=== PATIENT | male | born 2005 ===

== ENCOUNTER 2024-12-12 15:00 | Outpatient (AMB) | payer OTHER, MEDICAID, SELFPAY ==
--- OUTSIDE RECORDS SUMMARY | 2024-12-08 13:30 | XMS_ITS | Encounter Summary ---
Author Organization [facility] Address [address] [place] [address] Care Team Providers Care Research Environmental Engineer Name Role Phone Romy rBown MD Primary Care Provider [phone] Reason for Visit * Consultation (Routine) - Authorized Specialty Diagnoses / Procedures Referred By Contalfredo t Referred To Contact Physical Therapy Diagnoses Chronic migraine with aura, not intractable, with status migrainosus Kathy Ruelas MD [address] [address] Phone: tel: fax: Referral ID Status Reason Start Date Expiration Date Visits Requested Visits Authorized [id number] Authorized Specialty Services Required 10/08/2024 10/08/2025 21 21 Encounter Details Date Type Department Care Team (Late st Contact Info) Description 12/08/2024 1:30 PM EDT Treatment Outpatient Rehabilitation [address] [address] Pablo Kat, PT Chronic migraine with aura, not intractable, with status migrainosus (Primary Dx) Social History Tobacco Use Types Packs/Day Years Used Date Smoking Tobacco: Never Assessed Sex and Gender Information Value Date Recorded Sex Assigned at Not on file Legal Sex Male 8:03 PM EDT Gender Identity Not on file Sexual Orientation Not on file documented as of this encounter Progress Notes * Pablo Kat PT - 12/08/2024 1:30 PM EDT [facility] PHYSICAL THERAPY PROGRESS NOTE Date: 12/08/2024 Visit Number: [id number] Patient Name: Herman Rodney Prefers Akira : 2005 Age: 19 y.o. Gender: male Diagnosis: ICD-10-CM ICD-9-CM 1. Chronic migraine with aura, not intractable, with status migrainosus G43.E01 346.02 Date of Onset: 09/25/2024 Date of IEPT: 10/14/24 Referring Provider: Romy Brown MD Insurance: Payor: [employer] / Plan: [facility] [employer] / Product Type: *No Product type* / Patient Identified by: Pablo Kat PT Language: Speaks and understands Cape Verdean as preferred language with no staff interpreter required Medications: Discussed current medications that may impact therapy. Medication list obtained and reviewed. Referto document in medical record. Advised Patient to contact MD with any questions regarding medications and importance of managing medication information. Past Medical History: JRA- diagnosed in 2013 Ankylosis Spondylitis- unsure of sites Chronic Migraines Asthma ADHD AMPS Past Surgical History: Botox injections q 3 months and Nerve blocks in b/w those. Infusions for Arthritis. Allergies: Allergy medication (pill)- cannot recall the name Precautions: None Fall Risk: No SUBJECTIVE: Subjective Report: Pt reports L levator scap pain=5/10 today. Chart Reviewed: Yes Pain: OBJECTIVE: Pt had multiple MTP at L levator scap and B UT.s TREATMENT INTERVENTIONS: (This Date of Service) Therapeutic Exercise: UBE 3x3 after MT Pt instructed in standing levator scap stretch with emphasis on maintaining axial extension throughout stretch to include demo and trial. Written instructions issued and reviewed w/ patient. Denies questions at this time. Manual therapy: IAMT to the aforementioned MTP's. No charge for actual DN, just pre and post palpation assessment of MTP's. Use of manual ES, 10 bouts, 10 seconds each to each needle to motor response but w/in comfort range. Discussed post DN instructions: Inc water intake for the next 24 hours, use of CP's for bruising and MH for muscle soreness. Pt agreed. Response to Therapy Session: good, pt rated L LS pain to be 4/10 after today's treatment. Pt was able to return demonstration of new HEP after instruction. Pt was able to repeat back post DN instructions. Patient Education: Education provided: Reassessment findings and progressions to date reviewed, POC and cont'd goals discussed- pt agrees as outlined. Education Provided To: Patient utilizing Explanation mode(s) of education Response to Education: Verbal Understanding PLAN POC Development/Review: No Change in the Plan of Care; Participants: Patient Pt to CB in 2-3 days to report response to IAMT. Planned Therapy Interventions: Cold Pack, E-Stim -- Unattended, Hot Pack, Manual Therapy, and Therapeutic Exercise Recommended Consults: none Equipment Recommended: none; Equipment Provided: Frequency/Duration: will schedule an additional session for dry needling and will then schedule accordingly pending results Total Treatment Time: 35 Interventions Time Entry: Modalities: Therapeutic procedures: Documentation completed by Pablo Kat PT OUTPATIENT [address] Dept: [phone] Dept PATIENT NAME: Herman Rodney : 2005 documented in this encounter Plan of Treatment Upcoming Encounters Date Type Department Care Team (Late st Contact Info) Description 12/19/2024 3:00 PM EDT Consult Pulmonolgy - [place] [address] [address] Elvin Clark MD [address] [address] 12/23/2024 1:30 PM EDT Treatment Outpatient [address] [phone] Christiano Holder PT documented as of this encounter Visit Diagnoses Diagnosis Chronic migraine with aura, not intractable, with status migrainosus- Primary documented in this encounter Care Teams Research Environmental Engineer Relationship Specialty Start Date End Date Romy Brown MD [address] [place] [address] PCP - General Pediatrics 04/28/24 documented as of this encounter
--- OUTSIDE RECORDS SUMMARY | 2024-12-11 13:30 | XMS_ITS | Encounter Summary ---
Author Organization [facility] Address [address] [place] [address] Care Team Providers Care Science Manager Name Role Phone Romy Brown MD Primary Care Provider [phone] Roe Mercado MD Unavailable [phone] Kathy Ruelas MD Unavailable [phone] Anoop Mackay MD PhD Unavailable [phone] Lata Santamaria MD Unavailable [phone] Reason for Visit * Reason Comments OT Treatment * CFC AUTH/CERT (Routine) - Authorized Specialty Diagnoses / Procedures Referred By Medhat conway Referred To Contact Occupational Therapy Diagnoses OT rx exp: 01/17/25 Procedures BIOFEEDBACK EVAL 45 Cami Wilkerson APRN [address] [place] [address] Phone: tel: fax: Lorenza Young OTR/L [address] [place] [address] Referral ID Status Reason Start Date Expiration Date V isits Requested Visits Authorized [id number] Authorized 11/17/2024 12/30/2024 1 999 Encounter Details Date Type Department Care Team (Late st Contact Info) Description 12/11/2024 1:30 PM EDT Therapy Department of Occupational Therapy [address] [place], [place] [phone] Lorenza Young OTR/Asher [address] [place] [address] Self-care deficit (Primary Dx); CHARLY (juvenile idiopathic arthritis), enthesitis related arthritis; Chronic migraine with aura and with status migrainosus, not intractable; Amplified musculoskeletal pain syndrome; Psychological factors affecting medical condition Social History Tobacco Use Types Packs/Day Years Used Date Smoking Tobacco: Never Passive Smoke Exposure: Never Smokeless Tobacco: Never Alcohol Use Standard Drinks/Week Comments Never 0 (1 standard drink = 0.6 oz pur e alcohol) Sex and Gender Information Value Date Recorded Sex Assigned at Not on file Legal Sex Male 2:22 AM EST Gender Identity Not on file Sexual Orientation Not on file documented as of this encounter Patient Instructions * Patient Instructions* HATTIE Tyler/Asher - 12/11/2024 1:30 PM EDT Images from the original note were not included. Aromatherapy Uses and Precautions What is aromatherapy? Aromatherapy is a holistic healing treatment that uses natural plant extracts to promote health andwell-being. It is also known as essential oil therapy. What are essential oils? Potent oils that are extracted from plants and evaporate at room temperature. They typically have astrong fragrance, but should not be confused with fragrance oils (many of which are synthetic/chemically made). Are essential oils safe to use with children? Not all essential oils are safe for children. All essential oils that are used on children should be diluted in a carrier oil. [place] oils, such as lemon, paskenta, grapefruit, orange, and Bergamot, can increase sensitivity to thesun for 24 hours after use, when applied to the skin. Do not allow children to ingest essential oils. Do not add undiluted essential oils to a child's bathwater or their skin. Keep essential oils out of reach and try to find child resistant caps. Do not apply EO's to or near a child's face. Do not place EO's or preparations into the nose of a child. Do not expose children 5yo or younger to strong EO vapors. Do not use EO's in premature infants. Avoid use of EO's with children who have asthma or other airway hyper-reactivity. Sweet birch and Rentz Eos should be completely avoided in children. Essential oil dilutions should first be applied in a test patch to make sure the child does not have a negative skin reaction. Sterling (2014) How to choose your Essential Oil for Purchase: Essential oils are not regulated by the Food and Drug Administration, so not all of the same type of oil, sold by different companies, are the same quality. Essential oils by 1 type of plant can have different effects than another type. For example, there are over 45 types of Lavender and some are calming and some are stimulating. Read the label - the label should include: Common Name (ie. Lavender) Latin/botanical name (Lavandula Angustifolia) - Where the plant was sourced (Country of Origin) - Part of the plant that was used (flower, leaf, stem, root) - How the Essential Oil was extracted/processed (cold pressed, steam distilled, etc) - Lot number and expiration date - 3rd Green Party Tested - Testing is referenced and the testing can be looked up or produced upon request Cheaper is not always better. Beware buying essential oils from the [employer], Diary.com, etc, as they can be labeled Pure or Natural, but contain manmade chemicals or no essential oil at all, because they are not regulated by the FDA. Carrier Oils to Consider: Coconut oil, apricot kernel oil, olive oil, safflower, jojoba, sweet almond, etc. Each oil can have different qualities - warming or cooling, good for the face, etc. Complete a test patch first. Test Patch: Place a small amount on the inside of your child's wrist (carrier oil and/or essential oil diluted in carrier oil); watch for any skin irritation, rash, etc. If skin irritation or reaction occurs, wash completely with unscented soap and water for 10 minutes and consider an oatmeal bath if skin remains irritated. Safe Dilution rate for Topical/Skin use for children Amarilis (2015) Age Drops Dilution Rate Preemies [place] only - Hydrosols N/A [place] to 6 months 1drop in 20 mL 0.25% 6 months to 2 years 1 drop in 10 mL 0.5% 2 to 5 years 1 drop in 5 mL 1% 5 to 10 years 1-2 drops in 5 mL 1-2% More than 10 years 1 to 5 drops in 5mL 1-5% Baths: Essential oils should be diluted with castile soap, shampoo, shower gel, or vegetable oils before being placed in a bath. DO NOT USE: milk, salt, soda, corn starch, Witch Mary Kay, Glycerin, or Aloe gel - all of these are water soluble and will not dilute the Essential Oil. For children 2-6 yrs old: Mix 1 Tablespoon of the castile soap, shampoo, shower gel, or vegetable oils and 2-4 drops of essential oil, then place it in the bath. For children 6 and older: Mix 1 Tablespoon of the castile soap, shampoo, shower gel, or vegetable oils and 3-5 drops of essential oil before adding it to a bath. References Lay Olmos (2015). Clinical Aromatherapy: Essential Oils in Healthcare, Edition 3. Elsevier: [place], [place]. [employer].org Sam Katz & Sam Howard (2014). Essential Oil Safety: The Guide for Health Pet Technologist, 2nd Edition. [facility]. Begin trying to get up at the same time each day. (Possibly 10) - Eating breakfast - granola bar, protein source - PB, yogurt, etc.) - shake currently in the morning - Brushing teeth, getting dressed - Try to complete 1 thing in the morning - walk the dogs, do 1 chore, etc - Try eating lunch - leftovers from the night before, etc - Relaxation activity - computer, go sit outside in the sun, take a short walk, woodworking for 10 minutes, etc - Try to complete 1 activity in the afternoon - pick up driver laundry from floor in your room - Dinner - Relaxation Try staying out of your bed during the day, don't get in bed until you are ready to go to sleep. Try the TENS unit several times this week and see if you are getting any relief. Binaural beats for sleep - do a youtube search Try audible books or reading book - Try [place] Sleep Strategies for Difficulty Falling or Staying Asleep - Journal or write your thoughts down before bed - Read a book - Complete diaphragmatic or square breathing to help to relax you - Try Progressive Muscle Relxation - Play the alphabet game - choose a category and try to come up with 1 item for each letter of the alphabet (Fruits/Veggies - A- apple, B Beets, etc) - Count sheep or other animals - Try counting backwards from a random number by 4's, 5's, 7's, etc. - If you can't fall asleep within 20 minutes, try getting out of bed and sitting in a chair to reada book, look through a magazine, or other quiet activity (not screen time) for up to 15 minutes before trying to get back into bed. documented in this encounter Progress Notes * SUZANNE Tyler - 12/11/2024 1:30 PM EDT Occupational Therapy Progress Note Patient Name: Herman Noguera) Date of : 2005 Diagnosis: (Z78.9) Self-care deficit (primary encounter diagnosis) (M08.80) CHARLY (juvenile idiopathic arthritis), enthesitis related arthritis (G43.E01) Chronic migraine with aura and with status migrainosus, not intractable (M79.18, G89.4) Amplified musculoskeletal pain syndrome (F54) Psychological factors affecting medical condition Precautions/Contraindications: Index Date of Visit: 12/11/2024 Start Time: 1330 End Time: 1435 Pain: Numeric Pain Scale Pre treatment Pain Score: 6 Location: neck and shoulders Post treatment Pain Score: 4 Location: neck and shoulders Subjective: Patient/Family report since last session: He is on hold for PT till after pain management appointment. He did try to use the TENS unit a couple times this week, not sure if overly helpful. Better with getting out of bed around the same time - by 10AM, some mornings earlier. Trying to eat breakfast.Went to the gym, but was then sore for a 3-4 days. Patient/Parent report performing home exercise program: consistently Objective: Hot pack with Pain neuroscience education Neck lateral flexion and rotation exercises Goals for week reviewed - able to get up by 10 everyday, eating breakfast, but no AM activities/exercise/other activity at this time Increased effort for woodworking later in the day Education on sleep strategies Care Plan: Occupational Therapy Care Plan - 12/11/24 1411 Pediatric OT Care Plan OT Care Plan Status Continuing Visit Tracking 05/14 LTG to be met by: 02/17/25 STG to be met by: 12/18/24 Number of LTGs 2 Blood Bank Laboratory Technician Goal 1 LTG 1 Akira will demonstrate ability to make tool box for strategies for dealing with pain and utilize 2-3 tools when experiencing pain 50% of the time by the end of the plan of care. LTG 1 - Established 11/17/24 LTG 1 - Outcome In Progress LTG 1 - Outcome Comments still working on strategies, including sleep strategies Blood Bank Laboratory Technician Goal 2 LTG 2 Akira will be able to make and follow a functional daily schedule to promote participation inmeaningful activities LTG 2 - Established 11/17/24 LTG 2 - Outcome In Progress LTG 2 - Outcome Comments continuing to tackle brief schedule [id number] each week, goal for next week is to incorporate at least 1 activity into morning routine - chore, walking the dogs, etc STG 1 STG 1 Akira will be able to engage in at least 15 minutes of exercise/physical activity each day 75% of days by end of 4th week. STG 1 - Established 11/17/24 STG 1 - Outcome In Progress STG 1 - Outcome Comments he did attend PT and the gym x1, then was sore for 4 days STG 2 STG 2 Akira will be able to engage in at least 3-4 meals or snacks per day by end of 4th week. STG 2 - Established 11/17/24 STG 2 - Outcome In Progress STG 2 - Outcome Comments he is now eating at least breakfast, dinner and 1 snack Assessment: Akira continues to progress very gradually [id number] with continued decreased activity level. Will continue to educate on PNE and work on coping strategies/sleep/etc. Procedures Administered: Therapeutic Exercise: Time Spent: 10minutes ROM Therapeutic Activities: Time Spent: 55minutes self regulation and behavior strategies Prognosis: fair and good Education Provided: Updated home exercise program Plan: Recommendation for Occupational Therapy: Patient will continue to be treated using skilled Occupational Therapy services addressing their body structures/functions, activity participation, restrictions and goals. Frequency: 1x per week Duration: 12 weeks until updated plan of care to be updated on 02/17/25. At next session work on more digital daily schedule, explore exercise. Abbreviations: HEP (home exercise program), L (left), R (right), B (bilateral), A (assist), min (minimum), mod (moderate), max (maximum), WICHITA (hand over hand), bpm (beats per minute), HR (heart rate), BP (blood pressure), rep(s) (repetitions), WOB (work of breathing), WNL (within normal limits), WFL (within functional limits); LOB (loss of balance), CGA (contact guard assist), OOB (out of Bed), EOB (Edge of bed), ROM (range of motion), PROM (passive range of motion), AROM (active range of motion), AAROM (active assisted range of motion), MMT (manual muscle testing), LE (lower extremity), UE (upper extremity), < (less than), > (greater than), </= (less than or equal to), NT (not tested), OT (occupational therapy), PT (physical therapy), FOOD PRODUCT INSPECTOR (Speech-Language Pathologist), WB (weight bearing), WS (weight shift), wc (wheelchair), GM (gross motor), FM (fine motor), TLP (Therapeutic Listening), AVS (after visit summary) documented in this encounter Plan of Treatment Upcoming Encounters Date Type Department Care Team (Late st Contact Info) Description 12/18/2024 1:30 PM EDT Therapy Department of Occupational Therapy [address] [place] [phone] Lorenza Young OTR/L [address] [place] [address] 12/19/2024 11:30 AM EDT Office Visit [facility], Department of Pain Medicine, [place] [address] [place] [phone] Cami Wilkerson APRN [address] [place] [address] 12/22/2024 12:30 PM EDT [facility] [address] [facility] 2nd [place] [address] CHARLY (juvenile idiopathic arthritis) (Primary Dx) 12/25/2024 11:00 AM EDT Telemedicine Support [facility] [address] [facility], 9th Floor [address] [place] [phone] Darrell Velazquez Psy.D. [address] [place] [address] 12/25/2024 1:30 PM EDT Therapy Department of Occupational Therapy [address] [place] [address] Lorenza Young, OTR/L [address] [place] [phone] 01/01/2025 1:30 PM EDT Therapy Department of Occupational Therapy [address] [place] [address] Lorenza Young, OTR/L [address] [place] [address] 01/08/2025 1:30 PM EDT Therapy Department of Occupational Therapy [address] [place] [address] Lorenza Young, OTR/L [address] [place] [address] 01/15/2025 1:30 PM EDT Therapy Department of Occupational Therapy [address] [place] [address] Lorenza Young, OTR/L [address] [place] [address] 01/19/2025 12:30 PM EDT Appointment [facility] [address] [place] [address] 01/22/2025 1:30 PM EDT Therapy Department of Occupational Therapy [address] [place] [address] Lorenza Young OTR/L [address] [place] [address] 01/28/2025 3:30 PM EDT Appointment [facility] [address] [place] [phone] Anselmo De Santiago MD [address] [place] [address] 01/29/2025 1:30 PM EDT Therapy Department of Occupational Therapy [address] [place] [address] Lorenza Young, OTR/L [address] [place] [address] 02/05/2025 1:30 PM EST Therapy Department of Occupational Therapy [address] [place] [address] Lorenza Young, OTR/L [address] [place] [address] 02/11/2025 12:45 PM EST Appointment [facility] [address] [place] [phone] Anselmo De Santiago MD [address] [place] [address] 02/12/2025 1:30 PM EST Therapy Department of Occupational Therapy [address] [place] [address] Lorenza Young, OTR/L [address] [place] [address] 02/19/2025 1:30 PM EST Therapy Department of Occupational Therapy [address] [place] [address] Lorenza Young, OTR/L [address] [place] [address] 02/25/2025 9:00 AM EST Office Visit [facility] Gastroenterology, [address] [address] Lata Santamaria MD [address] [place], [place] [phone] 03/04/2025 12:00 PM EST Appointment [facility] [address] [place] [phone] Anselmo De Santiago MD [address] [place], [place] [phone] 05/21/2025 2:00 PM EST Office Visit [facility], Department of Rheumatology, [place] [address] [place] [address] Stephanie Diaz MD [address] [place] [phone] documented as of this encounter Visit Diagnoses Diagnosis Self-care deficit- Primary CHARLY (juvenile idiopathic arthritis), 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 Chronic migraine with aura and with status migrainosus, not intractable Amplified musculoskeletal pain syndrome Unspecified myalgia and myositis Psychological factors affecting medical condition Psychic factors associated with diseases classified elsewhere CHARLY (juvenile idiopathic arthritis)- Primary Other specified inflammatory polyarthropathies documented in this encounter Care Teams Science Manager Relationship Specialty Start Date End Date Romy Brown MD [address] [place] [address] [address] [place] [address] PCP - General 11/12/15 Roe Mercado MD [address] [place] [address] Consulting Physician Neurology 10/31/18 Kathy Ruelas MD [address] [place] [address] Consulting Physician Pain Medicine 10/31/18 Anoop Mackay MD PhD [address] [facility] [address] [place] [address] Consulting Physician Pediatric Pulmonology 01/08/22 Lata Santamaria MD [address] [place] [address] Consulting Physician Gastroenterology 11/15/23 Marni Smallwood LCSW [facility] [address] [facility] [address] [facility] [address] Behavioral Health Clinician Behavioral Health 03/14/22 documented as of this encounter
[2024-12-12 15:01] VITALS: BP 114/60; PULSE 98; O2SAT 102; BMI 20.8
--- NOTE | 2024-12-12 15:01 | A.OFFVIS_ITS ---
Vital Signs 12/12/24 15:01 Height 6 ft 4 in Weight 171 lb BMI 20.8 BP 114/60 Blood Pressure Location Rt brachial Position Sitting Pulse 98 Pulse Source Pulse Oximeter Pulse Oximetry (%) 102 H Oxygen Delivery Method Room Air Intake Visit Reasons: asthma Allergies beclomethasone (From Qvar RediHaler) Allergy (Severe, Verified 12/12/24 15:07) Unknown HPI Comments Details: The patient is here for pulmonary evaluation. 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 His asthma had been followed closely by pediatric Pulmonary for many years. He was not Wixela and ultimately on a rescue inhaler. He has been struggling with his asthma symptoms. The patient did have blood work done demonstrating significant eosinophilia up to 800. The family was wondering if the use it Fasenra be effective in improving his overall symptoms. In addition to the asthma symptoms he has complaint of significant chronic headaches and daytime drowsiness. His Brussels score is elevated 13/24. He struggles to stay awake. The patient states that for the last year he has had significant amount of weight loss and even after sleeping 8-10 hours he still wakes up tired. He has never had a home sleep study at this point will request 1. The patient also has a diagnosis of rheumatoid arthritis follow it could they could [facility] he does get his biologic infusions there. Will go ahead and request additional blood work to see if this any potential connective tissue disease affect his breathing or immunosuppressive condition affected by the medication. The patient will continue with his current respiratory therapy for now hopefully we can start him on Fasenra soon. In the meantime the patient will have pulmonary function studies and a chest x-ray prior to the next visit. FOR[facility]LY [facility], [facility] Medical History (Updated 12/14/24 @ 20:30 by Jovanny Smith MD) Chronic headaches Juvenile rheumatoid arthritis Asthma Chronic fatigue Social History (Updated 12/12/24 @ 15:07 by ERIKA Jorge) Patient Tobacco Use Status: Never used Tobacco Review of Systems Const Reports body aches, Denies fever(s) and Reports headache(s) Eyes Reports no additional complaints ENT Reports headache(s) and Reports nasal congestion Card Denies chest pain Resp Reports cough and Reports wheezing GI Reports heartburn Musc Reports as per HPI, Reports arthralgias, Reports joint swelling and Reports limited range of motion Skin/Breast Denies rash Neuro Reports headache(s) Gustavo/Lymph Reports no additional complaints Aller/Immun Reports wheezing Physical Exam Vital Signs: Last Vital Signs Pulse 98 12/12/24 15:01 BP 114/60 12/12/24 15:01 Pulse Ox 102 H 12/12/24 15:01 Oxygen Delivery Method Room Air 12/12/24 15:01 BMI result Body Mass Index 20.8 Const General: comfortable Orientation/consciousness: patient oriented x3 HEENT Head: Yes normocephalic Neck Neck: Yes supple Chest Chest palpation & inspection: normal inspection of the chest Resp Effort & Inspection: normal respiratory effort Auscultation: diminished lung sounds Cardio Heart sounds: S1 normal heart sound present and S2 normal heart sound present GI Palpation (GI): Soft to palpation Skin General skin exam: no rashes or lesions noted Neuro General: patient oriented x3 Extrem General: Yes no clubbing, cyanosis or edema Assessment & Plan Assessment & Plan (1) Chronic fatigue: Code(s): R53.82 - Chronic fatigue, unspecified Category: Medical (2) Asthma: Comment: Eosinophilic asthma Code(s): J45.909 - Unspecified asthma, uncomplicated Category: Medical Qualifiers: Asthma severity: moderate Asthma persistence: persistent Asthma complication type: uncomplicated Qualified Code(s): J45.40 - Moderate persistent asthma, uncomplicated (3) Juvenile rheumatoid arthritis: Code(s): M08.00 - Unspecified juvenile rheumatoid arthritis of unspecified site Category: Medical (4) PATI (obstructive sleep apnea): Code(s): G47.33 - Obstructive sleep apnea (adult) (pediatric) Category: Medical (5) Chronic headaches: Code(s): R51.9 - Headache, unspecified; G89.29 - Other chronic pain Category: Medical Qualifiers: Headache type: unspecified Plan Continue Wixela ALVIN as needed continue Singulair Start Fasenra Home PSG PFTs F/U 2 months Orders: Orders ANCA Vasculitides 12/12/24 J45.909 - Unspecified asthma, uncomplicated, M08.00 - Unspecified juvenile rheumatoid arthritis of unspecified site, R53.82 - Chronic fatigue, unspecified Hypersensitive Pneumonitis Prf 12/12/24 J45.909 - Unspecified asthma, uncomplicated, M08.00 - Unspecified juvenile rheumatoid arthritis of unspecified site, R53.82 - Chronic fatigue, unspecified, R91.8 - Other nonspecific abnormal finding of lung field PFT pulmonary function test Today J45.40 - Moderate persistent asthma, uncomplicated Complete Blood Count Auto Diff 12/12/24 J45.909 - Unspecified asthma, uncomplicated, M08.00 - Unspecified juvenile rheumatoid arthritis of unspecified site, R53.82 - Chronic fatigue, unspecified Erythrocyte Sedimentation Rate 12/12/24 J45.909 - Unspecified asthma, uncomplicated, M08.00 - Unspecified juvenile rheumatoid arthritis of unspecified site, R53.82 - Chronic fatigue, unspecified Immunoglobulin E 12/12/24 J45.909 - Unspecified asthma, uncomplicated, M08.00 - Unspecified juvenile rheumatoid arthritis of unspecified site, R53.82 - Chronic fatigue, unspecified Immunoglobulins,IgG IgA IgM 12/12/24 J45.909 - Unspecified asthma, uncomplicated, M08.00 - Unspecified juvenile rheumatoid arthritis of unspecified site, R53.82 - Chronic fatigue, unspecified TSH reflex Free T4 12/12/24 J45.909 - Unspecified asthma, uncomplicated, M08.00 - Unspecified juvenile rheumatoid arthritis of unspecified site, R53.82 - Chronic fatigue, unspecified Testosterone, Total 12/12/24 J45.909 - Unspecified asthma, uncomplicated, M08.00 - Unspecified juvenile rheumatoid arthritis of unspecified site, R53.82 - Chronic fatigue, unspecified RT home sleep study Today G47.33 - Obstructive sleep apnea (adult) (pediatric) Coding Level of Care Code New Pt Level 5 (32107) Diagnoses Chronic fatigue R53.82 Moderate persistent asthma without complication J45.40 Asthma severity: moderate Asthma persistence: persistent Asthma complication type: uncomplicated Juvenile rheumatoid arthritis M08.00 PATI (obstructive sleep apnea) G47.33 Chronic headaches R51.9; G89.29 Headache type: unspecified Time Spent (min) 60
--- OUTSIDE RECORDS SUMMARY | 2024-12-12 17:33 | XMS_ITS | Encounter Summary ---
Author Organization [facility] Address [address] [place] [address] Care Team Providers Care Production Solderer Name Role Phone Romy Brown MD Primary Care Provider [phone] Roe Mercado MD Unavailable [phone] Kathy Ruelas MD Unavailable Anoop Mackay MD PhD Unavailable [phone] Lata Santamaria MD Unavailable [phone] Reason for Visit * Reason Comments Medication Refill Encounter Details Date Type Department Care Team ([facility] st Contact Info) Description 08/12/2021 Refill [facility], Department of Pain Medicine, [address] [place] [address] Kathy Ruelas MD [address] [place], [place] [phone] Chronic migraine with aura Social History Tobacco Use Types Packs/Day Years Used Date Smoking Tobacco: Never Smokeless Tobacco: Never Alcohol Use Standard Drinks/Week Comments Never 0 (1 standard drink = 0.6 oz pur e alcohol) Sex and Gender Information Value Date Recorded Sex Assigned at Not on file Legal Sex Male 2:22 AM EST Gender Identity Not on file Sexual Orientation Not on file documented as of this encounter Miscellaneous Notes * Telephone Encounter - Samia Kenny RN - 08/12/2021 4:17 PM EDT Refill request for propranolol Last visit 04/21/21 Next visit 08/18/21 RN forward update to provider documented in this encounter Plan of Treatment Upcoming Encounters Date Type Department Care Team (Late st Contact Info) Description 12/18/2024 1:30 PM EDT Therapy Department of Occupational Therapy [address] [place] [address] Lorenza Young OTR/L [address] [place] [address] 12/19/2024 11:30 AM EDT Office Visit [facility], Department of Pain Medicine, [place] [address] [place] [address] Cami Wilkerson APRN [address] [place] [address] 12/22/2024 12:30 PM EDT Hospital Encounter Infusion Center 10 [facility] 2nd [place] [address] CHARLY (juvenile idiopathic arthritis) (Primary Dx) 12/25/2024 11:00 AM EDT Telemedicine Support [facility] [address] [place] [address] [address] [facility], 9th Floor [address] [place] [phone] Darrell Velazquez Psy.D. [address] [place] [address] 12/25/2024 1:30 PM EDT Therapy Department of Occupational Therapy [address] [place] [address] Lorenza Young OTR/L [address] [place] [address] 01/01/2025 1:30 PM EDT Therapy Department of Occupational Therapy [address] [place] [address] Lorenza Young, OTR/L [address] [place] [address] 01/08/2025 1:30 PM EDT Therapy Department of Occupational Therapy [address] [place] [address] Lorenza Young, OTR/L [address] [place] [address] 01/15/2025 1:30 PM EDT Therapy Department of Occupational Therapy [address] [place] [address] Lorenza Young, OTR/L [address] [place] [address] 01/19/2025 12:30 PM EDT Appointment [facility] [address] [place] [phone] 01/22/2025 1:30 PM EDT Therapy Department of Occupational Therapy [address] [place] [address] Lorenza Young, OTR/L [address] [place], [place] [phone] 01/28/2025 3:30 PM EDT Appointment [facility] [address] [place] [phone] Anselmo De Santiago MD [address] [place] [address] 01/29/2025 1:30 PM EDT Therapy Department of Occupational Therapy [address] [place] [address] Lorenza Young, OTR/L [address] [place] [address] 02/05/2025 1:30 PM EST Therapy Department of Occupational Therapy [address] [place] [address] Lorenza Young OTR/L [address] [place] [address] 02/11/2025 12:45 PM EST Appointment [facility] [address] [place] [phone] Anselmo De Santiago MD [address] [place] [address] 02/12/2025 1:30 PM EST Therapy Department of Occupational Therapy [address] [place], [place] [phone] Lorenza Young, OTR/L [address] [place] [address] 02/19/2025 1:30 PM EST Therapy Department of Occupational Therapy [address] [place], [place] [phone] Lorenza Young, OTR/L [address] [place] [address] 02/25/2025 9:00 AM EST Office Visit [facility] Gastroenterology, [address] [address] Lata Santamaria MD [address] [place] [address] 03/04/2025 12:00 PM EST Appointment [facility] [address] [place] [phone] Anselmo De Santiago MD [address] [place] [address] 05/21/2025 2:00 PM EST Office Visit [facility], Department of Rheumatology, [address] [address] Stephanie Diaz MD [address] [place] [address] documented as of this encounter Visit Diagnoses Diagnosis Chronic migraine with aura CHARLY (juvenile idiopathic arthritis)- Primary Other specified inflammatory polyarthropathies documented in this encounter Care Teams Production Solderer Relationship Specialty Start Date End Date Romy Brown MD [address] [facility] [address] [place] [phone] PCP - General 11/12/15 Roe Mercado MD [address] [place] [address] Consulting Physician Neurology 10/31/18 Kathy Ruelas MD [address] [place] [address] Consulting Physician Pain Medicine 10/31/18 Anoop Mackay MD PhD [address] [phone] Consulting Physician Pediatric Pulmonology 01/08/22 Lata Santamaria MD [address] [place] [address] Consulting Physician Gastroenterology 11/15/23 Nery Alvarado, PhD [address] [place] [address] [address] [place] [address] Psychologist Psychology 10/31/18 11/02/21 Marni Smallwood [facility] [address] [facility] [address] [facility] [address] Behavioral Health Clinician Behavioral Health 03/14/22 documented as of this encounter
--- OUTSIDE RECORDS SUMMARY | 2024-12-12 17:33 | XMS_ITS | Encounter Summary ---
Author Organization [facility] Address [address] [place] [address] Care Team Providers Care Senior Environmental Scientist Name Role Phone Romy Brown MD Primary Care Provider Clayton Bazzi MD Unavailable Roe Mercado MD Unavailable [phone] Kathy Ruelas MD Unavailable [phone] Anoop Mackay MD PhD Unavailable [phone] Lata Santamaria MD Unavailable [phone] Reason for Visit * Reason Comments Medication Refill Encounter Details Date Type Department Care Team (Late st Contact Info) Description 04/08/2020 Refill [facility], Department of Pain Medicine, [address] [place] [address] Anselmo De Santiago MD [address] [place], [place] [phone] Chronic migraine (Primary Dx) Social History Tobacco Use Types [...] Telephone Encounter - Samia Kenny RN - 04/08/2020 11:49 AM EST Refill request for Botox which will be scheduled after 05/13/20 Last procedure 02/11/20 RN forward to provider. documented in this encounter Plan of Treatment Upcoming Encounters Date Type Department Care Team (Late st Contact Info) Description 12/18/2024 1:30 PM EDT Therapy Department of Occupational Therapy [address] [place] [phone] Lorenza Young, OTR/L [address] [place] [address] 12/19/2024 11:30 AM EDT Office Visit [facility], Department of Pain Medicine, [place] [address] [place] [address] Cami Wilkerson APRN [address] [place] [address] 12/22/2024 12:30 PM EDT Hospital Encounter Infusion Center 10 [facility] 2nd [place] [address] CHARLY (juvenile idiopathic arthritis) (Primary Dx) 12/25/2024 11:00 AM EDT Telemedicine Support [facility] [address] 85 [facility], 9th Floor [address] [place] [phone] Darrell Velazquez Psy.D. [address] [place] [address] 12/25/2024 1:30 PM EDT Therapy Department of Occupational Therapy [address] [place] [address] Lorenza Young, OTR/L [address] [place] [address] 01/01/2025 1:30 PM EDT Therapy Department of Occupational Therapy [address] [place], [place] [phone] Lorenza Young, OTR/L [address] [place] [address] 01/08/2025 1:30 PM EDT Therapy Department of Occupational Therapy [address] [place], [place] [phone] Lorenza Young, OTR/L [address] [place] [address] 01/15/2025 1:30 PM EDT Therapy Department of Occupational Therapy [address] [place] [address] Lorenza Young, OTR/L [address] [place] [address] 01/19/2025 12:30 PM EDT Appointment [facility] [address] [place] [phone] 01/22/2025 1:30 PM EDT Therapy Department of Occupational Therapy [address] [place] [address] Lorenza Young, OTR/L [address] [place] [address] 01/28/2025 3:30 PM EDT Appointment [facility] [address] [place] [phone] Anselmo De Santiago MD [address] [place], [place] [phone] 01/29/2025 1:30 PM EDT Therapy Department of Occupational Therapy [address] [place] [address] Lorenza Young, OTR/L [address] [place] [address] 02/05/2025 1:30 PM EST Therapy Department of Occupational Therapy [address] [place] [address] Lorenza Young, OTR/L [address] [place] [address] 02/11/2025 12:45 PM EST Appointment [facility] [address] [place] [phone] Anselmo De Santiago MD [address] [place] [address] 02/12/2025 1:30 PM EST Therapy Department of Occupational Therapy [address] [place], [place] [phone] Lorenza Young OTR/L [address] [place] [address] 02/19/2025 1:30 PM EST Therapy Department of Occupational Therapy [address] [place] [address] Lorenza Young, OTR/L [address] [place] [address] 02/25/2025 9:00 AM EST Office Visit [facility] Gastroenterology, [address] [address] Lata Santamaria MD [address] [place] [address] 03/04/2025 12:00 PM EST Appointment [facility] [address] [place] [phone] Anselmo De Santiago MD [address] [place] [address] 05/21/2025 2:00 PM EST Office Visit [facility], Department of Rheumatology, [address] [address] Stephanie Diaz MD [address] [place] [address] documented as of this encounter Visit Diagnoses Diagnosis Chronic migraine- Primary CHARLY (juvenile idiopathic arthritis)- Primary Other specified inflammatory polyarthropathies documented in this encounter Care Teams Senior Environmental Scientist Relationship Specialty Start Date End Date Romy Bronw MD [address] [facility] [address] [place] [phone] PCP - General 11/12/15 Clayton Bazzi MD [address] [place] [address] Consulting Physician Pediatric Rheumatology 10/31/18 Roe Mercado MD [address] [place] [address] Consulting Physician Neurology 10/31/18 Kathy Ruelas MD [address] [place] [address] Consulting Physician Pain Medicine 10/31/18 Anoop Mackay MD PhD [address] [phone] Consulting Physician Pediatric Pulmonology 01/08/22 Lata Santamaria MD [address] [place] [address] Consulting Physician Gastroenterology 11/15/23 Nery Alavrado, PhD [address] [place] [address] [address] [place] [address] Psychologist Psychology 10/31/18 11/02/21 Marni Smallwood [facility] [address] [address] Behavioral Health Clinician Behavioral Health 03/14/22 documented as of this encounter
--- OUTSIDE RECORDS SUMMARY | 2024-12-12 17:33 | XMS_ITS | Encounter Summary ---
Author Organization [facility] Address [address] [place] [address] Care Team Providers Care Assessment Nurse Practitioner Name Role Phone Romy Brown MD Primary Care Provider Clayton Bazzi MD Unavailable Roe Mercado MD Unavailable [phone] Kathy Mims MD Unavailable Anoop Mackay MD PhD Unavailable [phone] Lata Santamaria MD Unavailable [phone] Reason for Visit * Reason Comments Medication Refill Encounter Details Date Type Department Care Team (Late st Contact Info) Description 12/27/2018 Refill [facility], Department of Pain Medicine, [address] [place] [address] Kathy Mims MD [address] [place], [place] [phone] Chronic migraine without aura with status migrainosus, not intractable Social History Tobacco Use Types Packs/Day Years Used Date Smoking Tobacco: Never Alcohol Use Standard Drinks/Week Comments Not Asked 0 (1 standard drink = 0.6 oz pur e alcohol) Sex and Gender Information Value Date Recorded Sex Assigned at Not on file Legal Sex Male 2:22 AM EST Gender Identity Not on file Sexual Orientation Not on file documented as of this encounter Miscellaneous Notes * Telephone Encounter - Ledy Murrell RN - 12/31/2018 9:45 AM EDT Last seen on 12/04/[address] Mims Last filled on 10/23/18 F/u scheduled for 02/05/19 documented in this encounter Plan of Treatment Upcoming Encounters Date Type Department Care Team (Late st Contact Info) Description 12/18/2024 1:30 PM EDT Therapy Department of Occupational Therapy [address] [place] [phone] Lorenza Young, OTR/L [address] [place] [address] 12/19/2024 11:30 AM EDT Office Visit [facility], Department of Pain Medicine, [place] [address] [place] [address] Cami Wilkerson APRN [address] [place] [address] 12/22/2024 12:30 PM EDT Hospital Encounter Infusion [facility] 10 [facility] 2nd [place] [address] CHARLY (juvenile idiopathic arthritis) (Primary Dx) 12/25/2024 11:00 AM EDT Telemedicine Support [facility] [address] [place] 85 [facility], 9th Floor [address] [place] [phone] Darrell Velazquez Psy.D. [address] [place] [address] 12/25/2024 1:30 PM EDT Therapy Department of Occupational Therapy [address] [place] [address] Lorenza Young, OTR/L [address] [place] [address] 01/01/2025 1:30 PM EDT Therapy Department of Occupational Therapy [address] [place] [address] Lorenza Young, OTR/L [address] [place] [address] 01/08/2025 1:30 PM EDT Therapy Department of Occupational Therapy [address] [place] [address] Lorenza Young, OTR/L [address] [place] [address] 01/15/2025 1:30 PM EDT Therapy Department of Occupational Therapy [address] [place] [address] Lorenza Young, OTR/L [address] [place] [address] 01/19/2025 12:30 PM EDT Appointment [facility] [address] [place] [phone] 01/22/2025 1:30 PM EDT Therapy Department of Occupational Therapy [address] [place] [address] Lorenza Young, OTR/L [address] [place], [place] [phone] 01/28/2025 3:30 PM EDT Appointment [facility] [address] [place] [phone] Anselmo De Santiago MD [address] [place] [address] 01/29/2025 1:30 PM EDT Therapy Department of Occupational Therapy [address] [place] [address] Lorenza Young, OTR/L [address] [place] [address] 02/05/2025 1:30 PM EST Therapy Department of Occupational Therapy [address] [place] [address] Lorenza Young, OTR/L [address] [place] [address] 02/11/2025 12:45 PM EST Appointment [facility] [address] [place] [phone] Anselmo De Santiago MD [address] [place] [address] 02/12/2025 1:30 PM EST Therapy Department of Occupational Therapy 10 [place], [place] [phone] Samydwight Lorenza, OTR/L [address] [place] [address] 02/19/2025 1:30 PM EST Therapy Department of Occupational Therapy 10 [place], [place] [phone] Samydwight Lorenza, OTR/L [address] [place] [address] 02/25/2025 9:00 AM EST Office Visit [facility] Gastroenterology, [address] [address] Lata Santamaria MD [address] [place] [address] 03/04/2025 12:00 PM EST Appointment [facility] [address] [place] [phone] Anselmo De Santiago MD [address] [place] [address] 05/21/2025 2:00 PM EST Office Visit [facility], Department of Rheumatology, [address] [address] Stephanie Diaz MD [address] [place] [address] documented as of this encounter Visit Diagnoses Diagnosis Chronic migraine without aura with status migrainosus, not intractable CHARLY (juvenile idiopathic arthritis)- Primary Other specified inflammatory polyarthropathies documented in this encounter Care Teams Assessment Nurse Practitioner Relationship Specialty Start Date End Date Romy Brown MD 123 [facility] [address] [place] [phone] PCP - General 11/12/15 Clayton Bazzi MD [address] [place] [address] Consulting Physician Pediatric Rheumatology 10/31/18 Roe Mercado MD [address] [place] [address] Consulting Physician Neurology 10/31/18 Kathy Mims MD [address] [place] [address] Consulting Physician Pain Medicine 10/31/18 Anoop Mackay MD PhD [address] [phone] Consulting Physician Pediatric Pulmonology 01/08/22 Lata Santamaria MD [address] [place] [address] Consulting Physician Gastroenterology 11/15/23 Nery Alvarado, PhD [address] [place] [address] [address] [place] [address] Psychologist Psychology 10/31/18 11/02/21 Marni [facility] [address] [address] Behavioral Health Clinician Behavioral Health 03/14/22 documented as of this encounter
--- OUTSIDE RECORDS SUMMARY | 2024-12-12 17:34 | XMS_ITS | Encounter Summary ---
Author Organization [facility] Address [address] [place] [address] Care Team Providers Care Pmo Analyst Name Role Phone Romy Brown MD Primary Care Provider [phone] Clayton Bazzi MD Unavailable Roe Mercado MD Unavailable [phone] Kathy Ruelas MD Unavailable Anoop Mackay MD PhD Unavailable [phone] Lata Santamaria MD Unavailable [phone] Reason for Visit * Reason Comments Medication Refill Encounter Details Date Type Department Care Team (Late st Contact Info) Description 09/30/2018 Refill [facility] Neurology, [place] [address] [place] [address] Roe Mercado MD [address] [place] [address] Intractable migraine with status migrainosus, unspecified migraine type Social History Tobacco Use Types Packs/Day Years [...] encounter Miscellaneous Notes * Telephone Encounter - eNry Duke RN - 09/30/2018 11:19 AM EDT Last appointment: 05/30/2018 Next appointment: 12/26/2018 Dose verified from last office visit (pt of Dr Mercado) documented in this encounter Plan of Treatment Upcoming Encounters Date Type Department Care Team (Late st Contact Info) Description 12/18/2024 1:30 PM EDT Therapy Department of Occupational Therapy [address] [place] [address] Lorenza Young, OTR/L 282 [place] [address] 12/19/2024 11:30 AM EDT Office Visit [facility], Department of Pain Medicine, [facility] [address] [place] [address] Cami Wilkerson APRN 282 [place] [address] 12/22/2024 12:30 PM EDT Hospital Encounter Infusion Center 10 [facility] 2nd [place] [address] CHARLY (juvenile idiopathic arthritis) (Primary Dx) 12/25/2024 11:00 AM EDT Telemedicine Support [facility] [address] [place] 85 [facility], 9th Floor [address] [place] [phone] Darrell Velazquez Psy.D. [address] [place] [address] 12/25/2024 1:30 PM EDT Therapy Department of Occupational Therapy [address] [place] [address] Lorenza Young, OTR/L [address] [place] [address] 01/01/2025 1:30 PM EDT Therapy Department of Occupational Therapy [address] [place] [address] Lorenza Young, OTR/L [address] [place] [address] 01/08/2025 1:30 PM EDT Therapy Department of Occupational Therapy [address] [place] [address] Lorenza Young, OTR/L [address] [place] [address] 01/15/2025 1:30 PM EDT Therapy Department of Occupational Therapy [address] [place] [address] Lorenza Young, OTR/L [address] [place] [address] 01/19/2025 12:30 PM EDT Appointment [facility] [address] [place] [phone] 01/22/2025 1:30 PM EDT Therapy Department of Occupational Therapy [address] [place] [address] Lorenza Young, OTR/L [address] [place] [address] 01/28/2025 3:30 PM EDT Appointment [facility] [address] [place] [phone] Anselmo De Santiago MD [address] [place] [address] 01/29/2025 1:30 PM EDT Therapy Department of Occupational Therapy [address] [place] [address] Lorenza Young, OTR/L [address] [place] [address] 02/05/2025 1:30 PM EST Therapy Department of Occupational Therapy [address] [place] [address] Lroenza Young, OTR/L [address] [place] [address] 02/11/2025 12:45 PM EST Appointment [facility] [address] [place] [phone] Anselmo De Santiago MD [address] [place] [address] 02/12/2025 1:30 PM EST Therapy Department of Occupational Therapy 10 [place], [place] [phone] Lorenza Young, OTR/L [address] [place] [address] 02/19/2025 1:30 PM EST Therapy Department of Occupational Therapy 10 [place], [place] [phone] Lorenza Young, OTR/L [address] [place] [address] 02/25/2025 9:00 AM EST Office Visit [facility] Gastroenterology, [address] [address] Lata Santamaria MD [address] [place] [address] 03/04/2025 12:00 PM EST Appointment [facility] [address] [place] [phone] Anselmo De Santiago MD [address] [place] [address] 05/21/2025 2:00 PM EST Office Visit [facility], Department of Rheumatology, [address] [address] Stephanie Diaz MD [address] [place] [address] documented as of this encounter Visit Diagnoses Diagnosis Intractable migraine with status migrainosus, unspecified migraine type CHARLY (juvenile idiopathic arthritis)- Primary Other specified inflammatory polyarthropathies documented in this encounter Care Teams Pmo Analyst Relationship Specialty Start Date End Date Romy Brown MD 123 [facility] [address] [place] [phone] PCP - General 11/12/15 Clayton Bazzi MD 140 [place] [address] Consulting Physician Pediatric Rheumatology 10/31/18 Roe Mercado MD [address] [place] [address] Consulting Physician Neurology 10/31/18 Kathy Ruelas MD 282 [place] [address] Consulting Physician Pain Medicine 10/31/18 Anoop Mackay MD PhD [address] [phone] Consulting Physician Pediatric Pulmonology 01/08/22 Lata Santamaria MD [address] [place] [address] Consulting Physician Gastroenterology 11/15/23 Nery Alvarado, PhD [address] [place] [address] [address] [place] [address] Psychologist Psychology 10/31/18 11/02/21 Marni [facility] [address] [address] Behavioral Health Clinician Behavioral Health 03/14/22 documented as of this encounter
--- OUTSIDE RECORDS SUMMARY | 2024-12-12 17:34 | XMS_ITS | Encounter Summary ---
Author Organization [facility] Address [address] [place] [address] Care Team Providers Care Tanker Truck Driver Name Role Phone Romy Brown MD Primary Care Provider [phone] Clayton Bazzi MD Unavailable Roe Mercado MD Unavailable [phone] Kathy Ruelas MD Unavailable [phone] Anoop Mackay MD PhD Unavailable [phone] Lata Santamaria MD Unavailable [phone] Reason for Visit * Reason Comments Medication Refill Encounter Details Date Type Department Care Team (Late st Contact Info) Description 07/20/2019 Refill [facility] Neurology, [place] [address] [place] [address] Nigel Noel Jr., MD [address] [place], [place] [address] Social History Tobacco Use Types Packs/Day Years [...] encounter Miscellaneous Notes * Telephone Encounter - Kourtney Garay RN - 07/21/2019 8:22 AM EDT Received a refill request for pepcid for Edward. Pepcid is not prescribed by our office. Dr Mercado: Please REFUSE. Mas: Please call [facility] and have them send the refill request to the ordering provider. documented in this encounter Plan of Treatment Upcoming Encounters Date Type Department Care Team (Late st Contact Info) Description 12/18/2024 1:30 PM EDT Therapy Department of Occupational Therapy [address] [place] [address] Lorenza Young, OTR/L 282 [place] [address] 12/19/2024 11:30 AM EDT Office Visit [facility], Department of Pain Medicine, [place] [address] [place] [address] Cami Wilkerson APRN [address] [place] [address] 12/22/2024 12:30 PM EDT Hospital Encounter Infusion Center 10 [facility] 2nd [place] [address] CHARLY (juvenile idiopathic arthritis) (Primary Dx) 12/25/2024 11:00 AM EDT Telemedicine Support [facility] 85 [place] 85 [facility], 9th Floor [address] [place] [phone] Darrell Velazquez Psy.D. 282 [place] [address] 12/25/2024 1:30 PM EDT Therapy Department of Occupational Therapy [address] [place] [address] Lorenza Young, OTR/L 282 [place] [address] 01/01/2025 1:30 PM EDT Therapy Department of Occupational Therapy 10 [place], [place] [phone] Lorenza Young, OTR/L 282 [place] [address] 01/08/2025 1:30 PM EDT Therapy Department of Occupational Therapy 10 [place], [place] [phone] Lorenza Young, OTR/L [address] [place] [address] 01/15/2025 1:30 PM EDT Therapy Department of Occupational Therapy [address] [place] [address] Lorenza Young, OTR/L [address] [place] [address] 01/19/2025 12:30 PM EDT Appointment [facility] [address] [place] [phone] 01/22/2025 1:30 PM EDT Therapy Department of Occupational Therapy [address] [place] [address] Lorenza Young, OTR/L [address] [place], [place] [phone] 01/28/2025 3:30 PM EDT Appointment [facility] [address] [place] [phone] Anselmo De Santiago MD [address] [place] [address] 01/29/2025 1:30 PM EDT Therapy Department of Occupational Therapy [address] [place] [address] Lorenza Young, OTR/L [address] [place] [address] 02/05/2025 1:30 PM EST Therapy Department of Occupational Therapy [address] [place] [address] Lorenza Young, OTR/L [address] [place] [address] 02/11/2025 12:45 PM EST Appointment [facility] [address] [place] [phone] Anselmo De Santiago MD [address] [place] [address] 02/12/2025 1:30 PM EST Therapy Department of Occupational Therapy [address] [place] [address] Lorenza Young OTR/L [address] [place] [address] 02/19/2025 1:30 PM EST Therapy Department of Occupational Therapy [address] [place] [address] Lorenza Young, OTR/L [address] [place] [address] 02/25/2025 9:00 AM EST Office Visit [facility] Gastroenterology, [address] [address] Lata Santamaria MD [address] [place] [address] 03/04/2025 12:00 PM EST Appointment [facility] [address] [place] [phone] Anselmo De Santiago MD [address] [place] [address] 05/21/2025 2:00 PM EST [facility], Department of Rheumatology, [address] [address] Stephanie Diaz MD [address] [place] [address] documented as of this encounter Visit Diagnoses Not on filedocumented in this encounter Care Teams Tanker Truck Driver Relationship Specialty Start Date End Date Romy Brown MD [address] [facility] [address] [place] [phone] PCP - General 11/12/15 Clayton Bazzi MD 140 [place] [address] Consulting Physician Pediatric Rheumatology 10/31/18 Roe Mercado MD [address] [place] [address] Consulting Physician Neurology 10/31/18 Kathy Ruelas MD 282 [place] [address] Consulting Physician Pain Medicine 10/31/18 Anoop Mackay MD PhD [address] [place] [phone] Consulting Physician Pediatric Pulmonology 01/08/22 Lata Santamaria MD [address] [place] [address] Consulting Physician Gastroenterology 11/15/23 Nery Alvarado, PhD [address] [place] [address] [address] [place] [address] Psychologist Psychology 10/31/18 11/02/21 Marni Smallwood [facility] 3300 [facility], [facility] 4A [facility] [address] Behavioral Health Clinician Behavioral Health 03/14/22 documented as of this encounter
--- OUTSIDE RECORDS SUMMARY | 2024-12-12 17:34 | XMS_ITS | Encounter Summary ---
Author Organization [facility] Address [address] [place] [address] Care Team Providers Care Production Cost Estimator Name Role Phone Romy Brown MD Primary Care Provider Clayton Bazzi MD Unavailable Roe Mercado MD Unavailable [phone] Kathy Ruelas MD Unavailable [phone] Anoop Mackay MD PhD Unavailable [phone] Lata Santamaria MD Unavailable [phone] Encounter Details Date Type Department Care Team (Late st Contact Info) Description 04/04/2019 Telephone [facility], Department of Pain Medicine, [address] [place] [address] Anselmo De Santiago MD 282 [place], [place] [phone] Social History Tobacco Use Types Packs/Day Years Used Date Smoking Tobacco: Never Alcohol Use Standard Drinks/Week Comments Not Asked 0 (1 standard drink = 0.6 oz pur e alcohol) Sex and Gender Information Value Date Recorded Sex Assigned at Not on file Legal Sex Male 2:22 AM EST Gender Identity Not on file Sexual Orientation Not on file documented as of this encounter Plan of Treatment Upcoming Encounters Date Type Department Care Team (Late st Contact Info) Description 12/18/2024 1:30 PM EDT Therapy Department of Occupational Therapy [address] [place] [address] Lorenza Young, OTR/L [address] [place] 12/19/2024 11:30 AM EDT Office Visit [facility], Department of Pain Medicine, [place] [address] [place] [phone] Cami Wilkerson APRN [address] [place], [place] 12/22/2024 12:30 PM EDT Hospital Encounter [facility] 10 [facility] 2nd [place] [address] CHARLY (juvenile idiopathic arthritis) (Primary Dx) 12/25/2024 11:00 AM EDT Telemedicine Support [facility] [address] [place] [address], 9th Floor [address] [place] [phone] Darrell Velazquez Psy.D. [address] [place], [place] 12/25/2024 1:30 PM EDT Therapy Department of Occupational Therapy [address] [place] [address] Lorenza Young, OTR/L [address] [place] 01/01/2025 1:30 PM EDT Therapy Department of Occupational Therapy [address] [place] [address] Lorenza Young, OTR/L [address] [place] [address] 01/08/2025 1:30 PM EDT Therapy Department of Occupational Therapy [address] [place] [address] Lorenza Young, OTR/L [address] [place] [address] 01/15/2025 1:30 PM EDT Therapy Department of Occupational Therapy [address] [place], [place] [phone] Lorenza Young, OTR/L [address] [place] [address] 01/19/2025 12:30 PM EDT Appointment [facility] [address] [place] [address] 01/22/2025 1:30 PM EDT Therapy Department of Occupational Therapy [address] [place] [address] Lorenza Young, OTR/L [address] [place] [address] 01/28/2025 3:30 PM EDT Appointment [facility] [address] [place] [address] Anselmo De Santiago MD [address] [place] [address] 01/29/2025 1:30 PM EDT Therapy Department of Occupational Therapy [address] [place] [address] Lorenza Young, OTR/L [address] [place] [address] 02/05/2025 1:30 PM EST Therapy Department of Occupational Therapy [address] [place], [place] [phone] Lorenza Young, OTR/L [address] [place] [address] 02/11/2025 12:45 PM EST Appointment [facility] [address] [place] [phone] Anselmo De Santiago MD [address] [place] [address] 02/12/2025 1:30 PM EST Therapy Department of Occupational Therapy [address] [place] [address] Hector Lorenza, OTR/L [address] [place] [address] 02/19/2025 1:30 PM EST Therapy Department of Occupational Therapy [address] [place], [place] [phone] Hector Lorenza, OTR/L [address] [place] [address] 02/25/2025 9:00 AM EST Office Visit [facility] Gastroenterology, [address] [address] Lata Santamaria MD [address] [place] [address] 03/04/2025 12:00 PM EST Appointment [facility] [address] [place] [phone] Anselmo De Santiago MD [address] [place] [address] 05/21/2025 2:00 PM EST Office Visit [facility], Department of Rheumatology, [address] [address] Stephanie Diaz MD [address] [place] [address] documented as of this encounter Visit Diagnoses Not on filedocumented in this encounter Care Teams Production Cost Estimator Relationship Specialty Start Date End Date Romy Brown MD [address] [place] [phone] PCP - General 11/12/15 Clayton Bazzi MD 140 [place] [address] Consulting Physician Pediatric Rheumatology 10/31/18 Roe Mercado MD 505 [place] [address] Consulting Physician Neurology 10/31/18 Kathy Ruelas MD 282 [place] [address] Consulting Physician Pain Medicine 10/31/18 Anoop Mackay MD PhD [address] [place] [phone] Consulting Physician Pediatric Pulmonology 01/08/22 Lata Santamaria MD [address] [place] [address] Consulting Physician Gastroenterology 11/15/23 Nery Alvarado, PhD [address] [place] [address] [address] [place] [address] Psychologist Psychology 10/31/18 11/02/21 Marni Smallwood [facility] 3300 [facility] 4A [facility] [address] Behavioral Health Clinician Behavioral Health 03/14/22 documented as of this encounter
--- OUTSIDE RECORDS SUMMARY | 2024-12-12 17:34 | XMS_ITS | Encounter Summary ---
Author Organization [facility] Address [address] [place] [address] Care Team Providers Care Corporate Coordinator Name Role Phone Romy Brown MD Primary Care Provider Clayton Bazzi MD Unavailable Roe Mercado MD Unavailable [phone] Kathy Ruelas MD Unavailable [phone] Anoop Mackay MD PhD Unavailable [phone] Lata Santamaria MD Unavailable [phone] Encounter Details Date Type Department Care Team (Late st Contact Info) Description 01/11/2021 Telephone [facility] Neurology, [place] [address] Chelsea Mitchell [place] [address] [place] [address] Social History Tobacco Use Types Packs/Day Years [...] PM EDT Therapy Department of Occupational Therapy [address] [place] [address] Lorenza Young, OTR/L [address] [place] [address] 12/19/2024 11:30 AM EDT Office Visit [facility], Department of Pain Medicine, [place] [address] [place] [phone] Cami Wilkerson APRN [address] [place], [place] 12/22/2024 12:30 PM EDT Hospital Encounter [facility] 10 [facility] 2nd [place] [address] CHARLY (juvenile idiopathic arthritis) (Primary Dx) 12/25/2024 11:00 AM EDT Telemedicine Support [facility] [address] [place] [address], 9th Floor [address] [place] [phone] Darrell Velazquez Psy.D. [address] [place], [place] 12/25/2024 1:30 PM EDT Therapy Department of Occupational Therapy [address] [place] [address] Lorenza Young, OTR/L [address] [place] [address] 01/01/2025 1:30 PM EDT Therapy Department of Occupational Therapy [address] [place] [address] Lorenza Young, OTR/L [address] [place] [address] 01/08/2025 1:30 PM EDT Therapy Department of Occupational Therapy [address] [place] [address] Lorenza Young, OTR/L [address] [place] [address] 01/15/2025 1:30 PM EDT Therapy Department of Occupational Therapy [address] [place] [address] Lorenza Young, OTR/L [address] [place] [address] 01/19/2025 12:30 PM EDT Appointment [facility] [address] [place] [address] 01/22/2025 1:30 PM EDT Therapy Department of Occupational Therapy [address] [place] [address] Lorenza Young OTR/L [address] [place] [address] 01/28/2025 3:30 PM EDT Appointment [facility] [address] [place] [address] Anselmo De Santiago MD [address] [place], [place] [phone] 01/29/2025 1:30 PM EDT Therapy Department of Occupational Therapy [address] [place] [address] Lorenza Young, OTR/L [address] [place] [address] 02/05/2025 1:30 PM EST Therapy Department of Occupational Therapy [address] [place] [address] Lorenza Young, OTR/L [address] [place] [address] 02/11/2025 12:45 PM EST Appointment [facility] [address] [place] [address] Anselmo De Santiago MD [address] [place] [address] 02/12/2025 1:30 PM EST Therapy Department of Occupational Therapy [address] [place] [address] Samydwight Lorenza, OTR/L [address] [place] [address] 02/19/2025 1:30 PM EST Therapy Department of Occupational Therapy 10 [place] [address] Samydwight Lorenza, OTR/L [address] [place] [address] 02/25/2025 9:00 AM EST Office Visit [facility] Gastroenterology, [address] [address] Lata Santamaria MD [address] [place] [address] 03/04/2025 12:00 PM EST Appointment [facility] [address] [place] [phone] Anselmo De Santiago MD [address] [place] [address] 05/21/2025 2:00 PM EST Office Visit [facility], Department of Rheumatology, [address] [address] Stephanie Diaz MD [address] [place] [address] documented as of this encounter Visit Diagnoses Not on filedocumented in this encounter Care Teams Corporate Coordinator Relationship Specialty Start Date End Date Romy Brown MD [address] [place] [phone] PCP - General 11/12/15 Clayton Bazzi MD [address] [place] [address] Consulting Physician Pediatric Rheumatology 10/31/18 Roe Mercado MD 505 [place] [address] Consulting Physician Neurology 10/31/18 Kathy Ruelas MD [address] [place] [address] Consulting Physician Pain Medicine 10/31/18 Anoop Mackay MD PhD [address] [place] [address] 11 [place] [address] Consulting Physician Pediatric Pulmonology 01/08/22 Lata Santamaria MD [address] [place] [address] Consulting Physician Gastroenterology 11/15/23 Nery Alvarado, PhD [address] [place] [address] [address] [place] [address] Psychologist Psychology 10/31/18 11/02/21 Marni Smallwood [facility] 3300 [facility] 4A [facility] [address] Behavioral Health Clinician Behavioral Health 03/14/22 documented as of this encounter
--- OUTSIDE RECORDS SUMMARY | 2024-12-12 17:34 | XMS_ITS | Encounter Summary ---
Author Organization [facility] Address [address] [place] [address] Care Team Providers Care Saw Maker Name Role Phone Romy Brown MD Primary Care Provider [phone] Clayton Bazzi MD Unavailable Roe Mercado MD Unavailable [phone] Kathy Ruelas MD Unavailable Anoop Mackay MD PhD Unavailable [phone] Lata Santamaria MD Unavailable [phone] Reason for Visit * Reason Comments Medication Refill Encounter Details Date Type Department Care Team (Late st Contact Info) Description 02/06/2017 Refill [facility] Neurology, [place] [address] [place] [address] Roe Mercado MD [address] [place] [address] Intractable migraine with status migrainosus, unspecified migraine type (Primary Dx) Social History Tobacco Use Types [...] encounter Miscellaneous Notes * Telephone Encounter - Hanna Lara RN - 02/06/2017 4:33 PM EST Dose verified with 07/18/16 office visit. Follow up scheduled for 08/22/17. documented in this encounter Plan of Treatment Upcoming Encounters Date Type Department Care Team (Late st Contact Info) Description 12/18/2024 1:30 PM EDT Therapy Department of Occupational Therapy [address] [place] [address] Lorenza Young, OTR/L [address] [place] [address] 12/19/2024 11:30 AM EDT Office Visit [facility], Department of Pain Medicine, [place] [address] [place] [address] Cami Wilkerson APRN 282 [place] [address] 12/22/2024 12:30 PM EDT Hospital Encounter [facility] 10 [facility] 2nd [place] [address] CHARLY (juvenile idiopathic arthritis) (Primary Dx) 12/25/2024 11:00 AM EDT Telemedicine Support [facility] [address] [place] [address] 85 [facility], 9th Floor [address] [place] [phone] Darrell Velazquez Psy.D. [address] [place] [address] 12/25/2024 1:30 PM EDT Therapy Department of Occupational Therapy [address] [place] [address] Lorenza Young OTR/L [address] [place] [address] 01/01/2025 1:30 PM EDT Therapy Department of Occupational Therapy [address] [place] [address] Lorenza Young, OTR/L [address] [place] [address] 01/08/2025 1:30 PM EDT Therapy Department of Occupational Therapy [address] [place] [address] Lorenza Young, OTR/L [address] [place] [address] 01/15/2025 1:30 PM EDT Therapy Department of Occupational Therapy [address] [place] [address] Lorenza Young OTR/L [address] [place] [address] 01/19/2025 12:30 PM EDT Appointment [facility] Sedation Services [address] [place] [phone] 01/22/2025 1:30 PM EDT Therapy Department of Occupational Therapy [address] [place] [address] Lorenza Young OTR/L [address] [place], [place] [phone] 01/28/2025 3:30 PM EDT Appointment [facility] [address] [place] [phone] Anselmo De Santiago MD [address] [place] [address] 01/29/2025 1:30 PM EDT Therapy Department of Occupational Therapy [address] [place] [address] Lorenza Young, OTR/L [address] [place] [address] 02/05/2025 1:30 PM EST Therapy Department of Occupational Therapy [address] [place] [address] Lorenza Young OTR/L [address] [place] [address] 02/11/2025 12:45 PM EST Appointment [facility] [address] [place] [phone] Anselmo De Santiago MD [address] [place] [address] 02/12/2025 1:30 PM EST Therapy Department of Occupational Therapy 10 [place], [place] [phone] Lorenza Young, OTR/L [address] [place] [address] 02/19/2025 1:30 PM EST Therapy Department of Occupational Therapy 10 [place], [place] [phone] Lorenza Young, OTR/L [address] [place] [address] 02/25/2025 9:00 AM EST Office Visit [facility]ty [facility] Gastroenterology, [address] [address] Lata Santamaria MD [address] [place] [address] 03/04/2025 12:00 PM EST Appointment [facility] [address] [place] [phone] Anselmo De Santiago MD [address] [place] [address] 05/21/2025 2:00 PM EST Office Visit [facility], Department of Rheumatology, [address] [address] Stephanie Diaz MD [address] [place] [address] documented as of this encounter Visit Diagnoses Diagnosis Intractable migraine with status migrainosus, unspecified migraine type- Primary CHARLY (juvenile idiopathic arthritis)- Primary Other specified inflammatory polyarthropathies documented in this encounter Care Teams Saw Maker Relationship Specialty Start Date End Date Camera, Romy, MD 123 [facility] [address] [place] [phone] PCP - General 11/12/15 Clayton aBzzi MD [address] [place] [address] Consulting Physician Pediatric Rheumatology 10/31/18 Roe Mercado MD [address] [place] [address] Consulting Physician Neurology 10/31/18 Kathy Ruelas MD [address] [place] [address] Consulting Physician Pain Medicine 10/31/18 Anoop Mackay MD PhD [address] [phone] Consulting Physician Pediatric Pulmonology 01/08/22 Lata Santamaria MD 282 [place] [address] Consulting Physician Gastroenterology 11/15/23 Nery Alvarado, PhD [address] [place] [address] [address] [place] [address] Psychologist Psychology 10/31/18 11/02/21 Marni Smallwood [facility] 3300 [facility] 4A [facility] [address] Behavioral Health Clinician Behavioral Health 03/14/22 documented as of this encounter
--- OUTSIDE RECORDS SUMMARY | 2024-12-12 17:34 | XMS_ITS | Encounter Summary ---
Author Organization [facility] Address [address] [place] [address] Care Team Providers Care Home Health Administrator Name Role Phone Romy Brown MD Primary Care Provider [phone] Clayton Bazzi MD Unavailable Roe Mercado MD Unavailable [phone] Kathy Ruelas MD Unavailable [phone] Anoop Mackay MD PhD Unavailable [phone] Lata Santamaria MD Unavailable [phone] Reason for Visit * Reason Comments Medication Refill Encounter Details Date Type Department Care Team (Late st Contact Info) Description 02/07/2021 Refill [facility], Department of Pain Medicine, [address] [place] [address] Kathy Ruelas MD [address] [place], [place] [phone] Chronic migraine with aura Social History Tobacco [...] PM EDT Therapy Department of Occupational Therapy [address] [place] [address] Lorenza Young, OTR/L [address] [place] [address] 12/19/2024 11:30 AM EDT Office Visit [facility], Department of Pain Medicine, [address] [place] [address] Cami Wilkerson APRN [address] [place] [phone] 12/22/2024 12:30 PM EDT Hospital [facility] [address] [place] [address] 2nd [place] [address] CHARLY (juvenile idiopathic arthritis) (Primary Dx) 12/25/2024 11:00 AM EDT Telemedicine Support [facility] [address] [place] [address], 9th Floor [address] [place] [address] Darrell Velazquez Psy.D. [address] [place] [phone] 12/25/2024 1:30 PM EDT Therapy Department of Occupational Therapy [address] [place] [address] Lorenza Young OTR/L [address] [place] [address] 01/01/2025 1:30 PM EDT Therapy Department of Occupational Therapy [address] [place] [address] Lorenza Young OTR/L [address] [place] [address] 01/08/2025 1:30 PM EDT Therapy Department of Occupational Therapy 10 [place], [place] [phone] Lorenza Young, OTR/L [address] [place] [address] 01/15/2025 1:30 PM EDT Therapy Department of Occupational Therapy [address] [place] [address] Lorenza Young, OTR/L [address] [place] [address] 01/19/2025 12:30 PM EDT Appointment [facility] [address] [place] [phone] 01/22/2025 1:30 PM EDT Therapy Department of Occupational Therapy [address] [place] [address] Lorenza Young, OTR/L [address] [place] [address] 01/28/2025 3:30 PM EDT Appointment [facility] [address] [place] [phone] Anselmo De Santiago MD [address] [place] [address] 01/29/2025 1:30 PM EDT Therapy Department of Occupational Therapy [address] [place] [address] Lorenza Young, OTR/L [address] [place] [address] 02/05/2025 1:30 PM EST Therapy Department of Occupational Therapy [address] [place] [address] Lorenza Young, OTR/L [address] [place] [address] 02/11/2025 12:45 PM EST Appointment [facility] [address] [place] [phone] Anselmo De Santiago MD [address] [place] [address] 02/12/2025 1:30 PM EST Therapy Department of Occupational Therapy 10 [place], [place] [phone] Lorenza Young, OTR/L [address] [place] [address] 02/19/2025 1:30 PM EST Therapy Department of Occupational Therapy 10 [place], [place] [phone] Lorenza Young, OTR/L [address] [place] [address] 02/25/2025 9:00 AM EST Office Visit [facility] Gastroenterology, [address] [address] Lata Santamaria MD [address] [place] [address] 03/04/2025 12:00 PM EST Appointment [facility] [address] [place] [phone] Anselmo De Santiago MD [address] [place] [address] 05/21/2025 2:00 PM EST Office Visit [facility], Department of Rheumatology, [address] [address] Stephanie Diaz MD [address] [place] [address] documented as of this encounter Visit Diagnoses Diagnosis Chronic migraine with aura CHARLY (juvenile idiopathic arthritis)- Primary Other specified inflammatory polyarthropathies documented in this encounter Care Teams Home Health Administrator Relationship Specialty Start Date End Date Romy Brown MD [address] [place] [phone] PCP - General 11/12/15 Clayton Bazzi MD [address] [place] [address] Consulting Physician Pediatric Rheumatology 10/31/18 Roe Mercado MD [address] [place] [address] Consulting Physician Neurology 10/31/18 Kathy Ruelas MD [address] [place] [address] Consulting Physician Pain Medicine 10/31/18 Anoop Mackay MD PhD [address] [place] [phone] Consulting Physician Pediatric Pulmonology 01/08/22 Lata Santamaria MD [address] [place] [address] Consulting Physician Gastroenterology 11/15/23 Nery Alvarado, PhD [address] [place] [address] [address] [place] [address] Psychologist Psychology 10/31/18 11/02/21 [facility] [address] [address] Behavioral Health Clinician Behavioral Health 03/14/22 documented as of this encounter
--- OUTSIDE RECORDS SUMMARY | 2024-12-12 17:34 | XMS_ITS | Encounter Summary ---
Author Organization [facility] Address [address] [place] [address] Care Team Providers Care Wharf Tally Clerk Name Role Phone Romy Brown MD Primary Care Provider [phone] Clayton Bazzi MD Unavailable Roe Mercado MD Unavailable [phone] Kathy Ruelas MD Unavailable Anoop Mackay MD PhD Unavailable [phone] Lata Santamaria MD Unavailable [phone] Reason for Visit * Reason Comments Medication Refill Encounter Details Date Type Department Care Team (Late st Contact Info) Description 01/29/2017 Refill [facility], [place] [address] [place] [address] Roe Mercado MD [address] [place] [address] Intractable migraine with status migrainosus, unspecified migraine [...] Telephone Encounter - Hanna Lara RN - 01/30/2017 8:09 AM EDT Dose verified with 07/18/16 office visit. Follow up scheduled for 08/22/17. documented in this encounter Plan of Treatment Upcoming Encounters Date Type Department Care Team (Late st Contact Info) Description 12/18/2024 1:30 PM EDT Therapy Department of Occupational Therapy [address] [place] [address] Lorenza Young, OTR/L [address] [place] [address] 12/19/2024 11:30 AM EDT Office Visit [facility], Department of Pain Medicine, [place] [address] [place] [address] Cami Wilkerson APRN [address] [place] [address] 12/22/2024 12:30 PM EDT Hospital Encounter [facility] 10 [facility] 2nd [place] [address] CHARLY (juvenile idiopathic arthritis) (Primary Dx) 12/25/2024 11:00 AM EDT Telemedicine Support [facility] 85 [place] 85 [facility], 9th Floor [address] [place] [phone] Darrell Velazquez Psy.D. [address] [place] [address] 12/25/2024 1:30 PM EDT Therapy Department of Occupational Therapy [address] [place] [address] Lorenza Young OTR/L [address] [place] [address] 01/01/2025 1:30 PM EDT Therapy Department of Occupational Therapy [address] [place] [address] Lorenza Young, OTR/L [address] [place] [address] 01/08/2025 1:30 PM EDT Therapy Department of Occupational Therapy [address] [place] [address] Lorenza Young, OTR/L [address] [place] [address] 01/15/2025 1:30 PM EDT Therapy Department of Occupational Therapy [address] [place] [address] Lorenza Young, OTR/L [address] [place] [address] 01/19/2025 12:30 PM EDT Appointment [facility] [address] [place] [phone] 01/22/2025 1:30 PM EDT Therapy Department of Occupational Therapy [address] [place] [address] Lorenza Young, OTR/L [address] [place], [place] [phone] 01/28/2025 3:30 PM EDT Appointment [facility] [address] [place] [phone] Anselmo De Santiago MD [address] [place] [address] 01/29/2025 1:30 PM EDT Therapy Department of Occupational Therapy [address] [place] [address] Lorenza Young, OTR/L [address] [place] [address] 02/05/2025 1:30 PM EST Therapy Department of Occupational Therapy [address] [place] [address] Lorenza Young, OTR/L [address] [place] [address] 02/11/2025 12:45 PM EST Appointment [facility] [address] [place] [phone] Anselmo De Santiago MD [address] [place] [address] 02/12/2025 1:30 PM EST Therapy Department of Occupational Therapy 10 [place] [phone] Lorenza Young, OTR/L [address] [place] [address] 02/19/2025 1:30 PM EST Therapy Department of Occupational Therapy 10 [place], [place] [phone] Lorenza Young, OTR/L [address] [place] [address] 02/25/2025 9:00 AM EST Office Visit [facility] Gastroenterology, [address] [address] Lata Santamaria MD [address] [place] [address] 03/04/2025 12:00 PM EST Appointment [facility] [address] [place] [phone] Anselmo De Santiago MD [address] [place] [address] 05/21/2025 2:00 PM EST Office Visit [facility], Department of Rheumatology, [address] [address] Stephanie Diaz MD [address] [place] [address] documented as of this encounter Visit Diagnoses Diagnosis Intractable migraine with status migrainosus, unspecified migraine type- Primary CHARLY (juvenile idiopathic arthritis)- Primary Other specified inflammatory polyarthropathies documented in this encounter Care Teams Wharf Tally Clerk Relationship Specialty Start Date End Date Romy Brown MD 123 [facility] [address] [place] [phone] PCP - General 11/12/15 Clayton Bazzi MD 140 [place] [address] Consulting Physician Pediatric Rheumatology 10/31/18 Roe Mercado MD [address] [place] [address] Consulting Physician Neurology 10/31/18 Kathy Ruelas MD [address] [place] [address] Consulting Physician Pain Medicine 10/31/18 Anoop Mackay MD PhD [address] [place] [phone] Consulting Physician Pediatric Pulmonology 01/08/22 Lata Santamaria MD [address] [place] [address] Consulting Physician Gastroenterology 11/15/23 Nery Alvarado, PhD [address] [place] [address] [address] [place] [address] Psychologist Psychology 10/31/18 11/02/21 Marni Smallwood [facility] [address] [facility] [address] [facility] [address] Behavioral Health Clinician Behavioral Health 03/14/22 documented as of this encounter
--- OUTSIDE RECORDS SUMMARY | 2024-12-12 17:34 | XMS_ITS | Encounter Summary ---
Author Organization [facility] Address [address] [place] [address] Care Team Providers Care Final Cleaner Name Role Phone Romy Brown MD Primary Care Provider Roe Mercado MD Unavailable [phone] Kathy Ruelas MD Unavailable Anoop Mackay MD PhD Unavailable [phone] Lata Santamaria MD Unavailable [phone] Encounter Details Date Type Department Care Team (Late st Contact Info) Description 12/08/2024 Telephone [facility], Department of Pain Medicine, [address] [place] [phone] Nikko Castillo, Parking Line Painter [address] [place], [place] [phone] Social History Tobacco Use Types Packs/Day Years [...] encounter Miscellaneous Notes * Telephone Encounter - Melina Cuellarician - 12/08/2024 8:48 AM EDT Injection therapy appointment scheduled on 03/04/25 at 12:[address] De Santiago documented in this encounter Plan of Treatment Upcoming Encounters Date Type Department Care Team (Late st Contact Info) Description 12/18/2024 1:30 PM EDT Therapy Department of Occupational Therapy [address] [place] [address] Lorenza Young, OTR/L [address] [place] [address] 12/19/2024 11:30 AM EDT Office Visit [facility], Department of Pain Medicine, [place] [address] [place] [address] Cami Wilkerson APRN [address] [place] [address] 12/22/2024 12:30 PM EDT Hospital Encounter [facility] 10 [facility] 2nd [place] [address] CHARLY (juvenile idiopathic arthritis) (Primary Dx) 12/25/2024 11:00 AM EDT Telemedicine Support [facility] [address] [place] [address] 85 [facility], 9th Floor [address] [place] [address] Darrell Velazquez Psy.D. [address] [place] [phone] 12/25/2024 1:30 PM EDT Therapy Department of Occupational Therapy [address] [place] [address] Lorenza Young, OTR/L [address] [place] 01/01/2025 1:30 PM EDT Therapy Department of Occupational Therapy [address] [place], [place] [phone] Lorenza Young, OTR/L [address] [place] [address] 01/08/2025 1:30 PM EDT Therapy Department of Occupational Therapy [address] [place] [address] Lorenza Young, OTR/L [address] [place] [address] 01/15/2025 1:30 PM EDT Therapy Department of Occupational Therapy [address] [place] [address] Lorenza Young, OTR/L [address] [place] [address] 01/19/2025 12:30 PM EDT Appointment [facility] [address] [place] [phone] 01/22/2025 1:30 PM EDT Therapy Department of Occupational Therapy [address] [place] [address] Lorenza Young, OTR/L [address] [place] [address] 01/28/2025 3:30 PM EDT Appointment [facility] [address] [place] [phone] Anselmo De Santiago MD [address] [place] [address] 01/29/2025 1:30 PM EDT Therapy Department of Occupational Therapy [address] [place] [address] Lorenza Young, OTR/L [address] [place] [address] 02/05/2025 1:30 PM EST Therapy Department of Occupational Therapy [address] [place] [address] Loernza Young, OTR/L [address] [place] [address] 02/11/2025 12:45 PM EST Appointment [facility] [address] [place] [phone] Anselmo De Santiago MD [address] [place] [address] 02/12/2025 1:30 PM EST Therapy Department of Occupational Therapy [address] [place], [place] [phone] Lorenza Young, OTR/L [address] [place] [address] 02/19/2025 1:30 PM EST Therapy Department of Occupational Therapy [address] [place] [address] Lorenza Young, OTR/L [address] [place] [address] 02/25/2025 9:00 AM EST Office Visit [facility]ty [facility], [address] [address] Lata Santamaria MD [address] [place] [address] 03/04/2025 12:00 PM EST Appointment [facility] [address] [place] [phone] Anselmo De Santiago MD [address] [place] [address] 05/21/2025 2:00 PM EST [facility], Department of Rheumatology, [address] [address] Stephanie Diaz MD [address] [place] [address] documented as of this encounter Visit Diagnoses Not on filedocumented in this encounter Care Teams Final Cleaner Relationship Specialty Start Date End Date Romy Brown MD [address] [place] [address] [place] [phone] PCP - General 11/12/15 Roe Mercado MD [address] [place] [address] Consulting Physician Neurology 10/31/18 Kathy Ruelas MD [address] [place] [address] Consulting Physician Pain Medicine 10/31/18 Anoop Mackay MD PhD [address] [place] [phone] Consulting Physician Pediatric Pulmonology 01/08/22 Lata Santamaria MD [address] [place] [address] Consulting Physician Gastroenterology 11/15/23 Marni Smallwood [facility] [address] [place] [address] Behavioral Health Clinician Behavioral Health 03/14/22 documented as of this encounter
--- OUTSIDE RECORDS SUMMARY | 2024-12-12 17:34 | XMS_ITS | Encounter Summary ---
Author Organization [facility] Address [address] [place] [address] Care Team Providers Care Edging Supervisor Name Role Phone Romy Brown MD Primary Care Provider Roe Mercado MD Unavailable [phone] Kathy Ruelas MD Unavailable Anoop Mackay MD PhD Unavailable [phone] Lata Santamaria MD Unavailable [phone] Encounter Details Date Type Department Care Team (Late st Contact Info) Description 11/25/2024 Results Follow-Up [facility], Department of Rheumatology, [address] [phone] Stephanie Diaz MD [address] [place] [address] CBC auto differential, Erythrocyte Sediment Rate (ESR), Gamma GT, Additional followed-up results: 3 Social History Tobacco Use Types Packs/Day Years [...] PM EDT Therapy Department of Occupational Therapy [address] [place] [address] Lorenza Young, OTR/L [address] [place] [address] 12/19/2024 11:30 AM EDT Office Visit [facility], Department of Pain Medicine, [address] [place] [address] Cami Wilkerson APRN [address] [place] [phone] 12/22/2024 12:30 PM EDT Hospital [facility] [address] [place] [address] 2nd [place] [address] CHARLY (juvenile idiopathic arthritis) (Primary Dx) 12/25/2024 11:00 AM EDT Telemedicine Support [facility] [address] [place] [address], 9th Floor [address] [place] [address] Darrell Velazquez Psy.D. [address] [place] [phone] 12/25/2024 1:30 PM EDT Therapy Department of Occupational Therapy [address] [place] [address] Lorenza Young OTR/L [address] [place] [address] 01/01/2025 1:30 PM EDT Therapy Department of Occupational Therapy [address] [place] [address] Lorenza Young OTR/L [address] [place] [address] 01/08/2025 1:30 PM EDT Therapy Department of Occupational Therapy [address] [place], [place] [phone] Lorenza Young, OTR/L [address] [place] [address] 01/15/2025 1:30 PM EDT Therapy Department of Occupational Therapy [address] [place] [address] Lorenza Young, OTR/L [address] [place] [address] 01/19/2025 12:30 PM EDT Appointment [facility] [address] [place] [phone] 01/22/2025 1:30 PM EDT Therapy Department of Occupational Therapy [address] [place] [address] Lorenza Young, OTR/L [address] [place] [address] 01/28/2025 3:30 PM EDT Appointment [facility] [address] [place] [phone] Anselmo De Santiago MD [address] [place] [address] 01/29/2025 1:30 PM EDT Therapy Department of Occupational Therapy [address] [place] [address] Lorenza Young, OTR/L [address] [place] [address] 02/05/2025 1:30 PM EST Therapy Department of Occupational Therapy [address] [place] [address] Lorenza Young, OTR/L [address] [place] [address] 02/11/2025 12:45 PM EST Appointment [facility] [address] [place] [phone] Anselmo De Santiago MD [address] [place] [address] 02/12/2025 1:30 PM EST Therapy Department of Occupational Therapy [address] [place], [place] [phone] Lorenza Young, OTR/L [address] [place] [address] 02/19/2025 1:30 PM EST Therapy Department of Occupational Therapy [address] [place], [place] [phone] Lorenza Young, OTR/L [address] [place] [address] 02/25/2025 9:00 AM EST Office Visit [facility] Gastroenterology, [address] [address] Lata Santamaria MD [address] [place] [address] 03/04/2025 12:00 PM EST Appointment [facility] [address] [place] [phone] Anselmo De Santiago MD [address] [place] [address] 05/21/2025 2:00 PM EST Office Visit [facility], Department of Rheumatology, [address] [address] Stephanie Diaz MD [address] [place] [address] documented as of this encounter Visit Diagnoses Not on filedocumented in this encounter Care Teams Edging Supervisor Relationship Specialty Start Date End Date Romy Brown MD [address] [place] [phone] PCP - General 11/12/15 Roe Mercado MD [address] [place] [address] Consulting Physician Neurology 10/31/18 Kathy Ruelas MD [address] [place] [address] Consulting Physician Pain Medicine 10/31/18 Anoop Mackay MD PhD [address] [place] [phone] Consulting Physician Pediatric Pulmonology 01/08/22 Lata Santamaria MD [address] [place] [address] Consulting Physician Gastroenterology 11/15/23 [facility] [address] [address] Behavioral Health Clinician Behavioral Health 03/14/22 documented as of this encounter
--- OUTSIDE RECORDS SUMMARY | 2024-12-12 17:34 | XMS_ITS | Encounter Summary ---
Author Organization [facility] Address [address] [place] [address] Care Team Providers Care Project Management It Specialist Name Role Phone Romy Brown MD Primary Care Provider [phone] Clayton Bazzi MD Unavailable Roe Mercado MD Unavailable [phone] Kathy Ruelas MD Unavailable Anoop Mackay MD PhD Unavailable [phone] Lata Santamaria MD Unavailable [phone] Reason for Visit * Reason Comments Medication Refill Encounter Details Date Type Department Care Team (Late st Contact Info) Description 09/29/2020 Refill [facility], Department of Pain Medicine, [address] [place] [address] Kathy Ruelas MD [address] [place], [place] [phone] Chronic migraine with aura Social History Tobacco [...] encounter Miscellaneous Notes * Telephone Encounter - Cynthia Lunsford RN - 09/29/2020 9:26 AM EDT Refill request for [employer] Last visit: 06/10/2020 Next visit: Not scheduled Forwarded to provider for review documented in this encounter Plan of Treatment Upcoming Encounters Date Type Department Care Team (Late st Contact Info) Description 12/18/2024 1:30 PM EDT Therapy Department of Occupational Therapy [address] [place] [phone] Lorenza Yougn, OTR/L [address] [place] [address] 12/19/2024 11:30 AM EDT Office Visit [facility], Department of Pain Medicine, [place] [address] [place] [address] Cami Wilkerson APRN [address] [place] [address] 12/22/2024 12:30 PM EDT Hospital Encounter [facility] 10 [facility] 2nd [place] [address] CHARLY (juvenile idiopathic arthritis) (Primary Dx) 12/25/2024 11:00 AM EDT Telemedicine Support [facility] [address] 85 [facility], 9th Floor [address] [place] [phone] Darrell Velazquez Psy.D. [address] [place] [address] 12/25/2024 1:30 PM EDT Therapy Department of Occupational Therapy [address] [place] [address] Lorenza Young, OTR/L [address] [place] [address] 01/01/2025 1:30 PM EDT Therapy Department of Occupational Therapy [address] [place], [place] [phone] Lorenza Young, OTR/L [address] [place] [address] 01/08/2025 1:30 PM EDT Therapy Department of Occupational Therapy [address] [place], [place] [phone] Lorenza Young, OTR/L [address] [place] [address] 01/15/2025 1:30 PM EDT Therapy Department of Occupational Therapy [address] [place] [address] Lorenza Young, OTR/L [address] [place] [address] 01/19/2025 12:30 PM EDT Appointment [facility] [address] [place] [phone] 01/22/2025 1:30 PM EDT Therapy Department of Occupational Therapy [address] [place] [address] Lorenza Young, OTR/L [address] [place] [address] 01/28/2025 3:30 PM EDT Appointment [facility] [address] [place] [phone] Anselmo De Santiago MD [address] [place], [place] [phone] 01/29/2025 1:30 PM EDT Therapy Department of Occupational Therapy [address] [place] [address] Lorenza Young, OTR/L [address] [place] [address] 02/05/2025 1:30 PM EST Therapy Department of Occupational Therapy [address] [place] [address] Lorenza Young, OTR/L [address] [place] [address] 02/11/2025 12:45 PM EST Appointment [facility] [address] [place] [phone] Anselmo De Santiago MD [address] [place] [address] 02/12/2025 1:30 PM EST Therapy Department of Occupational Therapy [address] [place], [place] [phone] Lorenza Young, OTR/L [address] [place] [address] 02/19/2025 1:30 PM EST Therapy Department of Occupational Therapy [address] [place], [place] [phone] Lorenza Young, OTR/L [address] [place] [address] 02/25/2025 9:00 AM EST Office Visit [facility], [address] [address] Lata Santamaria MD [address] [place] [address] 03/04/2025 12:00 PM EST Appointment [facility] [address] [place] [phone] Anselmo De Santiago MD [address] [place] [address] 05/21/2025 2:00 PM EST Office Visit [facility], Department of Rheumatology, [address] [address] Stephanie Diaz MD [address] [place] [address] documented as of this encounter Visit Diagnoses Diagnosis Chronic migraine with aura CHARLY (juvenile idiopathic arthritis)- Primary Other specified inflammatory polyarthropathies documented in this encounter Care Teams Project Management It Specialist Relationship Specialty Start Date End Date Romy Brown MD [address] [facility] [address] [place] [phone] PCP - General 11/12/15 Clayton Bazzi MD [address] [place] [address] Consulting Physician Pediatric Rheumatology 10/31/18 Roe Mercado MD [address] [place] [address] Consulting Physician Neurology 10/31/18 Kathy Ruelas MD [address] [place] [address] Consulting Physician Pain Medicine 10/31/18 Anoop Mackay MD PhD [address] [phone] Consulting Physician Pediatric Pulmonology 01/08/22 Lata Santamaria MD [address] [place] [address] Consulting Physician Gastroenterology 11/15/23 Nery Alvarado, PhD 3 [facility] [address] [place] [address] Psychologist Psychology 10/31/18 11/02/21 Marni Smallwood [facility] [address] [address] Behavioral Health Clinician Behavioral Health 03/14/22 documented as of this encounter
--- OUTSIDE RECORDS SUMMARY | 2024-12-12 17:34 | XMS_ITS | Encounter Summary ---
Author Organization [facility] Address [address] [place] [address] Care Team Providers Care Manager Policy Name Role Phone Romy Brown MD Primary Care Provider [phone] Roe Mercado MD Unavailable [phone] Kathy Ruelas MD Unavailable [phone] Anoop Mackay MD PhD Unavailable [phone] Lata Santamaria MD Unavailable [phone] Encounter Details Date Type Department Care Team (Late st Contact Info) Description 01/26/2022 Telephone [facility], [place] [address] [address] Social History Tobacco Use Types Packs/Day Years [...] PM EDT Therapy Department of Occupational Therapy [address] [place] [address] Lorenza Young, OTR/L [address] [place] [address] 12/19/2024 11:30 AM EDT Office Visit [facility], Department of Pain Medicine, [place] [address] [place] [phone] Cami Wilkerson APRN [address] [place] 12/22/2024 12:30 PM EDT Hospital [facility] 10 [facility] 2nd [place] [address] CHARLY (juvenile idiopathic arthritis) (Primary Dx) 12/25/2024 11:00 AM EDT Telemedicine Support [facility] [address] [place] [address] 85 [facility], 9th Floor [address] [place] [address] Darrell Velazquez Psy.D. [address] [place], [place] 12/25/2024 1:30 PM EDT Therapy Department of Occupational Therapy [address] [place] [address] Lorenza Young, OTR/L [address] [place] [address] 01/01/2025 1:30 PM EDT Therapy Department of Occupational Therapy [address] [place] [address] Lorenza Young, OTR/L [address] [place] [address] 01/08/2025 1:30 PM EDT Therapy Department of Occupational Therapy [address] [place] [address] Lorenza Young, OTR/L [address] [place] [address] 01/15/2025 1:30 PM EDT Therapy Department of Occupational Therapy [address] [place], [place] [phone] Lorenza Young OTR/L [address] [place] [address] 01/19/2025 12:30 PM EDT Appointment [facility] [address] [place] [address] 01/22/2025 1:30 PM EDT Therapy Department of Occupational Therapy [address] [place] [address] Lorenza Young OTR/L [address] [place] [address] 01/28/2025 3:30 PM EDT Appointment [facility] [address] [place] [address] Anselmo De Santiago MD [address] [place], [place] [phone] 01/29/2025 1:30 PM EDT Therapy Department of Occupational Therapy [address] [place], [place] [phone] Lorenza Young OTR/L [address] [place] [address] 02/05/2025 1:30 PM EST Therapy Department of Occupational Therapy [address] [place], [place] [phone] Lorenza Young OTR/L [address] [place] [address] 02/11/2025 12:45 PM EST Appointment [facility] [address] [place] [phone] Anselmo De Santiago MD [address] [place] [address] 02/12/2025 1:30 PM EST Therapy Department of Occupational Therapy [address] [place], [place] [phone] Lorenza Young OTR/L [address] [place] [address] 02/19/2025 1:30 PM EST Therapy Department of Occupational Therapy [address] [place], [place] [phone] Lorenza Young, OTR/L [address] [place] [address] 02/25/2025 9:00 AM EST Office Visit [facility] Gastroenterology, [address] [address] Lata Santamaria MD [address] [place] [address] 03/04/2025 12:00 PM EST Appointment [facility] [address] [place] [phone] Anselmo De Santiago MD [address] [place] [address] 05/21/2025 2:00 PM EST Office Visit [facility], Department of Rheumatology, [address] [address] Stephanie Diaz MD [address] [place] [address] documented as of this encounter Visit Diagnoses Not on filedocumented in this encounter Care Teams Manager Policy Relationship Specialty Start Date End Date Romy Brown MD [address] [place] [phone] PCP - General 11/12/15 Roe Mercado MD [address] [place] [address] Consulting Physician Neurology 10/31/18 Kathy Ruelas MD [address] [place] [address] Consulting Physician Pain Medicine 10/31/18 Anoop Mackay MD PhD [address] [place] [phone] Consulting Physician Pediatric Pulmonology 01/08/22 Lata Santamaria MD [address] [place] [address] Consulting Physician Gastroenterology 11/15/23 Marni Smallwood LCS[facility] 3300 [facility] 4A [facility] [address] Behavioral Health Clinician Behavioral Health 03/14/22 documented as of this encounter
--- OUTSIDE RECORDS SUMMARY | 2024-12-12 17:34 | XMS_ITS | Encounter Summary ---
Author Organization [facility] Address [address] [place] [address] Care Team Providers Care Respite Worker Name Role Phone Romy Brown MD Primary Care Provider Clayton Bazzi MD Unavailable Roe Mercado MD Unavailable [phone] Kathy Ruelas MD Unavailable Anoop Mackay MD PhD Unavailable [phone] Lata Santamaria MD Unavailable [phone] Reason for Visit * Reason Comments Medication Refill Encounter Details Date Type Department Care Team (Late st Contact Info) Description 03/25/2019 Refill [facility] Neurology, [place] [address] [place] [address] Roe Mercado MD [address] [place] [address] Intractable migraine with status migrainosus, unspecified migraine [...] encounter Miscellaneous Notes * Telephone Encounter - Tonya Mayo MA - 03/25/2019 10:53 AM EST Left message for family to call back and scheduled. * Telephone Encounter - Kourtney Garay RN - 03/25/2019 10:20 AM EST Dose verified from 05/30/18 office visit. No follow up scheduled Patient of Dr. Mercado's. Dr. Guerrero: Please approve. Mas: Please schedule follow up. documented in this encounter Plan of Treatment Upcoming Encounters Date Type Department Care Team (Late st Contact Info) Description 12/18/2024 1:30 PM EDT Therapy Department of Occupational Therapy [address] [place] [phone] Lorenza Young, OTR/L [address] [place] [address] 12/19/2024 11:30 AM EDT Office Visit [facility], Department of Pain Medicine, [address] [place] [address] Cami Wilkerson APRN [address] [place] [address] 12/22/2024 12:30 PM EDT Hospital Encounter Infusion Center 10 [facility] 2nd [place] [address] CHARLY (juvenile idiopathic arthritis) (Primary Dx) 12/25/2024 11:00 AM EDT Telemedicine Support [facility] [address] [place] [address], 9th Floor [address] [place] [address] Darrell Velazquez Psy.D. [address] [place] [address] 12/25/2024 1:30 PM EDT Therapy Department of Occupational Therapy [address] [place] [address] Lorenza Young, OTR/L [address] [place], [place] [address]/01/2025 1:30 PM EDT Therapy Department of Occupational Therapy [address] [place] [address] Lorenza Young, OTR/L [address] [place], [place] [address]/08/2025 1:30 PM EDT Therapy Department of Occupational Therapy [address] [place] [address] Lorenza Young, OTR/L [address] [place] [address] 01/15/2025 1:30 PM EDT Therapy Department of Occupational Therapy [address] [place] [address] Lorenza Young, OTR/L [address] [place], [place] [address]/19/2025 12:30 PM EDT Appointment [facility] [address] [place], [place] [phone] 01/22/2025 1:30 PM EDT Therapy Department of Occupational Therapy [address] [place] [address] Lorenza Young, OTR/L [address] [place], [place] [address]/28/2025 3:30 PM EDT Appointment [facility] [address] [place] [phone] Anselmo De Santiago MD [address] [place] [address] 01/29/2025 1:30 PM EDT Therapy Department of Occupational Therapy [address] [place] [address] Lorenza Young, OTR/L [address] [place] [address] 02/05/2025 1:30 PM EST Therapy Department of Occupational Therapy [address] [place] [address] Hector Lorenza, OTR/L [address] [place] [address] 02/11/2025 12:45 PM EST Appointment [facility] [address] [place] [phone] Anselmo De Santiago MD [address] [place] [address] 02/12/2025 1:30 PM EST Therapy Department of Occupational Therapy [address] [place] [address] Samydwight Lorenza, OTR/L [address] [place] [address] 02/19/2025 1:30 PM EST Therapy Department of Occupational Therapy [address] [place] [address] Samyjeetanjali Lorenza, OTR/L [address] [place] [address] 02/25/2025 9:00 AM EST Office Visit [facility] Gastroenterology, [address] [address] Lata Santamaria MD [address] [place] [address] 03/04/2025 12:00 PM EST Appointment [facility] [address] [place] [phone] Anselmo De Santiago MD [address] [place] [address] 05/21/2025 2:00 PM EST Office Visit [facility], Department of Rheumatology, [address] [address] Stephanie Diaz MD [address] [place] [address] documented as of this encounter Visit Diagnoses Diagnosis Intractable migraine with status migrainosus, unspecified migraine type CHARLY (juvenile idiopathic arthritis)- Primary Other specified inflammatory polyarthropathies documented in this encounter Care Teams Respite Worker Relationship Specialty Start Date End Date Romy Brown MD [address] [facility] [address] [place] [phone] PCP - General 11/12/15 Clayton Bazzi MD [address] [place] [address] Consulting Physician Pediatric Rheumatology 10/31/18 Roe Mercado MD [address] [place] [address] Consulting Physician Neurology 10/31/18 Kathy Ruelas MD [address] [place] [address] Consulting Physician Pain Medicine 10/31/18 Anoop Mackay MD PhD [address] [place] [phone] Consulting Physician Pediatric Pulmonology 01/08/22 Lata Santamaria MD [address] [place] [address] Consulting Physician Gastroenterology 11/15/23 Nery Alvarado, PhD [address] [facility] [address] [place] [address] Psychologist Psychology 10/31/18 11/02/21 Marni Smallwood [facility] [address] [address] Behavioral Health Clinician Behavioral Health 03/14/22 documented as of this encounter
--- OUTSIDE RECORDS SUMMARY | 2024-12-12 17:34 | XMS_ITS | Clinical Summary ---
Author Organization [facility] Address [address] [place] [address] Phone Care Team Providers Care Soft Work Wrapper Layer And Examiner Name Role Phone Romy Brown MD Primary Care Provider [phone] Active Problems No known active problems Encounters Date Type Department Care Team Description 12/08/2024 1:30 PM EDT Treatment Outpatient [address] [phone] Pablo Kat, PT Chronic migraine with aura, not intractable, with status migrainosus (Primary Dx) 12/05/2024 11:30 AM EDT Treatment Outpatient [address] [phone] Christiano Holder, PT Chronic migraine with aura, not intractable, with status migrainosus (Primary Dx) 12/02/2024 11:30 AM EDT Treatment Outpatient [address] [phone] Christiano Holder, PT Chronic migraine with aura, not intractable, with status migrainosus (Primary Dx) 11/28/2024 11:30 AM EDT Treatment Outpatient [address] [phone] Christiano Holder, PT Chronic migraine with aura, not intractable, with status migrainosus (Primary Dx) 11/25/2024 11:30 AM EDT Treatment Outpatient [address] [phone] Christiano Holder, PT Chronic migraine with aura, not intractable, with status migrainosus (Primary Dx) 11/21/2024 11:30 AM EDT Treatment Outpatient [address] [phone] Christiano Holder, PT Chronic migraine with aura, not intractable, with status migrainosus (Primary Dx) 11/19/2024 11:30 AM EDT Treatment Outpatient [address] [phone] Christiano Holder, PT Chronic migraine with aura, not intractable, with status migrainosus (Primary Dx) 11/14/2024 11:30 AM EDT Treatment Outpatient [address] [phone] Christiano Holder, PT Chronic migraine with aura, not intractable, with status migrainosus (Primary Dx) 11/11/2024 11:30 AM EDT Treatment Outpatient [address] [phone] Christiano Holder, PT Chronic migraine with aura, not intractable, with status migrainosus (Primary Dx) 11/06/2024 11:30 AM EDT Treatment Outpatient [address] [phone] Christiano Holder, PT Chronic migraine with aura, not intractable, with status migrainosus (Primary Dx) 11/03/2024 11:00 AM EDT Treatment Outpatient [address] [phone] Christiano Holder, PT Chronic migraine with aura, not intractable, with status migrainosus (Primary Dx) 10/31/2024 1:30 PM EDT Treatment Outpatient [address] [phone] Christiano Holder, PT Chronic migraine with aura, not intractable, with status migrainosus (Primary Dx) 10/28/2024 3:30 PM EDT Treatment Outpatient [address] [phone] Christiano Holder, PT Chronic migraine with aura, not intractable, with status migrainosus (Primary Dx) 10/14/2024 11:00 AM EDT Evaluation Outpatient [address] [phone] Christiano Holder, PT Chronic migraine with aura, not intractable, with status migrainosus 10/08/2024 10:15 AM EDT Treatment Outpatient [address] [phone] Christiano Holder, PT Pain in both knees, unspecified chronicity (Primary Dx) 09/24/2024 11:30 AM EDT Treatment Outpatient [address] [phone] Christiano Holder, PT Pain in both knees, unspecified chronicity (Primary Dx) 09/22/2024 11:30 AM EDT Treatment Outpatient [address] [phone] Defljoycelyn Christiano, PT Pain in both knees, unspecified chronicity (Primary Dx) 09/19/2024 11:00 AM EDT Treatment Outpatient [address] [phone] Christiano Holder, PT Pain in both knees, unspecified chronicity (Primary Dx) 09/16/2024 11:00 AM EDT Treatment Outpatient [address] [phone] Ronaldo Christiano, PT Pain in both knees, unspecified chronicity (Primary Dx) 09/11/2024 11:00 AM EDT Treatment Outpatient [address] [phone] Glory Christiano, PT Pain in both knees, unspecified chronicity (Primary Dx) from Last 3 Months Social History Tobacco Use Types Packs/Day Years Used Date Smoking Tobacco: Never Assessed Sex and Gender Information Value Date Recorded Sex Assigned at Not on file Legal Sex Male 8:03 PM EDT Gender Identity Not on file Sexual Orientation Not on file Plan of Treatment Upcoming Encounters Date Type Department Care Team ([facility] st Contact Info) Description 12/19/2024 3:00 PM EDT Consult Pulmonolgy - [place] [address] [facility] [address] [place] [phone] Elvin Clark MD [address] [facility] [address] [place] [address] 12/23/2024 1:30 PM EDT Treatment Outpatient Rehabilitation [address] [phone] Christiano Holder, GÉNESIS Health Maintenance Due Date Last Done Comments COVID-19 Vaccine (3 - Pfizer risk series) 10/01/2020 09/03/2020, 08/13/2020 Annual Well Child Visit (3-21 years old) 01/29/2023 HIV Screening 01/29/2023 Hepatitis C Screening 01/29/2023 Social Influencers of Health Screening 01/29/2023 Depression Screening 04/02/2024 Influenza Vaccine (#1) 2024 2, 01/08/2021, 12/27/2019, Additional history exists DTaP,Tdap,and Td Vaccines (7 - Td or Tdap) 01/16/2026 01/17/2016, 11/12/2009, 04/24/2006, Additional history exists Hepatitis B Vaccines Completed 04/28/2005, 03/01/2005, 2004, Additional history exists HIB Vaccines Completed 01/29/2006, 04/03, 03/01/2005, Additional history exists MMR Vaccines Completed 11/10/2008, 01/29/2006 Varicella Vaccines Completed 11/10/2008, 10/30/2005 IPV Vaccines Completed 11/12/2009, 04/03, 03/01/2005, Additional history exists Pneumococcal Vaccine: Pediatrics (0 to 5 Years) and At-Risk Patients (6 to 49 Years) Completed 2015, 07/12/2015, 10/30/2005, Additional history exists HPV Vaccines Completed 08/09/2016, 07/2016, 01/26/2016 Meningococcal ACWY Vaccine Completed 01/28/2021, Hepatitis A Vaccines Completed 04/19/2021, 04/13/19 21 Meningococcal B Vaccine Completed 08/06/2024, 07/29 RSV Immunization Patients Under 20 months Aged Out No longer eligible based on patient's age to complete this topic Insurance [place] - [place] [facility] Care Teams Soft Work Wrapper Layer And Examiner Relationship Specialty Start Date End Date Romy Brown MD [address] [place] [address] PCP - General Pediatrics 04/28/24
--- OUTSIDE RECORDS SUMMARY | 2024-12-12 17:34 | XMS_ITS | Encounter Summary ---
Author Organization [facility] Address [address] [place] [address] Care Team Providers Care Associate Professor Of Management Name Role Phone Romy Brown MD Primary Care Provider Clayton Bazzi MD Unavailable Roe Mercado MD Unavailable [phone] Kathy Ruelas MD Unavailable Anoop Mackay MD PhD Unavailable [phone] Lata Santamaria MD Unavailable [phone] Reason for Visit * Reason Comments Medication Refill Encounter Details Date Type Department Care Team (Late st Contact Info) Description 04/25/2017 Refill [facility] Neurology, [place] [address] [place] [address] Roe Mercado MD [address] [place] [address] Other migraine without status migrainosus, not intractable Social History Tobacco [...] EDT Therapy Department of Occupational Therapy [address] [place] [address] Lorenza Young, OTR/L [address] [place] [address] 12/19/2024 11:30 AM EDT Office Visit [facility], Department of Pain Medicine, [place] [address] [place] [phone] Cami Wilkerson APRN [address] [place] [address] 12/22/2024 12:30 PM EDT Hospital [facility] [address] [facility] 2nd [place] [address] CHARLY (juvenile idiopathic arthritis) (Primary Dx) 12/25/2024 11:00 AM EDT Telemedicine Support [facility] [address] [place] [address], 9th Floor [address] [place] [phone] Darrell Velazquez Psy.D. [address] [place] 12/25/2024 1:30 PM EDT Therapy Department of Occupational Therapy [address] [place] [address] Lorenza Young, OTR/L [address] [place] [address] 01/01/2025 1:30 PM EDT Therapy Department of Occupational Therapy [address] [place] [address] Lorenza Young, OTR/L [address] [place] [address] 01/08/2025 1:30 PM EDT Therapy Department of Occupational Therapy [address] [place] [address] Lorenza Young, OTR/L [address] [place] [address] 01/15/2025 1:30 PM EDT Therapy Department of Occupational Therapy [address] [place] [address] Lorenza Young, OTR/L [address] [place] [address] 01/19/2025 12:30 PM EDT Appointment [facility] Sed[facility] [address] [place] [address] 01/22/2025 1:30 PM EDT Therapy Department of Occupational Therapy [address] [place] [address] Lorenza Young, OTR/L [address] [place] [address] 01/28/2025 3:30 PM EDT Appointment [facility] [address] [place] [phone] Anselmo De Santiago MD [address] [place] [address] 01/29/2025 1:30 PM EDT Therapy Department of Occupational Therapy [address] [place] [address] Lorenza Young, OTR/L [address] [place] [address] 02/05/2025 1:30 PM EST Therapy Department of Occupational Therapy [address] [place] [address] Lorenza Young, OTR/L [address] [place] [address] 02/11/2025 12:45 PM EST Appointment [facility] [address] [place] [phone] Anselmo De Santiago MD [address] [place] [address] 02/12/2025 1:30 PM EST Therapy Department of Occupational Therapy [address] [place], [place] [phone] Lorenza Young, OTR/L [address] [place] [address] 02/19/2025 1:30 PM EST Therapy Department of Occupational Therapy [address] [place], [place] [phone] Lorenza Young, OTR/L [address] [place] [address] 02/25/2025 9:00 AM EST Office Visit [facility] Gastroenterology, [address] [address] Lata Santamaria MD [address] [place] [address] 03/04/2025 12:00 PM EST Appointment [facility] [address] [place] [phone] Anselmo De Santiago MD [address] [place] [address] 05/21/2025 2:00 PM EST Office Visit [facility], Department of Rheumatology, [address] [address] Stephanie Diaz MD [address] [place] [address] documented as of this encounter Visit Diagnoses Diagnosis Other migraine without status migrainosus, not intractable CHARLY (juvenile idiopathic arthritis)- Primary Other specified inflammatory polyarthropathies documented in this encounter Care Teams Associate Professor Of Management Relationship Specialty Start Date End Date Romy Brown MD [address] [place] [phone] PCP - General 11/12/15 Clayton Bazzi MD [address] [place] [address] Consulting Physician Pediatric Rheumatology 10/31/18 Roe Mercado MD [address] [place] [address] Consulting Physician Neurology 10/31/18 Kathy Ruelas MD [address] [place] [address] Consulting Physician Pain Medicine 10/31/18 Anoop Mackay MD PhD [address] [place] [phone] Consulting Physician Pediatric Pulmonology 01/08/22 Lata Santamaria MD [address] [place] [address] Consulting Physician Gastroenterology 11/15/23 Nery Alvarado, PhD [address] [place] [address] [address] [place] [address] Psychologist Psychology 10/31/18 11/02/21 Marni Smallwood [facility] [address] [facility], [email or web address] [address] [facility] [address] Behavioral Health Clinician Behavioral Health 03/14/22 documented as of this encounter
--- OUTSIDE RECORDS SUMMARY | 2024-12-12 17:34 | XMS_ITS | Clinical Summary ---
Author Organization [facility] Address [address] [place] [address] Care Team Providers Care Felting Machine Operator Helper Name Role Phone Romy Brown MD Primary Care Provider [phone] Roe Mercado MD Unavailable [phone] Kathy Ruelas MD Unavailable [phone] Anoop Mackay MD PhD Unavailable [phone] Lata Santamaria MD Unavailable [phone] Source Comments Please note that some or all of the patient's information could have additional privacy protections. State laws allow health care providers to render certain types of treatment to minors without parental consent. Please do not assume that this information can be shared solely by obtaining just the consent of the patient's parent/guardian. Please determine if all or part of the patient's care was rendered without parent/guardian involvement. And, if so, obtain the minor's consent prior to disclosure.[facility] Allergies Active Allergy Reactions Criticality Noted Date Comments Beclomethasone Dipropionate High 01/11/20 16 Migraines and cardiac arrhythmia- Per mom. Other Reaction(s): emotional Grass 08/25/2022 Lactose (Intolerance) 11/18/2024 Seasonal 08/22/2022 Tree And Shrub Pollen 08/25/2022 Medications albuterol (ACCUNEB) 0.63 mg/3 mL nebulizer solution Take 1 ampule by nebulization every 6 (six) hours as needed for Wheezing Active PROAIR HFA 90 mcg/actuation inhaler 020 Active BOTOX 200 unit Recon SolnIndications:C hronic migraine INJECT 155 UNITS INTRAMUSCULARLY EVERY 12 WEEKS (GIVEN AT MD OFFICE, DISCARD UNUSED) 1 each 2 021 Active fluticasone propionate (FLOVENT DISKUS) 250 mcg/actuation Disk with Device diskus inhaler Activ e ondansetron (ZOFRAN-ODT) 8 MG disintegrating tabletIndications :Chronic migraine with aura Take 1 tablet (8 mg) by mouth every 8 (eight) hours as needed for Nausea 10 tablet 2 022 Active abatacept (ORENCIA) IV Inject into the vein once Mix in 100 mL of 0.9%NS and infuse over 30 minutes Active prochlorperazine (COMPAZINE) 5 MG tablet Active aspirin/acetamino phen/caffeine (EXCEDRIN MIGRAINE ORAL) Take 2 tablets by mouth 023 Active famotidine (PEPCID) 20 MG tablet 023 Active atogepant 60 mg TabletIndications :Chronic migraine without aura without status migrainosus, not intractable Take 60 mg by mouth daily 30 tablet 6 024 Active fluticasone propion-salmetero L (ADVAIR) 250-50 mcg/dose diskus inhaler 024 Active famotidine (PEPCID) 20 MG tabletIndications :Nausea Take 1 tablet (20 mg) by mouth 2 (two) times daily 60 tablet 3 024 Active lidocaine 5% (LIDODERM) 5 % patchIndications: Amplified musculoskeletal pain syndrome,Chronic migraine with aura and with status migrainosus, not intractable,CHARLY (juvenile idiopathic arthritis), enthesitis related arthritis,Psychol ogical factors affecting medical condition Place 2 patches over 12 hours onto the skin in the morning. Remove & Discard patch within 12 hours or as directed by MD. 60 patch 2 025 Active Additional Information Patient not taking.Reported on 11/20/2024 diclofenac (VOLTAREN) 1 % GelIndications:Am plified musculoskeletal pain syndrome,Chronic migraine with aura and with status migrainosus, not intractable,CHARLY (juvenile idiopathic arthritis), enthesitis related arthritis,Psychol ogical factors affecting medical condition Apply 2 g topically in the morning and 2 g at noon and 2 g in the evening and 2 g before bedtime. 150 g 1 025 Active ubrogepant 100 mg TabletIndications :Chronic migraine with aura and with status migrainosus, not intractable Take 100 mg by mouth once as needed 8 tablet 11 025 Active cyproheptadine (PERIACTIN) 4 mg tabletIndications :Decrease in appetite Take 1 tablet (4 mg) by mouth nightly for 7 days, THEN 2 tablets (8 mg) nightly. 67 tablet 3 025 12/25 Active food supplemt, lactose-reduced (BOOST) 0.04 gram- 1 kcal/mL LiquidIndications :Weight loss Take 2 Bottles by mouth daily 49976 mL 11 025 Active digital therapeutic, NERIVIO, (NERIVIO DIGITAL VIRAL, MIGRAINE,) DINAH deviceIndications :Chronic migraine without aura without status migrainosus, not intractable Use device for 45 minute treatment every other day and as needed. 1 each 2 025 Active atogepant 30 mg TabletIndications :Chronic migraine with aura Take 30 mg by mouth daily 30 tablet 2 023 Discontinued ubrogepant 100 mg TabletIndications :Chronic migraine with aura and with status migrainosus, not intractable Take 100 mg by mouth once as needed 8 tablet 11 025 11/20 Discontinued( Alternate therapy) Active Problems Patient Care Coordination No te Formatting of this note migh t be different from the original. Center for Care Coordination: JASON MoniqueN, RN, [facility] [phone] Referred by pain mgmt 01/18/22 Declined participation, but has contact and will call if future needs (has appt. 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 Received Early Intervention Services. History of hydrocephalus as a child 10/31/2018 Overview (10/31/2018): Followed by Neurosurgery until age 4y. Did not require shunting Chronic migraine with aura 10/31/2018 Childhood apraxia of speech 10/31/2018 Problem with school attendance 10/31/2018 CHARLY (juvenile idiopathic art hritis), enthesitis related arthritis Overview (10/31/2018): HLA-B27? Encounters Date Type Department Care Team Description 12/11/2024 1:30 PM EDT Therapy Department of Occupational Therapy [address] [place] [phone] Lorenza Young, OTR/Asher Self-care deficit (Primary Dx); CHARLY (juvenile idiopathic arthritis), enthesitis related arthritis; Chronic migraine with aura and with status migrainosus, not intractable; Amplified musculoskeletal pain syndrome; Psychological factors affecting medical condition 12/08/2024 Telephone [facility], Department of Pain Medicine, [place] [address] [place] [address] Nikko Castillo, Vp Revenue Cycle 12/05/2024 Prep for Sedation/Procedure visit [facility], Department of Pain Medicine, [place] [address] [place] [address] Anselmo De Santiago MD Chronic migraine without aura without status migrainosus, not intractable (Primary Dx) 12/04/2024 1:30 PM EDT Therapy Department of Occupational Therapy [address] [place] [phone] Lorenza Young, OTR/L CHARLY (juvenile idiopathic arthritis), enthesitis related arthritis (Primary Dx); Chronic migraine with aura and with status migrainosus, not intractable; Amplified musculoskeletal pain syndrome; Self-care deficit; Psychological factors affecting medical condition 11/25/2024 Results Follow-Up [facility], Department of Rheumatology, [address] [place] [address] Stephanie Diaz MD CBC auto differential, Erythrocyte Sediment Rate (ESR), Gamma GT, Additional followed-up results: 3 11/24/2024 12:30 PM EDT - 11/24/2024 11:59 PM EDT [facility] [address] [address] CHARLY (juvenile idiopathic arthritis) (Primary Dx); CHARLY (juvenile idiopathic arthritis), enthesitis related arthritis Discharge Disposition: Home or Self Care 11/20/2024 3:40 PM EDT Office Visit [facility], Department of Rheumatology, [address] [address] Stephanie Diaz MD Chronic bilateral low back pain without sciatica (Primary Dx); Juvenile idiopathic arthritis, enthesitis related arthritis; Chronic migraine with aura and with status migrainosus, not intractable; Other specified anxiety disorders; Pain 11/20/2024 Refill [facility] G[facility], [address] [place] [address] Weight loss (Primary Dx) 11/18/2024 12:00 PM EDT Office Visit [facility] [address] Lata Santamaria MD Decrease in appetite (Primary Dx); Weight loss 11/17/2024 12:30 PM EDT Therapy Department of Occupational Therapy [address] [place] [address] [phone] Lorenza Young OTR/L Self-care deficit (Primary Dx); Amplified musculoskeletal pain syndrome; Chronic migraine with aura and with status migrainosus, not intractable; CHARLY (juvenile idiopathic arthritis), enthesitis related arthritis; Psychological factors affecting medical condition 11/17/2024 Telephone [facility], Department of Pain Medicine, [place] [address] [facility] [address] [place] [address] Nikko Castillo, Vp Revenue Cycle Appointment (/) 11/14/2024 Prep for Sedation/Procedure visit [facility], Department of Pain Medicine, [place] [address] [place] [address] Anselmo De Santiago MD Chronic migraine with aura and with status migrainosus, not intractable (Primary Dx) 11/13/2024 12:08 PM EDT Anesthesia Event [facility] [address] [place] [address] Telma Hampton MD Pelchat, Jamie, RN 11/13/2024 11:14 AM EDT - 11/13/2024 11:59 PM EDT Hospital Encounter [facility] [address] [place] [address] Anselmo De Santiago MD Sturm, Jesse, MD Chronic migraine w/o aura, not intractable, w stat migr Discharge Disposition: Home or Self Care 11/13/2024 Refill [facility], Department of Pain Medicine[address] [address] Kathy Ruelas MD Chronic migraine with aura and with status migrainosus, not intractable 11/10/2024 11:00 AM EDT Telemedicine Support [facility] [address] [place] [address], 9th [address] [place] [address] Darrell Velazquez Psy.D. Attention deficit hyperactivity disorder (ADHD), unspecified ADHD type (Primary Dx); Asperger's syndrome 11/07/2024 Telephone [facility] [address], 9[address] [place] [address] Sarah Banks MA 11/05/2024 Prep for Sedation/Procedure visit [facility], Department of Pain Medicine, [place] [address] [place] [address] Anselmo De Santiago MD Chronic migraine with aura and with status migrainosus, not intractable (Primary Dx) 10/30/2024 Telephone [facility], Department of Pain Medicine, [place] [address] [place] [address] Nikko Castillo, Vp Revenue Cycle Appointment (/) 10/28/2024 Results Follow-Up [facility], Department of Rheumatology, [address] [place] [address] Stephanie Diaz MD CBC auto differential, Erythrocyte Sediment Rate (ESR), Gamma GT, Additional followed-up results: 3 10/27/2024 12:30 PM EDT - 10/27/2024 11:59 PM EDT Hospital Encounter [facility] [address] [facility] 2nd [place] [address] CHARLY (juvenile idiopathic arthritis) (Primary Dx) Discharge Disposition: Home or Self Care 10/24/[address] [facility] PATIENT ACCESS Encounter, Telephone 10/22/2024 1:05 PM EDT Anesthesia Event [facility] [address] [place] [phone] Erik Guidry MD 10/22/2024 12:07 PM EDT - 10/22/2024 11:59 PM EDT Hospital Encounter [facility] [address] [place] [phone] Erik Guidry MD Mathew, Eapen, MD Discharge Disposition: Home or Self Care 10/20/2024 12:00 PM EDT - 10/20/2024 11:59 PM EDT Hospital Encounter [facility] [address] [place] [address] Erik Guidry MD CHARLY (juvenile idiopathic arthritis) (Primary Dx) Discharge Disposition: Home or Self Care 2024 Orders Only [facility] [address] [place] [address] Erik Guidry MD 10/17/2024 1:00 PM EDT Office Visit [facility], Department of Pain Medicine, [address] [place] [phone] Cami Wilkerson APRN Amplified musculoskeletal pain syndrome (Primary Dx); Chronic migraine with aura and with status migrainosus, not intractable; CHARLY (juvenile idiopathic arthritis), enthesitis related arthritis; Psychological factors affecting medical condition 10/17/2024 Telephone [facility] [address] [place] [address], 9th [address] [place] [address] Megan BanksSRIDHAR 10/10/2024 Prep for Sedation/Procedure visit [facility], [address] [facility] [address] [place] [phone] Anselmo De Santiago MD Chronic migraine with aura and with status migrainosus, not intractable (Primary Dx) 10/09/2024 Telephone [facility], Department of Pain Medicine, [address] [place] [phone] Encounter, Telephone Appointment (/) 10/09/2024 Telephone [facility] [address] [place] [address], 9th [address] [place] [address] Sarah Banks MA 10/01/2024 Telephone [facility], Department of Pain Medicine, [place] [address] [place] [phone] Encounter, Telephone 09/30/2024 Results Follow-Up [facility], Department of Rheumatology, [place] [address] [facility] [address] [place] [address] Stephanie Diaz MD CBC auto differential, Erythrocyte Sediment Rate (ESR), Gamma GT, Additional followed-up results: 3 09/29/2024 1:54 PM EDT - 09/29/2024 11:59 PM EDT Hospital Encounter [facility] [address] [facility] 2nd [place] [address] CHARLY (juvenile idiopathic arthritis) (Primary Dx) Discharge Disposition: Home or Self Care 09/26/2024 Telephone [facility], Department of Pain Medicine, [place] [address] [place] [address] Encounter, Telephone 09/25/2024 1:30 PM EDT Office Visit [facility], Department of Pain Medicine, [address] [address] Kathy Ruelas MD Chronic migraine with aura and with status migrainosus, not intractable (Primary Dx); Amplified musculoskeletal pain syndrome; CHARLY (juvenile idiopathic arthritis), enthesitis related arthritis; Psychological factors affecting medical condition 09/18/2024 1:31 PM EDT Anesthesia Event [facility] [address] [place] [address] Telma Hampton MD 09/18/2024 12:19 PM EDT - 09/18/2024 11:59 PM EDT Hospital Encounter [facility] [address] [place] [address] Anselmo De Santiago MD Raghavan, Kalyani, MD Chronic migraine with aura and with status migrainosus, not intractable (Primary Dx); Chronic migraine w/o aura, not intractable, w stat migr Discharge Disposition: Home or Self Care from Last 3 Months Immunizations Immunization Administration Dates Next Due Influenza, Quad, Preservative Free 01/08/2021 Influenza, Unspecified 12/27/2019 Family History Medical History Relation Name Comments Migraines Father Cancer Maternal Grandfather Spondyloarthropathy Maternal Grandfather Fibromyalgia Mother Kidney Stones Mother Migraines Mother Spondyloarthropathy Mother ADD / ADHD Sister 1 Arthritis Sister 1 Asthma Sister 1 Spondyloarthropathy Sister 1 ADD / ADHD Sister 2 Arthritis Sister 2 Asthma Sister 2 Dermatomyositis Neg Hx Inflammatory bowel disease Neg Hx Lupus Neg Hx Relation Name Status Comments Father Maternal Grandfather Mother Sister 1 Sister 2 Social History Tobacco Use Types Packs/Day Years Used Date Smoking Tobacco: Never Passive Smoke Exposure: Never Smokeless Tobacco: Never Tobacco Cessation:Counseling Given: No Alcohol Use Standard Drinks/Week Comments Never 0 (1 standard drink = 0.6 oz pur e alcohol) Sex and Gender Information Value Date Recorded Sex Assigned at Not on file Legal Sex Male 2:22 AM EST Gender Identity Not on file Sexual Orientation Not on file Last Filed Vital Signs Vital Sign Reading Time Taken Comments Blood Pressure 137/79 11/24/2024 1:09 PM EDT Pulse 86 11/24/2024 1:09 PM EDT Temperature 36.7 C (98.1 F) 11/24/2024 1:09 PM EDT Respiratory Rate 16 11/24/2024 1:09 PM EDT Oxygen Saturation 97% 11/20/2024 3:42 PM EDT Inhaled Oxygen Concentration - - Weight 76.2 kg (167 lb 15.9 oz) 025 12:39 PM EDT Height 192.8 cm (6' 3.91 ) 11/24/2024 1 2:39 PM EDT Body Mass Index 20.5 11/24/2024 12:39 PM EDT Plan of Treatment Upcoming Encounters Date Type Department Care Team (Late st Contact Info) Description 12/18/2024 1:30 PM EDT Therapy Department of Occupational Therapy [address] [place] [address] Lorenza Young, OTR/L [address] [place] [address] 12/19/2024 11:30 AM EDT Office Visit [facility], Department of Pain Medicine, [address] [place] [address] Cami Wilkerson APRN [address] [place] [address] 12/22/2024 12:30 PM EDT [facility] [address] [facility] 2nd [place] [address] CHARLY (juvenile idiopathic arthritis) (Primary Dx) 12/25/2024 11:00 AM EDT Telemedicine Support [facility] [address] [place] [address] 85 [facility], 9th Floor [address] [place] [address] Darrell Velazquez Psy.D. [address] [place] [address] 12/25/2024 1:30 PM EDT Therapy Department of Occupational Therapy [address] [place] [address] Lorenza Young, OTR/L [address] [place], [place] [phone] 01/01/2025 1:30 PM EDT Therapy Department of Occupational Therapy [address] [place] [address] Lorenza Young, OTR/L [address] [place], [place] [phone] 01/08/2025 1:30 PM EDT Therapy Department of Occupational Therapy [address] [place] [address] Lorenza Young, OTR/L [address] [place], [place] [address]/15/2025 1:30 PM EDT Therapy Department of Occupational Therapy [address] [place] [address] Lorenza Young OTR/L [address] [place], [place] [address]/19/2025 12:30 PM EDT Appointment [facility] [address] [place] [phone] 01/22/2025 1:30 PM EDT Therapy Department of Occupational Therapy [address] [place] [address] Lorenza Young, OTR/L [address] [place] [address] 01/28/2025 3:30 PM EDT Appointment [facility] [address] [place] [phone] Anselmo De Santiago MD [address] [place] [address] 01/29/2025 1:30 PM EDT Therapy Department of Occupational Therapy [address] [place] [address] Lorenza Young, OTR/L [address] [place] [address] 02/05/2025 1:30 PM EST Therapy Department of Occupational Therapy [address] [place] [address] Lorenza Young, OTR/L [address] [place] [address] 02/11/2025 12:45 PM EST Appointment [facility] [address] [place] [phone] Anselmo De Santiago MD [address] [place] [address] 02/12/2025 1:30 PM EST Therapy Department of Occupational Therapy [address] [place] [address] Lorenza Young, OTR/L [address] [place] [address] 02/19/2025 1:30 PM EST Therapy Department of Occupational Therapy [address] [place] [address] Lorenza Young, OTR/L [address] [place] [address] 02/25/2025 9:00 AM EST Office Visit [facility], [place] [address] [place] [address] Lata Santamaria MD [address] [place] [address] 03/04/2025 12:00 PM EST Appointment [facility] [address] [place] [address] Anselmo De Santiago MD [address] [place], [place] [phone] 05/21/2025 2:00 PM EST Office Visit [facility], Department of Rheumatology, [address] [address] Stephanie Diaz MD [address] [place] [address] Health Maintenance Due Date Last Done Comments DTaP/TDAP/TD VACCINES (1 - Tdap) 10/20/2011 ADOLESCENT HIV SCREENING 2017 COVID-19 Vaccine ( season) 2024 INFLUENZA (#1) 2024 12/24/2021, 10/0 12/2020, 12/27/2019, Additional history exists NIRSEVIMAB VACCINES UNDER 8 MONTHS Aged Out No longer eligible based on patient's age to complete this topic Procedures Procedure Name Priority Date/Time Associated Diagnosis Comments BUN CREAT W/ RATIO Routine 11/24/2024 12 :38 PM EDT CHARLY (juvenile idiopathic arthritis), enthesitis related arthritis ALT Routine 11/24/2024 12:38 PM EDT CHARLY (juvenile idiopathic arthritis), enthesitis related arthritis AST Routine 11/24/2024 12:38 PM EDT CHARLY (juvenile idiopathic arthritis), enthesitis related arthritis GAMMA GLUTAMYL TRANS (GGT) Routine 11/24/2024 12:38 PM EDT CHARLY (juvenile idiopathic arthritis), enthesitis related arthritis ERYTHROCYTE SEDIMENT RATE (ESR) Routine 11/24/2024 12:38 PM EDT CHARLY (juvenile idiopathic arthritis), enthesitis related arthritis CBC WITH AUTO DIFFERENTIAL Routine 11/24/2024 12:38 PM EDT CHARLY (juvenile idiopathic arthritis), enthesitis related arthritis INJECT TRIGGER POINT(S) Routine 11/14/19 12:00 PM EDT Chronic migraine without aura without status migrainosus, not intractable BUN CREAT W/ RATIO Routine 10/27/2024 1: 02 PM EDT CHARLY (juvenile idiopathic arthritis) ALT Routine 10/27/2024 1:02 PM EDT CHARLY (juvenile idiopathic arthritis) AST Routine 10/27/2024 1:02 PM EDT CHARLY (juvenile idiopathic arthritis) GAMMA GLUTAMYL TRANS (GGT) Routine 10/27/2024 1:02 PM EDT CHARLY (juvenile idiopathic arthritis) ERYTHROCYTE SEDIMENT RATE (ESR) Routine 10/27/2024 1:02 PM EDT CHARLY (juvenile idiopathic arthritis) CBC WITH AUTO DIFFERENTIAL Routine 10/27/2024 1:02 PM EDT CHARLY (juvenile idiopathic arthritis) INJECT TRIGGER POINT(S) Routine 10/23/19 12:30 PM EDT Chronic migraine with aura and with status migrainosus, not intractable BUN CREAT W/ RATIO Routine 09/29/2024 2: 08 PM EDT CHARLY (juvenile idiopathic arthritis) ALT Routine 09/29/2024 2:08 PM EDT CHARLY (juvenile idiopathic arthritis) AST Routine 09/29/2024 2:08 PM EDT CHARLY (juvenile idiopathic arthritis) GAMMA GLUTAMYL TRANS (GGT) Routine 09/29/2024 2:08 PM EDT CHARLY (juvenile idiopathic arthritis) ERYTHROCYTE SEDIMENT RATE (ESR) Routine 09/29/2024 2:08 PM EDT CHARLY (juvenile idiopathic arthritis) CBC WITH AUTO DIFFERENTIAL Routine 09/29/2024 2:08 PM EDT CHARLY (juvenile idiopathic arthritis) CHEMODENERVATION Routine 09/18/2024 1:15 PM EDT from Last 3 Months Results * BUN Creat w/ Ratio (11/24/2024 12:38 PM EDT) Only the most recent of3 resultswithin the time period is included. BUN 11 7 - 25 mg/dL [facility] Creatinine 0.82 0.60 - 1.24 mg/dL [facility] EGFR 129 > OR = 60 mL/min/1. 73m2 [facility] BUN/Creatinine Ratio SEE NOTE: (calc) [facility] Comment: Not Reported: BUN and Creatinine are within reference range. Blood BLOOD SPECIMEN / Unknown 11/24/2024 12:38 PM EDT 11/25/2024 5:56 AM EDT Narrative Resulting Agency Comment Performing Organization Information: Site ID: [id number] Name: [facility] Address: [address] [place] [id number] Director: Alfredo Alaniz M.D. Stephanie Diaz MD LAB BLOOD ORDERABLES [facility] [employer] [address] [place] [address] [place] [address] [facility] [address] [place] [phone] * Erythrocyte Sediment Rate (ESR) (11/24/2024 12:38 PM EDT) Only the most recent of3 resultswithin the time period is included. Sed Rate by Modified Westergren 2 < OR = 15 mm/h [facility] Blood BLOOD SPECIMEN / Unknown 11/24/2024 12:38 PM EDT 11/25/2024 5:56 AM EDT Narrative Resulting Agency Comment Performing Organization Information: Site ID: [id number] Name: [facility] Address: [address] [place] [id number] Director: Alfredo Alaniz M.D. Stephanie Diaz MD LAB BLOOD ORDERABLES [facility] [employer] [address] [place], [place] [phone] [facility] [address] [place] [phone] * (ABNORMAL) CBC auto differential (11/24/2024 12:38 PM EDT) Only the most recent of3 resultswithin the time period is included. WBC 5.8 3.8 - 10.8 Thousand/ uL [facility] RBC 4.96 4.20 - 5.80 Million/u L [facility] Hemoglobin 14.5 13.2 - 17.1 g/dL [email or web address] Hematocrit 45.5 38.5 - 50.0 % [facility] MCV 91.7 80.0 - 100.0 fL [facility] MCH 29.2 27.0 - 33.0 pg [facility] MCHC 31.9(L) 32.0 - 36.0 g/dL [facility] Comment: For adults, a slight decrease in the calculated MCHC value (in the range of 30 to 32 g/dL) is most likely not clinically significant; however, it should be interpreted with caution in correlation with other red cell parameters and the patient's clinical condition. RDW 12.3 11.0 - 15.0 % [email or web address] Platelets 199 140 - 400 Thousand/ uL [facility] MPV 10.9 7.5 - 12.5 fL [facility] Neutrophils Absolute 2,714 1,500 - 7,800 cells/uL [email or web address] Lymphocytes Absolute 1,885 850 - 3,900 cells/uL [facility] Monocytes Absolute 423 200 - 950 cells/uL [facility] Eosinophils Absolute 737(H) 15 - 500 cells/uL [facility] Basophils Absolute 41 0 - 200 cells/uL [facility] Neutrophils 46.8 % [facility] Lymphs 32.5 % [facility] Monocytes 7.3 % [facility] Eos 12.7 % [facility] Basos 0.7 % [facility] Blood BLOOD SPECIMEN / Unknown 11/24/2024 12:38 PM EDT 11/25/2024 5:56 AM EDT Narrative Resulting Agency Comment Performing Organization Information: Site ID: [id number] Name: [facility] Address: [address] [place] [phone] Director: Alfredo Alaniz M.D. Stephanie Diaz MD LAB BLOOD ORDERABLES [facility] Result Performing Organization Address [facility] Co de Phone Number [employer] [address] [place] [phone] [facility] [address] [place] [phone] * ALT (11/24/2024 12:38 PM EDT) Only the most recent of3 resultswithin the time period is included. ALT 32 9 - 46 U/L [facility] Blood BLOOD SPECIMEN / Unknown 11/24/2024 12:38 PM EDT 11/25/2024 5:56 AM EDT Narrative Resulting Agency Comment Performing Organization Information: Site ID: [id number] Name: [facility] Address: [address] [place] [phone] Director: Alfredo Alaniz M.D. us Stephanie Diaz MD LAB BLOOD ORDERABLES [facility] Result Performing Organization Address City/[facility]/ZIP Co de Phone Number [employer] [address] [place] [phone] [employer] [address] [place] [phone] * AST (11/24/2024 12:38 PM EDT) Only the most recent of3 resultswithin the time period is included. AST 22 10 - 40 U/L [facility] Blood BLOOD SPECIMEN / Unknown 11/24/2024 12:38 PM EDT 11/25/2024 5:56 AM EDT Narrative Resulting Agency Comment Performing Organization Information: Site ID: [id number] Name: [facility] Address: [address] [place] [phone] Director: Alfredo Alaniz M.D. Stephanie Diaz MD LAB BLOOD ORDERABLES [facility] Result Performing Organization Address [facility]/ZIP Co de Phone Number [employer] [address] [place] [phone] [employer] [facility] [address] [place] [phone] * Gamma GT (11/24/2024 12:38 PM EDT) Only the most recent of3 resultswithin the time period is included. GGT 45 3 - 70 U/L [facility] Blood BLOOD SPECIMEN / Unknown 11/24/2024 12:38 PM EDT 11/25/2024 5:56 AM EDT Narrative Resulting Agency Comment Performing Organization Information: Site ID: [id number] Name: [facility] Address: [address] [place] [phone] Director: Alfredo Alaniz M.D. us Stephanie Diaz MD LAB BLOOD ORDERABLES [facility] Result Performing Organization Address [facility]/ZIP Co de Phone Number [employer] [address] [place] [phone] [facility] [address] [place] [phone] * Inject Trigger Point(s) (11/13/2024 12:00 PM EDT) Anselmo Damon MD - 11/13/2024 12:00 PM EDT Anselmo De Santiago MD 11/13/2024 11:52 AM PROCEDURE REPORT 11/13/24 PREOPERATIVE DIAGNOSIS:myofascial pain syndrome, chronic migraine POSTOPERATIVE DIAGNOSIS: myofascial pain syndrome, chronic migraine PROCEDURE: bilateral occipital trigger point injection SPG block PROCEDURALIST: Anselmo DE SANTIAGO MD FLATLOCK SEWING MACHINE OPERATOR: None. DATE OF SURGERY:11/13/24 ANESTHESIA: IV sedation. ESTIMATED BLOOD LOSS: 0mL COMPLICATIONS: None apparent. INDICATIONS: Herman Eagle (Akira) with longstanding headache, failing conservative therapy including behavioral health, medication management, physical therapy, hydration, and sleep hygiene. The symptoms of headache could represent myofascial pain syndrome or chronic migraine. I met with the family and reviewed the risks, benefits, alternatives and expected results of bilateral occipital trigger point injection and SPG block, and they consented to same. PROCEDURE IN DETAIL: After obtaining informed consent and properly identifying the patient, the patient was brought to the sedation suite. IV sedation was administered by the anesthesia team. A surgical timeout was conducted. The posterior occiput was prepped with alcohol. A 25g needle was used to inject, based on anatomic landmarks, around each mastoid process in the soft tissue bilaterally, and 1cm lateral of midline in the occiput bilaterally (total 4 injections). 10ml of lidocaine 10mg/ml were divided equally among the 4 injection sites. 4 cotton-tipped applicators were soaked in 4% lidocaine. They were inserted via both nares until they reached the posterior nasopharynx. he was positioned supine and 2mL of lidocaine 4% were dripped onto the four cotton-tipped applicators, which remained in place for 15 minutes and then removed. Herman Noguera) recovered in place, after tolerating the procedure well. Anselmo DE SANTIAGO MD us Anselmo De Santiago MD PROCEDURE/MINOR SURGICAL ORDERAB LES Final Result * Inject Trigger Point(s) (10/22/2024 12:30 PM EDT) Anselmo Damon MD - 10/22/2024 12:30 PM EDT Anselmo De Santiago MD 10/22/2024 1:57 PM PROCEDURE REPORT 10/22/24 PREOPERATIVE DIAGNOSIS:myofascial pain syndrome, chronic migraine POSTOPERATIVE DIAGNOSIS: myofascial pain syndrome, chronic migraine PROCEDURE: bilateral occipital trigger point injection SPG block PROCEDURALIST: Anselmo DE SANTIAGO MD FLATLOCK SEWING MACHINE OPERATOR: None. DATE OF SURGERY:10/22/24 ANESTHESIA: IV sedation. ESTIMATED BLOOD LOSS: 0mL COMPLICATIONS: None apparent. INDICATIONS: Herman Noguera) with longstanding headache, failing conservative therapy including behavioral health, medication management, physical therapy, hydration, and sleep hygiene. The symptoms of headache could represent myofascial pain syndrome or chronic migraine. I met with the family and reviewed the risks, benefits, alternatives and expected results of bilateral occipital trigger point injection and SPG block, and they consented to same. PROCEDURE IN DETAIL: After obtaining informed consent and properly identifying the patient, the patient was brought to the sedation suite. IV sedation was administered by the anesthesia team. A surgical timeout was conducted. The posterior occiput was prepped with alcohol. A 25g needle was used to inject, based on anatomic landmarks, around each mastoid process in the soft tissue bilaterally, and 1cm lateral of midline in the occiput bilaterally (total 4 injections). 10ml of lidocaine 10mg/ml were divided equally among the 4 injection sites. 4 cotton-tipped applicators were soaked in 4% lidocaine. They were inserted via both nares until they reached the posterior nasopharynx. he was positioned supine and 2mL of lidocaine 4% were dripped onto the four cotton-tipped applicators, which remained in place for 15 minutes and then removed. Herman Noguera) recovered in place, after tolerating the procedure well. Anselmo DE SANTIAGO MD Anselmo De Santiago MD PROCEDURE/MINOR SURGICAL ORDERAB LES Final Result * [employer] (09/18/2024 1:15 PM EDT) Narrative Anselmo De Santiago MD - 09/18/2024 1:15 PM EDT Anselmo De Santiago MD 09/18/2024 1:34 PM OPERATIVE REPORT 09/18/24 PREOPERATIVE DIAGNOSIS: chronic migraine POSTOPERATIVE DIAGNOSIS: chronic migraine PROCEDURE: botox injection, headache protocol SURGEON: Mily De Santiago MD FLATLOCK SEWING MACHINE OPERATOR: None. DATE OF procedure: 09/18/24 COMPLICATIONS: None apparent. INDICATIONS: Herman Eagle (Danny) is 18 y.o. with chronic daily headache with a migrainous component. he has failed multiple medication regimens, as well multiple nonpharmacologic modalities. he has > than 15 headache days per month. Risks benefits and alternatives to a trial of botox injection were discussed in detail with Herman Eagle (Akira) and Mom and they were amenable to proceed. Before you began Botox treatments, how many times each week did you experience a migraine? 6-7 Before you began Botox treatments, low long did your migraines last? 4-18 hours Before you began Botox treatments, on a scale of 0-10, how would you have rated the pain associated with your migraines? 7 Before you began Botox treatments, how effective was rescue medication in reducing the pain of your migraine? Somewhat effective After receiving Botox treatments, how many times each week do you experience a migraine? 1-2 After receiving Botox treatments, low long do your migraines last? 3 hours After receiving Botox treatments, on a scale of 0-10, how would you rate the pain associated with your migraines? 4 After receiving Botox treatments, how effective are rescue medications in reducing the pain of your migraine? Somewhat effective PROCEDURE IN DETAIL: After obtaining informed consent and properly identifying the patient, alcohol swabs were used to clean each of 31 sites used for injection, per protocol, and 5 units of botox were injected at each site. he tolerated the procedure well. Botox medication was provided by [facility] Anselmo DE SANTIAGO MD Ledy Murrell Phil [facility]BBN PROCEDURE/MINOR SURGICA L ORDERABLES Final Result from Last 3 Months Insurance [facility] MEDICAID [facility] MEDICAID Care Teams Felting Machine Operator Helper Relationship Specialty Start Date End Date Romy Brown MD [address] [place] [phone] PCP - General 11/12/15 Roe Mercado MD [address] [place] [phone] Consulting Physician Neurology 10/31/18 Kathy Ruelas MD [address] [place] [phone] Consulting Physician Pain Medicine 10/31/18 Anoop Mackay MD PhD [address] [place] [address] [address] [place] [phone] Consulting Physician Pediatric Pulmonology 01/08/22 Lata Santamaria MD [address] [place] [phone] Consulting Physician Gastroenterology 11/15/23 Marni Smallwood [facility] [address] [facility] [address] [facility] [id number] Behavioral Health Clinician Behavioral Health 03/14/22
--- OUTSIDE RECORDS SUMMARY | 2024-12-12 17:34 | XMS_ITS ---
Author Name [facility] [place] Organization Unknown History of Medication Use Medication Directions Dispensed Refills Start Date End Date Status naproxen (NAPROSYN) 375 MG tablet Take 1 tablet (375 mg) by mouth 2 (two) times daily with meals 5 active lidocaine 10 mg/mL (1 %) injection Starting on Sun07/10/24 at 1046, For 1 dose, Ledy Vazquez R.N.: cabinet override HIGH ALERT MEDICATION 5 025 completed naltrexone 1.5 mg Capsule Take 1.5 mg by mouth at bedtime for 14 days, THEN 3 mg at bedtime for 14 days, THEN 4.5 mg at bedtime. 5 025 active ONAbotulinumtoxinA (BOTOX) injection 155 Units 155 Units, Intramuscular, Once, On Sun06/19/24 at 0715, For 1 dose, Procedural Services 5 025 completed abatacept (ORENCIA) 750 mg in 0.9% sodium chloride 100 mL IV 750 mg (9.19 mg/kg), Intravenous, Administer over 30 Minutes, Once, On Sun06/10/24 at 1115, For 1 dose, Administer through low protein binding filter (0.2-1.2 micron) 5 025 completed acetaminophen (TYLENOL) tablet 650 mg 650 mg (7.97 mg/kg), Oral, Once, On Sun06/10/24 at 1115, For 1 dose, Pre-infusion Not to exceed 75mg/kg/day or 4000mg/day of acetaminophen, whichever is less 5 025 completed cetirizine (zyrTEC) tablet 5 mg 5 mg (0.0613 mg/kg), Oral, Once, On 06/10/24 at 1115, For 1 dose, Pre-Infusion 5 025 completed famotidine (PEPCID) 20 MG tablet Take 1 tablet (20 mg) by mouth 2 (two) times daily 4 active atogepant 60 mg Tablet Take 60 mg by mia th daily 4 active fluticasone propion-salmeteroL (ADVAIR) 250-50 mcg/dose diskus inhaler INHALE 1 PUFF BY MOUTH EVERY 12 HOURS DIRECTED 4 active eletriptan (RELPAX) 20 MG tablet Take 1 tablet (20 mg) by mouth as needed may repeat in 2 hours if necessary 4 active meloxicam (MOBIC) 15 MG tablet Take 1 tablet (15 mg) by mouth daily 4 active famotidine (PEPCID) 20 MG tablet 3 active aspirin/acetaminophen/ caffeine (EXCEDRIN MIGRAINE ORAL) Take 2 tablets by mouth 3 active ondansetron (ZOFRAN-ODT) 8 MG disintegrating tablet Take 1 tablet (8 mg) by mouth every 8 (eight) hours as needed for Nausea 2 active BOTOX 200 unit Recon Soln INJECT 155 UNITS INTRAMUSCULARLY EVERY 12 WEEKS (GIVEN AT MD OFFICE, DISCARD UNUSED) 1 active PROAIR HFA 90 mcg/actuation inhaler 0 active albuterol sulfate 2.5 mg/3 mL (0.083 %) solution for nebulization Inhale 3 mL every 4-6 hours by nebulization route for 7 days. 6 active montelukast 4 mg chewable tablet take 1 tablet by mouth at bedtime 3 active Vortex Holding Chamber with Child Mask use as directed WITH INHALER 1 024 active dexamethasone 4 mg tablet Take 1.5 tablets as needed by oral route for 1 day. 9 009 completed ferrous gluconate 324 mg (38 mg iron) tablet TAKE 1 TABLET BY MOUTH DAILY 024 completed azithromycin 250 mg tablet 023 completed amoxicillin 875 mg-potassium clavulanate 125 mg tablet TAKE 1 TABLET BY MOUTH TWICE DAILY FOR 14 DAYS 022 completed cefprozil 500 mg tablet TAKE 1 TABLET BY MOUTH TWICE DAILY 022 completed Orencia ClickJect 021 completed mupirocin 2 % topical ointment apply topically twice a day for 10 days 020 completed butalbital-acetaminoph en-caffeine 50 mg-325 mg-40 mg tablet take 1 tablet by mouth every 4 to 6 hours if needed for SEVERE HEADACHE 019 completed Flovent Diskus 100 mcg/actuation powder for inhalation 019 completed omeprazole 20 mg capsule,delayed release take 1 capsule by mouth once daily 019 completed rizatriptan 5 mg tablet take 5 milligram AT MIGRAINE ONSET.MAY REPEAT IN 2 HOURS IF NEEDED 018 completed sumatriptan 50 mg tablet TAKE 1 TABLET BY MOUTH NEEDED FOR MIGRAINE DO NOT EXCEED 2 DOSES IN 24 HOURS 018 completed sulfasalazine 500 mg tablet,delayed release 06/23 016 completed acetaminophen 300 mg-codeine 30 mg tablet take 1 tablet by mouth every 6 hours if needed for pain active amitriptyline 10 mg tablet take 1 tablet by mouth daily at bedtime for 4 days then 2 tablets... (REFER TO PRESCRIPTION NOTES). active amoxicillin 400 mg/5 mL oral suspension take 10 milliliter by mouth twice a day for 14 days (DISCARD REMAINING LIQUID AFTER 14 DAYS.) active Botox active cephalexin 250 mg/5 mL oral suspension take 10 milliliter by mouth twice a day for 10 days active cyproheptadine 2 mg/5 mL oral syrup active famotidine 20 mg tablet TAKE 1 TABLET BY MOUTH TWICE DAILY active Flovent Diskus 250 mcg/actuation powder for inhalation INHALE 2 PUFFS BY MOUTH EVERY DAY DIRECTED active Ibuprofen Jr Strength 100 mg chewable tablet ac tive meloxicam 7.5 mg tablet take 1 tablet by mouth once daily active prochlorperazine maleate 5 mg tablet TAKE 1 TABLET BY MOUTH NEEDED FOR NAUSEA WITH VOMITING OR MIGRAINE active propranolol ER 60 mg capsule,24 hr,extended release active Qulipta 30 mg tablet TAKE 1 TABLET BY MOUTH DAILY active Qvar 40 mcg/actuation Metered Aerosol oral inhaler Inhale 4 puffs every day by inhalation route. active Qvar 80 mcg/actuation Metered Aerosol oral inhaler take 4 inhalations by mouth every evening active sumatriptan 25 mg tablet TAKE 1 TAB BY MOUTH ONCE NEEDED FOR MIGRAINE HEADACHE.MAY REPEAT DOSE ONCE IN 2 HOURS. active None recorded. (No additional sig information) completed abatacept (ORENCIA) IV Inject into the vein once Mix in 100 mL of 0.9%NS and infuse over 30 minutes active Aimovig Autoinjector 70 mg/mL subcutaneous auto-injector INJECT 70 MG INTO THE SKIN EVERY 30 DAYS INJECT 70 MG INTO THE SKIN EVERY 30 DAYS completed albuterol (ACCUNEB) 0.63 mg/3 mL nebulizer solution Take 1 ampule by nebulization every 6 (six) hours as needed for Wheezing active azithromycin 250 mg tablet azithromycin 250 mg tablet completed Botox Botox completed cyproheptadine 4 mg tablet TAKE 2 TABLETS BY MOUTH DAILY TAKE 2 TABLETS BY MOUTH DAILY completed eletriptan 20 mg tablet eletriptan 20 mg tablet completed fluticasone propionate (FLOVENT DISKUS) 250 mcg/actuation Disk with Device diskus inhaler Flovent Diskus 250 mcg/actuation powder for inhalation INHALE 2 PUFFS BY MOUTH EVERY DAY DIRECTED active fluticasone propionate 50 mcg/actuation nasal spray,suspension instill 1 spray into each nostril once daily instill 1 spray into each nostril once daily completed ibuprofen 600 mg tablet TAKE 1 TABLET BY MOUTH EVERY 8 HOURS NEEDED FOR PAIN TAKE 1 TABLET BY MOUTH EVERY 8 HOURS NEEDED FOR PAIN completed lidocaine-prilocaine 2.5 %-2.5 % topical cream APPLY TO SITE OF INJECTION DIRECTED ON PACKAGE 1 HOUR BEFOREHAND APPLY TO SITE OF INJECTION DIRECTED ON PACKAGE 1 HOUR BEFOREHAND completed Nurtec ODT 75 mg disintegrating tablet DISSOLVE 1 TABLET ON THE TONGUE EVERY OTHER DAY. DO NOT EXCEED 1 TABLET IN 24 HOURS . DISSOLVE 1 TABLET ON THE TONGUE EVERY OTHER DAY. DO NOT EXCEED 1 TABLET IN 24 HOURS . completed penicillin V potassium 500 mg tablet Take 1 tablet twice a day by oral route for 10 days. Take 1 tablet twice a day by oral route for 10 days. completed ProAir HFA 90 mcg/actuation aerosol inhaler INHALE 2 PUFFS BY MOUTH EVERY 4 TO 6 HOURS IF NEEDED ONE FOR HOME AND ONE FOR SCHOOL INHALE 2 PUFFS BY MOUTH EVERY 4 TO 6 HOURS IF NEEDED ONE FOR HOME AND ONE FOR SCHOOL completed prochlorperazine (COMPAZINE) 5 MG tablet active Qulipta 30 mg tablet TAKE 1 TABLET BY MOUTH DAILY TAKE 1 TABLET BY MOUTH DAILY completed Allergies Allergen Reaction Severity Comment Documented Date Source Statu s TREE AND SHRUB POLLEN 08/25/2022 [facility] active SEASONAL 08/22/2022 [facility] active BECLOMETHASONE DIPROPIONATE Other Reaction(s): emotional,Migr aines and cardiac arrhythmia- Per mom. 01/11/2016 [facility] active GRASS POLLEN [facility] QVAR [facility] Problems Problem Status Onset Date Problem Type Date of Resolution Source Anxiety active 2018-10-31 ProblemAct [facility] History of recurrent psychosocial stressors active 2018-10-31 ProblemAct [facility] (juvenile idiopathic arthritis) active EncounterDiagnosisAct [facility] History of hydrocephalus as a child active 2018-10-31 ProblemAct [facility] Developmental delay in child active 2018-10-31 ProblemAct [facility] Childhood apraxia of speech active 2018-10-31 ProblemAct [facility] Problem with school attendance active 2018-10-31 ProblemAct [facility] Chronic migraine with aura active 2018-10-31 ProblemAct [facility] Attention deficit active 2018-10-31 ProblemAct [facility] Patellofemoral stress syndrome active 2020-09-22 ProblemAct [facility] Anemia active 2019-03-24 ProblemAct [facility] Anxiety active ProblemAct [facility] Chest pain active 2021-01-17 ProblemAct [facility] 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 ProblemAct [facility] Adjustment disorder with mixed anxiety and depressed mood active 2022-03-27 ProblemAct [facility] Headache active ProblemAct [facility] Developmental academic disorder active ProblemAct [facility] Migraine active ProblemAct [facility] Conduction disorder of the heart active ProblemAct [facility] Gastroesophageal reflux disease active 2020-09-09 ProblemAct [facility] Intolerance to lactose active 2020-09-09 ProblemAct [facility] Allergic rhinitis active 2008-08-19 ProblemAct [facility] Asthma active ProblemAct [facility] Foot pain active ProblemAct [facility] Normal pressure hydrocephalus active 2007-10-21 ProblemAct [facility] 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 ProblemAct [facility] Immunizations Vaccine Date Source Lot Number Status meningococcal B, OMV 08/06/2024 [facility] [id number] comp leted meningococcal B, OMV 07/30/2023 [facility] [id number] comp leted Influenza, split virus, quadrivalent, PF 12/24/2021 [facility] [id number] completed Hep A, ped/adol, 2 dose 04/19/2021 [facility] [id number] c ompleted meningococcal MCV4P 01/28/2021 [facility] [id number] compl eted Influenza, Quad, Preservative Free 01/08/2021 [facility] [id number] completed COVID-19, mRNA, LNP-S, PF, 30 mcg/0.3 mL dose 09/03/2020 [facility] [id number] completed COVID-19, mRNA, LNP-S, PF, 30 mcg/0.3 mL dose 08/13/2020 [facility] [id number] completed Hep A, ped/adol, 2 dose 04/13/2020 [facility] [id number] c ompleted Influenza, split virus, quadrivalent, PF 12/27/2019 [facility] [id number] completed Influenza, Unspecified 12/27/2019 [facility] co mpleted Influenza, split virus, quadrivalent, PF 01/29/2019 [facility] [id number] completed Influenza, split virus, quadrivalent, PF 03/05/2018 [facility] [id number] completed Influenza, split virus, quadrivalent, PF 01/16/2017 [facility] [id number] completed HPV9 08/09/2016 [facility] [id number] completed HPV9 04/06/2016 [facility] [id number] completed HPV9 01/26/2016 [facility] [id number] completed Influenza, split virus, quadrivalent, PF 01/26/2016 [facility] [id number] completed meningococcal MCV4P 01/17/2016 [facility] [id number] compl eted Tdap 01/17/2016 [facility] [id number] completed pneumococcal polysaccharide PPV23 2015 [facility] [id number] completed Pneumococcal conjugate PCV 13 07/12/2015 [facility] [id number] completed Influenza, split virus, quadrivalent, PF 01/14/2015 [facility] [id number] completed Influenza, split virus, quadrivalent, PF 01/05/2014 [facility] [id number] completed Influenza, split virus, quadrivalent, PF 12/20/2012 [facility] [id number] completed Influenza, split virus, triv alent, preservative 04/04/2012 [facility] [id number] completed Influenza, split virus, triv alent, preservative 01/09/2011 [facility] [id number] completed DTaP 11/12/2009 [facility] [id number] completed IPV 11/12/2009 [facility] [id number] completed Influenza, split virus, triv alent, preservative 03/23/2009 [facility] [id number] completed Novel [id number]-[id number] 03/23/2009 [facility] [id number] c ompleted Novel qvlteuicd-[id number] 01/28/2009 [facility] [id number] c ompleted MMR 11/10/2008 [facility] completed varicella 11/10/2008 [facility] completed DTaP 04/24/2006 [facility] completed Hib, unspecified formulation 01/29/2006 [facility] completed Influenza, split virus, triv alent, preservative 01/29/2006 [facility] completed MMR 01/29/2006 [facility] completed pneumococcal conjugate PCV 7 10/30/2005 [facility] completed varicella 10/30/2005 [facility] completed DTaP-Hep B-IPV 04/28/2005 [facility] completed Hib, unspecified formulation 04/28/2005 [facility] completed pneumococcal conjugate PCV 7 04/28/2005 [facility] completed DTaP-Hep B-IPV 03/01/2005 [facility] completed Hib, unspecified formulation 03/01/2005 [facility] completed pneumococcal conjugate PCV 7 03/01/2005 [facility] completed DTaP-Hep B-IPV 2004 [facility] completed pneumococcal conjugate PCV 7 2004 [facility] completed Hib, unspecified formulation 2004 [facility] completed Hep B, adolescent or pediatric 2004 [facility] completed Encounters Encounter Type Encounter Reason Primary Diagnosis Location Date Ambulatory Other specified health status Other specified health status [facility] ([facility]) 12/11/2024 Ambulatory Encntr for general adult medical exam w/o abnormal findings Encntr for general adult medical exam w/o abnormal findings [facility] 12/09/2024 Ambulatory Other juvenile arthritis, unspecified site Other juvenile arthritis, unspecified site [facility] ([facility]) 12/04/2024 Ambulatory Other juvenile arthritis, unspecified site Other juvenile arthritis, unspecified site [facility] ([facility]) 11/24/2024 Ambulatory Low back pain, unspecified Low back pain, unspecified [facility] ([facility]) 11/20/2024 Ambulatory Anorexia Anorexia [facility] ([facility]) 11/18/2024 Ambulatory Myalgia, other site [facility] 11/17/2024 Ambulatory Chronic migraine without aura, not intractable, with status migrainosus Chronic migraine without aura, not intractable, with status migrainosus [facility] ([facility]) 11/13/2024 Ambulatory [facility] ([facility]) 11/10/2024 Ambulatory Other juvenile arthritis, unspecified site Other juvenile arthritis, unspecified site [facility] ([facility]) 10/27/2024 Ambulatory [facility] ([facility] 10/22/2024 Ambulatory Other juvenile arthritis, unspecified site Other juvenile arthritis, unspecified site [facility] ([facility]) 10/20/2024 Ambulatory [facility] ([facility]) 10/17/2024 Ambulatory Other juvenile arthritis, unspecified site Other juvenile arthritis, unspecified site [facility] ([facility]) 09/29/2024 Ambulatory Chronic migraine wit h aura, not intractable, with status migrainosus Chronic migraine with aura, not intractable, with status migrainosus [facility] ([facility]) 09/25/2024 Ambulatory Chronic migraine wit h aura, not intractable, with status migrainosus Chronic migraine with aura, not intractable, with status migrainosus [facility] ([facility]) 09/18/2024 Ambulatory [facility] ([facility] 09/08/2024 Ambulatory Other juvenile arthritis, unspecified site Other juvenile arthritis, unspecified site [facility] ([facility]) 09/02/2024 Ambulatory [facility] ([facility]) 08/14/2024 Ambulatory Encntr for general adult medical exam w/o abnormal findings Encntr for general adult medical exam w/o abnormal findings [facility] 08/06/2024 Ambulatory Other juvenile arthritis, unspecified site Other juvenile arthritis, unspecified site [facility] ([facility]) 08/05/2024 Ambulatory Low back pain, unspecified Low back pain, unspecified [facility] ([facility]) 07/31/2024 Ambulatory [facility] ([facility]) 07/29/2024 Ambulatory Pain in unspecified joint Pain in unspecified joint [facility] ([facility]) 07/24/2024 Ambulatory [facility] ([facility]) 07/10/2024 Ambulatory Other juvenile arthritis, unspecified site Other juvenile arthritis, unspecified site [facility] ([facility]) 07/08/2024 Ambulatory [facility] ([facility]) 07/01/2024 Ambulatory [facility] ([facility]) 06/26/2024 Ambulatory [facility] ([facility] 06/26/2024 Ambulatory Other juvenile arthritis, unspecified site Other juvenile arthritis, unspecified site [facility] ([facility]) 06/26/2024 Ambulatory [facility] ([facility]) 06/19/2024 Ambulatory Other juvenile arthritis, unspecified site Other juvenile arthritis, unspecified site [facility] ([facility]) 06/12/2024 Ambulatory Other juvenile arthritis, unspecified site Other juvenile arthritis, unspecified site [facility] ([facility]) 06/10/2024 Ambulatory [facility] ([facility]) 05/28/2024 Ambulatory Impacted teeth Impacted teeth [facility] 07/30/2023 Ambulatory Streptococcal pharyngitis [facility] 12/12/2022 Ambulatory [facility] 08/18/2022 Ambulatory [facility] 08/14/2022 Ambulatory [facility] 05/25/2022 Ambulatory [facility] 03/06/2022 Ambulatory [facility] 02/27/2022 Ambulatory [facility] 02/20/2022 Ambulatory [facility] 12/24/2021 Ambulatory [facility] 08/17/2021 Ambulatory [facility] 07/01/2021 Ambulatory [facility] 04/19/2021 Ambulatory [facility] 01/28/2021 Ambulatory [facility] 01/08/2021 Ambulatory [facility] 12/15/2020 Care Team Organization Name Specialty Phone Email Start Date End Da te [facility] 06/11/2024 [facility] ([facility] WHITNEY [facility] 05/28/2024 [facility] NULL Primary Care 01/30/2023 11/19/2023 [facility] 2021 [facility] 202002/20/2022
--- OUTSIDE RECORDS SUMMARY | 2024-12-12 17:34 | XMS_ITS | Encounter Summary ---
Author Organization [facility] Address [address] [place] [address] Care Team Providers Care Mineralogy Professor Name Role Phone Romy Brown MD Primary Care Provider Roe Mercado MD Unavailable [phone] Kathy Ruelas MD Unavailable [phone] Anoop Mackay MD PhD Unavailable [phone] Lata Santamaria MD Unavailable [phone] Reason for Visit * Reason Onset Date Comments Medication Refill 11/20/2022 Encounter Details Date Type Department Care Team (Late st Contact Info) Description 11/20/2022 Refill [facility] Gastroenterology, [address] [address] Lata Santamaria MD [address] [place] [address] Nausea; Diarrhea, unspecified type; Periumbilical abdominal pain Social History Tobacco Use Types Packs/Day Years [...] encounter Miscellaneous Notes * Telephone Encounter - Minnie Foster RN - 11/21/2022 10:51 AM EDT Last appt: 10/26/22 Next appt: 01/30/23 Weight: 81.4 kg Allergies: reviewed Current dosage: 1. Famotidine 20 mg po twice daily documented in this encounter Plan of Treatment Upcoming Encounters Date Type Department Care Team (Late st Contact Info) Description 12/18/2024 1:30 PM EDT Therapy Department of Occupational Therapy [address] [place] [phone] Lorenza Young, OTR/L [address] [place] [address] 12/19/2024 11:30 AM EDT Office Visit [facility], Department of Pain Medicine, [place] [address] [place] [address] Cami Wilkerson APRN [address] [place] [address] 12/22/2024 12:30 PM EDT Hospital Encounter Infusion Center 10 [facility] 2nd [place] [address] CHRALY (juvenile idiopathic arthritis) (Primary Dx) 12/25/2024 11:00 AM EDT Telemedicine Support [facility] [address] [facility], 9th Floor [address] [place] [phone] Darrell Velazquez Psy.D. [address] [place] [address] 12/25/2024 1:30 PM EDT Therapy Department of Occupational Therapy [address] [place] [address] Lorenza Young, OTR/L [address] [place] 01/01/2025 1:30 PM EDT Therapy Department of Occupational Therapy [address] [place] [address] Lorenza Young, OTR/L [address] [place] [address] 01/08/2025 1:30 PM EDT Therapy Department of Occupational Therapy [address] [place] [address] Lorenza Young, OTR/L [address] [place] [address] 01/15/2025 1:30 PM EDT Therapy Department of Occupational Therapy [address] [place] [address] Lorenza Young, OTR/L [address] [place] [address] 01/19/2025 12:30 PM EDT Appointment [facility] [address] [place] [phone] 01/22/2025 1:30 PM EDT Therapy Department of Occupational Therapy [address] [place] [address] Lorenza Young, OTR/L [address] [place] [address] 01/28/2025 3:30 PM EDT Appointment [facility] [address] [place] [phone] Anselmo De Santiago MD [address] [place], [place] [phone] 01/29/2025 1:30 PM EDT Therapy Department of Occupational Therapy [address] [place] [address] Lorenza Young, OTR/L [address] [place] [address] 02/05/2025 1:30 PM EST Therapy Department of Occupational Therapy [address] [place] [address] Lorenza Young, OTR/L [address] [place] [address] 02/11/2025 12:45 PM EST Appointment [facility] [address] [place] [phone] Anselmo De Santiago MD [address] [place] [address] 02/12/2025 1:30 PM EST Therapy Department of Occupational Therapy [address] [place] [address] Lorenza Young, OTR/L [address] [place] [address] 02/19/2025 1:30 PM EST Therapy Department of Occupational Therapy [address] [place] [address] Lorenza Young, OTR/L [address] [place] [address] 02/25/2025 9:00 AM EST Office Visit [facility] Gastroenterology, [address] [address] Lata Santamaria MD [address] [place] [address] 03/04/2025 12:00 PM EST Appointment [facility] [address] [place] [phone] Anselmo De Santiago MD [address] [place] [address] 05/21/2025 2:00 PM EST Office Visit [facility], Department of Rheumatology, [address] [address] Stephanie Diaz MD [address] [place] [address] documented as of this encounter Visit Diagnoses Diagnosis Nausea Nausea alone Diarrhea, unspecified type Periumbilical abdominal pain Abdominal pain, periumbilic CHARLY (juvenile idiopathic arthritis)- Primary Other specified inflammatory polyarthropathies documented in this encounter Care Teams Mineralogy Professor Relationship Specialty Start Date End Date Romy Brown MD 123 [facility] 100 [place] [phone] PCP - General 11/12/15 Roe Mercado MD [address] [place] [address] Consulting Physician Neurology 10/31/18 Kathy Ruelas MD [address] [place] [address] Consulting Physician Pain Medicine 10/31/18 Anoop Mackay MD PhD [address] [place] [phone] Consulting Physician Pediatric Pulmonology 01/08/22 Lata Santamaria MD [address] [place] [address] Consulting Physician Gastroenterology 11/15/23 Marni Smallwood LCSW [facility] [address] [address] Behavioral Health Clinician Behavioral Health 03/14/22 documented as of this encounter
--- OUTSIDE RECORDS SUMMARY | 2024-12-12 17:34 | XMS_ITS | Encounter Summary ---
Author Organization [facility] Address [address] [place] [address] Care Team Providers Care Chinese Teacher Name Role Phone Romy Brown MD Primary Care Provider [place] Bazzi MD Unavailable Roe Mercado MD Unavailable [phone] Kathy Ruelas MD Unavailable [phone] Anoop Mackay MD PhD Unavailable [phone] Lata Santamaria MD Unavailable [phone] Reason for Visit * Reason Comments Medication Refill Encounter Details Date Type Department Care Team (Late st Contact Info) Description 06/17/2017 Refill [facility] Neurology, [place] [address] [place], [place] [address] Roe Mercado MD [address] [place] [address] Headache disorder Social History Tobacco Use Types Packs/Day Years [...] PM EDT Therapy Department of Occupational Therapy [address] [place] [address] Lorenza Young, OTR/L [address] [place] [address] 12/19/2024 11:30 AM EDT Office Visit [facility], Department of Pain Medicine, [place] [address] [place] [address] Cami Wilkerson APRN [address] [place] [address] 12/22/2024 12:30 PM EDT Hospital [facility] 10 [facility] 2nd [place] [address] CHARLY (juvenile idiopathic arthritis) (Primary Dx) 12/25/2024 11:00 AM EDT Telemedicine Support [facility] [address] [place] [address], 9th Floor [address] [place] [address] Darrell Velazquez Psy.D. [address] [place] [address] 12/25/2024 1:30 PM EDT Therapy Department of Occupational Therapy [address] [place] [address] Lorenza Young, OTR/L [address] [place] [address] 01/01/2025 1:30 PM EDT Therapy Department of Occupational Therapy [address] [place] [address] Lorenza Young, OTR/L [address] [place] [address] 01/08/2025 1:30 PM EDT Therapy Department of Occupational Therapy [address] [place] [address] Lorenza Young, OTR/L [address] [place] [address] 01/15/2025 1:30 PM EDT Therapy Department of Occupational Therapy [address] [place] [address] Lorenza Young, OTR/L [address] [place] [address] 01/19/2025 12:30 PM EDT Appointment [facility] [address] [place] [address] 01/22/2025 1:30 PM EDT Therapy Department of Occupational Therapy [address] [place] [address] Lorenza Young, OTR/L [address] [place] [address] 01/28/2025 3:30 PM EDT Appointment [facility] [address] [place] [address] Anselmo De Santiago MD [address] [place] [address] 01/29/2025 1:30 PM EDT Therapy Department of Occupational Therapy [address] [place] [address] Lorenza Young, OTR/L [address] [place] [address] 02/05/2025 1:30 PM EST Therapy Department of Occupational Therapy [address] [place] [address] Lorenza Young, OTR/L [address] [place] [address] 02/11/2025 12:45 PM EST Appointment [facility] [address] [place] [phone] Anselmo De Santiago MD [address] [place] [address] 02/12/2025 1:30 PM EST Therapy Department of Occupational Therapy [address] [place] [address] Hector Lorenza, OTR/L [address] [place] [address] 02/19/2025 1:30 PM EST Therapy Department of Occupational Therapy [address] [place], [place] [phone] Samyjeetanjali Lorenza, OTR/L [address] [place] [address] 02/25/2025 9:00 AM EST Office Visit [facility] Gastroenterology, [address] [address] Lata Santamaria MD [address] [place] [address] 03/04/2025 12:00 PM EST Appointment [facility] [address] [place] [phone] Anselmo De Santiago MD [address] [place] [address] 05/21/2025 2:00 PM EST Office Visit [facility], Department of Rheumatology, [address] [address] Stephanie Diaz MD [address] [place] [address] documented as of this encounter Visit Diagnoses Diagnosis Headache disorder Headache CHARLY (juvenile idiopathic arthritis)- Primary Other specified inflammatory polyarthropathies documented in this encounter Care Teams Chinese Teacher Relationship Specialty Start Date End Date Romy Brown MD [address] [place] [phone] PCP - General 11/12/15 [place] Bazzi MD [address] [place] [address] Consulting Physician Pediatric Rheumatology 10/31/18 Roe Mercado MD [address] [place] [address] Consulting Physician Neurology 10/31/18 [place] Ruelas MD [address] [place] [address] Consulting Physician Pain Medicine 10/31/18 Anoop Mackay MD PhD [address] [place] [phone] Consulting Physician Pediatric Pulmonology 01/08/22 Lata Santamaria MD [address] [place] [address] Consulting Physician Gastroenterology 11/15/23 Nery Alvarado, PhD [address] [place] [address] [address] [place] [address] Psychologist Psychology 10/31/18 11/02/21 Marni Smallwood [address] [address] Behavioral Health Clinician Behavioral Health 03/14/22 documented as of this encounter
== END 2024-12-12 15:41 | disposition home or self-care (01) ==
LOC: HO.HPS 15:01
PROVIDERS: PCP Health Educator; Visit Provider Hospitalist
DX: R53.82 Chronic fatigue, unspecified (principal); J45.40 Moderate persistent asthma, uncomplicated; M08.00 Unspecified juvenile rheumatoid arthritis of unspecified site; G47.33 Obstructive sleep apnea (adult) (pediatric); R51.9 Headache, unspecified; G89.29 Other chronic pain
CPT/HCPCS: 99205

== ENCOUNTER 2025-02-09 11:18 | Outpatient (REF) | payer OTHER, MEDICAID, SELFPAY ==
--- NOTE | ~2025-02-09 | XR_ITS ---
EXAMINATION: XR CHEST CLINICAL INFORMATION: J45.40 - Moderate persistent asthma, uncomplicated COMPARISON: None available. TECHNIQUE: 2 views of the chest were obtained. FINDINGS: No significant abnormality is noted involving the heart, lungs, mediastinum, bony thorax or soft tissues. XR/XR chest 2V IMPRESSION: No acute disease. Electronically signed by: Pradeep Slade MD 02/09/2025 12:15 PM [facility] [place]
[2025-02-09 11:35] LABS: MANUAL DIFF FLAG NO
[2025-02-09 12:13] LABS: Hematocrit 44.9 % (42.0-52.0); Hemoglobin 14.6 g/dl (14.0-18.0); Imm Gran Abs Auto 0.03 X10*3/uL (0.00-0.03); Imm Gran Pct Auto 0.5 % (0.0-0.4); Lymphocytes Absolute Auto 2.2 X10*3/uL (1.2-4.9); Mean Corpuscular HGB Conc 32.5 g/dl (31.0-36.0); Mean Corpuscular Hemoglobin 28.5 pg (27.0-33.0); Mean Corpuscular Volume 87.5 fL (80.0-98.0); NRBC Abs Auto 0.000 X10*3/uL (0.0-0.012); NRBC Pct Auto 0.0 /100WBC (0.0-0.2); Platelet Count 189 X10*3/uL (160-400); Red Blood Count 5.13 X10*6/uL (4.60-5.80); White Blood Count 6.5 X10*3/uL (4.8-10.8)
--- OUTSIDE RECORDS SUMMARY | 2025-02-09 13:39 | XMS_ITS | Encounter Summary ---
Author Organization [facility] Address [address] [place] [address] Care Team Providers Care Tandem Mill Roller Name Role Phone Romy Brown MD Primary Care Provider Roe Mercado MD Unavailable [phone] Kathy Ruelas MD Unavailable Anoop Mackay MD PhD Unavailable [phone] Lata Santamaria MD Unavailable [phone] Reason for Visit * Reason Onset Date Comments Medication Refill 12/22/2024 Encounter Details Date Type Department Care Team (Late st Contact Info) Description 12/22/2024 Refill [facility], Department of Pain Medicine, [address] [place] [address] Kathy Ruelas MD [address] [place], [place] [phone] Chronic migraine with aura Social History Tobacco [...] encounter Miscellaneous Notes * Telephone Encounter - Bryn Baldwin RN - 12/24/2024 8:41 AM EDT Refill request for Zofran 8 mg PRN Medication last ordered on 04/21/2021 Last seen: 12/19/2024 Cami Wilkerson APRN Next appt: Visit date not found Verified in chart review, forwarded to provider. documented in this encounter Plan of Treatment Upcoming Encounters Date Type Department Care Team (Late st Contact Info) Description 02/11/2025 12:45 PM EST Hospital Encounter [facility] [address] [place] [phone] Anselmo De Santiago MD [address] [place] [address] Erik Guidry MD [address] [place] [address] 02/17/2025 12:30 PM EST Hospital Encounter Infusion Center 10 [facility] 2nd [place] [address] CHARLY (juvenile idiopathic arthritis) (Primary Dx); CHARLY (juvenile idiopathic arthritis), enthesitis related arthritis 02/19/2025 1:30 PM EST Therapy Department of Occupational Therapy [address] [place] [address] Lorenza Young OTR/Asher [address] [place] [address] 02/25/2025 9:00 AM EST Office Visit [facility] Gastroenterology, [place] [address] [place] [address] Lata Santamaria MD [address] [place] [address] 03/04/2025 12:00 PM EST Appointment [facility] [address] [place] [phone] Anselmo De Santiago MD [address] [place] [address] 03/05/2025 1:30 PM EST Therapy Department of Occupational Therapy 10 [place] [address] Lorenza Young, OTR/L [address] [place] [address] 03/17/2025 12:30 PM EST Appointment [facility] [address] [address] 03/30/2025 3:00 PM EST Telemedicine [facility], Department of Pain Medicine, [place] [address] [place] [phone] Cami Wilkerson APRN [address] [place] [address] 05/21/2025 2:00 PM EST Office Visit [facility], Department of Rheumatology, [address] [address] Stephanie Diaz MD [address] [place] [address] documented as of this encounter Visit Diagnoses Diagnosis Chronic migraine with aura CHARLY (juvenile idiopathic arthritis)- Primary 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), 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)- Primary 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), 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 documented in this encounter Care Teams Tandem Mill Roller Relationship Specialty Start Date End Date Romy Brown MD [address] [place] [address] 100 [place] [address] PCP - General 11/12/15 Roe Mercado MD [address] [place] [address] Consulting Physician Neurology 10/31/18 Kathy Ruelas MD [address] [place] [address] Consulting Physician Pain Medicine 10/31/18 Anoop Mackay MD PhD [address] [place] [phone] Consulting Physician Pediatric Pulmonology 01/08/22 Lata Santamaria MD [address] [place] [address] Consulting Physician Gastroenterology 11/15/23 Marni Smallwood [address] [address] Behavioral Health Clinician Behavioral Health 03/14/22 documented as of this encounter
--- OUTSIDE RECORDS SUMMARY | 2025-02-09 13:39 | XMS_ITS | Encounter Summary ---
Author Organization [facility] Address [address] [place] [address] Care Team Providers Care At Home Independent Call Center Agent Name Role Phone Romy Brown MD Primary Care Provider [place] Bazzi MD Unavailable Roe Mercado MD Unavailable [phone] Kathy Mims MD Unavailable Anoop Mackay MD PhD Unavailable [phone] Lata Santamaria MD Unavailable [phone] Reason for Visit * Reason Comments Medication Refill Encounter Details Date Type Department Care Team (Late st Contact Info) Description 12/27/2018 Refill [facility], Department of Pain Medicine, [address] [place] [address] Kathy Mims MD [address] [place], [place] [phone] Chronic migraine without aura with status migrainosus, [...] Description 02/11/2025 12:45 PM EST Hospital Encounter [facility] [address] [place] [address] Anselmo De Santiago MD [address] [place] [address] Erik Guidry MD [address] [place] [address] 02/17/2025 12:30 PM EST Hospital Encounter [facility] Center [address] [address] CHARLY (juvenile idiopathic arthritis) (Primary Dx); CHARLY (juvenile idiopathic arthritis), enthesitis related arthritis 02/19/2025 1:30 PM EST Therapy Department of Occupational Therapy 10 [place] [address] Lorenza Young OTR/Asher [address] [place] [address] 02/25/2025 9:00 AM EST Office Visit [facility] Gastroenterology, [place] 84 [place] [address] Lata Santamaria MD [address] [place] [address] 03/04/2025 12:00 PM EST Appointment [facility] [address] [place] [phone] Anselmo De Santiago MD [address] [place] [address] 03/05/2025 1:30 PM EST Therapy Department of Occupational Therapy [address] [place] [phone] Lorenza Young, OTR/L [address] [place] [address] 03/17/2025 12:30 PM EST Appointment [facility] Center [address] [address] 03/30/2025 3:00 PM EST Telemedicine [facility], Department of Pain Medicine, [address] [place] [phone] Cami Wilkerson APRN [address] [place] [address] 05/21/2025 2:00 PM EST Office Visit [facility], Department of Rheumatology, [address] [address] Stephanie Diaz MD [address] [place] [address] documented as of this encounter Visit Diagnoses Diagnosis Chronic migraine without aura with status migrainosus, not intractable CHARLY (juvenile idiopathic arthritis)- Primary 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), 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)- Primary 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), 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 documented in this encounter Care Teams At Home Independent Call Center Agent Relationship Specialty Start Date End Date Romy Brown MD [address] [place] [phone] PCP - General 11/12/15 [place] Bazzi MD [address] [place] [address] Consulting Physician Pediatric Rheumatology 10/31/18 Roe Mercado MD [address] [place] [address] Consulting Physician Neurology 10/31/18 Kathy Mims MD [address] [place] [address] Consulting Physician Pain Medicine 10/31/18 Anoop Mackay MD PhD [address] [place] [phone] Consulting Physician Pediatric Pulmonology 01/08/22 Lata Santamaria MD [address] [place] [address] Consulting Physician Gastroenterology 11/15/23 Nery Alvarado, PhD [address] [place] [address] [address] [place] [address] Psychologist Psychology 10/31/18 11/02/21 Marni Smallwood [facility] [address] [address] Behavioral Health Clinician Behavioral Health 03/14/22 documented as of this encounter
--- OUTSIDE RECORDS SUMMARY | 2025-02-09 13:39 | XMS_ITS | Encounter Summary ---
Author Organization [facility] Address [address] [place] [address] Care Team Providers Care High School Director Name Role Phone Romy Brown MD Primary Care Provider [place] Bazzi MD Unavailable Roe Mercado MD Unavailable [phone] Kathy Ruelas MD Unavailable [phone] Anoop Mackay MD PhD Unavailable [phone] Lata Santamaria MD Unavailable [phone] Reason for Visit * Reason Comments Medication Refill Encounter Details Date Type Department Care Team (Late st Contact Info) Description 07/20/2019 Refill [facility] Neurology, [place] [address] [place] [address] Nigel Noel Jr., MD [address] [place], [place] [phone] Social History Tobacco Use Types Packs/Day Years [...] Dr Mercado: Please REFUSE. Mas: Please call [email or web address] and have them send the refill request to the ordering provider. documented in this encounter Plan of Treatment Upcoming Encounters Date Type Department Care Team (Late st Contact Info) Description 02/11/2025 12:45 PM EST Hospital Encounter [facility] [address] [place] [phone] Anselmo De Santiago MD [address] [place] [address] Erik Guidry MD [address] [place] [address] 02/17/2025 12:30 PM EST Hospital Encounter [facility]fusion Center [address] [place] [address] CHARLY (juvenile idiopathic arthritis) (Primary Dx); CHARLY (juvenile idiopathic arthritis), enthesitis related arthritis 02/19/2025 1:30 PM EST Therapy Department of Occupational Therapy [address] [place] [phone] Lorenza Young OTR/Asher [address] [place] [address] 02/25/2025 9:00 AM EST Office Visit [facility] Gastroenterology, [place] [address] [place] [address] Lata Santamaria MD [address] [place] [address] 03/04/2025 12:00 PM EST Appointment [facility] [address] [place] [phone] Anselmo De Santiago MD [address] [place] [address] 03/05/2025 1:30 PM EST Therapy Department of Occupational Therapy 10 [place] [address] Lorenza Young, OTR/L [address] [place] [address] 03/17/2025 12:30 PM EST Appointment [facility] [place] [facility] 10 [facility] 2nd [place] [address] 03/30/2025 3:00 PM EST Telemedicine [facility], Department of Pain Medicine, [address] [place] [phone] Cami Wilkerson APRN [address] [place] [address] 05/21/2025 2:00 PM EST Office Visit [facility], Department of Rheumatology, [place] [address] [place] [address] Stephanie Diaz MD [address] [place] [address] documented as of this encounter Visit Diagnoses Not on filedocumented in this encounter Care Teams High School Director Relationship Specialty Start Date End Date Romy Brown MD [address] [place] [phone] PCP - General 11/12/15 [place] Bazzi MD [address] [place] [address] Consulting Physician Pediatric Rheumatology 10/31/18 Roe Mercado MD [address] [place] [address] Consulting Physician Neurology 10/31/18 Kathy Ruelas MD [address] [place] [address] Consulting Physician Pain Medicine 10/31/18 Anoop Mackay MD PhD [address] [place] [phone] Consulting Physician Pediatric Pulmonology 01/08/22 Lata Santamaria MD [address] [place] [address] Consulting Physician Gastroenterology 11/15/23 Nery Alvarado, PhD [address] [place] [address] [address] [place] [address] Psychologist Psychology 10/31/18 11/02/21 Marni Smallwood [facility] [address] [address] Behavioral Health Clinician Behavioral Health 03/14/22 documented as of this encounter
--- OUTSIDE RECORDS SUMMARY | 2025-02-09 13:39 | XMS_ITS | Encounter Summary ---
Author Organization [facility] Address [address] [place] [address] Care Team Providers Care Truck Caterer Name Role Phone Romy Brown MD Primary Care Provider [phone] Clayton Bazzi MD Unavailable Roe Mercado MD Unavailable [phone] Kathy Ruelas MD Unavailable Anoop Mackay MD PhD Unavailable [phone] Lata Santamaria MD Unavailable [phone] Reason for Visit * Reason Comments Medication Refill Encounter Details Date Type Department Care Team (Late st Contact Info) Description 03/25/[address] [facility] Neurology, [place] [address] [place] [address] Roe Mercado MD [address] [place] [address] Intractable migraine with status migrainosus, unspecified migraine [...] Description 02/11/2025 12:45 PM EST Hospital Encounter [facility] [address] [place] [address] Anselmo De Santiago MD [address] [place] [address] Erik Guidry MD [address] [place] [address] 02/17/2025 12:30 PM EST Hospital Encounter Infusion [facility] [address] [address] CHARLY (juvenile idiopathic arthritis) (Primary Dx); CHARLY (juvenile idiopathic arthritis), enthesitis related arthritis 02/19/2025 1:30 PM EST Therapy Department of Occupational Therapy [address] [place] [phone] Lorenza Young, OTR/L [address] [place] [address] 02/25/2025 9:00 AM EST Office Visit [facility] Gastroenterology, [address] [address] Lata Santamaria MD [address] [place] [address] 03/04/2025 12:00 PM EST Appointment [facility] [address] [place] [phone] Anselmo De Santiago MD [address] [place] [address] 03/05/2025 1:30 PM EST Therapy Department of Occupational Therapy [address] [place] [phone] Lorenza Young OTR/L [address] [place] [address] 03/17/2025 12:30 PM EST Appointment [facility] Center [address] [place] [address] 03/30/2025 3:00 PM EST Telemedicine [facility], Department of Pain Medicine, [place] [address] [place] [phone] Cami Wilkerson APRN [address] [place] [address] 05/21/2025 2:00 PM EST Office Visit [facility], Department of Rheumatology, [address] [address] Stephanie Diaz MD [address] [place] [address] documented as of this encounter Visit Diagnoses Diagnosis Intractable migraine with status migrainosus, unspecified migraine type CHARLY (juvenile idiopathic arthritis)- Primary 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), 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)- Primary 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), 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 documented in this encounter Care Teams Truck Caterer Relationship Specialty Start Date End Date Romy Brown MD [address] [place] [phone] PCP - General 11/12/15 Clayton Bazzi MD [address] [place] [address] Consulting Physician Pediatric Rheumatology 10/31/18 Roe Mercado MD [address] [place] [address] Consulting Physician Neurology 10/31/18 Kathy Ruelas MD [address] [place] [address] Consulting Physician Pain Medicine 10/31/18 Anoop Mackay MD PhD [address] [phone] Consulting Physician Pediatric Pulmonology 01/08/22 Lata Santamaria MD [address] [place] [address] Consulting Physician Gastroenterology 11/15/23 Nery Alvarado, PhD [address] [place] [address] [address] [place] [address] Psychologist Psychology 10/31/18 11/02/21 Marni Smallwood LCSW [facility] [address] [address] Behavioral Health Clinician Behavioral Health 03/14/22 documented as of this encounter
--- OUTSIDE RECORDS SUMMARY | 2025-02-09 13:39 | XMS_ITS | Encounter Summary ---
Author Organization [facility] Address [address] [place] [address] Care Team Providers Care Senior Foreman Name Role Phone Romy Brown MD Primary Care Provider Roe Mercado MD Unavailable [phone] Kathy Ruelas MD Unavailable [phone] Anoop Mackay MD PhD Unavailable [phone] Lata Santamaria MD Unavailable [phone] Encounter Details Date Type Department Care Team ([facility] st Contact Info) Description 02/01/2025 Results Follow-Up [facility], Department of Rheumatology, [address] [phone] Stephanie Diaz MD [address] [place] [address] CBC auto differential, Erythrocyte Sediment [...] encounter Miscellaneous Notes * Telephone Encounter - Rosa Abraham RN - 02/02/2025 2:22 PM EST ----- Message from Stephanie Diaz sent at 02/01/2025 8:16 AM EST ----- Hi Rosa/Yessica, Can you let Akira know his labs are essentially normal/stable. We have been monitoring the elevatedeos (which are slightly lower) and the borderline elevated ALT is not clinically significant. I would suggest continued close monitoring as we have been doing. BE ----- Message ----- From: Interface, [facility] Results In Sent: 01/22/2025 8:38 AM EST To: Stephanie Daiz MD documented in this encounter Plan of Treatment Upcoming Encounters Date Type Department Care Team (Late st Contact Info) Description 02/11/2025 12:45 PM EST Hospital Encounter Sedation Services [address] [place] [phone] Anselmo De Santiago MD [address] [place] [address] Erik Guidry MD [address] [place] [address] 02/17/2025 12:30 PM EST Hospital Encounter Infusion Center [address] [address] CHARLY (juvenile idiopathic arthritis) (Primary Dx); CHARLY (juvenile idiopathic arthritis), enthesitis related arthritis 02/19/2025 1:30 PM EST Therapy Department of Occupational Therapy [address] [place] [phone] Lorenza Young OTR/L [address] [place] [address] 02/25/2025 9:00 AM EST Office Visit [facility] Gastroenterology, [address] [address] Lata Santamaria MD [address] [place] [address] 03/04/2025 12:00 PM EST Appointment Sed[facility] Services [address] [place] [phone] Anselmo De Santiago MD [address] [place] [address] 03/05/2025 1:30 PM EST Therapy Department of Occupational Therapy [address] [place] [phone] Lorenza Young OTR/L [address] [place] [address] 03/17/2025 12:30 PM EST Appointment [facility] Center [address] [address] 03/30/2025 3:00 PM EST Telemedicine [facility], Department of Pain Medicine, [place] [address] [place] [phone] Cami Wilkerson APRN [address] [place] [address] 05/21/2025 2:00 PM EST Office Visit [facility], Department of Rheumatology, [address] [address] Stephanie Diaz MD [address] [place] [address] documented as of this encounter Visit Diagnoses Not on filedocumented in this encounter Care Teams Senior Foreman Relationship Specialty Start Date End Date Romy Brown MD 123 [facility] [address] [place] [phone] PCP - General 11/12/15 Roe Mercado MD [address] [place] [address] Consulting Physician Neurology 10/31/18 Kathy Ruelas MD [address] [place] [address] Consulting Physician Pain Medicine 10/31/18 Anoop Mackay MD PhD [address] [place] [phone] Consulting Physician Pediatric Pulmonology 01/08/22 Lata Santamaria MD [address] [place] [address] Consulting Physician Gastroenterology 11/15/23 Marni Smallwood [address] [address] Behavioral Health Clinician Behavioral Health 03/14/22 documented as of this encounter
--- OUTSIDE RECORDS SUMMARY | 2025-02-09 13:39 | XMS_ITS | Encounter Summary ---
Author Organization [facility] Address [address] [place] [address] Care Team Providers Care Special Education Science Teacher Name Role Phone Romy Brown MD Primary Care Provider Clayton Bazzi MD Unavailable Roe Mercado MD Unavailable [phone] Kathy Ruelas MD Unavailable Anoop Mackay MD PhD Unavailable [phone] Lata Santamaria MD Unavailable [phone] Reason for Visit * Reason Comments Medication Refill Encounter Details Date Type Department Care Team (Late st Contact Info) Description 09/29/2020 Refill [facility], Department of Pain Medicine, [address] [place] [address] Kathy Ruelas MD [address] [place], [place] [phone] Chronic migraine with aura Social History Tobacco [...] Description 02/11/2025 12:45 PM EST Hospital [facility]counter [facility] [address] [place] [phone] Anselmo De Santiago MD [address] [place] [address] Erik Guidry MD [address] [place] [address] 02/17/2025 12:30 PM EST Hospital Encounter [facility] [address] [address] CHARLY (juvenile idiopathic arthritis) (Primary Dx); CHARLY (juvenile idiopathic arthritis), enthesitis related arthritis 02/19/2025 1:30 PM EST Therapy Department of Occupational Therapy 10 [place] [address] Lorenza Young OTR/Asher [address] [place] [address] 02/25/2025 9:00 AM EST Office Visit [facility] Gastroenterology, [place] [address] [place] [address] Lata Santamaria MD [address] [place] [address] 03/04/2025 12:00 PM EST Appointment [facility] [address] [place] [phone] Anselmo De Santiago MD [address] [place] [address] 03/05/2025 1:30 PM EST Therapy Department of Occupational Therapy 10 [place] [address] Lorenza Young, OTR/L [address] [place] [address] 03/17/2025 12:30 PM EST Appointment [facility] [address] [address] 03/30/2025 3:00 PM EST Telemedicine [facility], Department of Pain Medicine, [address] [place] [address] Cami Wilkerson APRN [address] [place] [address] 05/21/2025 2:00 PM EST Office Visit [facility], Department of Rheumatology, [address] [address] Stephanie Diaz MD [address] [place] [address] documented as of this encounter Visit Diagnoses Diagnosis Chronic migraine with aura CHARLY (juvenile idiopathic arthritis)- Primary 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), 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)- Primary 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), 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 documented in this encounter Care Teams Special Education Science Teacher Relationship Specialty Start Date End Date Romy Brown MD [address] [phone] PCP - General 11/12/15 Clayton Bazzi MD 140 [place] [address] Consulting Physician Pediatric Rheumatology 10/31/18 Roe Mercado MD [address] [place] [address] Consulting Physician Neurology 10/31/18 Kathy Ruelas MD [address] [place] [address] Consulting Physician Pain Medicine 10/31/18 Anoop Mackay MD PhD [address] [place] [phone] Consulting Physician Pediatric Pulmonology 01/08/22 Lata Santamaria MD [address] [place] [address] Consulting Physician Gastroenterology 11/15/23 Nery Alvarado, PhD [address] [place] [address] [address] [place] [address] Psychologist Psychology 10/31/18 11/02/21 [facility] [address] [address] Behavioral Health Clinician Behavioral Health 03/14/22 documented as of this encounter
--- OUTSIDE RECORDS SUMMARY | 2025-02-09 13:39 | XMS_ITS | Encounter Summary ---
Author Organization [facility] Address [address] [place] [address] Care Team Providers Care Mental Health Practitioner Name Role Phone Romy Brown MD Primary Care Provider [phone] Clayton Bazzi MD Unavailable Roe Mercado MD Unavailable [phone] Kathy Ruelas MD Unavailable Anoop Mackay MD PhD Unavailable [phone] Lata Santamaria MD Unavailable [phone] Reason for Visit * Reason Comments Medication Refill Encounter Details Date Type Department Care Team (Late st Contact Info) Description 04/08/2020 Refill [facility], Department of Pain Medicine, [address] [place] [address] Anselmo De Santiago MD [address] [place], [place] [phone] Chronic migraine (Primary Dx) Social History Tobacco [...] Description 02/11/2025 12:45 PM EST Hospital Encounter [facility] Sedation Services [address] [place] [phone] Anselmo De Santiago MD [address] [place] [address] Erik Guidry MD [address] [place] [address] 02/17/2025 12:30 PM EST Hospital Encounter Infusion Center [address] [address] CHARLY (juvenile idiopathic arthritis) (Primary Dx); CHARLY (juvenile idiopathic arthritis), enthesitis related arthritis 02/19/2025 1:30 PM EST Therapy Department of Occupational Therapy 10 [place] [address] Lorenza Young OTR/Asher [address] [place] [address] 02/25/2025 9:00 AM EST Office Visit [facility] Gastroenterology, [place] 84 [place] [address] Lata Santamaria MD [address] [place] [address] 03/04/2025 12:00 PM EST Appointment [facility] Sed[facility] Services [address] [place] [address] Anselmo De Santiago MD [address] [place] [address] 03/05/2025 1:30 PM EST Therapy Department of Occupational Therapy 10 [place] [address] Lorenza Young, OTR/L [address] [place] [address] 03/17/2025 12:30 PM EST Appointment [facility] Center [address] [address] 03/30/2025 3:00 PM EST Telemedicine [facility], Department of Pain Medicine, [address] [place] [phone] Cami Wilkerson APRN [address] [place] [address] 05/21/2025 2:00 PM EST Office Visit [facility], Department of Rheumatology, [address] [address] Stephanie Diaz MD [address] [place] [address] documented as of this encounter Visit Diagnoses Diagnosis Chronic migraine- Primary CHARLY (juvenile idiopathic arthritis)- Primary 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), 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)- Primary 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), 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 documented in this encounter Care Teams Mental Health Practitioner Relationship Specialty Start Date End Date Romy Brown MD [address] [phone] PCP - General 11/12/15 Clayton Bazzi MD 140 [place] [address] Consulting Physician Pediatric Rheumatology 10/31/18 Roe Mercado MD [address] [place] [address] Consulting Physician Neurology 10/31/18 Kathy Ruelas MD [address] [place] [address] Consulting Physician Pain Medicine 10/31/18 Anoop Mackay MD PhD [address] [place] [phone] Consulting Physician Pediatric Pulmonology 01/08/22 Lata Santamaria MD [address] [place] [address] Consulting Physician Gastroenterology 11/15/23 Nery Alvarado, PhD [address] [place] [address] [address] [place] [address] Psychologist Psychology 10/31/18 11/02/21 [facility] [address] [address] Behavioral Health Clinician Behavioral Health 03/14/22 documented as of this encounter
--- OUTSIDE RECORDS SUMMARY | 2025-02-09 13:39 | XMS_ITS | Encounter Summary ---
Author Organization [facility] Address [address] [place] [address] Care Team Providers Care Loan Expeditor Name Role Phone Romy Brown MD Primary Care Provider [phone] Roe Mercado MD Unavailable [phone] Kathy Ruelas MD Unavailable Anoop Mackay MD PhD Unavailable [phone] Lata Santamaria MD Unavailable [phone] Reason for Visit * Reason Onset Date Comments Appointment 01/28/2025 Encounter Details Date Type Department Care Team (Late st Contact Info) Description 01/28/2025 Telephone [facility], Department of Pain Medicine, [address] [place] [address] Nikko Castillo, Crystallographer [address] [place], [place] [phone] Appointment (/) Social History Tobacco Use Types Packs/Day Years [...] encounter Miscellaneous Notes * Telephone Encounter - Felipe Montoya - 02/04/2025 11:53 AM EST Parent returning phone call to schedule procedure? * Telephone Encounter - Melina Cuellarician - 02/03/2025 1:34 PM EST Lidocaine infusion scheduling Attempt # 2. Voicemail message left 02/03/25 * Telephone Encounter - Melina Cuellarician - 01/28/2025 3:23 PM EDT Lidocaine Infusion scheduling Attempt # 1. Voicemail message left 12/2924 documented in this encounter Plan of Treatment Upcoming Encounters Date Type Department Care Team (Late st Contact Info) Description 02/11/2025 12:45 PM EST Hospital Encounter [facility] Sedation Services [address] [place] [phone] Anselmo De Santiago MD [address] [place] [address] Erik Guidry MD [address] [place] [address] 02/17/2025 12:30 PM EST Hospital Encounter Infusion Center [address] [place] [address] CHARLY (juvenile idiopathic arthritis) (Primary Dx); CHARLY (juvenile idiopathic arthritis), enthesitis related arthritis 02/19/2025 1:30 PM EST Therapy Department of Occupational Therapy [address] [place] [address] Lorenza Young, OTR/L [address] [place] [address] 02/25/2025 9:00 AM EST Office Visit [facility] Gastroenterology, [address] [address] Lata Santamaria MD [address] [place] [address] 03/04/2025 12:00 PM EST Appointment [facility] Sed[facility] Services [address] [place] [phone] Anselmo De Santiago MD [address] [place] [address] 03/05/2025 1:30 PM EST Therapy Department of Occupational Therapy 10 [place], [place] [phone] Lorenza Young, OTR/L [address] [place] [address] 03/17/2025 12:30 PM EST Appointment [facility] [address] [address] 03/30/2025 3:00 PM EST Telemedicine [facility], Department of Pain Medicine, [address] [place] [phone] Cami Wilkerson APRN [address] [place] [address] 05/21/2025 2:00 PM EST Office Visit [facility], Department of Rheumatology, [address] [address] Stephanie Diaz MD [address] [place] [address] documented as of this encounter Visit Diagnoses Not on filedocumented in this encounter Care Teams Loan Expeditor Relationship Specialty Start Date End Date Romy Brown MD 123 [facility] 100 [place] [address] PCP - General 11/12/15 Roe Mercado MD [address] [place] [address] Consulting Physician Neurology 10/31/18 Kathy Ruelas MD [address] [place] [address] Consulting Physician Pain Medicine 10/31/18 Anoop Mackay MD PhD [address] [place] [phone] Consulting Physician Pediatric Pulmonology 01/08/22 Lata Santamaria MD [address] [place] [address] Consulting Physician Gastroenterology 11/15/23 [facility] 3300 [facility] 4A [facility] [address] Behavioral Health Clinician Behavioral Health 03/14/22 documented as of this encounter
--- OUTSIDE RECORDS SUMMARY | 2025-02-09 13:39 | XMS_ITS | Encounter Summary ---
Author Organization [facility] Address [address] [place] [address] Care Team Providers Care Diversified Crops Farmworker Name Role Phone Romy Brown MD Primary Care Provider Roe Mercado MD Unavailable [phone] Kathy Ruelas MD Unavailable [phone] Anoop Mackay MD PhD Unavailable [phone] Lata Santamaria MD Unavailable [phone] Reason for Visit * Reason Onset Date Comments Medication Refill 02/06/2025 Encounter Details Date Type Department Care Team (Late st Contact Info) Description 02/06/2025 Refill [facility] Gastroenterology, [address] [address] Lata Santamaria MD [address] [place] [address] Weight loss Social History Tobacco Use Types Packs/Day Years [...] [facility] Sedation Services [address] [place] [phone] Anselmo De Santiago MD [address] [place] [address] Erik Guidry MD [address] [place] [address] 02/17/2025 12:30 PM EST Hospital Encounter [facility] [address] [address] CHARLY (juvenile idiopathic arthritis) (Primary Dx); CHARLY (juvenile idiopathic arthritis), enthesitis related arthritis 02/19/2025 1:30 PM EST Therapy Department of Occupational Therapy [address] [place] [address] Lorenza Young, OTR/L [address] [place] [address] 02/25/2025 9:00 AM EST Office Visit [facility] Gastroenterology, [address] [address] Lata Santamaria MD [address] [place] [address] 03/04/2025 12:00 PM EST Appointment [facility] Sedation Services [address] [place] [phone] Anselmo De Santiago MD [address] [place] [address] 03/05/2025 1:30 PM EST Therapy Department of Occupational Therapy [address] [place] [address] Hector Lorenza, OTR/L [address] [place] [address] 03/17/2025 12:30 PM EST Appointment Infusion Center 10 [facility] 2nd [place] [address] 03/30/2025 3:00 PM EST Telemedicine [facility], Department of Pain Medicine, [address] [place] [phone] Cami Wilkerson APRN [address] [place] [address] 05/21/2025 2:00 PM EST Office [facility] [address] [place] [address] Stephanie Diaz MD [address] [place] [address] documented as of this encounter Visit Diagnoses Diagnosis Weight loss Loss of weight CHARLY (juvenile idiopathic arthritis)- Primary 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), 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)- Primary 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), 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 documented in this encounter Care Teams Diversified Crops Farmworker Relationship Specialty Start Date End Date Romy Brown MD [address] [place] [phone] PCP - General 11/12/15 Roe Mercado MD [address] [place] [address] Consulting Physician Neurology 10/31/18 Kathy Ruelas MD [address] [place] [address] Consulting Physician Pain Medicine 10/31/18 Anoop Mackay MD PhD [address] [place] [address] 11 [place] [address] Consulting Physician Pediatric Pulmonology 01/08/22 Lata Santamaria MD [address] [place] [address] Consulting Physician Gastroenterology 11/15/23 Marni Smallwood LCSW [facility] 3300 [facility] 4A [facility] [address] Behavioral Health Clinician Behavioral Health 03/14/22 documented as of this encounter
--- OUTSIDE RECORDS SUMMARY | 2025-02-09 13:39 | XMS_ITS | Encounter Summary ---
Author Organization [facility] Address [address] [place] [address] Care Team Providers Care Front Maker Name Role Phone Romy Brown MD Primary Care Provider [phone] Roe Mercado MD Unavailable [phone] Kathy Ruelas MD Unavailable [phone] Anoop Mackay MD PhD Unavailable [phone] Lata Santamaria MD Unavailable [phone] Encounter Details Date Type Department Care Team (Late st Contact Info) Description 12/24/2024 Results Follow-Up [facility], Department of Rheumatology, [address] [phone] Stephanie Diaz MD [address] [place] [address] CBC auto differential, Erythrocyte Sediment [...] 12:45 PM EST Hospital Encounter [facility] [address] [place] [address] [phone] Anselmo De Santiago MD [address] [place] [address] Erik Guidry MD [address] [place] [address] 02/17/2025 12:30 PM EST Hospital Encounter [facility] Center [address] [address] CHARLY (juvenile idiopathic arthritis) (Primary Dx); CHARLY (juvenile idiopathic arthritis), enthesitis related arthritis 02/19/2025 1:30 PM EST Therapy Department of Occupational Therapy [address] [place] [address] Lorenza Young, OTR/L [address] [place] [address] 02/25/2025 9:00 AM EST Office Visit [facility] Gastroenterology, [address] [address] Lata Santamaria MD [address] [place] [address] 03/04/2025 12:00 PM EST Appointment [facility] [address] [place] [phone] Anselmo De Santiago MD [address] [place] [address] 03/05/2025 1:30 PM EST Therapy Department of Occupational Therapy [address] [place] [address] Lorenza Young, OTR/L [address] [place] [address] 03/17/2025 12:30 PM EST Appointment Infusion Center 10 [facility] 2nd [place] [address] 03/30/2025 3:00 PM EST Telemedicine [facility] Specialty [facility], Department of Pain Medicine[address] [place] [address] Cami Wilkerson APRN [address] [place] [address] 05/21/2025 2:00 PM EST Office Visit [facility], Department of Rheumatology[address] [address] Stephanie Diaz MD [address] [place] [address] documented as of this encounter Visit Diagnoses Not on filedocumented in this encounter Care Teams Front Maker Relationship Specialty Start Date End Date Romy Brown MD [address] [place] [address] [phone] PCP - General 11/12/15 Roe Mercado MD [address] [place] [address] Consulting Physician Neurology 10/31/18 Kathy Ruelas MD [address] [place] [address]698 Consulting Physician Pain Medicine 10/31/18 Anoop Mackay MD PhD [address] [place] [phone] Consulting Physician Pediatric Pulmonology 01/08/22 Lata Santamaria MD [address] [place] [address] Consulting Physician Gastroenterology 11/15/23 Marni Smallwood LCSW [address], [address] [facility] [address] Behavioral Health Clinician Behavioral Health 03/14/22 documented as of this encounter
--- OUTSIDE RECORDS SUMMARY | 2025-02-09 13:39 | XMS_ITS | Encounter Summary ---
Author Organization [facility] Address [address] [place] [address] Care Team Providers Care Lining Stamper Name Role Phone Romy Brown MD Primary Care Provider Clayton Bazzi MD Unavailable Roe Mercado MD Unavailable [phone] Kathy Ruelas MD Unavailable Anoop Mackay MD PhD Unavailable [phone] Lata Santamaria MD Unavailable [phone] Encounter Details Date Type Department Care Team (Late st Contact Info) Description 01/11/2021 Telephone [facility] Neurology, [place] [address] Chelsea Mitchell [place] [address] [place] [address] Social History Tobacco Use Types Packs/Day Years [...] EST Hospital Encounter [facility] Sedation Services [address] [place] [address] [phone] Anselmo De Santiago MD [address] [place] [address] Erik Guidry MD [address] [place] [address] 02/17/2025 12:30 PM EST Hospital Encounter [facility] Center [address] [address] CHARLY (juvenile idiopathic arthritis) (Primary Dx); CHARLY (juvenile idiopathic arthritis), enthesitis related arthritis 02/19/2025 1:30 PM EST Therapy Department of Occupational Therapy [address] [place] [address] Lorenza Young, OTR/L [address] [place] [address] 02/25/2025 9:00 AM EST Office Visit [facility] Gastroenterology, [place] [address] [place] [address] Lata Santamaria MD [address] [place] [address] 03/04/2025 12:00 PM EST Appointment [facility] Sedation Services [address] [place] [phone] Anselmo De Santiago MD [address] [place] [address] 03/05/2025 1:30 PM EST Therapy Department of Occupational Therapy [address] [place] [address] Lorenza Young, OTR/L [address] [place] [address] 03/17/2025 12:30 PM EST Appointment Infusion Center 10 [facility] 2nd [place] [address] 03/30/2025 3:00 PM EST Telemedicine [facility], Department of Pain Medicine, [address] [place] [phone] Cami Wilkerson APRN [address] [place] [address] 05/21/2025 2:00 PM EST Office Visit [facility] Specialty [facility], Department of Rheumatology, [address] [address] Stephanie Diaz MD [address] [place], [place] [phone] documented as of this encounter Visit Diagnoses Not on filedocumented in this encounter Care Teams Lining Stamper Relationship Specialty Start Date End Date Romy Brown MD [address] [place] [address] [phone] PCP - General 11/12/15 Clayton Bazzi MD [address] [place] [address] Consulting Physician Pediatric Rheumatology 10/31/18 Roe Mercado MD [address] [place] [address] Consulting Physician Neurology 10/31/18 Kathy Ruelas MD [address] [place] [address] Consulting Physician Pain Medicine 10/31/18 Anoop Mackay MD PhD [address] [facility] [address] [place] [address] Consulting Physician Pediatric Pulmonology 01/08/22 Lata Santamaria MD [address] [place] [address] Consulting Physician Gastroenterology 11/15/23 Nery Alvarado, PhD [address] [place] [address] [address] [place] [address] Psychologist Psychology 10/31/18 11/02/21 Marni Smallwood [facility] 3300 [facility] 4A [facility] [address] Behavioral Health Clinician Behavioral Health 03/14/22 documented as of this encounter
--- OUTSIDE RECORDS SUMMARY | 2025-02-09 13:39 | XMS_ITS | Encounter Summary ---
Author Organization [facility] Address [address] [place] [address] Care Team Providers Care Hospital Recruiter Name Role Phone Romy Brown MD Primary Care Provider [phone] Roe Mercado MD Unavailable [phone] Kathy Ruelas MD Unavailable Anoop Mackay MD PhD Unavailable [phone] Lata Santamaria MD Unavailable [phone] Encounter Details Date Type Department Care Team (Late st Contact Info) Description 01/26/2022 Telephone [facility], [place] [address] [address] Social History Tobacco Use Types Packs/Day Years [...] Description 02/11/2025 12:45 PM EST Hospital Encounter [facility] Sedation Services [address] [place] [phone] Anselmo De Santiago MD [address] [place] [address] Erik Guidry MD [address] [place] [address] 02/17/2025 12:30 PM EST Hospital Encounter [facility] [address] [address] CHARLY (juvenile idiopathic arthritis) (Primary Dx); CHARLY (juvenile idiopathic arthritis), enthesitis related arthritis 02/19/2025 1:30 PM EST Therapy Department of Occupational Therapy [address] [place] [address] Lorenza Young, OTR/L [address] [place] [address] 02/25/2025 9:00 AM EST Office Visit [facility] Gastroenterology, [address] [address] Lata Santamaria MD [address] [place] [address] 03/04/2025 12:00 PM EST Appointment [facility] Sedation Services [address] [place] [phone] Anselmo De Santiago MD [address] [place] [address] 03/05/2025 1:30 PM EST Therapy Department of Occupational Therapy [address] [place] [address] Lorenza Young, OTR/L [address] [place] [address] 03/17/2025 12:30 PM EST Appointment Infusion Center 10 [facility] 2nd [place] [address] 03/30/2025 3:00 PM EST Telemedicine [facility], Department of Pain Medicine, [address] 500 [place] [address] Cami Wilkerson APRN [address] [place] [address] 05/21/2025 2:00 PM EST Office Visit [facility] Specialty [facility], Department of Rheumatology, [place] [address] [place] [address] Stephanie Diaz MD [address] [place] [phone] documented as of this encounter Visit Diagnoses Not on filedocumented in this encounter Care Teams Hospital Recruiter Relationship Specialty Start Date End Date Romy Brown MD [address] [place] [address] [phone] PCP - General 11/12/15 Roe Mercado MD [address] [place] [address] Consulting Physician Neurology 10/31/18 Kathy Ruelas MD [address] [place] [address] Consulting Physician Pain Medicine 10/31/18 Anoop Mackay MD PhD [address] [place] [address] [phone] Consulting Physician Pediatric Pulmonology 01/08/22 Lata Santamaria MD [address] [place] [address] Consulting Physician Gastroenterology 11/15/23 Marni Smallwood LCSW [address], [facility] 4A [facility] [address] Behavioral Health Clinician Behavioral Health 03/14/22 documented as of this encounter
--- OUTSIDE RECORDS SUMMARY | 2025-02-09 13:39 | XMS_ITS | Encounter Summary ---
Author Organization [facility] Address [address] [place] [address] Care Team Providers Care Hand Edge Bander Name Role Phone Romy Brown MD Primary Care Provider [phone] Clayton Bazzi MD Unavailable Roe Mercado MD Unavailable [phone] Kathy Ruelas MD Unavailable [phone] Anoop Mackay MD PhD Unavailable [phone] Lata Santamaria MD Unavailable [phone] Encounter Details Date Type Department Care Team (Late st Contact Info) Description 04/04/2019 Telephone [facility], Department of Pain Medicine, [address] [place] [address] Anselmo De Santiago MD [address] [place], [place] [phone] Social History Tobacco Use Types Packs/Day Years [...] Hospital Encounter [facility] Sedation Services [address] [place] [address] [phone] Anselmo De Santiago MD [address] [place] [address] Erik Guidry MD [address] [place] [address] 02/17/2025 12:30 PM EST Hospital Encounter [facility] Center [address] [address] CHARLY (juvenile idiopathic arthritis) (Primary Dx); CHARLY (juvenile idiopathic arthritis), enthesitis related arthritis 02/19/2025 1:30 PM EST Therapy Department of Occupational Therapy [address] [place] [address] Lorenza Yuong, OTR/L [address] [place] [address] 02/25/2025 9:00 AM EST Office Visit [facility] Gastroenterology, [address] [address] Lata Santamaria MD [address] [place] [address] 03/04/2025 12:00 PM EST Appointment [facility] Sedation Services [address] [place] [address] [phone] Anselmo De Santiago MD [address] [place] [address] 03/05/2025 1:30 PM EST Therapy Department of Occupational Therapy [address] [place] [address] Lorenza Young, OTR/L [address] [place] [address] 03/17/2025 12:30 PM EST Appointment Infusion Center 10 [facility] 2nd [place] [address] 03/30/2025 3:00 PM EST Telemedicine [facility], Department of Pain Medicine, [address] [place] [address] Cami Wilkerson APRN [address] [place] [address] 05/21/2025 2:00 PM EST Office Visit [facility], Department of Rheumatology[address] [address] Stephanie Diaz MD [address] [place] [address] documented as of this encounter Visit Diagnoses Not on filedocumented in this encounter Care Teams Hand Edge Bander Relationship Specialty Start Date End Date Romy Brown MD [address] [place] [address] [phone] PCP - General 11/12/15 Clayton Bazzi MD [address] [place] [address] Consulting Physician Pediatric Rheumatology 10/31/18 Roe Mercado MD [address] [place] [address] Consulting Physician Neurology 10/31/18 Kathy Ruelas MD [address] [place] [address] Consulting Physician Pain Medicine 10/31/18 Anoop Mackay MD PhD [address] [facility] [address] [place] [address] Consulting Physician Pediatric Pulmonology 01/08/22 Lata Santamaria MD [address] [place] [address] Consulting Physician Gastroenterology 11/15/23 Nery Alvarado, PhD [address] [place] [address] [address] [place] [address] Psychologist Psychology 10/31/18 11/02/21 [facility] 3300 [facility] 4A [facility] [address] Behavioral Health Clinician Behavioral Health 03/14/22 documented as of this encounter
--- OUTSIDE RECORDS SUMMARY | 2025-02-09 13:39 | XMS_ITS | Encounter Summary ---
Author Organization [facility] Address [address] [place] [address] Care Team Providers Care Local Telephone Operator Name Role Phone Romy Brown MD Primary Care Provider Roe Mercado MD Unavailable [phone] Kathy Ruelas MD Unavailable [phone] Anoop Mackay MD PhD Unavailable [phone] Lata Santamaria MD Unavailable [phone] Reason for Visit * Reason Comments Medication Refill Encounter Details Date Type Department Care Team ([facility] st Contact Info) Description 08/12/2021 Refill [facility], Department of Pain Medicine, [address] [place] [address] Kathy Ruelas MD [address] [place], [place] [phone] Chronic migraine with aura Social History Tobacco [...] EST Hospital Encounter [facility] Sedation Services [address] [place] [phone] Anselmo De Santiago MD [address] [place] [address] Erik Guidry MD [address] [place] [address] 02/17/2025 12:30 PM EST Hospital Encounter [facility] Center [address] [place] [address] CHARLY (juvenile idiopathic arthritis) (Primary Dx); CHARLY (juvenile idiopathic arthritis), enthesitis related arthritis 02/19/2025 1:30 PM EST Therapy Department of Occupational Therapy [address] [place] [phone] Lorenza Young OTR/Asher [address] [place] [address] 02/25/2025 9:00 AM EST Office Visit [facility] Gastroenterology, [place] [address] [place] [address] Lata Santamaria MD [address] [place] [address] 03/04/2025 12:00 PM EST Appointment [facility] Sedation Services [address] [place] [phone] Anselmo De Santiago MD [address] [place] [address] 03/05/2025 1:30 PM EST Therapy Department of Occupational Therapy [address] [place] [phone] Lorenza Young OTR/L [address] [place] [address] 03/17/2025 12:30 PM EST Appointment Infusion Center 10 [facility] 2nd [place] [address] 03/30/2025 3:00 PM EST Telemedicine [facility] Specialty [facility], Department of Pain Medicine, [address] [place] [phone] Cami Wilkerson APRN [address] [place] [address] 05/21/2025 2:00 PM EST Office Visit [facility] Specialty 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 documented in this encounter Care Teams Local Telephone Operator Relationship Specialty Start Date End Date Romy Brown MD [address] [phone] PCP - General 11/12/15 Roe Mercado MD [address] [place] [address] Consulting Physician Neurology 10/31/18 Kathy Ruelas MD [address] [place] [address] Consulting Physician Pain Medicine 10/31/18 Anoop Mackay MD PhD [address] [place] [phone] Consulting Physician Pediatric Pulmonology 01/08/22 Lata Santamaria MD [address] [place] [address] Consulting Physician Gastroenterology 11/15/23 Nery Alvarado, PhD [address] [place] [address] [address] [place] [address] Psychologist Psychology 10/31/18 11/02/21 Marni Smallwood [facility] [address] [place] [address] Behavioral Health Clinician Behavioral Health 03/14/22 documented as of this encounter
--- OUTSIDE RECORDS SUMMARY | 2025-02-09 13:40 | XMS_ITS | Clinical Summary ---
Author Organization [facility] Address [address] [place] [address] Phone Care Team Providers Care Building Materials Sales Attendant Name Role Phone Romy Brown MD Primary Care Provider [phone] Active Problems No known active problems Encounters Date Type Department Care Team Description 12/23/2024 1:30 PM EDT Treatment Outpatient [address] [phone] Pablo Kat, PT Chronic migraine with aura, not intractable, with status migrainosus (Primary Dx) 12/08/2024 1:30 PM EDT Treatment Outpatient [address] [phone] Pablo Kat, PT Chronic migraine with aura, not intractable, with status migrainosus (Primary Dx) 12/05/2024 11:30 AM EDT Treatment Outpatient [address] [phone] Christiano Holder, PT Chronic migraine with aura, not intractable, with status migrainosus (Primary Dx) 12/02/2024 11:30 AM EDT Treatment Outpatient [address] [phone] Christiano Holder, PT Chronic migraine with aura, not intractable, with status migrainosus (Primary Dx) 11/28/2024 11:30 AM EDT Treatment Outpatient [address] [phone] Christiano Holder, PT Chronic migraine with aura, not intractable, with status migrainosus (Primary Dx) 11/25/2024 11:30 AM EDT Treatment Outpatient [address] [phone] Christiano Holder, PT Chronic migraine with aura, not intractable, with status migrainosus (Primary Dx) 11/21/2024 11:30 AM EDT Treatment Outpatient [address] [phone] Christiano Holder, PT Chronic migraine with aura, not intractable, with status migrainosus (Primary Dx) 11/19/2024 11:30 AM EDT Treatment Outpatient [address] [phone] Christiano Holder, PT Chronic migraine with aura, not intractable, with status migrainosus (Primary Dx) 11/14/2024 11:30 AM EDT Treatment Outpatient [address] [phone] Christiano Holder, PT Chronic migraine with aura, not intractable, with status migrainosus (Primary Dx) 11/11/2024 11:30 AM EDT Treatment Outpatient [address] [phone] Christiano Holder, PT Chronic migraine with aura, not intractable, with status migrainosus (Primary Dx) from Last 3 Months Social History Tobacco Use Types Packs/Day Years Used Date Smoking Tobacco: Never Assessed Sex and Gender Information Value Date Recorded Sex Assigned at Not on file Legal Sex Male 8:03 PM EDT Gender Identity Not on file Sexual Orientation Not on file Plan of Treatment Health Maintenance Due Date Last Done Comments Annual Well Child Visit (3-21 years old) 01/29/2023 HIV Screening 01/29/2023 Hepatitis C Screening 01/29/2023 Social Influencers of Health Screening 01/29/2023 Depression Screening 04/02/2024 COVID-19 Vaccine ( season) 2024 09/03/2020, 08/13/2020 Influenza Vaccine (#1) 2024 , 01/08/2021, 12/27/2019, Additional history exists DTaP,Tdap,and Td Vaccines (7 - Td or Tdap) 01/16/2026 01/17/2016, 11/12/2009, 04/24/2006, Additional history exists RSV Immunization Adult Patients (1 - 1-dose 75+ series) 10/20/2079 Hepatitis B Vaccines Completed 04/28/2005, 03/01/2005, 2004, [...] complete this topic Insurance [place]ICA[place] - [place] [facility] Care Teams Building Materials Sales Attendant Relationship Specialty Start Date End Date Romy Brown MD [address] [place] [address] PCP - General Pediatrics 04/28/24
--- OUTSIDE RECORDS SUMMARY | 2025-02-09 13:40 | XMS_ITS | Encounter Summary ---
Author Organization [facility] Address [address] [place] [address] Care Team Providers Care Medicine Man Name Role Phone Romy Brown MD Primary Care Provider Clayton Bazzi MD Unavailable Roe Mercado MD Unavailable [phone] Kathy Ruelas MD Unavailable Anoop Mackay MD PhD Unavailable [phone] Lata Santamaria MD Unavailable [phone] Reason for Visit * Reason Comments Medication Refill Encounter Details Date Type Department Care Team (Late st Contact Info) Description 09/30/2018 Refill [facility], [place] [address] [place] [address] Roe Mercado MD [address] [place] [address] Intractable migraine with status migrainosus, unspecified migraine [...] encounter Miscellaneous Notes * Telephone Encounter - Nery Duke RN - 09/30/2018 11:19 AM EDT Last appointment: 05/30/2018 Next appointment: 12/26/2018 Dose verified from last office visit (pt of Dr Mercado) documented in this encounter Plan of Treatment Upcoming Encounters Date Type Department Care Team (Late st Contact Info) Description 02/11/2025 12:45 PM EST Hospital Encounter [facility] [address] [place] [address] Anselmo De Santiago MD [address] [place] [address] Erik Guidry MD [address] [place] [address] 02/17/2025 12:30 PM EST Hospital Encounter [facility] [address] [address] CHARLY (juvenile idiopathic arthritis) (Primary Dx); CHARLY (juvenile idiopathic arthritis), enthesitis related arthritis 02/19/2025 1:30 PM EST Therapy Department of Occupational Therapy [address] [place] [address] Lorenza Young, OTR/L [address] [place] [address] 02/25/2025 9:00 AM EST Office Visit [facility], [place] [address] [place] [address] Lata Santamaria MD [address] [place] [address] 03/04/2025 12:00 PM EST Appointment [facility] [address] [place] [phone] Anselmo De Santiago MD [address] [place] [address] 03/05/2025 1:30 PM EST Therapy Department of Occupational Therapy [address] [place] [phone] Lorenza Young, OTR/L [address] [place] [address] 03/17/2025 12:30 PM EST Appointment [facility] [address] [address] 03/30/2025 3:00 PM EST Telemedicine [facility], Department of Pain Medicine, [address] [place] [phone] Cami Wilkerson APRN [address] [place] [address] 05/21/2025 2:00 PM EST Office Visit [facility], Department of Rheumatology, [address] [address] Stephanie Diaz MD [address] [place] [address] documented as of this encounter Visit Diagnoses Diagnosis Intractable migraine with status migrainosus, unspecified migraine type CHARLY (juvenile idiopathic arthritis)- Primary 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), 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)- Primary 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), 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 documented in this encounter Care Teams Medicine Man Relationship Specialty Start Date End Date Romy Brown MD [address] [place] [id number] PCP - General 11/12/15 Clayton Bazzi MD [address] [place] [address] Consulting Physician Pediatric Rheumatology 10/31/18 Roe Mercado MD [address] [place] [phone] Consulting Physician Neurology 10/31/18 Kathy Ruelas MD [address] [place] [address] Consulting Physician Pain Medicine 10/31/18 Anoop Mackay MD PhD [address] [place] [phone] Consulting Physician Pediatric Pulmonology 01/08/22 Lata Santamaria MD [address] [place] [address] Consulting Physician Gastroenterology 11/15/23 Nery Alvarado, PhD [address] [place] [address] [address] [place] [address] Psychologist Psychology 10/31/18 11/02/21 [facility] [address] [address] Behavioral Health Clinician Behavioral Health 03/14/22 documented as of this encounter
--- OUTSIDE RECORDS SUMMARY | 2025-02-09 13:40 | XMS_ITS | Clinical Summary ---
Author Organization [facility] Address [address] [place] [address] Care Team Providers Care Community Mental Health Worker Name Role Phone Romy Brown MD Primary Care Provider [phone] Roe Mercado MD Unavailable [phone] Kathy Ruelas MD Unavailable [phone] Anoop Mackay MD PhD Unavailable [phone] Lata Santamaria MD Unavailable [phone] Source Comments Please note that some [...] so, obtain the minor's consent prior to disclosure.[facility] Allergies Active Allergy Reactions Criticality Noted Date Comments Beclomethasone Dipropionate High 01/11/20 16 Migraines and cardiac arrhythmia- Per mom. Other Reaction(s): emotional Grass 08/25/2022 Lactose (Intolerance) 11/18/2024 Seasonal 08/22/2022 Tree And Shrub Pollen 08/25/2022 Medications albuterol (ACCUNEB) 0.63 mg/3 mL nebulizer solution Take 1 ampule by nebulization every 6 (six) hours as needed for Wheezing Active PROAIR HFA 90 mcg/actuation inhaler Active BOTOX 200 unit Recon SolnIndications:C hronic migraine INJECT 155 UNITS INTRAMUSCULARLY EVERY 12 WEEKS (GIVEN AT MD OFFICE, DISCARD UNUSED) 1 each 2 021 Active ondansetron (ZOFRAN-ODT) 8 MG disintegrating tabletIndications :Chronic migraine with aura Take 1 tablet (8 mg) by mouth every 8 (eight) hours as needed for Nausea 10 tablet 2 022 Active abatacept (ORENCIA) IV Inject into the vein once Mix in 100 mL of 0.9%NS and infuse over 30 minutes Active prochlorperazine (COMPAZINE) 5 MG tabletIndications :prn Active aspirin/acetamino phen/caffeine (EXCEDRIN MIGRAINE ORAL) Take [...] Active Additional Information Patient not taking.Reported on 01/26/2025 diclofenac (VOLTAREN) 1 % GelIndications:Am plified musculoskeletal [...] (8 mg) nightly. 67 tablet 3 025 Active food supplemt, lactose-reduced (BOOST) 0.04 gram- 1 kcal/mL LiquidIndications :Weight loss Take 2 Bottles by mouth daily 71822 mL 11 025 Active digital therapeutic, NERIVIO, (NERIVIO DIGITAL VIRAL, MIGRAINE,) DINAH deviceIndications :Chronic migraine without aura without status migrainosus, not intractable Use device for 45 minute treatment every other day and as needed. 3 each 12 025 Active fluticasone propionate (FLOVENT DISKUS) 250 mcg/actuation Disk with Device diskus inhaler 01/26 Discontinued( Therapy completed) atogepant 30 mg TabletIndications :Chronic migraine with aura Take 30 mg by mouth daily 30 tablet 2 023 Discontinued Active Problems Patient Care Coordination No te Formatting of this note migh t be different from the original. Center for Care Coordination: DINORA Monique, RN, [facility]- [phone] Referred by pain mgmt 01/18/22 Declined participation, but has contact and will call if future needs (has appt. 02/23/22 with [facility]) Problem Noted Date Diagnosed Date Amplified [...] Encounters Date Type Department Care Team Description 02/06/2025 Refill [facility] Gastroenterology, [address] [place] [address] Lata Santamaria MD Weight loss 02/01/2025 Results Follow-Up [facility], Department of Rheumatology, [place] [address] [facility] [address] [place] [address] Stephanie Diaz MD CBC auto differential, Erythrocyte Sediment Rate (ESR), Gamma GT, Additional followed-up results: 3 01/28/2025 3:16 PM EDT Anesthesia Event [facility] [address] [place] [address] Telma Hampton MD 01/28/2025 2:26 PM EDT - 01/28/2025 11:59 PM EDT Hospital Encounter [facility] [address] [place] [address] Anselmo De Santiago MD Raghavan, Kalyani, MD Chronic migraine with aura and with status migrainosus, not intractable (Primary Dx) Discharge Disposition: Home or Self Care 01/28/2025 Telephone [facility], Department of Pain Medicine, [place] [address] [place] [address] Nikko Castillo, Library Media Assistant Appointment (/) 01/28/2025 Prep for Sedation/Procedure visit [facility], Department of Pain Medicine, [address] [phone] Anselmo De Santiago MD Chronic migraine with aura and with status migrainosus, not intractable (Primary Dx) 01/27/2025 11:00 AM EDT Telemedicine Support [facility] [address], [address] [place] [phone] Darrell Velazquez Psy.D. Attention deficit hyperactivity disorder (ADHD), unspecified ADHD type (Primary Dx); Asperger's syndrome 01/26/2025 2:00 PM EDT Office Visit [facility], Department of Pain Medicine, [address] [address] Cami Wilkreson APRN Amplified musculoskeletal pain syndrome (Primary Dx); Chronic migraine with aura and with status migrainosus, not intractable; CHARLY (juvenile idiopathic arthritis) 01/26/2025 Telephone [facility] [address] [place] [phone] Sarah Banks MA 01/23/2025 Telephone [facility], Department of Pain Medicine, [address] [address] Encounter, Telephone Follow-up 01/22/2025 1:30 PM EDT Therapy Department of Occupational Therapy [address] [place] [phone] Lorenza Young OTR/Asher CHARLY (juvenile idiopathic arthritis), enthesitis related arthritis; Chronic migraine with aura and with status migrainosus, not intractable; Amplified musculoskeletal pain syndrome; Self-care deficit; Psychological factors affecting medical condition 01/21/2025 12:19 PM EDT - 01/21/2025 11:59 PM EDT Hospital Encounter [facility] [address] [facility] [address] [place] [address] CHARLY (juvenile idiopathic arthritis) (Primary Dx); CHARLY (juvenile idiopathic arthritis), enthesitis related arthritis Discharge Disposition: Home or Self Care 01/19/2025 12:09 PM EDT - 01/19/2025 11:59 PM EDT Hospital Encounter [facility] [address] [place] [phone] Diana Johnson MD CHARLY (juvenile idiopathic arthritis), enthesitis related arthritis (Primary Dx) Discharge Disposition: Home or Self Care 01/15/2025 1:30 PM EDT Therapy Department of Occupational Therapy [address] [place] [phone] Lorenza Young, OTR/L CHARLY (juvenile idiopathic arthritis), enthesitis related arthritis (Primary Dx); Chronic migraine with aura and with status migrainosus, not intractable; Amplified musculoskeletal pain syndrome; Self-care deficit; Psychological factors affecting medical condition 01/08/2025 1:30 PM EDT Therapy Department of Occupational Therapy [address] [place] [address] Lorenza Young, OTR/L CHARLY (juvenile idiopathic arthritis), enthesitis related arthritis (Primary Dx); Chronic migraine with aura and with status migrainosus, not intractable; Amplified musculoskeletal pain syndrome; Self-care deficit; Psychological factors affecting medical condition 01/06/2025 11:00 AM EDT Telemedicine Support [facility] [address] [place] [address], [address]th [address] [place] [phone] Darrell Velazquez Psy.D. Attention deficit hyperactivity disorder (ADHD), unspecified ADHD type (Primary Dx); Asperger's syndrome 01/05/2025 Telephone [facility] [address] [place] [address] Sarah Banks MA 01/01/2025 1:30 PM EDT Therapy Department of Occupational Therapy [address] [place] [address] Lorenza Young, OTR/L CHARLY (juvenile idiopathic arthritis), enthesitis related arthritis (Primary Dx); Chronic migraine with aura and with status migrainosus, not intractable; Amplified musculoskeletal pain syndrome; Self-care deficit; Psychological factors affecting medical condition 12/25/2024 1:30 PM EDT Therapy Department of Occupational Therapy [address] [place] [address] Lorenza Young, OTR/L CHARLY (juvenile idiopathic arthritis), enthesitis related arthritis (Primary Dx); Amplified musculoskeletal pain syndrome; Self-care deficit; Psychological factors affecting medical condition 12/25/2024 11:00 AM EDT Telemedicine Support [facility] [address] [place] [address], 9th [address] [place] [address] Darrell Velazquez Psy.D. Attention deficit hyperactivity disorder (ADHD), unspecified ADHD type (Primary Dx); Asperger's syndrome 12/24/2024 Telephone [facility] [address] [place] [address] Sarah Banks MA 12/24/2024 Results Follow-Up [facility], Department of Rheumatology, [address] [place] [address] Stephanie Diaz MD CBC auto differential, Erythrocyte Sediment Rate (ESR), Gamma GT, Additional followed-up results: 3 12/22/2024 12:25 PM EDT - 12/22/2024 11:59 PM EDT [address] [phone] CHARLY (juvenile idiopathic arthritis) (Primary Dx); CHARLY (juvenile idiopathic arthritis), enthesitis related arthritis Discharge Disposition: Home or Self Care 12/22/2024 Refill [facility], Department of Pain Medicine, [place] [address] [place] [address] Kathy Ruelas MD Chronic migraine with aura 12/22/2024 Orders Only [facility], Department of Pain Medicine, [place] [address] [place] [address] Cami Wilkerson APRN Chronic migraine without aura without status migrainosus, not intractable 12/19/2024 11:30 AM EDT Office Visit [facility], Department of Pain Medicine, [place] [address] [place] [address] Cami Wilkerson APRN Amplified musculoskeletal pain syndrome (Primary Dx); Chronic migraine with aura and with status migrainosus, not intractable; CHARLY (juvenile idiopathic arthritis), enthesitis related arthritis 12/19/2024 Telephone [facility], Department of Pain Medicine, [address] [place] [phone] Encounter, Telephone Appointment (/) 12/19/2024 Telephone [facility], Department of Pain Medicine, [address] [place] [phone] Encounter, Telephone Medication Refill 12/18/2024 1:30 PM EDT Therapy Department of Occupational Therapy [address] [place] [address] Lorenza Young, OTR/L Self-care deficit (Primary Dx); Psychological factors affecting medical condition; CHARLY (juvenile idiopathic arthritis), enthesitis related arthritis; Chronic migraine with aura and with status migrainosus, not intractable; Amplified musculoskeletal pain syndrome 12/11/2024 1:30 PM EDT Therapy Department of Occupational Therapy [address] [place] [address] Lorenza Young, OTR/L Self-care deficit (Primary Dx); CHARLY (juvenile idiopathic arthritis), enthesitis related arthritis; Chronic migraine with aura and with status migrainosus, not intractable; Amplified musculoskeletal pain syndrome; Psychological factors affecting medical condition 12/08/2024 Telephone [facility], Department of Pain Medicine, [address] [place] [phone] Nikko Castillo, Library Media Assistant 12/05/2024 Prep for Sedation/Procedure visit [facility], Department of Pain Medicine, [place] [address] [place] [address] Anselmo De Santiago MD Chronic migraine without aura without status migrainosus, not intractable (Primary Dx) 12/04/2024 1:30 PM EDT Therapy Department of Occupational Therapy [address] [place] [phone] Lorenza Young, OTR/Asher CHARLY (juvenile idiopathic arthritis), enthesitis related arthritis (Primary Dx); Chronic migraine with aura and with status migrainosus, not intractable; Amplified musculoskeletal pain syndrome; Self-care deficit; Psychological factors affecting medical condition 11/25/2024 Results Follow-Up [facility], Department of Rheumatology, [place] [address] [facility] [address] [place] [phone] Stephanie Diaz MD CBC auto differential, Erythrocyte Sediment Rate (ESR), Gamma GT, Additional followed-up results: 3 11/24/2024 12:30 PM EDT - 11/24/2024 11:59 PM EDT Hospital [facility] [address] [address] CHARLY (juvenile idiopathic arthritis) (Primary Dx); CHARLY (juvenile idiopathic arthritis), enthesitis related arthritis Discharge Disposition: Home or Self Care 11/20/2024 3:40 PM EDT Office Visit [facility], Department of Rheumatology, [place] [address] [place] [address] Stephanie Diaz MD Chronic bilateral low back pain without sciatica (Primary Dx); Juvenile idiopathic arthritis, enthesitis related arthritis; Chronic migraine with aura and with status migrainosus, not intractable; Other specified anxiety disorders; Pain 11/20/2024 Refill [facility] Gastroenterology, [place] [address] [facility] [address] [place] [address] Weight loss (Primary Dx) 11/18/2024 12:00 PM EDT Office Visit [facility] Gastroenterology, [place] [address] [place] [address] Lata Santamaria MD Decrease in appetite (Primary Dx); Weight loss 11/17/2024 12:30 PM EDT Therapy Department of Occupational Therapy [address] [place] [phone] Lorenza Young OTR/Asher Self-care deficit (Primary Dx); Amplified musculoskeletal pain syndrome; Chronic migraine with aura and with status migrainosus, not intractable; CHARLY (juvenile idiopathic arthritis), enthesitis related arthritis; Psychological factors affecting medical condition 11/17/2024 Telephone [facility], Department of Pain Medicine, [address] [facility] [address] [place] [address] Nikko Castillo, Library Media Assistant Appointment (/) 11/14/2024 Prep for Sedation/Procedure visit [facility], Department of Pain Medicine, [address] [facility] [address] [place] [address] Anselmo De Santiago MD Chronic migraine with aura and with status migrainosus, not intractable (Primary Dx) 11/13/2024 12:08 PM EDT Anesthesia Event [facility] [address] [place] [phone] Telma Hampton MD Sanchez, Jamie, RN 11/13/2024 11:14 AM EDT - 11/13/2024 11:59 PM EDT Hospital Encounter [facility] [address] [place] [phone] Anselmo De Santiago MD Sturm, Jesse, MD Chronic migraine w/o aura, not intractable, w stat migr Discharge Disposition: Home or Self Care 11/13/2024 Refill [facility], Department of Pain Medicine, [address] [address] Kathy Ruelas MD Chronic migraine with aura and with status migrainosus, not intractable 11/10/2024 11:00 AM EDT Telemedicine Support [facility] [address] [place] [address], 9th [address] [place] [address] Darrell Velazquez Psy.D. Attention deficit hyperactivity disorder (ADHD), unspecified ADHD type (Primary Dx); Asperger's syndrome from Last 3 Months Immunizations Immunization Administration [...] Sign Reading Time Taken Comments Blood Pressure 112/77 01/28/2025 4:15 PM EDT Pulse 55 01/28/2025 4:15 PM EDT Temperature 36.4 C (97.5 F) 01/28/2025 4:15 PM EDT Respiratory Rate 15 01/28/2025 4:15 PM EDT Oxygen Saturation 100% 01/28/2025 4:15 PM EDT Inhaled Oxygen Concentration - - Weight 77.4 kg (170 lb 10.2 oz) 01/28/2025 2:33 PM EDT Height 192.8 cm (6' 3.91 ) 01/26/2025 2:10 PM ED T Body Mass Index 20.82 01/26/2025 2:10 PM EDT Plan of Treatment Upcoming Encounters Date Type Department Care Team (Late st Contact Info) Description 02/11/2025 12:45 PM EST Hospital Encounter [facility] [address] [place] [phone] Anselmo De Santiago MD [address] [place] [address] Erik Guidry MD [address] [place] [phone] 02/17/2025 12:30 PM EST Hospital Encounter [facility] [address] [address] CHARLY (juvenile idiopathic arthritis) (Primary Dx); CHARLY (juvenile idiopathic arthritis), enthesitis related arthritis 02/19/2025 1:30 PM EST Therapy Department of Occupational Therapy [address] [place] [phone] Lorenza Young, OTR/L [address] [place] [phone] 02/25/2025 9:00 AM EST Office Visit [facility] G[facility]enterology, [place] [address] [place] [address] Lata Santamaria MD [address] [place] [phone] 03/04/2025 12:00 PM EST Appointment [facility] [address] [place] [phone] Anselmo De Santiago MD [address] [place] [address] 03/05/2025 1:30 PM EST Therapy Department of Occupational Therapy [address] [place] [phone] Lorenza Young OTR/L [address] [place] [address] 03/17/2025 12:30 PM EST Appointment [facility] [address] [facility] [address] [place] [address] 03/30/2025 3:00 PM EST Telemedicine [facility], Department of Pain Medicine, [place] [address] [place] [address] Cami Wilkerson APRN [address] [place], [place] [phone] 05/21/2025 2:00 PM EST Office Visit [facility], Department of Rheumatology, [place] [address] [place] [address] Stephanie Diaz MD [address] [place], [place] [phone] Health Maintenance Due Date Last Done Comments DTaP/TDAP/TD VACCINES (1 - Tdap) 10/20/2011 ADOLESCENT HIV SCREENING 2017 COVID-19 Vaccine ( season) 2024 INFLUENZA (#1) 2024 12/24/2021, 1012/2020, 12/27/2019, Additional history exists NIRSEVIMAB VACCINES UNDER 8 MONTHS Aged Out No longer eligible based on patient's age to complete this topic Procedures Procedure Name Priority Date/Time Associated Diagnosis Comments CHEMODENERVATION Routine 01/28/2025 3:30 PM EDT Chronic migraine with aura and with status migrainosus, not intractable BUN CREAT W/ RATIO Routine 01/21/2025 12 :23 PM EDT CHARLY (juvenile idiopathic arthritis), enthesitis related arthritis ALT Routine 01/21/2025 12:23 PM EDT CHARLY (juvenile idiopathic arthritis), enthesitis related arthritis AST Routine 01/21/2025 12:23 PM EDT CHARLY (juvenile idiopathic arthritis), enthesitis related arthritis GAMMA GLUTAMYL TRANS (GGT) Routine 01/21/2025 12:23 PM EDT CHARLY (juvenile idiopathic arthritis), enthesitis related arthritis ERYTHROCYTE SEDIMENT RATE (ESR) Routine 01/21/2025 12:23 PM EDT CHARLY (juvenile idiopathic arthritis), enthesitis related arthritis CBC WITH AUTO DIFFERENTIAL Routine 01/21/2025 12:23 PM EDT CHARLY (juvenile idiopathic arthritis), enthesitis related arthritis BUN CREAT W/ RATIO Routine 12/22/2024 12 :26 PM EDT CHARLY (juvenile idiopathic arthritis), enthesitis related arthritis ALT Routine 12/22/2024 12:26 PM EDT CHARLY (juvenile idiopathic arthritis), enthesitis related arthritis AST Routine 12/22/2024 12:26 PM EDT CHARLY (juvenile idiopathic arthritis), enthesitis related arthritis GAMMA GLUTAMYL TRANS (GGT) Routine 12/22/2024 12:26 PM EDT CHARLY (juvenile idiopathic arthritis), enthesitis related arthritis ERYTHROCYTE SEDIMENT RATE (ESR) Routine 12/22/2024 12:26 PM EDT CHARLY (juvenile idiopathic arthritis), enthesitis related arthritis CBC WITH AUTO DIFFERENTIAL Routine 12/22/2024 12:26 PM EDT CHARLY (juvenile idiopathic arthritis), enthesitis related arthritis BUN CREAT W/ RATIO Routine 11/24/2024 12 [...] without aura without status migrainosus, not intractable from Last 3 Months Results * Chemodenervation (01/28/2025 3:30 PM EDT) Anselmo Damon MD - 01/28/2025 3:30 PM EDT Anselmo De Santiago MD 01/28/2025 3:21 PM OPERATIVE REPORT 01/28/25 PREOPERATIVE DIAGNOSIS: chronic migraine POSTOPERATIVE DIAGNOSIS: chronic migraine PROCEDURE: botox injection, headache protocol SURGEON: Mily De Santiago MD PICKLE CUTTER: None. DATE OF procedure: 01/28/25 COMPLICATIONS: None apparent. INDICATIONS: Herman Noguera) is 19 y.o. with chronic daily headache with a migrainous component. he has failed multiple medication regimens, as well multiple nonpharmacologic modalities. he has > than 15 headache days per month. Risks benefits and alternatives to a trial of botox injection were discussed in detail with Herman Noguera) and Mom and they were amenable to proceed. PROCEDURE IN DETAIL: After obtaining informed consent and properly identifying the patient, alcohol swabs were used to clean each of 31 sites used for injection, per protocol, and 5 units of botox were injected at each site. he tolerated the procedure well. Botox medication was provided by [facility] pharmacy Anselmo DE SANTIAGO MD Anselmo De Santiago MD PROCEDURE/MINOR SURGICAL ORDERAB LES Final Result * BUN Creat w/ Ratio (01/21/2025 12:23 PM EDT) Only the most recent of3 resultswithin the time period is included. BUN 10 7 - 25 mg/dL [facility] Creatinine 0.85 0.60 - 1.24 mg/dL [facility] EGFR 128 > OR = 60 mL/min/1. 73m2 [facility] BUN/Creatinine Ratio SEE NOTE: (calc) [facility] Comment: Not Reported: BUN and Creatinine are within reference range. Blood BLOOD SPECIMEN / Unknown 01/21/2025 12:23 PM EDT 01/22/2025 6:29 AM EDT Narrative Resulting Agency Comment Performing Organization Information: Site ID: [id number] Name: [facility] Address: [address] [place] [phone] Director: Alfredo Alaniz M.D. Stephanie Diaz MD LAB BLOOD ORDERABLES [facility] [address] [place] [phone] [facility] [address] [place] [phone] * Erythrocyte Sediment Rate (ESR) (01/21/2025 12:23 PM EDT) Only the most recent of3 resultswithin the time period is included. Pathologist [facility] Sed Rate by Modified Westergren 2 < OR = 15 mm/h [facility] Blood BLOOD SPECIMEN / Unknown 01/21/2025 12:23 PM EDT 01/22/2025 6:29 AM EDT Narrative Resulting Agency Comment Performing Organization Information: Site ID: [id number] Name: [facility] Address: [address] [place] [phone] Director: Salim E Kabawat M.D. Stephanie Diaz MD LAB BLOOD ORDERABLES [facility]ba arana [facility] [address] [place] [address] [facility] [address] [place] [address] * (ABNORMAL) CBC auto differential (01/21/2025 12:23 PM EDT) Only the most recent of3 resultswithin the time period is included. WBC 5.4 3.8 - 10.8 Thousand/u L [facility] RBC 4.83 4.20 - 5.80 Million/uL [facility] Hemoglobin 14.1 13.2 - 17.1 g/dL [facility] Hematocrit 43.7 38.5 - 50.0 % [facility] MCV 90.5 80.0 - 100.0 fL [facility] MCH 29.2 27.0 - 33.0 pg [facility] MCHC 32.3 32.0 - 36.0 g/dL [facility] Comment: For adults, a slight decrease in the calculated MCHC value (in the range of 30 to 32 g/dL) is most likely not clinically significant; however, it should be interpreted with caution in correlation with other red cell parameters and the patient's clinical condition. RDW 11.9 11.0 - 15.0 % [facility] Platelets 196 140 - 400 Thousand/u L [facility] MPV 11.3 7.5 - 12.5 fL [facility] Neutrophils Absolute 2,279 1,500 - 7,800 cells/uL [facility] Lymphocytes Absolute 1,955 850 - 3,900 cells/uL [facility] Monocytes Absolute 389 200 - 950 cells/uL [facility] Eosinophils Absolute 707(H) 15 - 500 cells/uL [facility] Basophils Absolute 70 0 - 200 cells/uL [facility] Neutrophils 42.2 % [facility] [facility] Lymphs 36.2 % [facility] Monocytes 7.2 % [facility] Eos 13.1 % [facility] Basos 1.3 % [facility] Blood BLOOD SPECIMEN / Unknown 01/21/2025 12:23 PM EDT 01/22/2025 6:29 AM EDT Narrative Resulting Agency Comment Performing Organization Information: Site ID: [id number] Name: [facility] Address: [address] [place] [phone] Director: Alfredo Alaniz M.D. Stephanie Diaz MD LAB BLOOD ORDERABLES Sheba l Result Performing Organization Address [facility] de Phone Number [facility] [address] [place] [phone] [employer] [facility] [address] [place] [phone] * (ABNORMAL) ALT (01/21/2025 12:23 PM EDT) Only the most recent of3 resultswithin the time period is included. ALT 49(H) 9 - 46 U/L [facility] Blood BLOOD SPECIMEN / Unknown 01/21/2025 12:23 PM EDT 01/22/2025 6:29 AM EDT Narrative Resulting Agency Comment Performing Organization Information: Site ID: [id number] Name: [facility] Address: [address] [place] [phone] Director: Alfredo Alaniz M.D. Stephanie Diaz MD LAB BLOOD ORDERABLES Sheba l Result Performing Organization Address City/[facility]/ZIP Co de Phone Number [facility] [address] [place] [phone] [facility] [address] [place] [phone] * AST (01/21/2025 12:23 PM EDT) Only the most recent of3 resultswithin the time period is included. AST 30 10 - 40 U/L [facility] Blood BLOOD SPECIMEN / Unknown 01/21/2025 12:23 PM EDT 01/22/2025 6:29 AM EDT Narrative Resulting Agency Comment Performing Organization Information: Site ID: [id number] Name: [facility] Address: [address] [place] [phone] Director: Alfredo Alaniz M.D. Stephanie Diaz MD LAB BLOOD ORDERABLES Sheba l Result Performing Organization Address [facility] Co de Phone Number [facility] [address] [place] [phone] [facility] [address] [place] [phone] * Gamma GT (01/21/2025 12:23 PM EDT) Only the most recent of3 resultswithin the time period is included. GGT 46 3 - 70 U/L [facility] Blood BLOOD SPECIMEN / Unknown 01/21/2025 12:23 PM EDT 01/22/2025 6:29 AM EDT Narrative Resulting Agency Comment Performing Organization Information: Site ID: [id number] Name: [facility] Address: [address] [place] [phone] Director: Alfredo Alaniz M.D. Stephanie Diaz MD LAB BLOOD ORDERABLES Sheba l Result Performing Organization Address City/[facility] Co de Phone Number [facility] [address] [place] [phone] [facility] [address] [place] [phone] * Inject Trigger Point(s) (11/13/2024 12:00 PM EDT) Narrative Anselmo De Santiago MD - 11/13/2024 12:00 PM EDT Anselmo De Santiago MD 11/13/2024 11:52 AM PROCEDURE REPORT 11/13/24 PREOPERATIVE DIAGNOSIS:myofascial pain syndrome, chronic migraine POSTOPERATIVE DIAGNOSIS: myofascial pain syndrome, chronic migraine PROCEDURE: bilateral occipital trigger point injection SPG block PROCEDURALIST: Anselmo DE SANTIAGO MD PICKLE CUTTER: None. DATE OF SURGERY:11/13/24 ANESTHESIA: IV sedation. [...] MD PROCEDURE/MINOR SURGICAL ORDERAB LES Final Result from Last 3 Months Insurance [facility] MEDICAID [facility] [employer] [employer] [facility] [place] [phone] Care Teams Community Mental Health Worker Relationship Specialty Start Date End Date Romy Brown MD [address] [place] [address] [place] [phone] PCP - General 11/12/15 Roe Mercado MD [address] [place] [address] Consulting Physician Neurology 10/31/18 Kathy Ruelas MD [address] [place] [address] Consulting Physician Pain Medicine 10/31/18 Anoop Mackay MD PhD [address] [place] [address] 11 [place] [address] Consulting Physician Pediatric Pulmonology 01/08/22 Lata Santamaria MD [address] [place] [address] Consulting Physician Gastroenterology 11/15/23 Marni Smallwood LCSW [facility] 3300 [facility] 4A [facility] [address] Behavioral Health Clinician Behavioral Health 03/14/22
--- OUTSIDE RECORDS SUMMARY | 2025-02-09 13:40 | XMS_ITS | Encounter Summary ---
Author Organization [facility] Address [address] [place] [address] Care Team Providers Care Climatology Professor Name Role Phone Romy Brown MD Primary Care Provider [phone] Clayton Bazzi MD Unavailable Roe Mercado MD Unavailable [phone] Kathy Ruelas MD Unavailable Anoop Mackay MD PhD Unavailable [phone] Lata Santamaria MD Unavailable [phone] Reason for Visit * Reason Comments Medication Refill Encounter Details Date Type Department Care Team (Late st Contact Info) Description 06/17/2017 Refill [facility], [place] [address] [place], [place] [address] Roe Mercado MD [address] [place] [address] Headache disorder Social History Tobacco Use Types [...] Hospital Encounter [facility] [address] [place] [phone] Anselmo De Santiago MD [address] [place] [address] Erik Guidry MD [address] [place] [address] 02/17/2025 12:30 PM EST Hospital Encounter [facility] [address] [place] [address] CHARLY (juvenile idiopathic arthritis) (Primary Dx); CHARLY (juvenile idiopathic arthritis), enthesitis related arthritis 02/19/2025 1:30 PM EST Therapy Department of Occupational Therapy [address] [place] [address] Lorenza Young, OTR/L [address] [place] [address] 02/25/2025 9:00 AM EST Office Visit [facility] Gastroenterology, [address] [address] Lata Santamaria MD [address] [place] [address] 03/04/2025 12:00 PM EST Appointment [facility] [address] [place] [phone] Anselmo De Santiago MD [address] [place] [address] 03/05/2025 1:30 PM EST Therapy Department of Occupational Therapy [address] [place] [address] Lorenza Young, OTR/L [address] [place] [address] 03/17/2025 12:30 PM EST Appointment Infusion [facility] 10 [facility] 2nd [place] [address] 03/30/2025 3:00 PM EST Telemedicine [facility], Department of Pain Medicine, [address] [place] [phone] aCmi Wilkerson APRN [address] [place] [address] 05/21/2025 2:00 PM EST Office Visit [facility] [address] [place] [address] Stephanie Diaz MD 282 [place] [address] documented as of this encounter Visit Diagnoses Diagnosis Headache disorder Headache CHARLY (juvenile idiopathic arthritis)- Primary 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), 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)- Primary 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), 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 documented in this encounter Care Teams Climatology Professor Relationship Specialty Start Date End Date Romy Brown MD [address] [place] [phone] PCP - General 11/12/15 Clayton Bazzi MD [address] [place] [address] Consulting Physician Pediatric Rheumatology 10/31/18 Roe Mercado MD [address] [place] [address] Consulting Physician Neurology 10/31/18 Kathy Ruelas MD [address] [place] [address] Consulting Physician Pain Medicine 10/31/18 Anoop Mackay MD PhD [address] [place] [phone] Consulting Physician Pediatric Pulmonology 01/08/22 Lata Santamaria MD [address] [place] [address] Consulting Physician Gastroenterology 11/15/23 Nery Alvarado, PhD [address] [place] [address] [address] [place] [address] Psychologist Psychology 10/31/18 11/02/21 Marni Smallwood LCSW [facility] [address] [address] Behavioral Health Clinician Behavioral Health 03/14/22 documented as of this encounter
--- OUTSIDE RECORDS SUMMARY | 2025-02-09 13:40 | XMS_ITS | Encounter Summary ---
Author Organization [facility] Address [address] [place] [address] Care Team Providers Care Supervisor Slate Splitting Name Role Phone Romy Brown MD Primary Care Provider Clayton Bazzi MD Unavailable Roe Mercado MD Unavailable [phone] aKthy Ruelas MD Unavailable Anoop Mackay MD PhD Unavailable [phone] Lata Santamaria MD Unavailable [phone] Reason for Visit * Reason Comments Medication Refill Encounter Details Date Type Department Care Team (Late st Contact Info) Description 02/07/2021 Refill [facility], Department of Pain Medicine, [address] [place] [address] Kathy Ruelas MD [address] [place], [place] [phone] Chronic migraine with aura Social History Tobacco [...] Encounter [facility] [address] [place] [phone] Anselmo De Santiago MD [address] [place] [address] Erik Guidry MD [address] [place] [address] 02/17/2025 12:30 PM EST Hospital Encounter [facility] [address] [address] CHARLY (juvenile idiopathic arthritis) (Primary Dx); CHARLY (juvenile idiopathic arthritis), enthesitis related arthritis 02/19/2025 1:30 PM EST Therapy Department of Occupational Therapy [address] [place] [address] Lorenza Young, OTR/L [address] [place] [address] 02/25/2025 9:00 AM EST Office Visit [facility] Gastroenterology, [address] [address] Lata Santamaria MD [address] [place] [address] 03/04/2025 12:00 PM EST Appointment [facility] [address] [place] [phone] Anselmo De Santiago MD [address] [place] [address] 03/05/2025 1:30 PM EST Therapy Department of Occupational Therapy [address] [place] [address] Lorenza Young, OTR/L [address] [place] [address] 03/17/2025 12:30 PM EST Appointment Infusion Center 10 [facility] 2nd [place] [address] 03/30/2025 3:00 PM EST Telemedicine [facility], Department of Pain Medicine, [address] [place] [address] Cami Wilkerson APRN [address] [place] [address] 05/21/2025 2:00 PM EST Office Visit [facility], Department of Rheumatology, [address] [address] Stephanie Diaz MD [address] [place] [address] documented as of this encounter Visit Diagnoses Diagnosis Chronic migraine with aura CHARLY (juvenile idiopathic arthritis)- Primary 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), 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)- Primary 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), 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 documented in this encounter Care Teams Supervisor Slate Splitting Relationship Specialty Start Date End Date Romy Brown MD [address] [place] [phone] PCP - General 11/12/15 Clayton Bazzi MD [address] [place] [address] Consulting Physician Pediatric Rheumatology 10/31/18 Roe Mercado MD [address] [place] [address] Consulting Physician Neurology 10/31/18 Kathy Ruelas MD [address] [place] [address] Consulting Physician Pain Medicine 10/31/18 Anoop Mackay MD PhD [address] [place] [phone] Consulting Physician Pediatric Pulmonology 01/08/22 Lata Santamaria MD [address] [place] [address] Consulting Physician Gastroenterology 11/15/23 Nery Alvarado, PhD [address] [place] [address] [address] [place] [address] Psychologist Psychology 10/31/18 11/02/21 Marni Smallwood LCSW [facility] 3300 [facility] 4A [facility] [address] Behavioral Health Clinician Behavioral Health 03/14/22 documented as of this encounter
--- OUTSIDE RECORDS SUMMARY | 2025-02-09 13:40 | XMS_ITS | Encounter Summary ---
Author Organization [facility] Address [address] [place] [address] Care Team Providers Care Bath Tester Name Role Phone Romy Brown MD Primary Care Provider Roe Mercado MD Unavailable [phone] Kathy Ruelas MD Unavailable Anoop Mackay MD PhD Unavailable [phone] Lata Santamaria MD Unavailable [phone] Reason for Visit * Reason Onset Date Comments Medication Refill 11/20/2022 Encounter Details Date Type Department Care Team (Late st Contact Info) Description 11/20/2022 Refill [facility] Gastroenterology, [address] [phone] Lata Santamaria MD [address] [place] [address] Nausea; Diarrhea, unspecified type; Periumbilical abdominal [...] 12:45 PM EST Hospital Encounter [facility] [address] [place] [address] Anselmo De Santiago MD [address] [place] [address] Erik Guidry MD [address] [place] [address] 02/17/2025 12:30 PM EST Hospital Encounter [facility] 10 [facility] 2nd [place] [address] CHARLY (juvenile idiopathic arthritis) (Primary Dx); CHARLY (juvenile idiopathic arthritis), enthesitis related arthritis 02/19/2025 1:30 PM EST Therapy Department of Occupational Therapy [address] [place] [phone] Lorenza Young OTR/L [address] [place] [address] 02/25/2025 9:00 AM EST Office Visit [facility] Gastroenterology, [place] [address] [place] [address] Lata Santamaria MD [address] [place] [address] 03/04/2025 12:00 PM EST Appointment [facility] [address] [place] [phone] Anselmo De Santiago MD [address] [place] [address] 03/05/2025 1:30 PM EST Therapy Department of Occupational Therapy 10 [place] [address] Lorenza Young, OTR/L [address] [place] [address] 03/17/2025 12:30 PM EST Appointment [facility] [address] [address] 03/30/2025 3:00 PM EST Telemedicine [facility], Department of Pain Medicine, [address] [place] [phone] Cami Wilkerson APRN [address] [place] [address] 05/21/2025 2:00 PM EST Office Visit [facility], Department of Rheumatology, [address] [address] Stephanie Diaz MD [address] [place] [address] documented as of this encounter Visit Diagnoses [...] polyarthropathies documented in this encounter Care Teams Bath Tester Relationship Specialty Start Date End Date Rmoy Brown MD [address] [place] [address], [place] [address] PCP - General 11/12/15 Roe Mercado MD [address] [place] [address] Consulting Physician Neurology 10/31/18 Kathy Ruelas MD [address] [place] [address] Consulting Physician Pain Medicine 10/31/18 Anoop Mackay MD PhD [address] [place] [phone] Consulting Physician Pediatric Pulmonology 01/08/22 Lata Santamaria MD [address] [place] [address] Consulting Physician Gastroenterology 11/15/23 Marni Smallwood [facility] [address] [place] [address] Behavioral Health Clinician Behavioral Health 03/14/22 documented as of this encounter
--- OUTSIDE RECORDS SUMMARY | 2025-02-09 13:40 | XMS_ITS | Encounter Summary ---
Author Organization [facility] Address [address] [place] [address] Care Team Providers Care Licensed Prosthetist Name Role Phone Romy Brown MD Primary Care Provider Clayton Bazzi MD Unavailable Roe Mercado MD Unavailable [phone] Kathy Ruelas MD Unavailable Anoop Mackay MD PhD Unavailable [phone] Lata Santamaria MD Unavailable [phone] Reason for Visit * Reason Comments Medication Refill Encounter Details Date Type Department Care Team (Late st Contact Info) Description 02/06/2017 Refill [facility] Neurology, [place] [address] [place] [address] Roe Mercado MD [address] [place] [address] Intractable migraine with status migrainosus, unspecified migraine [...] Encounter [facility] [address] [place] [phone] Anselmo De Santiago MD [address] [place] [address] Erik Guidry MD [address] [place] [address] 02/17/2025 12:30 PM EST Hospital Encounter [facility] [address] [place] [address] CHARLY (juvenile idiopathic arthritis) (Primary Dx); CHARLY (juvenile idiopathic arthritis), enthesitis related arthritis 02/19/2025 1:30 PM EST Therapy Department of Occupational Therapy [address] [place] [phone] Lorenza Young OTR/Asher [address] [place] [address] 02/25/2025 9:00 AM EST Office Visit [facility] Gastroenterology, [place] [address] [place] [address] Lata Santamaria MD [address] [place] [address] 03/04/2025 12:00 PM EST Appointment [facility] [address] [place] [phone] Anselmo De Santiago MD [address] [place] [address] 03/05/2025 1:30 PM EST Therapy Department of Occupational Therapy [address] [place] [phone] Lorenaz Young OTR/L [address] [place] [address] 03/17/2025 12:30 PM EST Appointment Infusion Center 10 [facility] 2nd [place] [address] 03/30/2025 3:00 PM EST Telemedicine [facility], Department of Pain Medicine, [address] [place] [phone] Cami Wilkerson APRN [address] [place] [address] 05/21/2025 2:00 PM EST Office Visit [facility], Department of Rheumatology, [address] [address] Stephanie Diaz MD [address] [place] [address] documented as of this encounter Visit Diagnoses Diagnosis Intractable migraine with status migrainosus, unspecified migraine type- Primary CHARLY (juvenile idiopathic arthritis)- Primary 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), 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)- Primary 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), 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 documented in this encounter Care Teams Licensed Prosthetist Relationship Specialty Start Date End Date Romy Brown MD [address] [phone] PCP - General 11/12/15 Clayton Bazzi MD [address] [place] [address] Consulting Physician Pediatric Rheumatology 10/31/18 Roe Mercado MD [address] [place] [address] Consulting Physician Neurology 10/31/18 Kathy Ruelas MD [address] [place] [address] Consulting Physician Pain Medicine 10/31/18 Anoop Mackay MD PhD [address] [place] [phone] Consulting Physician Pediatric Pulmonology 01/08/22 Lata Santamaria MD [address] [place] [address] Consulting Physician Gastroenterology 11/15/23 Nery Alvarado, PhD [address] [place] [address] [address] [place] [address] Psychologist Psychology 10/31/18 11/02/21 Marni Smallwood [facility] [address] [address] Behavioral Health Clinician Behavioral Health 03/14/22 documented as of this encounter
--- OUTSIDE RECORDS SUMMARY | 2025-02-09 13:40 | XMS_ITS | Encounter Summary ---
Author Organization [facility] Address [address] [place] [address] Care Team Providers Care Crown And Bridge Technician Name Role Phone Romy Brown MD Primary Care Provider Clayton Bazzi MD Unavailable Roe Mercado MD Unavailable [phone] Kathy Ruelas MD Unavailable [phone] Anoop Mackay MD PhD Unavailable [phone] Lata Santamaria MD Unavailable [phone] Reason for Visit * Reason Comments Medication Refill Encounter Details Date Type Department Care Team (Late st Contact Info) Description 04/25/2017 Refill [facility] Neurology, [place] [address] [place] [address] Roe Mercado MD [address] [place] [address] Other migraine without status migrainosus, not intractable [...] Description 02/11/2025 12:45 PM EST Hospital Encounter [facility] [address] [place] [phone] Anselmo De Santiago MD [address] [place] [address] Erik Guidry MD [address] [place] [address] 02/17/2025 12:30 PM EST Hospital Encounter [facility] Center [address] [address] CHARLY (juvenile idiopathic arthritis) (Primary Dx); CHARLY (juvenile idiopathic arthritis), enthesitis related arthritis 02/19/2025 1:30 PM EST Therapy Department of Occupational Therapy [address] [place] [address] Lorenza Young, OTR/L [address] [place] [address] 02/25/2025 9:00 AM EST Office Visit [facility] Gastroenterology, [address] [address] Lata Santamaria MD [address] [place] [address] 03/04/2025 12:00 PM EST Appointment [facility] [address] [place] [phone] Anselmo De Santiago MD [address] [place] [address] 03/05/2025 1:30 PM EST Therapy Department of Occupational Therapy [address] [place] [address] VianneyLorenza alba, OTR/L [address] [place] [address] 03/17/2025 12:30 PM EST Appointment Infusion Center 10 [facility] 2nd [place] [address] 03/30/2025 3:00 PM EST Telemedicine [facility] Specialty [facility], Department of Pain Medicine, [address] [place] [phone] Cami Wilkerson APRN [address] [place] [address] 05/21/2025 2:00 PM EST Office Visit [facility] Specialty [facility], Department of Rheumatology, [place] [address] [place] [address] Stephanie Diaz MD [address] [place] [address] documented as of this encounter Visit Diagnoses Diagnosis Other migraine without status migrainosus, not intractable CHARLY (juvenile idiopathic arthritis)- Primary 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), 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)- Primary 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), 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 documented in this encounter Care Teams Crown And Bridge Technician Relationship Specialty Start Date End Date Romy Brown MD [address] [place] [phone] PCP - General 11/12/15 Clayton Bazzi MD [address] [place] [address] Consulting Physician Pediatric Rheumatology 10/31/18 Roe Mercado MD [address] [place] [address] Consulting Physician Neurology 10/31/18 Kathy Ruelas MD [address] [place] [address] Consulting Physician Pain Medicine 10/31/18 Anoop Mackay MD PhD [address] [place] [address] 11 [place] [phone] Consulting Physician Pediatric Pulmonology 01/08/22 Lata Santamaria MD [address] [place] [address] Consulting Physician Gastroenterology 11/15/23 Nery Alvarado, PhD [address] [place] [address] [address] [place] [address] Psychologist Psychology 10/31/18 11/02/21 [facility] 3300 [facility] 4A [facility] [address] Behavioral Health Clinician Behavioral Health 03/14/22 documented as of this encounter
--- OUTSIDE RECORDS SUMMARY | 2025-02-09 13:40 | XMS_ITS | Encounter Summary ---
Author Organization [facility] Address [address] [place] [address] Care Team Providers Care Screw Machine Set Up Operator Tool Name Role Phone Romy Brown MD Primary Care Provider Clayton Bazzi MD Unavailable Roe Mercado MD Unavailable [phone] Kathy Ruelas MD Unavailable [phone] Anoop Mackay MD PhD Unavailable [phone] Lata Santamaria MD Unavailable [phone] Reason for Visit * Reason Comments Medication Refill Encounter Details Date Type Department Care Team (Late st Contact Info) Description 01/29/2017 Refill [facility] Neurology, [place] [address] [place] [address] Roe Mercado MD [address] [place] [address] Intractable migraine with status migrainosus, unspecified migraine [...] Description 02/11/2025 12:45 PM EST Hospital Encounter [facility] Sedation Services [address] [place] [phone] Anselmo De Santiago MD [address] [place] [address] Erik Guidry MD [address] [place] [address] 02/17/2025 12:30 PM EST Hospital Encounter [facility] [address] [address] CHARLY (juvenile idiopathic arthritis) (Primary Dx); CHARLY (juvenile idiopathic arthritis), enthesitis related arthritis 02/19/2025 1:30 PM EST Therapy Department of Occupational Therapy [address] [place] [phone] Lorenza Young OTR/Asher [address] [place] [address] 02/25/2025 9:00 AM EST Office Visit [facility] Gastroenterology, [place] [address] [place] [address] Lata Santamaria MD [address] [place] [address] 03/04/2025 12:00 PM EST Appointment [facility] Sedation Services [address] [place] [phone] Anselmo De Santiago MD [address] [place], [place] [phone] 03/05/2025 1:30 PM EST Therapy Department of Occupational Therapy [address] [place] [phone] Lorenza Young OTR/Asher [address] [place] [address] 03/17/2025 12:30 PM EST Appointment [facility] 10 [facility] 2nd [place] [address] 03/30/2025 3:00 PM EST Telemedicine [facility] Specialty [facility], Department of Pain Medicine, [address] [place] [phone] Cami Wilkerson APRN [address] [place] [address] 05/21/2025 2:00 PM EST Office Visit [facility] Special[facility], Department of Rheumatology, [address] [address] Stephanie Diaz MD [address] [place] [address] documented as of this encounter Visit Diagnoses Diagnosis Intractable migraine with status migrainosus, unspecified migraine type- Primary CHARLY (juvenile idiopathic arthritis)- Primary 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), 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)- Primary 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), 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 documented in this encounter Care Teams Screw Machine Set Up Operator Tool Relationship Specialty Start Date End Date Romy Brown MD [address] [phone] PCP - General 11/12/15 Clayton Bazzi MD [address] [place] [address] Consulting Physician Pediatric Rheumatology 10/31/18 Roe Mercado MD [address] [place] [address] Consulting Physician Neurology 10/31/18 Kathy Ruelas MD [address] [place] [address] Consulting Physician Pain Medicine 10/31/18 Anoop Mackay MD PhD [address] [place] [phone] Consulting Physician Pediatric Pulmonology 01/08/22 Lata Santamaria MD [address] [place] [address] Consulting Physician Gastroenterology 11/15/23 Nery Alvarado, PhD [address] [place] [address] [address] [place] [address] Psychologist Psychology 10/31/18 11/02/21 Marni [place] [facility] [address] [address] Behavioral Health Clinician Behavioral Health 03/14/22 documented as of this encounter
[2025-02-11 08:15] LABS: Proteinase 3 PR3 Antibodies <1.0 AI
[2025-02-15 18:49] LABS: Asperg fumigatus Precip Abs NEGATIVE (NEGATIVE); Micropoly faeni Abs NEGATIVE (NEGATIVE); Saccharo pora viridis Abs NEGATIVE (NEGATIVE); Thermo candidus Abs NEGATIVE (NEGATIVE)
== END 2025-02-09 11:19 | disposition home or self-care (01) ==
LOC: HO.LAB 11:18
PROVIDERS: PCP Health Educator; Visit Provider Hospitalist
DX: Z01.84 Encounter for antibody response examination (principal); J45.40 Moderate persistent asthma, uncomplicated; M08.00 Unspecified juvenile rheumatoid arthritis of unspecified site; R91.8 Other nonspecific abnormal finding of lung field; R53.82 Chronic fatigue, unspecified
CPT/HCPCS: 36415; 71046; 82784; 82785; 84403; 84443; 85025; 85652; 86021; 86331; 86606; 86609

== ENCOUNTER → 2025-02-09 11:55 | Outpatient (BNV) | payer OTHER, MEDICAID, SELFPAY | PROVIDERS: PCP Health Educator; Visit Provider Radiology Diagnostic Radiology | DX: J45.40 Moderate persistent asthma, uncomplicated (principal) | CPT/HCPCS: 71046 ==

== ENCOUNTER 2025-02-13 13:51 | Outpatient (AMB) | payer OTHER, MEDICAID, SELFPAY ==
--- OUTSIDE RECORDS SUMMARY | 2025-02-11 11:41 | XMS_ITS | Encounter Summary ---
Author Organization [facility] Address [address] [place] [address] Care Team Providers Care Technician Automated Equipment Name Role Phone Romy Brown MD Primary Care Provider [phone] Roe Mercado MD Unavailable [phone] Kathy Ruelas MD Unavailable nAoop Mackay MD PhD Unavailable [phone] Lata Santamaria MD Unavailable [phone] Reason for Visit * Auth/Cert (Routine) Specialty Diagnoses / Procedures Referred By Medhat t Referred To Contact Referral ID Status Reason Start Date Expiration Date Visits Re quested Visits Authorized [id number] 1 1 Encounter Details Date Type Department Care Team (Late st Contact Info) Description 02/11/2025 11:41 AM EST Hospital Encounter [facility] Sed[facility] [address] [place] [phone] Anselmo De Santiago MD [address] [place] [phone] Erik Guidry MD [address] [place] [phone] Chronic migraine with aura and with status migrainosus, not intractable (Primary Dx); Chronic migraine w/o aura, not intractable, w stat migr Social History Tobacco Use Types Packs/Day Years [...] on file documented as of this encounter Last Filed Vital Signs Vital Sign Reading Time Taken Comments Blood Pressure 134/72 02/11/2025 1:30 PM EST Pulse 70 02/11/2025 1:30 PM EST Temperature 36.5 C (97.7 F) 02/11/2025 12:07 PM EST Respiratory Rate 11 02/11/2025 1:30 PM EST Oxygen Saturation 100% 02/11/2025 1:30 PM EST Inhaled Oxygen Concentration - - Weight 78.7 kg (173 lb 8 oz) 02/11/2025 11:49 AM EST Height - - Body Mass Index 21.17 01/26/2025 2:10 PM EDT documented in this encounter Procedure Notes * Anselmo De Santiago MD - 02/11/2025 12:45 PM ESTAssociated Order(s): INJECT TRIGGER POINT(S) Procedure(s): KS INJECT TRIGGER POINTS, > 3 Pre-Procedure Diagnose(s): Chronic migraine w/o aura, not intractable, w stat migr Post-Procedure Diagnose(s): Chronic migraine w/o aura, not intractable, w stat migr PROCEDURE REPORT 02/11/25 PREOPERATIVE DIAGNOSIS:myofascial pain syndrome, chronic migraine POSTOPERATIVE DIAGNOSIS: myofascial pain syndrome, chronic migraine PROCEDURE: bilateral occipital trigger point injection SPG block PROCEDURALIST: Anselmo DE SANTIAGO MD UNIT CONTROLLER: None. DATE OF SURGERY:02/11/25 ANESTHESIA: IV sedation. ESTIMATED BLOOD LOSS: 0mL COMPLICATIONS: None apparent. INDICATIONS: Herman Rodney (Akira) with longstanding headache, failing conservative therapy [...] the procedure well. Anselmo DE SANTIAGO MD documented in this encounter Plan of Treatment Upcoming Encounters Date Type Department Care Team (Late st Contact Info) Description 02/17/2025 12:30 PM EST Hospital Encounter [facility] [address] [place] [address] CHARLY (juvenile idiopathic arthritis) (Primary Dx); CHARLY (juvenile idiopathic arthritis), enthesitis related arthritis 02/19/2025 1:30 PM EST Therapy Department of Occupational Therapy [address] [place] [address] Lorenza Young OTR/Asher [address] [place] [address] 02/25/2025 9:00 AM EST Office Visit [facility] G[facility]ology, [place] [address] [place] [address] Lata Santamaria MD [address] [place] [address] 03/04/2025 12:00 PM EST Appointment [facility] Sedation Services [address] [place] [phone] Anselmo De Santiago MD [address] [place] [address] 03/05/2025 1:30 PM EST Therapy Department of Occupational Therapy [address] [place] [phone] Lorenza Young OTR/L [address] [place] [address] 03/17/2025 12:30 PM EST Appointment [facility] [address] [place] [address] 03/30/2025 3:00 PM EST Telemedicine [facility], Department of Pain Medicine, [place] [address] [place] [phone] Cami Wilkerson APRN [address] [place] [address] 05/21/2025 2:00 PM EST Office Visit [facility], Department of Rheumatology, [address] [address] Stephanie Diaz MD [address] [place] [phone] 05/27/2025 3:00 PM EST Appointment [facility] Sedation Services [address] [place] [phone] documented as of this encounter Procedures Procedure Name Priority Date/Time Associated Diagnosis Comments INJECT TRIGGER POINT(S) Routine 02/11/2025 12:45 PM EST Chronic migraine without aura without status migrainosus, not intractable documented in this encounter Visit Diagnoses Diagnosis Chronic migraine with aura and with status migrainosus, not intractable- Primary Chronic migraine w/o aura, not intractable, w stat migr CHARLY (juvenile idiopathic arthritis)- Primary 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), 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)- Primary 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), 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 documented in this encounter Administered Medications Inactive Administered Medications - up to 3 most recent administrations Medication Order MAR Action Action Date Dose Rate Site lidocaine 10 mg/mL (1 %) injection (PF) 10 mL 10 mL (0.127 mL/kg), Subcutaneous, Once, On Sun02/11/25 at 1230, For 1 dose, Procedural ServicesIndications:Chronic migraine with aura and with status migrainosus, not intractable Given 02/11/2025 12:40 PM EST 10 mLs Othe r documented in this encounter Care Teams Technician Automated Equipment Relationship Specialty Start Date End Date Romy Borwn MD [address] [place] [address] [address] [place] [phone] PCP - General 11/12/15 Roe Mercado MD [address] [place] [address] Consulting Physician Neurology 10/31/18 Kathy Ruelas MD [address] [place] [address] Consulting Physician Pain Medicine 10/31/18 Anoop Mackay MD PhD [address] [place] [phone] Consulting Physician Pediatric Pulmonology 01/08/22 Lata Santamaria MD [address] [place] [address] Consulting Physician Gastroenterology 11/15/23 Marni [place] WOOD TANK BUILDER [facility] [address], [address] [facility] [address] Behavioral Health Clinician Behavioral Health 03/14/22 documented as of this encounter
--- OUTSIDE RECORDS SUMMARY | 2025-02-11 12:35 | XMS_ITS | Encounter Summary ---
Author Organization [facility] Address [address] [place] [address] Care Team Providers Care Vehicle Damage Appraiser Name Role Phone Romy Brown MD Primary Care Provider Roe Mercado MD Unavailable [phone] Kathy Ruelas MD Unavailable [phone] Anoop Mackay MD PhD Unavailable [phone] Lata Santamaria MD Unavailable [phone] Reason for Visit * Auth/Cert (Routine) Specialty Diagnoses / Procedures Referred By Medhat t Referred To Contact Referral ID Status Reason Start Date Expiration Date Visits Re quested Visits Authorized [id number] 1 1 Encounter Details Date Type Department Care Team (Late st Contact Info) Description 02/11/2025 12:35 PM EST Anesthesia Event [facility] [address] [place] [phone] Erik Guidry MD [address] [place] [address] [phone] Kris Hart RN [address] [place] [phone] Anesthesia Record Procedure Summary Procedure Name Responsible Anesthesiologist Anesthesia Start Time Anesthesia Stop Time INJECT TRIGGER POINT(S) Erik Guidry MD 02/11/25 1235 02/11/25 1250 Events Date Time Event Comment 02/11/2025 1230 1235 An Start 1236 Procedure Start 1243 Procedure End 1250 An Stop Meds Name Total fentaNYL (SUBLIMAZE) 50 mcg/mL IV for pr ocedural sedation 80 mcg 75 mcg propofol (diPRIvan) IV 160 mg 150 mg * Agents No agents on file. * Blood No blood administrations on file. Lines, Drains, and Airways Type Details Placement Removal PIV Placement Date: 01/31 05/27; Placement Time: 1213; Hand Hygiene Completed: Yes; Catheter Size: 22 G; Orientation: Anterior, Distal, Left; Location: Upper arm; Inserted by: Kris MURILLO; Insertion Attempts: 1; Patient Tolerance: Tolerated well; Removal Date: 02/11/25; Removal Time: 1333; Removal Reason: Per protocol 02/11/25 1213 by Kris Hart RN 02/11/25 1333 by Johnna Quintero RN documented in this encounter Social History Tobacco Use Types Packs/Day Years [...] Sign Reading Time Taken Comments Blood Pressure 133/78 02/11/2025 12:30 PM EST Pulse - - Temperature - - Respiratory Rate 18 02/11/2025 12:44 PM EST Oxygen Saturation 98% 02/11/2025 12:44 PM EST Inhaled Oxygen Concentration - - Weight - - Height - - Body Mass Index - - documented in this encounter OR Notes * Anesthesia Postprocedure Evaluation - Erik Guidry MD - 02/11/2025 3:30 PM EST Images from the original note were not included. [facility] [address] [place] [address] Sedation Post Procedure Note Patient Name: Herman Noguera) Date of : 2005 Date of Procedure: 02/11/2025 Sedated Procedure: botox Post Sedation Evaluation Level of sedation achieved: Deep Sedation/MAC Level of sedation matched intended: Yes Overall sedation assessment: Adequate Sedation Procedure outcome: Completed Adverse reaction to sedation: None Procedural timing of adverse reaction: N/A Interventions required: None Patient harm: None Sedation Successful: Yes Post Procedure Condition Cardiopulmonary status and vital signs: within acceptable range Airway patency: breathing easily without support Mental status: awake and/or alert behavior appropriate for developmental age Neuromuscular: returned to baseline Post-operative hydration: taking PO well Nausea/Vomiting: none Pain: none Patient evaluated: PACU Discharge criteria met Disposition: Home Additional Comments/ Evaluation: did have brief desat after induction to mid 80's needing bb oxygenand some stimulation Erik Guidry MD * Anesthesia Preprocedure Evaluation - Erik Guidry MD - 02/11/2025 12:30 PM EST Sedation Services Diagnostic, Therapeutic, and Invasive Procedures Pre-Procedure History and Physical Evaluation Patient Name: Herman Noguera) : 2005 Date of Admission: 02/11/2025 Attending MD: No att. providers found graduate studies dean: Romy Brown MD Date of Service: 02/11/2025 Admission Diagnosis: Chronic migraine with aura and with status migrainosus, not intractable History of Present Illness: 19 y.o. Botox for BRANNON Sedation for anxiety The following portions of the patient's history were reviewed and updated as appropriate: allergies, current medications, past family history, past medical history, past social history, past surgicalhistory and the problem list. No recent significant cough, URI, respiratory symptoms in the last 2 weeks. No significant adverse reactions to sedations in past. Verified NPO status with family. Patient Active Problem List Diagnosis CHARLY (juvenile idiopathic arthritis), enthesitis related arthritis Attention deficit History of recurrent psychosocial stressors Anxiety Developmental delay in child History of hydrocephalus as a child Chronic migraine with aura Childhood apraxia of speech Problem with school attendance Amplified musculoskeletal pain syndrome Self-care deficit Psychological factors affecting medical condition Review of Systems Nursing notes reviewed and patient summary reviewed. General No history of malignant hyperthermia or pseudocholinesterase deficiency. No history of MRSA. Cardiovascular No history of valvular problems/murmurs, cyanosis or palpitations. Heme/Onc No history of leukemia. Skin No history of rash. Respiratory No history of asthma No history of sleep apnea No history of snoring. No cystic fibrosis. Neuro No history of intracranial shunt, increased cranial pressure, cervical spine instability or neuromuscular disease. No history of headaches. No history of seizures. Development No history of failure to thrive, attention deficit disorder or psychiatric history. HEENT No history of hypertrophic tonsils or hypertrophic adenoid. No history of lymphadenopathy. GI/Hepatic/Renal No history of chronic abdominal pain, chronic diarrhea, chronic vomiting or liver failure. Patient has no history of hernia Endo/Other Patient has no history of juvenile rheumatoid arthritis, hypothyroidism or hyperthyroidism. No history of diabetes. Musculoskeletal No prematurity or complications at . Additional Notes: Past Medical History: Diagnosis Date Developmental delay Delayed milestones for speech, motor. Received BT3/EI Headache Hydrocephalus diagnosed at age 4m Juvenile idiopathic arthritis Rheumatoid arthritis Speech delay As young child. Past Surgical History: Procedure Laterality Date VA CHEMODERVATE FACIAL/TRIGEM/CERV MUSC MIGRAINE 11/15/2023 VA CHEMODERVATE FACIAL/TRIGEM/CERV MUSC MIGRAINE 03/20/2024 VA CHEMODERVATE FACIAL/TRIGEM/CERV MUSC MIGRAINE 09/18/2024 VA CHEMODERVATE FACIAL/TRIGEM/CERV MUSC MIGRAINE 01/28/2025 VA INJECT NERV BLCK,SPHENOPALAT GANGLN 02/01/2023 VA INJECT TRIGGER POINTS, > 3 10/22/2024 VA INJECT TRIGGER POINTS, > 3 11/13/2024 VA INJECT TRIGGER POINTS, > 3 02/11/2025 VA INJECTION AA&/STRD GREATER OCCIPITAL NERVE 02/01/2023 VA INJECTION AA&/STRD GREATER OCCIPITAL NERVE 11/15/2023 WISDOM TOOTH EXTRACTION 12/2022 Family History Problem Relation Age of Onset Migraines Mother 20 Spondyloarthropathy Mother Fibromyalgia Mother Kidney Stones Mother Arthritis Sister Asthma Sister Spondyloarthropathy Sister ADD / ADHD Sister Migraines Father Spondyloarthropathy Maternal Grandfather Cancer Maternal Grandfather Arthritis Sister Asthma Sister ADD / ADHD Sister Lupus Neg Hx Dermatomyositis Neg Hx Inflammatory bowel disease Neg Hx Pediatric History Patient Parents Marie Rodney (Mother) Other Topics Concern Not on file Social History Narrative 2008- Parents 2009- contentious custody harris 2012- mother had to sell home, relocate 2016- last contact with [employer] After school: [employer] T[employer]in-5 days per week after school Social History Tobacco Use Smoking Status Never Passive exposure: Never Smokeless Tobacco Never Physical Exam General: well-developed, well-nourished and no acute distress Head/Eyes: normocephalic, atraumatic and eyes clear no external head abnormality no cranial deformity normal conjunctiva ENT: nares patent without discharge, MMM moist without lesions and tonsils without erythema or exudate tonsillar hypertrophy: 0 no mandibular restriction no micrognathism no nasal discharge moist mucous membranes Airway: Mallampati: I neck supple with no masses trachea midline neck mobility: full Respiratory: breath sounds clear and equal bilaterally symmetric breath sounds no evidence of wheezes, rhonchi, rales or stridor Neuro: awake and alert, cranial nerves II through XII intact and no sensory or motor deficiency Cardiovascular: rhythm - regular, rate - normal Abdomen: abdomen soft, bowel sounds are normal Non-tender, non-distended, no masses, no hepatomegaly, no splenomegaly and no hernias are present. Skin: warm and STOCK MANAGER less than 2 seconds No rash, plethora, clubbing, lesions, excoriations, edema, wounds or cyanosis are present. Heme/Lymph: No adenopathy or jaundice. Other Findings: Sedation Plan ASA classification: 2 Intended level of Sedation: Deep Sedation/MAC Comments: Propofol/fentanyl Sedation Induction Plan: IV. Sedation Plan and risks were discussed with Parent/Guardian. Sedation Plan discussed with:RN, Proceduralist and Eyewear Consultant. I have reevaluated the patient immediately before induction and find the patient still fit for the planned Anesthetic. Erik Guidry MD documented in this encounter Plan of Treatment Upcoming Encounters Date Type Department Care Team (Late st Contact Info) Description 02/17/2025 12:30 PM EST Hospital Encounter Infusion Center [address] [facility] 2nd [place] [address] CHARLY (juvenile idiopathic arthritis) (Primary Dx); CHARLY (juvenile idiopathic arthritis), enthesitis related arthritis 02/19/2025 1:30 PM EST Therapy Department of Occupational Therapy [address], [place] [phone] Lorenza Young OTR/L [address] [place] [address] 02/25/2025 9:00 AM EST Office Visit [facility] Gastroenterology, [address] [address] Lata Santamaria MD [address] [place] [address] 03/04/2025 12:00 PM EST Appointment [facility] [address] [place] [phone] Anslemo De Santiago MD [address] [place] [address] 03/05/2025 1:30 PM EST Therapy Department of Occupational Therapy [address], [place] [phone] Lorenza Young, OTR/L [address] [place] [address] 03/17/2025 12:30 PM EST Appointment [facility] [address] [place] [address] 03/30/2025 3:00 PM EST Telemedicine [facility], Department of Pain Medicine, [address] [place] [phone] Cami Wilkerson APRN [address] [place] [address] 05/21/2025 2:00 PM EST Office Visit [facility], Department of Rheumatology, [address] [address] Stephanie Diaz MD [address] [place] [address] 05/27/2025 3:00 PM EST Appointment [facility] [address] [place] [phone] documented as of this encounter Visit Diagnoses Not on filedocumented in this encounter Administered Medications Active Administered Medications - up to 3 most recent administrations Medication Order MAR Action Action Date Dose Rate Site fentaNYL (SUBLIMAZE) 50 mcg/mL IV for procedural sedation 80 mcg 80 mcg (rounded from 78.7 mcg = 1 mcg/kg 78.7 kg), Intravenous, Intra-procedure PRN, Sedation, Starting on Sun02/11/25 at 1155, Intra-op Given 02/11/2025 12:36 PM EST 75 mcg propofol (diPRIvan) IV 160 mg 160 mg (rounded from 157.4 mg = 2 mg/kg 78.7 kg), Intravenous, Intra-procedure PRN, sedation, Starting on Sun02/11/25 at 1155, Intra-op, This medication is restricted to to physician's credentialed for deep sedation. Please provide a reason for use: Procedural sedation Given 02/11/2025 12:41 PM EST 50 mg Given 02/11/2025 12:37 PM EST 100 mg documented in this encounter Care Teams Vehicle Damage Appraiser Relationship Specialty Start Date End Date Romy Brown MD [address] [place] [phone] PCP - General 11/12/15 Roe Mercado MD [address] [place] [address] Consulting Physician Neurology 10/31/18 Kathy Ruelas MD [address] [place] [address] Consulting Physician Pain Medicine 10/31/18 Anoop Mackay MD PhD [address] [phone] Consulting Physician Pediatric Pulmonology 01/08/22 Lata Santamaria MD [address] [place] [address] Consulting Physician Gastroenterology 11/15/23 Marni Smallwood LCSW [place] 2[address]70 [facility], [address] [facility] [address] Behavioral Health Clinician Behavioral Health 03/14/22 documented as of this encounter
[2025-02-13 14:52] VITALS: BP 118/58; PULSE 86; O2SAT 98; BMI 21.4
--- NOTE | 2025-02-13 14:52 | A.OFFVIS_ITS ---
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 His asthma had been followed closely by pediatric Pulmonary for many years. He was not Wixela and ultimately on a rescue inhaler. He has been struggling with his asthma symptoms. The patient did have blood work done demonstrating significant eosinophilia up to 800. The family was wondering if the use it Fasenra be effective in improving his overall symptoms. In addition to the asthma symptoms he has complaint of significant chronic headaches and daytime drowsiness. His Hastings score is elevated 13/24. He struggles to stay awake. The patient states that for the last year he has had significant amount of weight loss and even after sleeping 8-10 hours he still wakes up tired. He has never had a home sleep study at this point will request 1. The patient also has a diagnosis of rheumatoid arthritis follow it could they could [facility] he does get his biologic infusions there. Will go ahead and request additional blood work to see if this any potential connective tissue disease affect his breathing or immunosuppressive condition affected by the medication. The patient will continue with his current respiratory therapy for now hopefully we can start him on Fasenra soon. In the meantime the patient will have pulmonary function studies and a chest x-ray prior to the next visit. 02/13/2025 the patient is here for pulmonary follow-up visit. The patient overall has been doing fair. He continues uses respiratory inhalers with partial improvement of the symptoms. He did undergo pulmonary function studies today demonstrating significant air trapping hyperinflation due to the small airways in the asthma. The patient continues have significant daytime drowsiness with an elevated Hastings score of 13/24. He is awaiting his sleep study. He has also had blood work demonstrating significantly elevated eosinophil count and therefore he will be a great candidate for Fasenra. Will go ahead and request Fasenra right now so the pharmacy. In the meantime the patient also underwent a chest x-ray which I personally reviewed demonstrating hyperinflation of the lungs again consistent with the obstructive airway disease. Patient follow-up in 4-6 months if he has any issues prior to this he will call for an earlier assessment. Once that it can review the sleep study I will let him know the results if he has to start PAP therapy. In the meantime I hoping that he can start biologic therapy to improve his respiratory capacity in his overall symptoms. [facility] Medical History (Updated 12/14/24 @ 20:30 by Jovanny Smith MD) Chronic headaches Juvenile rheumatoid arthritis Asthma Chronic fatigue Social History (Updated 12/12/24 @ 15:07 by ERIKA Jorge) Patient Tobacco Use Status: Never used Tobacco Review of Systems Const Reports body aches, Denies fever(s) and Reports headache(s) Eyes Reports no additional complaints ENT Reports headache(s) and Reports nasal congestion Card Denies chest pain Resp Reports cough and Reports wheezing GI Reports heartburn Musc Reports as per HPI, Reports arthralgias, Reports joint swelling and Reports limited range of motion Skin/Breast Denies rash Neuro Reports headache(s) Gustavo/Lymph Reports no additional complaints Aller/Immun Reports wheezing Physical Exam Vital Signs: Last Vital Signs Pulse 86 02/13/25 14:52 BP 118/58 L 02/13/25 14:52 Pulse Ox 98 02/13/25 14:52 Oxygen Delivery Method Room Air 02/13/25 14:52 BMI result Body Mass Index 21.4 Const General: comfortable Orientation/consciousness: patient oriented x3 HEENT Head: Yes normocephalic Neck Neck: Yes supple Chest Chest palpation & inspection: normal inspection of the chest Resp Effort & Inspection: normal respiratory effort Auscultation: diminished lung sounds Cardio Heart sounds: S1 normal heart sound present and S2 normal heart sound present GI Palpation (GI): Soft to palpation Skin General skin exam: no rashes or lesions noted Neuro General: patient oriented x3 Extrem General: Yes no clubbing, cyanosis or edema Office Procedures Flu Questionnaire Does the patient have a severe egg allergy?: No Does the patient have severe life threatening allergies?: No Does the patient have a fever or illness today?: No Has the patient ever had Guillain-Latrobe Syndrome?: No Has the patient ever had any past reaction to a flu shot?: No Immunizations Fluarix [id number] (PF) 45 mcg (15 mcg x 3)/0.5 mL IM syringe Performing Provider: Jovanny Smith MD Performing Location: [facility] Administered by: Kourtney Emery LPN on 02/13/25 15:53 Dose Route Admin Location Dispensed Lot Number Expiration Date NDC Foreign Car [employer] 0.5 mL IM Left Deltoid 0.5 mL [id number] 09/29/25 35984-397-12 [employer] VIS Given Date VIS Provided VIS Publication Date 02/13/25 Single Vaccine 24 Eligibility Eligibility Date Funding Source Not [facility] Eligible 02/13/25 Private Assessment & Plan Assessment & Plan (1) Chronic fatigue: Code(s): R53.82 - Chronic fatigue, unspecified Category: Medical (2) Asthma: Comment: Eosinophilic asthma Code(s): J45.909 - Unspecified asthma, uncomplicated Category: Medical Qualifiers: Asthma complication type: uncomplicated Asthma persistence: persistent Asthma severity: moderate Qualified Code(s): J45.40 - Moderate persistent asthma, uncomplicated (3) Juvenile rheumatoid arthritis: Code(s): M08.00 - Unspecified juvenile rheumatoid arthritis of unspecified site Category: Medical (4) PATI (obstructive sleep apnea): Code(s): G47.33 - Obstructive sleep apnea (adult) (pediatric) Category: Medical (5) Chronic headaches: Code(s): R51.9 - Headache, unspecified; G89.29 - Other chronic pain Category: Medical Qualifiers: Headache type: unspecified Plan Continue Wixela ALVIN as needed continue Singulair Start Fasenra Home PSG pending PFTs with air trapping F/U 2-3 months Orders: Orders Influenza [id number] Immunization 02/13/25 J45.40 - Moderate persistent asthma, uncomplicated Coding Level of Care Code Est Pt Level 4 (52877) Diagnoses Chronic fatigue R53.82 Moderate persistent asthma without complication J45.40 Asthma complication type: uncomplicated Asthma persistence: persistent Asthma severity: moderate Juvenile rheumatoid arthritis M08.00 PATI (obstructive sleep apnea) G47.33 Chronic headaches R51.9; G89.29 Headache type: unspecified Time Spent (min) 17
--- OUTSIDE RECORDS SUMMARY | 2025-02-13 20:15 | XMS_ITS | Encounter Summary ---
Author Organization [facility] Address [address] [place] [address] Care Team Providers Care Gettering Filament Machine Operator Name Role Phone Romy Brown MD Primary Care Provider [phone] Roe Mercado MD Unavailable [phone] Kathy Ruelas MD Unavailable Anoop Mackay MD PhD Unavailable [phone] Lata Santamaria MD Unavailable [phone] Encounter Details Date Type Department Care Team (Late st Contact Info) Description 01/26/2022 Telephone [facility], [place] [address] [address] Social History Tobacco Use Types Packs/Day Years [...] 12:30 PM EST Hospital Encounter Infusion Center [address] [place] [address] CHARLY (juvenile idiopathic arthritis) (Primary Dx); CHARLY (juvenile idiopathic arthritis), enthesitis related arthritis 02/19/2025 1:30 PM EST Therapy Department of Occupational Therapy [address] [place] [address] oLrenza Young OTR/L [address] [place] [address] 02/25/2025 9:00 AM EST Office Visit [facility] Gastroenterology, [address] [place] [address] Lata Santamaria MD [address] [place] [address] 03/04/2025 12:00 PM EST Appointment [facility] Sed[facility] [address] [place] [phone] Anselmo De Santiago MD [address] [place] [address] 03/05/2025 1:30 PM EST Therapy Department of Occupational Therapy [address] [place] [address] Lorenza Young, OTR/L [address] [place] [address] 03/17/2025 12:30 PM EST Appointment Infusion Center [address] [place] [address] 03/30/2025 3:00 PM EST Telemedicine [facility], Department of Pain Medicine, [address] [place] [phone] Cami Wilkerson APRN [address] [place] [address] 05/21/2025 2:00 PM EST Office Visit [facility], Department of Rheumatology, [address] [place] [address] Stephanie Diaz MD [address] [place] [address] [phone] 05/27/2025 3:00 PM EST Appointment [facility] [address] [place] [phone] documented as of this encounter Visit Diagnoses Not on filedocumented in this encounter Care Teams Gettering Filament Machine Operator Relationship Specialty Start Date End Date Romy Brown MD [address] [place] [phone] PCP - General 11/12/15 Roe Mercado MD [address] [place] [address] Consulting Physician Neurology 10/31/18 Kathy Ruelas MD [address] [place] [address] Consulting Physician Pain Medicine 10/31/18 Anoop Mackay MD PhD [address] [place] [phone] Consulting Physician Pediatric Pulmonology 01/08/22 Lata Santamaria MD [address] [place] [address] Consulting Physician Gastroenterology 11/15/23 Marni Smallwood [facility] [address] [facility], [facility] [address] [facility] [address] Behavioral Health Clinician Behavioral Health 03/14/22 documented as of this encounter
--- OUTSIDE RECORDS SUMMARY | 2025-02-13 20:15 | XMS_ITS | Encounter Summary ---
Author Organization [facility] Address [address] [place] [address] Care Team Providers Care Casting And Locker Room Servicer Name Role Phone Romy Brown MD Primary Care Provider Clayton Bazzi MD Unavailable Roe Mercado MD Unavailable [phone] Kathy Ruelas MD Unavailable Anoop Mackay MD PhD Unavailable [phone] Lata Santamaria MD Unavailable [phone] Reason for Visit * Reason Comments Medication Refill Encounter Details Date Type Department Care Team (Late st Contact Info) Description 09/29/2020 Refill [facility], Department of Pain Medicine, [address] [place] [address] Kathy Ruelas MD [address] [place], [place] [phone] Chronic migraine with aura Social History Tobacco [...] Description 02/17/2025 12:30 PM EST Hospital Encounter [facility] [address] [address] CHARLY (juvenile idiopathic arthritis) (Primary Dx); CHARLY (juvenile idiopathic arthritis), enthesitis related arthritis 02/19/2025 1:30 PM EST Therapy Department of Occupational Therapy [address] [place] [address] Lorenza Young OTR/L [address] [place] [address] 02/25/2025 9:00 AM EST Office Visit [facility] Gastroenterology, [place] [address] [place] [address] Lata Santamaria MD [address] [place] [address] 03/04/2025 12:[address] [facility] Sedation Services [address] [place] [address] Anselmo De Santiago MD [address] [place] [address] 03/05/2025 1:30 PM EST Therapy Department of Occupational Therapy [address] [place] [address] Lorenza Young OTR/L [address] [place] [address] 03/17/2025 12:30 PM EST Appointment Infusion Center 10 [facility] 2nd [place] [address] 03/30/2025 3:00 PM EST Telemedicine [facility], Department of Pain Medicine, [place] [address] [place] [address] Cami Wilkerson APRN [address] [place] [address] 05/21/2025 2:00 PM EST Office Visit [facility], Department of Rheumatology, [address] [address] Stephanie Diaz MD [address] [place], [place] [phone] 05/27/2025 3:[address] [facility] Sedation Services [address] [place] [address] documented as of this encounter Visit Diagnoses Diagnosis Chronic migraine with aura CHARLY (juvenile idiopathic arthritis)- Primary 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), 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)- Primary 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), 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 documented in this encounter Care Teams Casting And Locker Room Servicer Relationship Specialty Start Date End Date Romy Brown MD [address] [place] [phone] PCP - General 11/12/15 Clayton Bazzi MD [address] [place] [address] Consulting Physician Pediatric Rheumatology 10/31/18 Roe Mercado MD [address] [place] [address] Consulting Physician Neurology 10/31/18 Kathy Ruelas MD [address] [place] [address] Consulting Physician Pain Medicine 10/31/18 Anoop Mackay MD PhD [address] [place] [phone] Consulting Physician Pediatric Pulmonology 01/08/22 Lata Santamaria MD [address] [place] [address] Consulting Physician Gastroenterology 11/15/23 Nery Alvarado, PhD [address] [place] [address] [address] [place] [address] Psychologist Psychology 10/31/18 11/02/21 Marni Smallwood [facility] 3300 [facility] 4A [facility] [address] Behavioral Health Clinician Behavioral Health 03/14/22 documented as of this encounter
--- OUTSIDE RECORDS SUMMARY | 2025-02-13 20:15 | XMS_ITS | Encounter Summary ---
Author Organization [facility] Address [address] [place] [address] Care Team Providers Care Human Factors Advisor Lead Name Role Phone Romy Brown MD Primary Care Provider Clayton Bazzi MD Unavailable Roe Mercado MD Unavailable [phone] Katyh Ruelas MD Unavailable Anoop Mackay MD PhD Unavailable [phone] Lata Santamaria MD Unavailable [phone] Reason for Visit * Reason Comments Medication Refill Encounter Details Date Type Department Care Team (Late st Contact Info) Description 04/08/2020 Refill [facility], Department of Pain Medicine, [address] [place] [address] Anselmo De Santiago MD [address] [place], [place] [phone] Chronic migraine (Primary Dx) Social History Tobacco [...] Description 02/17/2025 12:30 PM EST Hospital Encounter [facility] Center [address] [place] [address] CHARLY (juvenile idiopathic arthritis) (Primary Dx); CHARLY (juvenile idiopathic arthritis), enthesitis related arthritis 02/19/2025 1:30 PM EST Therapy Department of Occupational Therapy [address] [place] [address] Lorenza Young OTR/L [address] [place] [address] 02/25/2025 9:00 AM EST Office Visit [facility] Gastroenterology, [place] [address] [place] [address] Lata Santamaria MD [address] [place] [address] 03/04/2025 12:00 PM EST Appointment [facility] Sedation Services [address] [place] [phone] Anselmo De Santiago MD [address] [place] [address] 03/05/2025 1:30 PM EST Therapy Department of Occupational Therapy [address] [place] [address] Lorenza Young OTR/L [address] [place] [address] 03/17/2025 12:30 PM EST Appointment Infusion Center 10 [facility] 2nd [place] [address] 03/30/2025 3:00 PM EST Telemedicine [facility], Department of Pain Medicine, [place] [address] [place] [address] Cami Wilkerson APRN [address] [place] [address] 05/21/2025 2:00 PM EST Office Visit [facility], Department of Rheumatology, [address] [address] Stephanie Diaz MD 282 [place], [place] [phone] 05/27/2025 3:00 PM EST Appointment [facility] Sedation Services [address] [place] [address] documented as of this encounter Visit Diagnoses Diagnosis Chronic migraine- Primary CHARLY (juvenile idiopathic arthritis)- Primary 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), 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)- Primary 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), 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 documented in this encounter Care Teams Human Factors Advisor Lead Relationship Specialty Start Date End Date Romy Brown MD [address] [place] [phone] PCP - General 11/12/15 Clayton Bazzi MD 140 [place] [address] Consulting Physician Pediatric Rheumatology 10/31/18 Roe Mercado MD [address] [place] [address] Consulting Physician Neurology 10/31/18 Kathy Ruelas MD [address] [place] [address] Consulting Physician Pain Medicine 10/31/18 Anoop Mackay MD PhD [address] [place] [phone] Consulting Physician Pediatric Pulmonology 01/08/22 Lata Santamaria MD [address] [place] [address] Consulting Physician Gastroenterology 11/15/23 Nery Alvarado, PhD [address] [place] [address] [address] [place] [address] Psychologist Psychology 10/31/18 11/02/21 Marni Small[facility] 3300 [facility] 4A [facility] [address] Behavioral Health Clinician Behavioral Health 03/14/22 documented as of this encounter
--- OUTSIDE RECORDS SUMMARY | 2025-02-13 20:16 | XMS_ITS | Encounter Summary ---
Author Organization [facility] Address [address] [place] [address] Care Team Providers Care Clinical Evaluator Name Role Phone Romy Brown MD Primary Care Provider [phone] Clayton Bazzi MD Unavailable Roe Mercado MD Unavailable [phone] Kathy Ruelas MD Unavailable Anoop Mackay MD PhD Unavailable [phone] Lata Santamaria MD Unavailable [phone] Reason for Visit * Reason Comments Medication Refill Encounter Details Date Type Department Care Team (Late st Contact Info) Description 02/07/2021 Refill [facility], Department of Pain Medicine, [address] [place] [address] Kathy Ruelas MD [address] [place], [place] [phone] Chronic migraine with aura Social History Tobacco [...] 12:30 PM EST Hospital Encounter Infusion Center [address] [place] [address] CHARLY (juvenile idiopathic arthritis) (Primary Dx); CHARLY (juvenile idiopathic arthritis), enthesitis related arthritis 02/19/2025 1:30 PM EST Therapy Department of Occupational Therapy [address] [place] [phone] Lorenza Young, OTR/L [address] [place] [address] 02/25/2025 9:00 AM EST Office Visit [facility] Gastroenterology, [address] [address] Lata Santamaria MD [address] [place] [address] 03/04/2025 12:00 PM EST Appointment [facility] Sedation Services [address] [place] [phone] Anselmo De Santiago MD [address] [place] [address] 03/05/2025 1:30 PM EST Therapy Department of Occupational Therapy [address] [place] [phone] Lorenza Young, OTR/L [address] [place] [address] 03/17/2025 12:30 PM EST Appointment Infusion Center [address] [place] [address] 03/30/2025 3:00 PM EST Telemedicine [facility], Department of Pain Medicine, [address] [place] [phone] Cami Wilkerson APRN [address] [place] [address] 05/21/2025 2:00 PM EST Office Visit [facility], Department of Rheumatology, [place] [address] [place] [address] Stephanie Diaz MD [address] [place] [address] 05/27/2025 3:00 PM EST Appointment [facility] Sedation Services [address] [place] [phone] documented as of this encounter Visit Diagnoses Diagnosis Chronic migraine with aura CHARLY (juvenile idiopathic arthritis)- Primary 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), 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)- Primary 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), 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 documented in this encounter Care Teams Clinical Evaluator Relationship Specialty Start Date End Date Romy Brown MD [address] [place] [phone] PCP - General 11/12/15 Clayton Bazzi MD [address] [place] [address] Consulting Physician Pediatric Rheumatology 10/31/18 Roe Mercado MD [address] [place] [address] Consulting Physician Neurology 10/31/18 Kathy Ruelas MD [address] [place] [address] Consulting Physician Pain Medicine 10/31/18 Anoop Mackay MD PhD 780 [facility] 11 [place] [address] Consulting Physician Pediatric Pulmonology 01/08/22 Lata Santamaria MD [address] [place] [address] Consulting Physician Gastroenterology 11/15/23 Nery Alvarado, PhD [address] [place] [address] [address] [place] [address] Psychologist Psychology 10/31/18 11/02/21 Marni Smallwood LCSW [facility] 3300 [facility], [facility] 4A [facility] [address] Behavioral Health Clinician Behavioral Health 03/14/22 documented as of this encounter
--- OUTSIDE RECORDS SUMMARY | 2025-02-13 20:16 | XMS_ITS | Encounter Summary ---
Author Organization [facility] Address [address] [place] [address] Care Team Providers Care Medication Specialist Name Role Phone Romy Brown MD Primary Care Provider Roe Mercado MD Unavailable [phone] Kathy Ruelas MD Unavailable Anoop Mackay MD PhD Unavailable [phone] Lata Santamaria MD Unavailable [phone] Reason for Visit * Reason Onset Date Comments Appointment 01/28/2025 Encounter Details Date Type Department Care Team (Late st Contact Info) Description 01/28/2025 Telephone [facility], Department of Pain Medicine, [address] [place] [address] Nikko Castillo, Mechanical Energy Engineer [address] [place], [place] [phone] Appointment (/) Social History Tobacco Use Types [...] * Telephone Encounter - Melina Cuellarician - 02/13/2025 10:25 AM EST Injection therapy appointment scheduled on 05/06/25 at 3:[address] De Santiago. Lidocaine Infusion scheduled on 05/04/25 at 12:00 pm with Sedation * Telephone Encounter - Felipe Montoya - 02/10/2025 11:10 AM EST Requesting return call to schedule interventional procedure? * Telephone Encounter - Felipe Montoya - 02/04/2025 11:53 AM EST Parent returning phone call to schedule procedure? * Telephone Encounter - Toy Cuellar - 02/03/2025 1:34 PM EST Lidocaine infusion scheduling Attempt # 2. Voicemail message left 02/03/25 * Telephone Encounter - Toy Cuellar - 01/28/2025 3:23 PM EDT Lidocaine Infusion scheduling Attempt # 1. Voicemail message left 12/2924 documented in this encounter Plan of Treatment Upcoming Encounters Date Type Department Care Team (Late st Contact Info) Description 02/17/2025 12:30 PM EST Hospital Encounter Infusion Center [address] [address] CHARLY (juvenile idiopathic arthritis) (Primary Dx); CHARLY (juvenile idiopathic arthritis), enthesitis related arthritis 02/19/2025 1:30 PM EST Therapy Department of Occupational Therapy 10 [place], [place] [phone] Lorenza Young OTR/L [address] [place] [address] 02/25/2025 9:00 AM EST Office Visit [facility] Gastroenterology, [address] [address] Lata Santamaria MD [address] [place] [address] 03/04/2025 12:00 PM EST Appointment [facility] Sedation Services [address] [place] [phone] Anselmo De Santiago MD [address] [place] [address] 03/05/2025 1:30 PM EST Therapy Department of Occupational Therapy [address] [place] [address] Lorenza Young OTR/L [address] [place] [address] 03/17/2025 12:30 PM EST Appointment [facility] [address] [address] 03/30/2025 3:00 PM EST Telemedicine [facility], Department of Pain Medicine, [place] [address] [place] [phone] Cami Wilkerson APRN [address] [place], [place] [phone] 05/21/2025 2:00 PM EST Office Visit [facility], Department of Rheumatology, [address] [address] Stephanie Diaz MD [address] [place] [address] 05/27/2025 3:00 PM EST Appointment [facility] Sedation Services [address] [place] [phone] documented as of this encounter Visit Diagnoses Not on filedocumented in this encounter Care Teams Medication Specialist Relationship Specialty Start Date End Date Romy Brown MD 123 [facility] [address] [place] [address] PCP - General 11/12/15 Roe Mercado MD [address] [place] [address] Consulting Physician Neurology 10/31/18 Kathy Ruelas MD [address] [place] [address] Consulting Physician Pain Medicine 10/31/18 Anoop Mackay MD PhD [address] [place] [phone] Consulting Physician Pediatric Pulmonology 01/08/22 Lata Santamaria MD [address] [place] [address] Consulting Physician Gastroenterology 11/15/23 [facility] 3300 [facility] 4A [facility] [address] Behavioral Health Clinician Behavioral Health 03/14/22 documented as of this encounter
--- OUTSIDE RECORDS SUMMARY | 2025-02-13 20:16 | XMS_ITS | Encounter Summary ---
Author Organization [facility] Address [address] [place] [address] Care Team Providers Care Operations Accountant Name Role Phone Romy Brown MD Primary Care Provider [phone] Roe Mercado MD Unavailable [phone] Kathy Ruelas MD Unavailable Anoop Mackay MD PhD Unavailable [phone] Lata Santamaria MD Unavailable [phone] Encounter Details Date Type Department Care Team ([facility] st Contact Info) Description 02/01/2025 Results Follow-Up [facility], Department of Rheumatology, [address] [phone] Stephanie Diaz MD [address] [place] [address] CBC auto differential, Erythrocyte Sediment [...] Sent: 01/22/2025 8:38 AM EST To: Stephanie Diaz MD documented in this encounter Plan of Treatment Upcoming Encounters Date Type Department Care Team (Late st Contact Info) Description 02/17/2025 12:30 PM EST Hospital Encounter [facility] [address] [place], [place] [phone] CHARLY (juvenile idiopathic arthritis) (Primary Dx); CHARLY (juvenile idiopathic arthritis), enthesitis related arthritis 02/19/2025 1:30 PM EST Therapy Department of Occupational Therapy [address] [place] [address] Lorenza Young OTR/Asher [address] [place] [address] 02/25/2025 9:00 AM EST Office Visit [facility] Gastroenterology, [place] 84 [place] [address] Lata Santamaria MD [address] [place] [address] 03/04/2025 12:00 PM EST Appointment [facility] Sedation Services [address] [place] [phone] Anselmo De Santiago MD [address] [place] [phone] 03/05/2025 1:30 PM EST Therapy Department of Occupational Therapy [address] [place] [address] Lorenza Young OTR/L [address] [place] [address] 03/17/2025 12:30 PM EST Appointment [facility] 10 [facility] 2nd [place] [address] 03/30/2025 3:00 PM EST Telemedicine [facility], Department of Pain Medicine, [address] [place] [phone] Cami Wilkerson APRN [address] [place] [phone] 05/21/2025 2:00 PM EST Office Visit [facility], Department of Rheumatology, [address] [address] Stephanie Diaz MD [address] [place] [phone] 05/27/2025 3:00 PM EST Appointment [facility] Sedation Services [address] [place] [phone] documented as of this encounter Visit Diagnoses Not on filedocumented in this encounter Care Teams Operations Accountant Relationship Specialty Start Date End Date Romy Brown MD [address] [place] [phone] PCP - General 11/12/15 Roe Mercado MD [address] [place] [address] Consulting Physician Neurology 10/31/18 Kathy Ruelas MD [address] [place] [address] Consulting Physician Pain Medicine 10/31/18 Anoop Mackay MD PhD [address] [place] [phone] Consulting Physician Pediatric Pulmonology 01/08/22 Lata Santamaria MD [address] [place] [address] Consulting Physician Gastroenterology 11/15/23 Marni Smallwood LCSW [facility] [address] [address] Behavioral Health Clinician Behavioral Health 03/14/22 documented as of this encounter
--- OUTSIDE RECORDS SUMMARY | 2025-02-13 20:16 | XMS_ITS | Encounter Summary ---
Author Organization [facility] Address [address] [place] [address] Care Team Providers Care Superintendent Refuse Disposal Name Role Phone Romy Brown MD Primary Care Provider Clayton Bazzi MD Unavailable Roe Mercado MD Unavailable [phone] Kathy Mims MD Unavailable Anoop Mackay MD PhD Unavailable [phone] Lata Santamaria MD Unavailable [phone] Reason for Visit * Reason Comments Medication Refill Encounter Details Date Type Department Care Team (Late st Contact Info) Description 12/27/2018 Refill [facility], Department of Pain Medicine, [address] [place] [address] Kathy Mims MD [address] [place], [place] [phone] Chronic migraine without aura with status migrainosus, [...] Description 02/17/2025 12:30 PM EST Hospital Encounter [facility] [place] [facility] [address] [address] CHARLY (juvenile idiopathic arthritis) (Primary Dx); CHARLY (juvenile idiopathic arthritis), enthesitis related arthritis 02/19/2025 1:30 PM EST Therapy Department of Occupational Therapy [address] [place] [address] Lorenza Young OTR/L [address] [place] [address] 02/25/2025 9:00 AM EST Office Visit [facility] Gastroenterology, [place] 84 [place] [address] Lata Santamaria MD [address] [place] [address] 03/04/2025 12:00 PM EST Appointment [facility] Sedation Services [address] [place] [address] Anselmo De Santiago MD [address] [place] [address] 03/05/2025 1:30 PM EST Therapy Department of Occupational Therapy [address] [place] [address] Lorenza Young OTR/L [address] [place] [address] 03/17/2025 12:30 PM EST Appointment Infusion Center 10 [facility] 2nd [place] [address] 03/30/2025 3:00 PM EST Telemedicine [facility], Department of Pain Medicine, [place] [address] [place] [address] Cami Wilkerson APRN [address] [place] [address] 05/21/2025 2:00 PM EST Office Visit [facility], Department of Rheumatology, [address] [address] Stephanie Diaz MD [address] [place], [place] [phone] 05/27/2025 3:00 PM EST Appointment [facility] Sedation Services [address] [place] [address] documented as of this encounter [...] polyarthropathies documented in this encounter Care Teams Superintendent Refuse Disposal Relationship Specialty Start Date End Date Romy Brown MD [address] [place] [phone] PCP - General 11/12/15 Clayton Bazzi MD 140 [place] [address] Consulting Physician Pediatric Rheumatology 10/31/18 Roe Mercado MD 505 [place] [address] Consulting Physician Neurology 10/31/18 Kathy Mims MD [address] [place] [address] Consulting Physician Pain Medicine 10/31/18 Anoop Mackay MD PhD [address] [place] [phone] Consulting Physician Pediatric Pulmonology 01/08/22 Lata Santamaria MD [address] [place] [address] Consulting Physician Gastroenterology 11/15/23 Nery Alvarado, PhD [address] [place] [address] [address] [place] [address] Psychologist Psychology 10/31/18 11/02/21 Marni Smallwood [facility] [address] [place] [address] Behavioral Health Clinician Behavioral Health 03/14/22 documented as of this encounter
--- OUTSIDE RECORDS SUMMARY | 2025-02-13 20:16 | XMS_ITS | Encounter Summary ---
Author Organization [facility] Address [address] [place] [address] Care Team Providers Care Cupola Melter Name Role Phone Romy Brown MD Primary Care Provider [phone] Roe Mercado MD Unavailable [phone] Kathy Ruelas MD Unavailable [phone] Anoop Mackay MD PhD Unavailable [phone] Lata Santamaria MD Unavailable [phone] Reason for Visit * Reason Onset Date Comments Medication Refill 02/06/2025 Encounter Details Date Type Department Care Team (Late st Contact Info) Description 02/06/2025 Refill [facility] Gastroenterology, [address] [phone] Lata Santamaria MD [address] [place] [address] Weight loss Social History Tobacco Use [...] 12:30 PM EST Hospital Encounter Infusion Center [address] [place] [address] CHARLY (juvenile idiopathic arthritis) (Primary Dx); CHARLY (juvenile idiopathic arthritis), enthesitis related arthritis 02/19/2025 1:30 PM EST Therapy Department of Occupational Therapy [address] [place] [phone] Lorenza Young, OTR/L [address] [place] [address] 02/25/2025 9:00 AM EST Office Visit [facility] Gastroenterology, [place] [address] [place] [address] Lata Santamaria MD [address] [place] [address] 03/04/2025 12:00 PM EST Appointment [facility] [address] [place] [phone] Anselmo De Santiago MD [address] [place] [address] 03/05/2025 1:30 PM EST Therapy Department of Occupational Therapy [address] [place] [address] Lorenza Young, OTR/L [address] [place] [address] 03/17/2025 12:30 PM EST Appointment Infusion Center [address] [place] [address] 03/30/2025 3:00 PM EST Telemedicine [facility], Department of Pain Medicine, [place] [address] [place] [address] Cami Wilkerson APRN [address] [place] [address] 05/21/2025 2:00 PM EST Office Visit [facility], Department of Rheumatology, [place] [address] [place] [address] Stephanie Diaz MD [address] [place], [place] [phone] 05/27/2025 3:00 PM EST Appointment [facility] [address] [place] [phone] documented as of this encounter Visit Diagnoses Diagnosis Weight loss Loss of weight CHARLY (juvenile idiopathic arthritis)- Primary 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), 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)- Primary 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), 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 documented in this encounter Care Teams Cupola Melter Relationship Specialty Start Date End Date Romy Brown MD [address] [place] [phone] PCP - General 11/12/15 Roe Mercado MD [address] [place] [address] Consulting Physician Neurology 10/31/18 Kathy Ruelas MD [address] [place] [address] Consulting Physician Pain Medicine 10/31/18 Anoop Mackay MD PhD [address] [place] [phone] Consulting Physician Pediatric Pulmonology 01/08/22 Lata Santamaria MD [address] [place] [address] Consulting Physician Gastroenterology 11/15/23 Marni Smallwood LCSW [address], [address] [address] Behavioral Health Clinician Behavioral Health 03/14/22 documented as of this encounter
--- OUTSIDE RECORDS SUMMARY | 2025-02-13 20:16 | XMS_ITS | Encounter Summary ---
Author Organization [facility] Address [address] [place] [address] Care Team Providers Care Medical Insurance Coder Name Role Phone Romy Brown MD Primary Care Provider [phone] Roe Mercado MD Unavailable [phone] Kathy Ruelas MD Unavailable [phone] Anoop Mackay MD PhD Unavailable [phone] Lata Santamaria MD Unavailable [phone] Encounter Details Date Type Department Care Team (Late st Contact Info) Description 12/24/2024 Results Follow-Up [facility], Department of Rheumatology, [address] [phone] Stephanie Diaz MD [address] [place] [address] CBC auto differential, Erythrocyte Sediment [...] 12:30 PM EST Hospital Encounter Infusion Center [address] [place] [address] CHARLY (juvenile idiopathic arthritis) (Primary Dx); CHARLY (juvenile idiopathic arthritis), enthesitis related arthritis 02/19/2025 1:30 PM EST Therapy Department of Occupational Therapy [address] [place] [phone] Lorenza Young, OTR/L [address] [place] [address] 02/25/2025 9:00 AM EST Office Visit [facility] Gastroenterology, [address] [address] Lata Santamaria MD [address] [place] [address] 03/04/2025 12:00 PM EST Appointment [facility] Sed[facility] [address] [place] [phone] Anselmo De Santiago MD [address] [place] [address] 03/05/2025 1:30 PM EST Therapy Department of Occupational Therapy [address] [place] [phone] Lorenza Young, OTR/L [address] [place] [address] 03/17/2025 12:30 PM EST Appointment Infusion Center [address] [place] [address] 03/30/2025 3:00 PM EST Telemedicine [facility], Department of Pain Medicine, [address] [place] [phone] Cami Wilkerson APRN [address] [place] [address] 05/21/2025 2:00 PM EST Office Visit [facility], Department of Rheumatology, [place] [address] [place] [address] Stephanie Diaz MD [address] [place] [phone] 05/27/2025 3:00 PM EST Appointment [facility] [address] [place] [phone] documented as of this encounter Visit Diagnoses Not on filedocumented in this encounter Care Teams Medical Insurance Coder Relationship Specialty Start Date End Date Romy Brown MD [address] [place] [phone] PCP - General 11/12/15 Roe Mercado MD [address] [place] [address] Consulting Physician Neurology 10/31/18 Kathy Ruelas MD [address] [place] [address] Consulting Physician Pain Medicine 10/31/18 Anoop Mackay MD PhD [address] [place] [phone] Consulting Physician Pediatric Pulmonology 01/08/22 Lata Santamaria MD [address] [place] [address] Consulting Physician Gastroenterology 11/15/23 Marni Smallwood LCSW [facility] [address] [facility], [address] [facility] [address] Behavioral Health Clinician Behavioral Health 03/14/22 documented as of this encounter
--- OUTSIDE RECORDS SUMMARY | 2025-02-13 20:16 | XMS_ITS | Encounter Summary ---
Author Organization [facility] Address [address] [place] [address] Care Team Providers Care Coding Coordinator Name Role Phone Romy Brown MD Primary Care Provider [phone] Clayton Bazzi MD Unavailable Roe Mercado MD Unavailable [phone] Kathy Ruelas MD Unavailable [phone] Anoop Mackay MD PhD Unavailable [phone] Lata Santamaria MD Unavailable [phone] Encounter Details Date Type Department Care Team (Late st Contact Info) Description 01/11/2021 Telephone [facility] Neurology, [place] [address] Chelsea Mitchell [place] [address] [place] [address] Social History Tobacco Use Types Packs/Day Years [...] 12:30 PM EST Hospital Encounter Infusion Center [address] [place] [address] CHARLY (juvenile idiopathic arthritis) (Primary Dx); CHARLY (juvenile idiopathic arthritis), enthesitis related arthritis 02/19/2025 1:30 PM EST Therapy Department of Occupational Therapy [address] [place] [address] Lorenza Young, OTR/L [address] [place] [address] 02/25/2025 9:00 AM EST Office Visit [facility] Gastroenterology, [place] [address] [place] [address] Lata Santamaria MD [address] [place] [address] 03/04/2025 12:00 PM EST Appointment [facility] Sedation Services [address] [place] [phone] Anselmo De Santiago MD [address] [place] [address] 03/05/2025 1:30 PM EST Therapy Department of Occupational Therapy [address] [place] [address] Lorenza Young, OTR/L [address] [place] [address] 03/17/2025 12:30 PM EST Appointment Infusion Center [address] [place] [address] 03/30/2025 3:00 PM EST Telemedicine [facility], Department of Pain Medicine, [address] [place] [address] Cami Wilkerson APRN [address] [place] [address] 05/21/2025 2:00 PM EST Office Visit [facility], Department of Rheumatology, [address] [address] Stephanie Diaz MD [address] [place] [phone] 05/27/2025 3:00 PM EST Appointment [facility] [address] [place] [phone] documented as of this encounter Visit Diagnoses Not on filedocumented in this encounter Care Teams Coding Coordinator Relationship Specialty Start Date End Date Romy Brown MD [address] [place] [phone] PCP - General 11/12/15 Clayton Bazzi MD [address] [place] [address] Consulting Physician Pediatric Rheumatology 10/31/18 Roe Mercado MD [address] [place] [address] Consulting Physician Neurology 10/31/18 Kathy Ruelas MD [address] [place] [address] Consulting Physician Pain Medicine 10/31/18 Anoop Mackay MD PhD [address] [place] [phone] Consulting Physician Pediatric Pulmonology 01/08/22 Lata Santamaria MD [address] [place] [address] Consulting Physician Gastroenterology 11/15/23 Nery Alvarado, PhD [address] [facility] [address] [place] [address] Psychologist Psychology 10/31/18 11/02/21 Marni Smallwood LCSW [address], [address] [address] Behavioral Health Clinician Behavioral Health 03/14/22 documented as of this encounter
--- OUTSIDE RECORDS SUMMARY | 2025-02-13 20:16 | XMS_ITS | Encounter Summary ---
Author Organization [facility] Address [address] [place] [address] Care Team Providers Care Glass Bulb Machine Adjuster Name Role Phone Romy Brown MD Primary Care Provider [phone] Roe Mercado MD Unavailable [phone] Kathy Ruelas MD Unavailable Anoop Mackay MD PhD Unavailable [phone] Lata Santamaria MD Unavailable [phone] Reason for Visit * Reason Comments Medication Refill Encounter Details Date Type Department Care Team ([facility] st Contact Info) Description 08/12/2021 Refill [facility], Department of Pain Medicine, [address] [place] [address] Kathy Ruelas MD [address] [place], [place] [phone] Chronic migraine with aura Social History Tobacco [...] Description 02/17/2025 12:30 PM EST Hospital Encounter [facility] Center [address] [address] CHARLY (juvenile idiopathic arthritis) (Primary Dx); CHARLY (juvenile idiopathic arthritis), enthesitis related arthritis 02/19/2025 1:30 PM EST Therapy Department of Occupational Therapy [address] [place] [address] Lorenza Young, OTR/L [address] [place] [address] 02/25/2025 9:00 AM EST Office Visit [facility] Gastroenterology, [address] [address] Lata Santamaria MD [address] [place] [address] 03/04/2025 12:00 PM EST Appointment [facility] Sedation [facility] [address] [place] [phone] Anselmo De Santiago MD [address] [place] [address] 03/05/2025 1:30 PM EST Therapy Department of Occupational Therapy [address] [place] [address] Lorenza Young, OTR/L [address] [place] [address] 03/17/2025 12:30 PM EST Appointment Infusion Center 10 [facility] [place] 2nd [place] [address] 03/30/2025 3:00 PM EST Telemedicine [facility], Department of Pain Medicine, [address] [place] [phone] Cami Wilkerson APRN [address] [place] [address] 05/21/2025 2:00 PM EST Office Visit 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)- Primary 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), 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 documented in this encounter Care Teams Glass Bulb Machine Adjuster Relationship Specialty Start Date End Date Romy Brown MD [address] [place] [phone] PCP - General 11/12/15 Roe Mercado MD [address] [place] [address] Consulting Physician Neurology 10/31/18 Kathy Ruelas MD [address] [place] [address] Consulting Physician Pain Medicine 10/31/18 Anoop Mackay MD PhD [address] [place] [address] 11 [place] [address] Consulting Physician Pediatric Pulmonology 01/08/22 Lata Santamaria MD [address] [place] [address] Consulting Physician Gastroenterology 11/15/23 Nery Alvarado, PhD [address] [place] [address] [address] [place] [address] Psychologist Psychology 10/31/18 11/02/21 Marni Smallwood LCSW [facility] 3300 [facility], [facility] [address]A [facility] [address] Behavioral Health Clinician Behavioral Health 03/14/22 documented as of this encounter
--- OUTSIDE RECORDS SUMMARY | 2025-02-13 20:16 | XMS_ITS | Encounter Summary ---
Author Organization [facility] Address [address] [place] [address] Care Team Providers Care Snath Handle Assembler Name Role Phone Romy Brown MD Primary Care Provider Clayton Bazzi MD Unavailable Roe Mercado MD Unavailable [phone] Kathy Ruelas MD Unavailable [phone] Anoop Mackay MD PhD Unavailable [phone] Lata Santamaria MD Unavailable [phone] Encounter Details Date Type Department Care Team (Late st Contact Info) Description 04/04/2019 Telephone [facility], Department of Pain Medicine, [address] [place] [address] Anselmo De Santiago MD [address] [place], [place] [phone] Social History Tobacco Use Types Packs/Day Years [...] 12:30 PM EST Hospital Encounter Infusion Center [address] [place] [address] CHARLY (juvenile idiopathic arthritis) (Primary Dx); CHARLY (juvenile idiopathic arthritis), enthesitis related arthritis 02/19/2025 1:30 PM EST Therapy Department of Occupational Therapy [address] [place] [address] Lorenza Young, OTR/L [address] [place] [address] 02/25/2025 9:00 AM EST Office Visit [facility] Gastroenterology, [place] [address] [place] [address] Lata Santamaria MD [address] [place] [address] 03/04/2025 12:00 PM EST Appointment [facility] Sedation Services [address] [place] [phone] Anselmo De Santiago MD [address] [place] [address] 03/05/2025 1:30 PM EST Therapy Department of Occupational Therapy [address] [place] [address] Lorenza Young, OTR/L [address] [place] [address] 03/17/2025 12:30 PM EST Appointment Infusion Center [address] [place] [address] 03/30/2025 3:00 PM EST Telemedicine [facility], Department of Pain Medicine, [address] [place] [address] Cami Wilkerson APRN [address] [place] [address] 05/21/2025 2:00 PM EST Office Visit [facility], Department of Rheumatology, [address] [address] Stephanie Diaz MD [address] [place], [place] [phone] 05/27/2025 3:00 PM EST Appointment [facility] Sedation Services [address] [place] [phone] documented as of this encounter Visit Diagnoses Not on filedocumented in this encounter Care Teams Snath Handle Assembler Relationship Specialty Start Date End Date Romy Brown MD [address] [place] [phone] PCP - General 11/12/15 Clayton Bazzi MD [address] [place] [address] Consulting Physician Pediatric Rheumatology 10/31/18 Roe Mercado MD [address] [place] [address] Consulting Physician Neurology 10/31/18 Kathy Ruelas MD [address] [place] [address] Consulting Physician Pain Medicine 10/31/18 Anoop Mackay MD PhD [address] [place] [phone] Consulting Physician Pediatric Pulmonology 01/08/22 Lata Santamaria MD [address] [place] [address] Consulting Physician Gastroenterology 11/15/23 Nery Alvarado, PhD 3 [facility] [address] [place] [address] Psychologist Psychology 10/31/18 11/02/21 Marni Smallwood LCSW [place] [address]80 [facility], [address] [address] Behavioral Health Clinician Behavioral Health 03/14/22 documented as of this encounter
--- OUTSIDE RECORDS SUMMARY | 2025-02-13 20:16 | XMS_ITS | Encounter Summary ---
Author Organization [facility] Address [address] [place] [address] Care Team Providers Care Environmental Services Supervisor Name Role Phone Romy Brown MD Primary Care Provider [phone] Roe Mercado MD Unavailable [phone] Kathy Ruelas MD Unavailable [phone] Anoop Mackay MD PhD Unavailable [phone] Lata Santamaria MD Unavailable [phone] Reason for Visit * Reason Onset Date Comments Medication Refill 12/22/2024 Encounter Details Date Type Department Care Team (Late st Contact Info) Description 12/22/2024 Refill [facility], Department of Pain Medicine, [address] [place] [address] Kathy Ruelas MD [address] [place], [place] [phone] Chronic migraine with aura Social History Tobacco [...] EST Hospital Encounter Infusion Center [address] [address] CHARLY (juvenile idiopathic arthritis) (Primary Dx); CHARLY (juvenile idiopathic arthritis), enthesitis related arthritis 02/19/2025 1:30 PM EST Therapy Department of Occupational Therapy [address] [place] [address] Lorenza Young, HAYESR/Asher [address] [place] [address] 02/25/2025 9:00 AM EST Office Visit [facility] Gastroenterology, [place] [address] [place] [address] Lata Santamaria MD [address] [place] [address] 03/04/2025 12:00 PM EST Appointment [facility] Sedation Services [address] [place] [phone] Anselmo De Santiago MD [address] [place] [address] 03/05/2025 1:30 PM EST Therapy Department of Occupational Therapy [address] [place] [address] Lorenza Young, OTR/L [address] [place] [address] 03/17/2025 12:30 PM EST Appointment [facility] 10 [facility] 2nd [place] [address] 03/30/2025 3:00 PM EST Telemedicine [facility], Department of Pain Medicine, [address] [place] [address] Cami Wilkerson APRN [address] [place], [place] [phone] 05/21/2025 2:00 PM EST Office Visit [facility], Department of Rheumatology, [place] [address] [place] [address] Stephanie Diaz MD [address] [place], [place] [phone] 05/27/2025 3:00 PM EST Appointment [facility] Sedation Services [address] [place] [address] documented as of this encounter Visit Diagnoses Diagnosis Chronic migraine with aura CHARLY (juvenile idiopathic arthritis)- Primary 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), 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)- Primary 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), 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 documented in this encounter Care Teams Environmental Services Supervisor Relationship Specialty Start Date End Date Romy Brown MD [address] [place] [phone] PCP - General 11/12/15 Roe Mercado MD [address] [place], [place] [phone] Consulting Physician Neurology 10/31/18 Kathy Ruelas MD [address] [place] [address] Consulting Physician Pain Medicine 10/31/18 Anoop Mackay MD PhD [address] [place] [phone] Consulting Physician Pediatric Pulmonology 01/08/22 Lata Santamaria MD [address] [place] [address] Consulting Physician Gastroenterology 11/15/23 Marni Smallwood [facility] [address] [address] Behavioral Health Clinician Behavioral Health 03/14/22 documented as of this encounter
--- OUTSIDE RECORDS SUMMARY | 2025-02-13 20:16 | XMS_ITS | Encounter Summary ---
Author Organization [facility] Address [address] [place] [address] Care Team Providers Care Compensation Coordinator Name Role Phone Romy Brown MD Primary Care Provider [phone] Clayton Bazzi MD Unavailable Roe Mercado MD Unavailable [phone] Kathy Ruelas MD Unavailable [phone] Anoop Mackay MD PhD Unavailable [phone] Lata Santamaria MD Unavailable [phone] Reason for Visit * Reason Comments Medication Refill Encounter Details Date Type Department Care Team (Late st Contact Info) Description 09/30/2018 Refill [facility] Neurology, [place] [address] [place] [address] Roe Mercado MD [address] [place] [address] Intractable migraine with status migrainosus, unspecified migraine [...] Description 02/17/2025 12:30 PM EST Hospital Encounter [facility] Center [address] [address] CHARLY (juvenile idiopathic arthritis) (Primary Dx); CHARLY (juvenile idiopathic arthritis), enthesitis related arthritis 02/19/2025 1:30 PM EST Therapy Department of Occupational Therapy [address] [place] [address] Lorenza Young, OTR/L [address] [place] [address] 02/25/2025 9:00 AM EST Office Visit [facility] Gastroenterology, [place] [address] [place] [address] Lata Santamaria MD [address] [place] [address] 03/04/2025 12:00 PM EST Appointment [facility] Sedation Services [address] [place] [phone] Anselmo De Santiago MD [address] [place] [address] 03/05/2025 1:30 PM EST Therapy Department of Occupational Therapy [address] [place] [address] Lorenza Young, OTR/L [address] [place] [address] 03/17/2025 12:30 PM EST Appointment Infusion Center 10 [facility] 2nd [place] [address] 03/30/2025 3:00 PM EST Telemedicine [facility], Department of Pain Medicine, [place] [address] [place] [phone] Cami Wilkerson APRN [address] [place] [address] 05/21/2025 2:00 PM EST Office Visit [facility], Department of Rheumatology, [place] [address] [place] [address] Stephanie Diaz MD 282 [place], [place] [phone] 05/27/2025 3:00 PM EST Appointment [facility] Sedation Services [address] [place] [phone] documented as of this encounter Visit Diagnoses Diagnosis Intractable migraine with status migrainosus, unspecified migraine type CHARLY (juvenile idiopathic arthritis)- Primary 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), 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)- Primary 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), 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 documented in this encounter Care Teams Compensation Coordinator Relationship Specialty Start Date End Date Romy Brown MD [address] [place] [phone] PCP - General 11/12/15 Clayton Bazzi MD [address] [place] [address] Consulting Physician Pediatric Rheumatology 10/31/18 Roe Mercado MD [address] [place] [address] Consulting Physician Neurology 10/31/18 Kathy Ruelas MD [address] [place] [address] Consulting Physician Pain Medicine 10/31/18 Anoop Mackay MD PhD [address] [place] [phone] Consulting Physician Pediatric Pulmonology 01/08/22 Lata Santamaria MD [address] [place] [address] Consulting Physician Gastroenterology 11/15/23 Nery Alvarado, PhD [address] [place] [address] [address] [place] [address] Psychologist Psychology 10/31/18 11/02/21 Marni Smallwood [facility] [address] [facility] 4A [facility] [address] Behavioral Health Clinician Behavioral Health 03/14/22 documented as of this encounter
--- OUTSIDE RECORDS SUMMARY | 2025-02-13 20:16 | XMS_ITS | Encounter Summary ---
Author Organization [facility] Address [address] [place] [address] Care Team Providers Care Scientific Programmer Analyst Name Role Phone Romy Brown MD Primary Care Provider [phone] Clayton Bazzi MD Unavailable Roe Mercado MD Unavailable [phone] Kathy Ruelas MD Unavailable Anoop Mackay MD PhD Unavailable [phone] Lata Santamaria MD Unavailable [phone] Reason for Visit * Reason Comments Medication Refill Encounter Details Date Type Department Care Team (Late st Contact Info) Description 03/25/2019 Refill [facility] Neurology, [place] [address] [place] [address] Roe Mercado MD [address] [place] [address] Intractable migraine with status migrainosus, unspecified migraine [...] 12:30 PM EST Hospital Encounter Infusion Center [address] [place] [address] CHARLY (juvenile idiopathic arthritis) (Primary Dx); CHARLY (juvenile idiopathic arthritis), enthesitis related arthritis 02/19/2025 1:30 PM EST Therapy Department of Occupational Therapy [address] [place] [phone] Lorenza Young, OTR/L [address] [place] [address] 02/25/2025 9:00 AM EST Office Visit [facility] Gastroenterology, [place] [address] [place] [address] Lata Santamaria MD [address] [place] [address] 03/04/2025 12:00 PM EST Appointment [facility] Sedation Services [address] [place] [phone] Anselmo De Santiago MD [address] [place] [address] 03/05/2025 1:30 PM EST Therapy Department of Occupational Therapy [address] [place] [phone] Lorenza Young OTR/L [address] [place] [address] 03/17/2025 12:30 PM EST Appointment Infusion Center [address] [place] [address] 2nd [place] [address] 03/30/2025 3:00 PM EST Telemedicine [facility], Department of Pain Medicine, [place] [address] [place] [phone] Cami Wilkerson APRN [address] [place] [address] 05/21/2025 2:00 PM EST Office Visit [facility], Department of Rheumatology, [place] [address] [place] [address] Stephanie Diaz MD [address] [place] [address] 05/27/2025 3:00 PM EST Appointment [facility] Sedation Services [address] [place] [phone] documented as of this encounter Visit Diagnoses Diagnosis Intractable migraine with status migrainosus, unspecified migraine type CHARLY (juvenile idiopathic arthritis)- Primary 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), 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)- Primary 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), 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 documented in this encounter Care Teams Scientific Programmer Analyst Relationship Specialty Start Date End Date Romy Brown MD [address] [phone] PCP - General 11/12/15 Clayton Bazzi MD 140 [place] [address] Consulting Physician Pediatric Rheumatology 10/31/18 Roe Mercado MD 505 [place] [address] Consulting Physician Neurology 10/31/18 Kathy Ruelas MD [address] [place] [address] Consulting Physician Pain Medicine 10/31/18 Anoop Mackay MD PhD [address] [place] [phone] Consulting Physician Pediatric Pulmonology 01/08/22 Lata Santamaria MD [address] [place] [address] Consulting Physician Gastroenterology 11/15/23 Nery Alvarado, PhD [address] [place] [address] [address] [place] [address] Psychologist Psychology 10/31/18 11/02/21 Marni Smallwood [facility] [address] [address] Behavioral Health Clinician Behavioral Health 03/14/22 documented as of this encounter
--- OUTSIDE RECORDS SUMMARY | 2025-02-13 20:16 | XMS_ITS | Encounter Summary ---
Author Organization [facility] Address [address] [place] [address] Care Team Providers Care Cartridge Gauger Name Role Phone Romy Brown MD Primary Care Provider Clayton Bazzi MD Unavailable Roe Mercado MD Unavailable [phone] Kathy Ruelas MD Unavailable [phone] Anoop Mackay MD PhD Unavailable [phone] Lata Santamaria MD Unavailable [phone] Reason for Visit * Reason Comments Medication Refill Encounter Details Date Type Department Care Team (Late st Contact Info) Description 07/20/2019 Refill [facility] Neurology, [place] [address] [place] [address] Nigel Noel Jr., MD [address] [place], [place] [address] Social History Tobacco Use Types Packs/Day Years [...] Dr Mercado: Please REFUSE. Mas: Please call [facility] and have them send the refill request to the ordering provider. documented in this encounter Plan of Treatment Upcoming Encounters Date Type Department Care Team (Late st Contact Info) Description 02/17/2025 12:30 PM EST Hospital Encounter [facility] [address] [place] [address] CHARLY (juvenile idiopathic arthritis) (Primary Dx); CHARLY (juvenile idiopathic arthritis), enthesitis related arthritis 02/19/2025 1:30 PM EST Therapy Department of Occupational Therapy [address] [place] [address] Lorenza Young OTR/L [address] [place] [address] 02/25/2025 9:00 AM EST Office Visit [facility] Gastroenterology, [place] 84 [place] [address] Lata Santamaria MD [address] [place] [address] 03/04/2025 12:00 PM EST Appointment [facility] Sedation Services [address] [place] [address] Anselmo De Santiago MD [address] [place] [address] 03/05/2025 1:30 PM EST Therapy Department of Occupational Therapy [address] [place] [address] Lorenza Young, OTR/L [address] [place] [address] 03/17/2025 12:30 PM EST Appointment Infusion Center [address] 2nd [place] [address] 03/30/2025 3:00 PM EST Telemedicine [facility], Department of Pain Medicine, [address] [facility] [address] [place] [address] Cami Wilkerson APRN 282 [place], [place] [phone] 05/21/2025 2:00 PM EST Office Visit [facility], Department of Rheumatology, [address] [address] Stephanie Diaz MD [address] [place] [phone] 05/27/2025 3:00 PM EST Appointment [facility] Sedation Services [address] [place] [address] documented as of this encounter Visit Diagnoses Not on filedocumented in this encounter Care Teams Cartridge Gauger Relationship Specialty Start Date End Date Romy Brown MD [address] [place] [phone] PCP - General 11/12/15 Clayton Bazzi MD 140 [place] [address] Consulting Physician Pediatric Rheumatology 10/31/18 Roe Mercado MD [address] [place] [address] Consulting Physician Neurology 10/31/18 Kathy Ruelas MD [address] [place] [address] Consulting Physician Pain Medicine 10/31/18 Anoop Mackay MD PhD 780 [facility] 11 [place] [address] Consulting Physician Pediatric Pulmonology 01/08/22 Lata Santamaria MD 282 [place] [address] Consulting Physician Gastroenterology 11/15/23 Nery Alvarado, PhD [address] [place] [address] [address] [place] [address] Psychologist Psychology 10/31/18 11/02/21 Marni Smallwood LCSW [facility] 3300 [facility] 4A [facility] [address] Behavioral Health Clinician Behavioral Health 03/14/22 documented as of this encounter
--- OUTSIDE RECORDS SUMMARY | 2025-02-13 20:17 | XMS_ITS | Encounter Summary ---
Author Organization [facility] Address [address] [place] [address] Care Team Providers Care Collision Worker Name Role Phone Romy Brown MD Primary Care Provider [phone] Clayton Bazzi MD Unavailable Roe Mercado MD Unavailable [phone] Kathy Ruelas MD Unavailable Anoop Mackay MD PhD Unavailable [phone] Lata Santamaria MD Unavailable [phone] Reason for Visit * Reason Comments Medication Refill Encounter Details Date Type Department Care Team (Late st Contact Info) Description 04/25/2017 Refill [facility] Neurology, [place] [address] [place] [address] Roe Mercado MD [address] [place] [address] Other migraine without status migrainosus, not intractable [...] 12:30 PM EST Hospital Encounter Infusion Center [address] [place] [address] CHARLY (juvenile idiopathic arthritis) (Primary Dx); CHARLY (juvenile idiopathic arthritis), enthesitis related arthritis 02/19/2025 1:30 PM EST Therapy Department of Occupational Therapy [address] [place] [phone] Lorenza Young, OTR/L [address] [place] [address] 02/25/2025 9:00 AM EST Office Visit [facility] [address] [place] [address] Lata Santamaria MD [address] [place] [address] 03/04/2025 12:00 PM EST Appointment [facility] Sedation Services [address] [place] [phone] Anselmo De Santiago MD [address] [place] [address] 03/05/2025 1:30 PM EST Therapy Department of Occupational Therapy [address] [place] [phone] Lorenza Young, OTR/L [address] [place] [address] 03/17/2025 12:30 PM EST Appointment [facility]fusion Center [address] [place] [address] 03/30/2025 3:00 PM EST Telemedicine [facility], Department of Pain Medicine, [address] [place] [phone] Cami Wilkerson APRN [address] [place] [address] 05/21/2025 2:00 PM EST Office Visit [facility], Department of Rheumatology, [place] [address] [place] [address] Stephanie Diaz MD 282 [place], [place] [phone] 05/27/2025 3:00 PM EST Appointment [facility] Sedation Services [address] [place] [phone] documented as of this encounter Visit Diagnoses Diagnosis Other migraine without status migrainosus, not intractable CHARLY (juvenile idiopathic arthritis)- Primary 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), 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)- Primary 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), 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 documented in this encounter Care Teams Collision Worker Relationship Specialty Start Date End Date Romy Brown MD [address] [place] [place] [phone] PCP - General 11/12/15 Clayton Bazzi MD [address] [place] [address] Consulting Physician Pediatric Rheumatology 10/31/18 Roe Mercado MD [address] [place] [address] Consulting Physician Neurology 10/31/18 Kathy Ruelas MD [address] [place] [address] Consulting Physician Pain Medicine 10/31/18 Anoop Mackay MD PhD 780 [facility] 11 [place] [address] Consulting Physician Pediatric Pulmonology 01/08/22 Lata Santamaria MD [address] [place] [address] Consulting Physician Gastroenterology 11/15/23 Nery Alvarado, PhD [address] [place] [address] [address] [place] [address] Psychologist Psychology 10/31/18 11/02/21 Marni Smallwood [facility] 3300 [facility], [facility] 4A [facility] [address] Behavioral Health Clinician Behavioral Health 03/14/22 documented as of this encounter
--- OUTSIDE RECORDS SUMMARY | 2025-02-13 20:17 | XMS_ITS | Encounter Summary ---
Author Organization [facility] Address [address] [place] [address] Care Team Providers Care Combat Rifle Crewmember Name Role Phone Romy Brown MD Primary Care Provider Clayton Bazzi MD Unavailable Roe Mercado MD Unavailable [phone] Kathy Ruelas MD Unavailable Anoop Mackay MD PhD Unavailable [phone] Lata Santamaria MD Unavailable [phone] Reason for Visit * Reason Comments Medication Refill Encounter Details Date Type Department Care Team (Late st Contact Info) Description 02/06/2017 Refill [facility] Neurology, [place] [address] [place] [address] Roe Mercado MD [address] [place] [address] Intractable migraine with status migrainosus, unspecified migraine [...] Description 02/17/2025 12:30 PM EST Hospital Encounter [facility] Center [address] [place] [address] CHARLY (juvenile idiopathic arthritis) (Primary Dx); CHARLY (juvenile idiopathic arthritis), enthesitis related arthritis 02/19/2025 1:30 PM EST Therapy Department of Occupational Therapy [address] [place] [address] Lorenza Young, OTR/L [address] [place] [address] 02/25/2025 9:00 AM EST Office Visit [facility] Gastroenterology, [address] [address] Lata Santamaria MD [address] [place] [address] 03/04/2025 12:00 PM EST Appointment [facility] Sedation Services [address] [place] [phone] Anselmo De Santiago MD [address] [place] [address] 03/05/2025 1:30 PM EST Therapy Department of Occupational Therapy [address] [place] [address] Lorenza Young, OTR/L [address] [place] [address] 03/17/2025 12:30 PM EST Appointment Infusion Center [address] 2nd [place] [address] 03/30/2025 3:00 PM EST Telemedicine [facility], Department of Pain Medicine, [address] [place] [phone] Cami Wilkerson APRN [address] [place] [address] 05/21/2025 2:00 PM EST Office Visit [facility] Specialty [facility], Department of Rheumatology, [place] 84 [place] [address] Stephanie Diaz MD [address] [place] [address] 05/27/2025 3:00 PM EST Appointment [facility] Sedation Services [address] [place] [phone] documented as of this encounter Visit Diagnoses Diagnosis Intractable migraine with status migrainosus, unspecified migraine type- Primary CHARLY (juvenile idiopathic arthritis)- Primary 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), 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)- Primary 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), 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 documented in this encounter Care Teams Combat Rifle Crewmember Relationship Specialty Start Date End Date Romy Brown MD [address] [place] [phone] PCP - General 11/12/15 Clayton Bazzi MD [address] [place] [address] Consulting Physician Pediatric Rheumatology 10/31/18 Roe Mercado MD 505 [place] [address] Consulting Physician Neurology 10/31/18 Kathy Ruelas MD [address] [place] [address] Consulting Physician Pain Medicine 10/31/18 Anoop Mackay MD PhD [address] [place] [phone] Consulting Physician Pediatric Pulmonology 01/08/22 Lata Santamaria MD [address] [place] [address] Consulting Physician Gastroenterology 11/15/23 Nery Alvarado, PhD [address] [place] [address] [address] [place] [address] Psychologist Psychology 10/31/18 11/02/21 Marni Smallwood [facility] 3300 [facility], [facility] 4A [facility] [address] Behavioral Health Clinician Behavioral Health 03/14/22 documented as of this encounter
--- OUTSIDE RECORDS SUMMARY | 2025-02-13 20:17 | XMS_ITS | Encounter Summary ---
Author Organization [facility] Address [address] [place] [address] Care Team Providers Care Slate Cutter Operator Name Role Phone Romy Brown MD Primary Care Provider Clayton Bazzi MD Unavailable Roe Mercado MD Unavailable [phone] Kathy Ruelas MD Unavailable Anoop Mackay MD PhD Unavailable [phone] Lata Santamaria MD Unavailable [phone] Reason for Visit * Reason Comments Medication Refill Encounter Details Date Type Department Care Team (Late st Contact Info) Description 01/29/2017 Refill [facility] Neurology, [place] [address] [place] [address] Roe Mercado MD [address] [place] [address] Intractable migraine with status migrainosus, unspecified migraine [...] 02/17/2025 12:30 PM EST Hospital Encounter [facility] Center [address] [address] CHARLY (juvenile idiopathic arthritis) (Primary Dx); CHARLY (juvenile idiopathic arthritis), enthesitis related arthritis 02/19/2025 1:30 PM EST Therapy Department of Occupational Therapy [address] [place] [address] Lorenza Young, OTR/L [address] [place] [address] 02/25/2025 9:00 AM EST Office Visit [facility] Gastroenterology, [address] [address] Lata Santamaria MD [address] [place] [address] 03/04/2025 12:00 PM EST Appointment [facility] Sedation Services [address] [place] [phone] Anselmo De Satniago MD [address] [place] [address] 03/05/2025 1:30 PM EST Therapy Department of Occupational Therapy [address] [place] [address] Lorenza Young, OTR/L [address] [place] [address] 03/17/2025 12:30 PM EST Appointment Infusion Center [address] 2nd [place] [address] 03/30/2025 3:00 PM EST Telemedicine [facility], Department of Pain Medicine, [address] [place] [phone] Cami Wilkerson APRN 282 [place] [address] 05/21/2025 2:00 PM EST Office Visit [facility], Department of Rheumatology, [place] 84 [place] [address] Stephaine Diaz MD 282 [place], [place] [phone] 05/27/2025 3:00 PM EST Appointment [facility] Sedation Services [address] [place] [phone] documented as of this encounter Visit Diagnoses Diagnosis Intractable migraine with status migrainosus, unspecified migraine type- Primary CHARLY (juvenile idiopathic arthritis)- Primary 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), 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)- Primary 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), 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 documented in this encounter Care Teams Slate Cutter Operator Relationship Specialty Start Date End Date Romy Brown MD [address] [place] [phone] PCP - General 11/12/15 Clayton Bazzi MD 140 [place] [address] Consulting Physician Pediatric Rheumatology 10/31/18 Roe Mercado MD [address] [place] [address] Consulting Physician Neurology 10/31/18 Kathy Ruelas MD 282 [place] [address] Consulting Physician Pain Medicine 10/31/18 Anoop Mackay MD PhD [address] [place] [address] 11 [place] [address] Consulting Physician Pediatric Pulmonology 01/08/22 Lata Santamaria MD [address] [place] [address] Consulting Physician Gastroenterology 11/15/23 Nery Alvarado, PhD [address] [place] [address] [address] [place] [address] Psychologist Psychology 10/31/18 11/02/21 Marni Smallwood [facility] 3300 [facility], [facility] 4A [facility] [address] Behavioral Health Clinician Behavioral Health 03/14/22 documented as of this encounter
--- OUTSIDE RECORDS SUMMARY | 2025-02-13 20:18 | XMS_ITS | Encounter Summary ---
Author Organization [facility] Address [address] [place] [id number] Care Team Providers Care Nuclear Auxiliary Operator Name Role Phone Romy Brown MD Primary Care Provider [phone] Clayton Bazzi MD Unavailable Roe Mercado MD Unavailable [phone] Kathy Ruelas MD Unavailable Anoop Mackay MD PhD Unavailable [phone] Lata Santamaria MD Unavailable [phone] Reason for Visit * Reason Comments Medication Refill Encounter Details Date Type Department Care Team (Late st Contact Info) Description 06/17/2017 Refill [facility] Neurology, [place] [address] [place], [place] [address] Roe Mercado MD [address] [place] [address] Headache disorder Social History Tobacco Use Types [...] 12:30 PM EST Hospital Encounter [facility] [address] [place] [address] CHARLY (juvenile idiopathic arthritis) (Primary Dx); CHARLY (juvenile idiopathic arthritis), enthesitis related arthritis 02/19/2025 1:30 PM EST Therapy Department of Occupational Therapy [address] [place] [address] Lorenza Young, OTR/L [address] [place] [address] 02/25/2025 9:00 AM EST Office Visit [facility] Specialty [facility] Gastroenterology, [place] [address] [place] [address] Lata Santamaria MD [address] [place] [address] 03/04/2025 12:00 PM EST Appointment [facility] Sedation Services [address] [place] [phone] Anselmo De Santiago MD [address] [place] [address] 03/05/2025 1:30 PM EST Therapy Department of Occupational Therapy [address] [place] [address] Lorenza Young, OTR/L [address] [place] [address] 03/17/2025 12:30 PM EST Appointment [facility] [address] [place] [address] 03/30/2025 3:00 PM EST Telemedicine [facility], Department of Pain Medicine, [address] [place] [id number] Cami Wilkerson APRN [address] [place] [address] 05/21/2025 2:00 PM EST Office Visit [facility], Department of Rheumatology, [address] [address] Stephanie Diaz MD [address] [place], [place] [id number] 05/27/2025 3:00 PM EST Appointment [facility] Sed[facility] [address] [place] [address] documented as of this encounter Visit Diagnoses Diagnosis Headache disorder Headache CHARLY (juvenile idiopathic arthritis)- Primary 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), 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)- Primary 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), 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 documented in this encounter Care Teams Nuclear Auxiliary Operator Relationship Specialty Start Date End Date Romy Brown MD [address] [place] [phone] PCP - General 11/12/15 Clayton Bazzi MD [address] [place] [address] Consulting Physician Pediatric Rheumatology 10/31/18 Roe Mercado MD [address] [place] [address] Consulting Physician Neurology 10/31/18 Kathy Ruelas MD [address] [place] [address] Consulting Physician Pain Medicine 10/31/18 Anoop Mackay MD PhD [address] [facility] [address] [place] [address] Consulting Physician Pediatric Pulmonology 01/08/22 Lata Santamaria MD [address] [place] [address] Consulting Physician Gastroenterology 11/15/23 Nery Alvarado, PhD [address] [place] [address] [address] [place] [address] Psychologist Psychology 10/31/18 11/02/21 Marni Smallwood [facility] [address] [facility], [facility] [address] [facility] [address] Behavioral Health Clinician Behavioral Health 03/14/22 documented as of this encounter
--- OUTSIDE RECORDS SUMMARY | 2025-02-13 20:18 | XMS_ITS | Clinical Summary ---
Author Organization [facility] Address [address] [place] [address] Care Team Providers Care Systems Development Manager Name Role Phone Romy Brown MD Primary Care Provider [phone] Roe Mercado MD Unavailable [phone] Kathy Ruelas MD Unavailable Anoop Mackay MD PhD Unavailable [phone] Lata Santamaria MD Unavailable [phone] Source Comments Please note that some [...] so, obtain the minor's consent prior to disclosure.[facility] Allerg[facility] Active Allergy Reactions Criticality Noted [...] loss Take 2 Bottles by mouth daily 64305 mL 11 025 Active digital therapeutic, NERIVIO, [...] Center for Care Coordination: DINORA Monique, RN, [facility]- [phone] Referred by pain mgmt 01/18/22 Declined participation, but has contact and will call if future needs (has appt. 02/23/22 with [facility]) Problem Noted Date Diagnosed Date Amplified [...] Encounters Date Type Department Care Team Description 02/11/2025 12:35 PM EST Anesthesia Event [facility] Sedation Services [address] [place] [phone] Erik Guidry MD Grade, Ryan, RN 02/11/2025 11:41 AM EST Hospital Encounter [facility] Sedation Services [address] [place] [phone] Anselmo De Santiago MD Sturm, Jesse, MD Chronic migraine with aura and with status migrainosus, not intractable (Primary Dx); Chronic migraine w/o aura, not intractable, w stat migr 02/06/2025 Refill [facility] Gastroenterology, [place] [address] [facility] [address] [place] [address] Lata Santamaria MD Weight loss 02/01/2025 Results Follow-Up [facility], Department of Rheumatology, [place] [address] [facility] [address] [place] [address] Stephanie Diaz MD CBC auto differential, Erythrocyte Sediment Rate (ESR), Gamma GT, Additional followed-up results: 3 01/28/2025 3:16 PM EDT Anesthesia Event [facility] Sedation Services [address] [place] [phone] Telma Hampton MD 01/28/2025 2:26 PM EDT - 01/28/2025 11:59 PM EDT Hospital Encounter [facility] Sedation Services [address] [place] [address] Anselmo De Santiago MD Raghavan, Kalyani, MD Chronic migraine with aura and with status migrainosus, not intractable (Primary Dx) Discharge Disposition: Home or Self Care 01/28/2025 Telephone [facility], Department of Pain Medicine, [place] [address] [place] [address] Nikko Castillo, Laborer [employer] Appointment (/) 01/28/2025 Prep for Sedation/Procedure visit [facility], Department of Pain Medicine, [place] [address] [place] [phone] Anselmo De Santiago MD Chronic migraine with aura and with status migrainosus, not intractable (Primary Dx) 01/27/2025 11:00 AM EDT Telemedicine Support [facility] [address] [place] [address], 9th Floor [address] [place] [phone] Darrell Velazquez Psy.D. Attention deficit hyperactivity disorder (ADHD), unspecified ADHD type (Primary Dx); Asperger's syndrome 01/26/2025 2:00 PM EDT Office Visit [facility], Department of Pain Medicine, [place] [address] [place] [address] Cami Wilkerson APRN Amplified musculoskeletal pain syndrome (Primary Dx); Chronic migraine with aura and with status migrainosus, not intractable; CHARLY (juvenile idiopathic arthritis) 01/26/2025 Telephone [facility] [address] [facility], 9th Floor [address] [place] [address] Sarah Banks MA 01/23/2025 Telephone [facility], Department of Pain Medicine, [address] [place] [address] Encounter, Telephone Follow-up 01/22/2025 1:30 PM EDT Therapy Department of Occupational Therapy [address] [place] [address] Lorenza Young OTR/Asher CHARLY (juvenile idiopathic arthritis), enthesitis related arthritis; Chronic migraine with aura and with status migrainosus, not intractable; Amplified musculoskeletal pain syndrome; Self-care deficit; Psychological factors affecting medical condition 01/21/2025 12:19 PM EDT - 01/21/2025 11:59 PM EDT Hospital Encounter [facility] [address] [facility] [address] [place] [address] CHARLY (juvenile idiopathic arthritis) (Primary Dx); CHARLY (juvenile idiopathic arthritis), enthesitis related arthritis Discharge Disposition: Home or Self Care 01/19/2025 12:09 PM EDT - 01/19/2025 11:59 PM EDT Hospital Encounter [facility] Sedation Services [address] [place] [address] Diana Johnson MD CHARLY (juvenile idiopathic arthritis), enthesitis related arthritis (Primary Dx) Discharge Disposition: Home or Self Care 01/15/2025 1:30 PM EDT Therapy Department of Occupational Therapy [address] [place] [address] Lorenza Young OTR/Asher CHARLY (juvenile idiopathic arthritis), enthesitis related arthritis (Primary Dx); Chronic migraine with aura and with status migrainosus, not intractable; Amplified musculoskeletal pain syndrome; Self-care deficit; Psychological factors affecting medical condition 01/08/2025 1:30 PM EDT Therapy Department of Occupational Therapy [address] [place] [address] Lorenza Young OTR/Asher CHARYL (juvenile idiopathic arthritis), enthesitis related arthritis (Primary Dx); Chronic migraine with aura and with status migrainosus, not intractable; Amplified musculoskeletal pain syndrome; Self-care deficit; Psychological factors affecting medical condition 01/06/2025 11:00 AM EDT Telemedicine Support [facility] [address], 9th Floor [address] [place] [phone] Darrell Velazquez Psy.D. Attention deficit hyperactivity disorder (ADHD), unspecified ADHD type (Primary Dx); Asperger's syndrome 01/05/2025 Telephone [facility] [address] [place] [address], 9th Floor [address] [place] [phone] Sarah Banks MA 01/01/2025 1:30 PM EDT Therapy Department of Occupational Therapy [address] [place] [address] Lorenza Young, OTR/L CHARLY (juvenile idiopathic arthritis), enthesitis related arthritis (Primary Dx); Chronic migraine with aura and with status migrainosus, not intractable; Amplified musculoskeletal pain syndrome; Self-care deficit; Psychological factors affecting medical condition 12/25/2024 1:30 PM EDT Therapy Department of Occupational Therapy [address] [place] [address] Lorenza Young, OTR/L CHARLY (juvenile idiopathic arthritis), enthesitis related arthritis (Primary Dx); Amplified musculoskeletal pain syndrome; Self-care deficit; Psychological factors affecting medical condition 12/25/2024 11:00 AM EDT Telemedicine Support [facility] [address], [address] Floor [address] [place] [phone] Darrell Velazquez Psy.D. Attention deficit hyperactivity disorder (ADHD), unspecified ADHD type (Primary Dx); Asperger's syndrome 12/24/2024 Telephone [facility] [address] [place] [address], 9th Floor [address] [place] [phone] Sarah Banks MA 12/24/2024 Results Follow-Up [facility], Department of Rheumatology, [address] [place] [phone] Stephanie Diaz MD CBC auto differential, Erythrocyte Sediment Rate (ESR), Gamma GT, Additional followed-up results: 3 12/22/2024 12:25 PM EDT - 12/22/2024 11:59 PM EDT Hospital Encounter [facility] [address] [facility] [address] [place] [address] CHARLY (juvenile idiopathic arthritis) (Primary Dx); CHARLY (juvenile idiopathic arthritis), enthesitis related arthritis Discharge Disposition: Home or Self Care 12/22/2024 Refill [facility], Department of Pain Medicine, [address] [place] [phone] Kathy Ruelas MD Chronic migraine with aura 12/22/2024 Orders Only [facility], Department of Pain Medicine, [address] [place] [phone] Cami Wilkerson APRN Chronic migraine without aura without status migrainosus, not intractable 12/19/2024 11:30 AM EDT Office Visit [facility], Department of Pain Medicine, [address] [place] [phone] Cami Wilkerson APRN Amplified musculoskeletal pain syndrome (Primary Dx); Chronic migraine with aura and with status migrainosus, not intractable; CHARLY (juvenile idiopathic arthritis), enthesitis related arthritis 12/19/2024 Telephone [facility], Department of Pain Medicine, [address] [place] [phone] Encounter, Telephone Appointment (/) 12/19/2024 Telephone [facility], Department of Pain Medicine, [address] [place] [phone] Encounter, Telephone Medication Refill 12/18/2024 1:30 PM EDT Therapy Department of Occupational Therapy [address] [place] [address] Lorenza Young, OTR/L Self-care deficit (Primary Dx); Psychological factors affecting medical condition; CHARLY (juvenile idiopathic arthritis), enthesitis related arthritis; Chronic migraine with aura and with status migrainosus, not intractable; Amplified musculoskeletal pain syndrome 12/11/2024 1:30 PM EDT Therapy Department of Occupational Therapy [address] [place] [address] Lorenza Young, OTR/L Self-care deficit (Primary Dx); CHARLY (juvenile idiopathic arthritis), enthesitis related arthritis; Chronic migraine with aura and with status migrainosus, not intractable; Amplified musculoskeletal pain syndrome; Psychological factors affecting medical condition 12/08/2024 Telephone [facility], Department of Pain Medicine, [address] [place] [address] Nikko Castillo, Laborer [employer] 12/05/2024 Prep for Sedation/Procedure visit [facility], Department of Pain Medicine, [address] [place] [address] Anselmo De Santiago MD Chronic migraine without aura without status migrainosus, not intractable (Primary Dx) 12/04/2024 1:30 PM EDT Therapy Department of Occupational Therapy [address] [place] [address] Lorenza Young, OTR/L CHARLY (juvenile idiopathic arthritis), enthesitis related arthritis (Primary Dx); Chronic migraine with aura and with status migrainosus, not intractable; Amplified musculoskeletal pain syndrome; Self-care deficit; Psychological factors affecting medical condition 11/25/2024 Results Follow-Up [facility], Department of Rheumatology, [address] [place] [address] Stephanie Diaz MD CBC auto differential, Erythrocyte Sediment Rate (ESR), Gamma GT, Additional followed-up results: 3 11/24/2024 12:30 PM EDT - 11/24/2024 11:59 PM EDT Hospital [facility] [address] [facility] 2nd [place] [address] CHARLY (juvenile idiopathic arthritis) (Primary Dx); CHARLY (juvenile idiopathic arthritis), enthesitis related arthritis Discharge Disposition: Home or Self Care 11/20/2024 3:40 PM EDT Office Visit [facility], Department of Rheumatology, [address] [address] Stephanie Diaz MD Chronic bilateral low back pain without sciatica (Primary Dx); Juvenile idiopathic arthritis, enthesitis related arthritis; Chronic migraine with aura and with status migrainosus, not intractable; Other specified anxiety disorders; Pain 11/20/2024 Refill [facility] Gastroenterology, [address] [address] Weight loss (Primary Dx) 11/18/2024 12:00 PM EDT Office Visit [facility] Gastroenterology, [address] [address] Lata Santamaria MD Decrease in appetite (Primary Dx); Weight loss 11/17/2024 12:30 PM EDT Therapy Department of Occupational Therapy [address] [place] [address] Lorenza Young OTR/Asher Self-care deficit (Primary Dx); Amplified musculoskeletal pain syndrome; Chronic migraine with aura and with status migrainosus, not intractable; CHARLY (juvenile idiopathic arthritis), enthesitis related arthritis; Psychological factors affecting medical condition 11/17/2024 Telephone [facility], Department of Pain Medicine, [address] [place] [address] Nikko Castillo, Laborer [employer] Appointment (/) 11/14/2024 Prep for Sedation/Procedure visit [facility], Department of Pain Medicine, [address] [place] [phone] Anselmo De Santiago MD Chronic migraine with aura and with status migrainosus, not intractable (Primary Dx) 11/13/2024 12:08 PM EDT Anesthesia Event [facility] Sedation Services [address] [place] [phone] Telma Hampton MD Sanchez, Jamie, RN 11/13/2024 11:14 AM EDT - 11/13/2024 11:59 PM EDT Hospital Encounter [facility] Sedation Services [address] [place] [address] Anselmo De Santiago MD Sturm, Jesse, MD Chronic migraine w/o aura, not intractable, w stat migr Discharge Disposition: Home or Self Care 11/13/2024 Refill [facility], Department of Pain Medicine, [address] [address] Kathy Ruelas MD Chronic migraine with aura and with status migrainosus, not intractable from Last 3 Months Immunizations Immunization Administration [...] 8 oz) 02/11/2025 11:49 AM EST Height 192.8 cm (6' 3.91 ) 01/26/2025 2:10 PM ED T Body Mass Index 21.17 01/26/2025 2:10 PM EDT Plan of Treatment Upcoming Encounters Date Type Department Care Team (Late st Contact Info) Description 02/17/2025 12:30 PM EST Hospital Encounter [facility] [address] [address] CHARLY (juvenile idiopathic arthritis) (Primary Dx); CHARLY (juvenile idiopathic arthritis), enthesitis related arthritis 02/19/2025 1:30 PM EST Therapy Department of Occupational Therapy [address] [place] [address] Lorenza Young, OTR/L [address] [place] [address] 02/25/2025 9:00 AM EST Office Visit [facility] G[facility], [place] [address] [place] [address] Lata Snatamaria MD [address] [place] [address] 03/04/2025 12:00 PM EST Appointment [facility] Sedation Services [address] [place] [phone] Anselmo De Santiago MD [address] [place] [phone] 03/05/2025 1:30 PM EST Therapy Department of Occupational Therapy [address] [place] [address] Lorenza Young, OTR/L [address] [place] [address] 03/17/2025 12:30 PM EST Appointment [facility] [address] 2nd [place] [address] 03/30/2025 3:00 PM EST Telemedicine [facility], Department of Pain Medicine, [place] [address] [place] [phone] Cami Wilkerson APRN [address] [place], [place] [phone] 05/21/2025 2:00 PM EST Office Visit [facility], Department of Rheumatology, [place] [address] [place] [address] Stephanie Diaz MD [address] [place], [place] [phone] 05/27/2025 3:00 PM EST Appointment [facility] Sedation Services [address] [place] [address] Health Maintenance Due Date Last Done Comments DTaP/TDAP/TD VACCINES (1 - Tdap) 10/20/2011 ADOLESCENT HIV SCREENING 2017 COVID-19 Vaccine ( - season) 2024 INFLUENZA (#1) 2024 12/24/2021, 10/0 12/2020, 12/27/2019, Additional history exists NIRSEVIMAB VACCINES UNDER 8 MONTHS Aged Out No longer eligible based on patient's age to complete this topic Procedures Procedure Name Priority Date/Time Associated Diagnosis Comments INJECT TRIGGER POINT(S) Routine 02/12/20 12:45 PM EST Chronic migraine without aura without status migrainosus, not intractable CHEMODENERVATION Routine 01/28/2025 3:30 PM EDT Chronic [...] intractable from Last 3 Months Results * Inject Trigger Point(s) (02/11/2025 12:45 PM EST) Narrative Anselmo De Santiago MD - 02/11/2025 12:45 PM EST Anselmo De Santiago MD 02/11/2025 12:05 PM PROCEDURE REPORT 02/11/25 PREOPERATIVE DIAGNOSIS:myofascial pain syndrome, chronic migraine POSTOPERATIVE DIAGNOSIS: myofascial pain syndrome, chronic migraine PROCEDURE: bilateral occipital trigger point injection SPG block PROCEDURALIST: Anselmo DE SANTIAGO MD MANAGER MILITARY: None. DATE OF SURGERY:02/11/25 ANESTHESIA: IV sedation. [...] SURGICAL ORDERAB LES Final Result * Chemodenervation (01/28/2025 3:30 PM EDT) Narrative Anselmo De Santiago MD - 01/28/2025 3:30 PM EDT Anselmo De Santiago MD 01/28/2025 3:21 PM OPERATIVE REPORT 01/28/25 PREOPERATIVE DIAGNOSIS: chronic migraine POSTOPERATIVE DIAGNOSIS: chronic migraine PROCEDURE: botox injection, headache protocol SURGEON: Mily De Santiago MD MANAGER MILITARY: None. DATE OF procedure: 01/28/25 COMPLICATIONS: None [...] [facility] Anselmo DE SANTIAGO MD Anselmo De Santiago MD PROCEDURE/MINOR SURGICAL ORDERAB LES Final Result * BUN Creat w/ Ratio (01/21/2025 12:23 PM EDT) Only the most recent of3 resultswithin the time period is included. BUN 10 7 - 25 mg/dL [facility] Creatinine 0.85 0.60 - 1.24 mg/dL [facility] EGFR 128 > OR = 60 mL/min/1. 73m2 [facility] BUN/Creatinine Ratio SEE NOTE: (calc) [facility] Comment: Not Reported: BUN and Creatinine are within reference range. Blood BLOOD SPECIMEN / Unknown 01/21/2025 12:23 PM EDT 01/22/2025 6:29 AM EDT Narrative Resulting Agency Comment Performing Organization Information: Site ID: [id number] Name: [facility] Address: [address] [place] [phone] Director: Alfredo Alaniz M.D. us Stephanie Diaz MD LAB BLOOD ORDERABLES [facility] Result Performing Organization Address [facility] Phone Number [facility] [address] [place] [phone] [facility] [address] [place] [phone] * Erythrocyte Sediment Rate (ESR) (01/21/2025 12:23 PM EDT) Only the most recent of3 resultswithin the time period is included. Sed Rate by Modified Westergren 2 < OR = 15 mm/h [facility] Blood BLOOD SPECIMEN / Unknown 01/21/2025 12:23 PM EDT 01/22/2025 6:29 AM EDT Narrative Resulting Agency Comment Performing Organization Information: Site ID: [id number] Name: [facility] Address: [address] [place] [phone] Director: Alfredo Alaniz M.D. us Stephanie Diaz MD LAB BLOOD ORDERABLES Sheba l Result Performing Organization Address [facility] de Phone Number [facility] [address] [place] [phone] [facility] [address] [place] [address] * (ABNORMAL) CBC auto differential (01/21/2025 12:23 PM EDT) Only the most recent of3 resultswithin the time period is included. WBC 5.4 3.8 - 10.8 Thousand/u L [facility] RBC 4.83 4.20 - 5.80 Million/uL [email or web address] Hemoglobin 14.1 13.2 - 17.1 g/dL [email or web address] Hematocrit 43.7 38.5 - 50.0 % [email or web address] MCV 90.5 80.0 - 100.0 fL [email or web address] MCH 29.2 27.0 - 33.0 pg [email or web address] MCHC 32.3 32.0 - 36.0 g/dL [email or web address] Comment: For adults, a slight decrease in the calculated MCHC value (in the range of 30 to 32 g/dL) is most likely not clinically significant; however, it should be interpreted with caution in correlation with other red cell parameters and the patient's clinical condition. RDW 11.9 11.0 - 15.0 % [email or web address] Platelets 196 140 - 400 Thousand/u L [email or web address] MPV 11.3 7.5 - 12.5 fL [facility] Neutrophils Absolute 2,279 1,500 - 7,800 cells/uL [email or web address] Lymphocytes Absolute 1,955 850 - 3,900 cells/uL [email or web address] Monocytes Absolute 389 200 - 950 cells/uL [email or web address] Eosinophils Absolute 707(H) 15 - 500 cells/uL [facility] Basophils Absolute 70 0 - 200 cells/uL [email or web address] Neutrophils 42.2 % [facility] Lymphs 36.2 % [facility] Monocytes 7.2 % [facility] Eos 13.1 % [email or web address] Basos 1.3 % [email or web address] Blood BLOOD SPECIMEN / Unknown 01/21/2025 12:23 PM EDT 01/22/2025 6:29 AM EDT Narrative Resulting Agency Comment Performing Organization Information: Site ID: [id number] Name: [facility] Address: [address] [place] [phone] Director: Alfredo Alaniz M.D. Stephanie Diaz MD LAB BLOOD ORDERABLES Sheba l Result Performing Organization Address [facility] de Phone Number [facility] [address] [place] [phone] [facility] [address] [place] [phone] * (ABNORMAL) ALT (01/21/2025 12:23 PM EDT) Only the most recent of3 resultswithin the time period is included. ALT 49(H) 9 - 46 U/L [email or web address] Blood BLOOD SPECIMEN / Unknown 01/21/2025 12:23 PM EDT 01/22/2025 6:29 AM EDT Narrative Resulting Agency Comment Performing Organization Information: Site ID: [id number] Name: [facility] Address: [address] [place] [phone] Director: Alfredo Alaniz M.D. Stephanie Diaz MD LAB BLOOD ORDERABLES Sheba l Result Performing Organization Address [facility] de Phone Number [facility] [address] [place] [phone] [facility] [address] [place] [phone] * AST (01/21/2025 12:23 PM EDT) Only the most recent of3 resultswithin the time period is included. AST 30 10 - 40 U/L [facility] [employer] Blood BLOOD SPECIMEN / Unknown 01/21/2025 12:23 PM EDT 01/22/2025 6:29 AM EDT Narrative Resulting Agency Comment Performing Organization Information: Site ID: [id number] Name: [facility] Address: [address] [place] [phone] Director: Alfredo Alaniz M.D. Stephanie Diaz MD LAB BLOOD ORDERABLES Sheba l Result Performing Organization Address [facility] de Phone Number [facility] [address] [place] [phone] [facility] [address] [place] [phone] * Gamma GT (01/21/2025 12:23 PM EDT) Only the most recent of3 resultswithin the time period is included. GGT 46 3 - 70 U/L [facility] Blood BLOOD SPECIMEN / Unknown 01/21/2025 12:23 PM EDT 01/22/2025 6:29 AM EDT Narrative Resulting Agency Comment Performing Organization Information: Site ID: [id number] Name: [facility] Address: [address] [place] [phone] Director: Alfredo Alaniz M.D. Stephanie Diaz MD LAB BLOOD ORDERABLES Sheba l Result Performing Organization Address [facility] de Phone Number [facility] [address] [place] [phone] [facility] [address] [place] [phone] * Inject Trigger Point(s) (11/13/2024 12:00 PM EDT) Narrative Anselmo De Santiago MD - 11/13/2024 12:00 PM EDT Anselmo De Santiago MD 11/13/2024 11:52 AM PROCEDURE REPORT 11/13/24 PREOPERATIVE DIAGNOSIS:myofascial pain syndrome, chronic migraine POSTOPERATIVE DIAGNOSIS: myofascial pain syndrome, chronic migraine PROCEDURE: bilateral occipital trigger point injection SPG block PROCEDURALIST: Anselmo DE SANTIAGO MD MANAGER MILITARY: None. DATE OF SURGERY:11/13/24 ANESTHESIA: IV sedation. [...] Final Result from Last 3 Months Insurance [facility] MEDICAID [facility] [employer] [facility] MED[facility] Care Teams Systems Development Manager Relationship Specialty Start Date End Date Romy Brown MD [address] [phone] PCP - General 11/12/15 Roe Mercado MD [address] [place] [address] Consulting Physician Neurology 10/31/18 Kathy Ruelas MD [address] [place] [address] Consulting Physician Pain Medicine 10/31/18 Anoop Mackay MD PhD [address] [place] [address], [place] [address] Consulting Physician Pediatric Pulmonology 01/08/22 Lata Santamaria MD [address] [place] [address] Consulting Physician Gastroenterology 11/15/23 Marni Smallwood LCSW [facility] [address] [facility] 4A [facility] [address] Behavioral Health Clinician Behavioral Health 03/14/22
--- OUTSIDE RECORDS SUMMARY | 2025-02-13 20:18 | XMS_ITS | Encounter Summary ---
Author Organization [facility] Address [address] [place] [address] Care Team Providers Care Obiee Lead Developer Name Role Phone Romy Brown MD Primary Care Provider Roe Mercado MD Unavailable [phone] Kathy Ruelas MD Unavailable Anoop Mackay MD PhD Unavailable [phone] Lata Santamaria MD Unavailable [phone] Reason for Visit * Reason Onset Date Comments Medication Refill 11/20/2022 Encounter Details Date Type Department Care Team (Late st Contact Info) Description 11/20/2022 Refill [facility] Gastroenterology, [address] [phone] Lata Santamaria MD [address] [place] [address] Nausea; Diarrhea, unspecified type; Periumbilical abdominal [...] [facility] [address] [address] CHARLY (juvenile idiopathic arthritis) (Primary Dx); CHARLY (juvenile idiopathic arthritis), enthesitis related arthritis 02/19/2025 1:30 PM EST Therapy Department of Occupational Therapy [address] [place] [address] Lorenza Young, HAYESR/L [address] [place] [address] 02/25/2025 9:00 AM EST Office Visit [facility] Gastroenterology, [place] [address] [place] [address] Lata Santamaria MD [address] [place] [address] 03/04/2025 12:00 PM EST Appointment [facility] Sedation Services [address] [place] [phone] Anselmo De Santiago MD [address] [place] [address] 03/05/2025 1:30 PM EST Therapy Department of Occupational Therapy [address] [place] [address] Lorenza Young, OTR/L [address] [place] [address] 03/17/2025 12:30 PM EST Appointment Infusion Center [address] [facility] 2nd [place] [address] 03/30/2025 3:00 PM EST Telemedicine [facility], Department of Pain Medicine, [address] [place] [address] Cami Wilkerson APRN [address] [place] [address] 05/21/2025 2:00 PM EST Office Visit [facility], Department of Rheumatology, [place] [address] [place] [address] Stephanie Diaz MD [address] [place], [place] [id number] 05/27/2025 3:00 PM EST Appointment [facility] Sedation Services [address] [place] [address] documented as of this encounter [...] polyarthropathies documented in this encounter Care Teams Obiee Lead Developer Relationship Specialty Start Date End Date Romy Brown MD [address] [place] [phone] PCP - General 11/12/15 Roe Mercado MD [address] [place] [address] Consulting Physician Neurology 10/31/18 Kathy Ruelas MD [address] [place] [address] Consulting Physician Pain Medicine 10/31/18 Anoop Mackay MD PhD [address] [place] [phone] Consulting Physician Pediatric Pulmonology 01/08/22 Lata Santamaria MD [address] [place] [address] Consulting Physician Gastroenterology 11/15/23 Marni Smallwood [facility] [address] [address] Behavioral Health Clinician Behavioral Health 03/14/22 documented as of this encounter
--- OUTSIDE RECORDS SUMMARY | 2025-02-13 20:18 | XMS_ITS | Clinical Summary ---
Author Organization [facility] Address [address] [place] [address] Phone Care Team Providers Care Teachers' Aide Name Role Phone Romy Brown MD Primary Care Provider [phone] Active Problems No known active problems Encounters Date Type Department Care Team Description 12/23/2024 1:30 PM EDT Treatment Outpatient [address] [phone] Pablo Kat, PT Chronic migraine with aura, not intractable, with status migrainosus (Primary Dx) 12/08/2024 1:30 PM EDT Treatment Outpatient [address] [phone] Pablo Kat, PT Chronic migraine with aura, not intractable, with status migrainosus (Primary Dx) 12/05/2024 11:30 AM EDT Treatment Outpatient [address] [phone] Christiano Holder, PT Chronic migraine with aura, not intractable, with status migrainosus (Primary Dx) 12/02/2024 11:30 AM EDT Treatment Outpatient [address] [phone] Christiano Holder, PT Chronic migraine with aura, not intractable, with status migrainosus (Primary Dx) 11/28/2024 11:30 AM EDT Treatment Outpatient [address] [phone] Christiano Holder, PT Chronic migraine with aura, not intractable, with status migrainosus (Primary Dx) 11/25/2024 11:30 AM EDT Treatment Outpatient [address] [phone] Christiano Holder, PT Chronic migraine with aura, not intractable, with status migrainosus (Primary Dx) 11/21/2024 11:30 AM EDT Treatment Outpatient [address] [phone] Christiano Holder, PT Chronic migraine with aura, not intractable, with status migrainosus (Primary Dx) 11/19/2024 11:30 AM EDT Treatment Outpatient [address] [phone] Christiano Holder, PT Chronic migraine with aura, not intractable, with status migrainosus (Primary Dx) 11/14/2024 11:30 AM EDT Treatment Outpatient [address] [phone] Christiano Holder, PT Chronic migraine with aura, [...] 2024 09/03/2020, 08/13/2020 Influenza Vaccine (#1) 2024 2, 01/08/2021, 12/27/2019, [...] complete this topic Insurance [place] - [place] [facility] Care Teams Teachers' Aide Relationship Specialty Start Date End Date Romy Brown MD [address] [place] [address] PCP - General Pediatrics 04/28/24
== END 2025-02-13 15:48 | disposition home or self-care (01) ==
LOC: HO.HPS 13:51
PROVIDERS: PCP Health Educator; Visit Provider Hospitalist
DX: J45.40 Moderate persistent asthma, uncomplicated (principal)

== ENCOUNTER 2025-02-13 14:03 | Outpatient (REF) | payer OTHER, MEDICAID, SELFPAY ==
--- NOTE | 2025-02-13 14:41 | PFT_ITS ---
Indication: Asthma Spirometry FEV1 to FVC 85%; FEV1 5.8 L; FVC 6.82 L. No significant response to bronchodilators noted. Lung Volumes Total lung capacity 115% predicted; residual volume 153% predicted Diffusion Capacity DLCO 105% predicted Comparisons None Interpretation No obstructive nor restrictive ventilatory defects identified. No significant response to bronchodilators noted. The patient does have evidence of a trend of hyperinflation and also significant air trapping likely secondary to small airways disease. Diffusing capacity is within normal limits. Clinical correlation warranted. MTDD
[2025-02-13 14:43] VITALS: PULSE 80
== END 2025-02-13 14:04 | disposition home or self-care (01) ==
LOC: HO.RESP 14:03
PROVIDERS: PCP Health Educator; Visit Provider Hospitalist
DX: J45.40 Moderate persistent asthma, uncomplicated (principal); Z23 Encounter for immunization
CPT/HCPCS: 90471; 90656; 94060; 94640; 94727; 94729

== ENCOUNTER → 2025-03-19 08:59 | Outpatient (REF) | payer OTHER, MEDICAID, SELFPAY ==
--- OUTSIDE RECORDS SUMMARY | 2025-03-16 14:00 | XMS_ITS | Encounter Summary ---
Author Organization [facility] Address [address] [place] [address] Care Team Providers Care Awake Overnight Monitor Name Role Phone Romy Brown MD Primary Care Provider [phone] Reason for Visit * Consultation (Routine) - Authorized Specialty Diagnoses / Procedures Referred By Medhat conway Referred To Contact Physical Therapy Diagnoses Chronic migraine with aura and with status migrainosus, not intractable Cami Wilkerson NP [address] [place] [address] Phone: tel: fax: [address] [address] Phone: tel: fax: Referral ID Status Reason Start Date Expiration Date Visits Requested Visits Authorized [id number] Authorized Consult and Treat 02/19/2025 02/19/2026 12 12 Encounter Details Date Type Department Care Team (Late st Contact Info) Description 03/16/2025 2:00 PM EST Treatment Outpatient Rehabilitation [address] [address] Leslie Morin PTA Chronic migraine with aura, not intractable, with status migrainosus (Primary Dx) Social History Tobacco Use Types Packs/Day Years Used Date Smoking Tobacco: Never Assessed Sex and Gender Information Value Date Recorded Sex Assigned at Not on file Legal Sex Male 8:03 PM EDT Gender Identity Not on file Sexual Orientation Not on file documented as of this encounter Progress Notes * Leslie Morin PTA - 03/16/2025 2:00 PM EST [facility]- Outpatient PHYSICAL THERAPY DAILY TREATMENT NOTE - OP Date: 03/16/2025 Visit Number: 3 Patient Name: Herman Rodney : 2005 Age: 19 y.o. Gender: male Diagnosis: ICD-10-CM ICD-9-CM 1. Chronic migraine with aura, not intractable, with status migrainosus G43.E01 346.02 Date of Onset/Surgery: 01/26/2025 Referring Provider: Cami Wilkerson NP Insurance: Payor: [employer] Specific Media / Plan: [facility] [employer] / Product Type: *No Product type* / Patient Identified by: Leslie Morin PTA Language: Speaks and understands Hungarian as preferred language with no workers compensation claims adjuster required Medications: Medications Ordered Prior to Encounter[1] Allergies: has no allergies on file. Precautions: None Fall risk: No SUBJECTIVE: Subjective Report: I feel it more in my R UT, No BRANNON @ the moment. Chart Reviewed: Yes Pain: R UT, Sub Occipital, Frontal BRANNON. Moderate pain. op OBJECTIVE: Vitals: There were no vitals filed for this visit.; TREATMENT INTERVENTION: Manual Therapy: STM/MFR to Cervical paraspinals, (B) UT, R Lev Scap, R Rhomboid. MFR to jaw to Scalp for ( frontal BRANNON). Trigger pt to (R) Mid Scalenes. Gentle Manual stretching of (B) UT, R Lev Scap, Pec's. Sub Occipital, OA Release in H/L. Cervical Manual Traction. Standing Post Pelvic tilt x 10 reps w/ 10 sec hold. ASSESSMENT/Response to Treatment Good Pt felt decreased BRANNON sx's after MFR from jaw to scalp. Posture continues to be poor. Verbal cueing needed for pelvic position and head position. Patient Education: Education provided: Posture education. Education Provided To: Patient utilizing Explanation, Demonstration, and Printed Material mode(s) of education Response to Education: Applied Knowledge, Verbal Understanding, and Demonstrated Skills PLAN POC Development/Review: No Change in the Plan of Care; Participants: Patient Interventions Time Entry: Modalities: Therapeutic procedures: Manual Therapy: 25 Total Treatment Time: 25 Documentation completed by Leslie Morin PTA [1] No current outpatient medications on file prior to visit. No current facility-administered medications on file prior to visit. documented in this encounter Plan of Treatment Upcoming Encounters Date Type Department Care Team (Late st Contact Info) Description 03/20/2025 1:30 PM EST Treatment Outpatient [facility] - [address] [phone] Mary Escobar, PASTRY COOK 03/24/2025 11:00 AM EST Treatment Outpatient Rehabilitation - [address] [phone] Leslie Morin, HAYLEY 03/30/2025 12:00 PM EST Treatment Outpatient [address] [phone] Christiano Holder, PT 04/03/2025 11:30 AM EST Treatment Outpatient [facility] - [address] [phone] Mary Escobar, PASTRY COOK 04/07/2025 11:00 AM EST Treatment Outpatient [facility] - [address] [phone] Christiano Holder, PT 04/10/2025 11:00 AM EST Treatment Outpatient [address] [phone] Christiano Holder, PT documented as of this encounter Visit Diagnoses Diagnosis Chronic migraine with aura, not intractable, with status migrainosus- Primary documented in this encounter Care Teams Awake Overnight Monitor Relationship Specialty Start Date End Date Romy Brown MD [address] [facility] [place] [address] PCP - General Pediatrics 04/28/24 documented as of this encounter
--- OUTSIDE RECORDS SUMMARY | 2025-03-17 12:20 | XMS_ITS | Encounter Summary ---
Author Organization [facility] Address [address] [place] [address] Care Team Providers Care Counseling Director Name Role Phone Romy Brown MD Primary Care Provider [phone] Roe Mercado MD Unavailable [phone] Kathy Ruelas MD Unavailable [phone] Anoop Mackay MD PhD Unavailable [phone] Lata Santamaria MD Unavailable [phone] Reason for Visit * Therapy Plan (Routine) - Authorized Specialty Diagnoses / Procedures Referred By Medhat t Referred To Contact Infusion Therapy Diagnoses CHARLY (juvenile idiopathic arthritis), enthesitis related arthritis Procedures Stephanie Rendon MD [address] [place] [address] Phone: tel: fax: Referral ID Status Reason Start Date Expiration Date V isits Requested Visits Authorized [id number] Authorized 09/05/2019 1 999 Encounter Details Date Type Department Care Team (Latest Contact Info) Description 03/17/2025 12:[address] [facility] Hospital Encounter Infusion Center [address] [place] [address] CHARLY (juvenile idiopathic arthritis) (Primary Dx); CHARLY (juvenile idiopathic arthritis), enthesitis related arthritis Social History Tobacco Use Types Packs/Day Years [...] Sign Reading Time Taken Comments Blood Pressure 125/75 03/17/2025 1:03 PM EST Pulse 77 03/17/2025 1:03 PM EST Temperature 36.5 C (97.7 F) 03/17/2025 1:03 PM EST Respiratory Rate 16 03/17/2025 1:03 PM EST Oxygen Saturation - - Inhaled Oxygen Concentration - - Weight 80.5 kg (177 lb 7.5 oz) 03/17/2025 12:28 PM EST Height 192.5 cm (6' 3.79 ) 03/17/2025 12:[address] Body Mass Index 21.72 03/17/2025 12:28 PM EST documented in this encounter Discharge Instructions * Patient Instructions* Naty Lyons RN - 03/17/2025 12:30 PM EST Immunosuppressive medications are very well tolerated. Patients can return to school and normal activities after their infusion. Because immunosuppressive medications can lower a person's immunity, it is important to: Wash your hands Keep your hands away from your face Stay away from people who are ill, just as everyone should do Receive your flu shot every year It is possible to have a delayed reaction to immunosuppressive medications, but it is very rare. If you develop the following symptoms, it is important to call the doctor right away: Fever Rash Muscle or joint pain Swelling of the face and hands Telephone numbers to call: Infusion Center (to make or change appointments): Rheumatology Main number to report worsening symptoms: After hours for legal contracts specialist Rheumatology: documented in this encounter Progress Notes * Naty Lyons RN - 03/17/2025 12:30 PM EST Images from the original note were not included. 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 male here for an infusion. Akira did tolerate the infusion. There were not adverse reactions. Discharged in stable condition. Next Appointment(s): Future Appointments Date Time Provider Department Center 03/19/2025 1:30 PM Lorenza Young OTR/L [address] [place] [address] 03/30/2025 3:00 PM Cami Wilkerson APRN PAIN [facility] 100 04/14/2025 12:30 PM SEMI-PRIVATE 8 IFC [facility] 1 04/22/2025 2:45 PM SEDATION ROOM 1 SED SERVICES [facility] 282 05/04/2025 12:00 PM SEDATION ROOM 2 SED SERVICES [facility] 282 05/06/2025 3:30 PM SEDATION ROOM 1 SED SERVICES [facility] 282 05/12/2025 12:30 PM SEMI-PRIVATE 5 IFC [facility] 1 05/21/2025 2:00 PM MD TARA Odonnell [facility] 06/02/2025 12:00 PM MD ARISTEO Mullins [facility] 06/03/2025 1:15 PM SEDATION ROOM 1 SED SERVICES [facility] 282 06/09/2025 12:30 PM SEMI-PRIVATE 4 [facility]FC [facility] [place] 1 07/07/2025 12:30 PM SEMI-PRIVATE 4 [facility] [place] 1 08/04/2025 12:30 PM SEMI-PRIVATE 4 IFC [facility] 1 Signed: Naty Lyons RN documented in this encounter Plan of Treatment Upcoming Encounters Date Type Department Care Team (Late st Contact Info) Description 03/19/2025 1:30 PM EST Therapy Department of Occupational Therapy [address] [place] [phone] Lorenza Young, OTR/L [address] [place] [address] 03/30/2025 3:00 PM EST Telemedicine [facility], Department of Pain Medicine, [place] [address] [place] [phone] Cami Wilkerson APRN [address] [place] [address] 04/14/2025 12:30 PM EST Appointment Infusion Center [address] [place] [address] 04/22/2025 2:45 PM EST Hospital Encounter [facility] [address] [place] [phone] Anselmo De Santiago MD [address] [place] [address] 05/04/2025 12:00 PM EST Appointment [facility] [address] [place] [phone] 05/06/2025 3:30 PM EST Appointment [facility] [address] [place] [phone] Anselmo De Santiago MD [address] [place] [address] 05/12/2025 12:30 PM EST Appointment Infusion Center [address] [place] [address] 05/21/2025 2:00 PM EST Office Visit [facility], Department of Rheumatology, [facility] [address] [place] [address] Stephanie Diaz MD [address] [place] [address] 06/02/2025 12:00 PM EST Office Visit [facility] Gastroenterology, [address] [address] Lata Santamaria MD [address] [place] [address] 06/03/2025 1:15 PM EST Appointment [facility] [address] [place] [phone] Anselmo De Santiago MD [address] [place] [address] 06/09/2025 12:30 PM EDT Appointment Infusion Center [address] [place] [address] 07/07/2025 12:30 PM EDT Appointment Infusion Center [address] [place] [address] 08/04/2025 12:30 PM EDT Appointment Infusion Center [address] [place] [address] Scheduled Orders Name Type Priority Associated Diagnoses Orde r Schedule Insert Peripheral IV Procedures Routine CHARLY (juvenile idiopathic arthritis), enthesitis related arthritis Once for 1 Occurrences starting 03/17/2025 until 03/17/2025 documented as of this encounter Procedures Procedure Name Priority Date/Time Associated Diagnosis Comments BUN CREAT W/ RATIO Routine 03/17/2025 12 :37 PM EST CHARLY (juvenile idiopathic arthritis), enthesitis related arthritis ERYTHROCYTE SEDIMENT RATE (ESR) Routine 03/17/2025 12:37 PM EST CHARLY (juvenile idiopathic arthritis), enthesitis related arthritis CBC WITH AUTO DIFFERENTIAL Routine 03/17/2025 12:37 PM EST CHARLY (juvenile idiopathic arthritis), enthesitis related arthritis ALT Routine 03/17/2025 12:37 PM EST CHARLY (juvenile idiopathic arthritis), enthesitis related arthritis AST Routine 03/17/2025 12:37 PM EST CHARLY (juvenile idiopathic arthritis), enthesitis related arthritis GAMMA GLUTAMYL TRANS (GGT) Routine 03/17/2025 12:37 PM EST CHARLY (juvenile idiopathic arthritis), enthesitis related arthritis documented in this encounter Results * BUN Creat w/ Ratio (03/17/2025 12:37 PM EST) BUN 21 7 - 25 mg/dL [facility] Creatinine 0.72 0.60 - 1.24 mg/dL [facility] EGFR 134 > OR = 60 mL/min/1. 73m2 [facility] BUN/Creatinine Ratio SEE NOTE: (calc) [facility] Comment: Not Reported: BUN and Creatinine are within reference range. Blood BLOOD SPECIMEN / Unknown 03/17/2025 12:37 PM EST 03/18/2025 2:06 AM EST Narrative Resulting Agency Comment Performing Organization Information: Site ID: [id number] Name: [facility] Address: [address] [place] [phone] Director: Alfredo Alaniz M.D. Stephanie Diaz MD LAB BLOOD ORDERABLES [facility] [address] [place] [phone] [facility] [address] [place] [phone] * ALT (03/17/2025 12:37 PM EST) ALT 32 9 - 46 U/L [facility] Blood BLOOD SPECIMEN / Unknown 03/17/2025 12:37 PM EST 03/18/2025 2:06 AM EST Narrative Resulting Agency Comment Performing Organization Information: Site ID: [id number] Name: [facility] Address: [address] [place] [phone] Director: Alfredo Alaniz M.D. Stephanie Diaz MD LAB BLOOD ORDERABLES [facility] [address] [place] [phone] [facility] [address] [place] [phone] * AST (03/17/2025 12:37 PM EST) AST 27 10 - 40 U/L [facility] Blood BLOOD SPECIMEN / Unknown 03/17/2025 12:37 PM EST 03/18/2025 2:06 AM EST Narrative Resulting Agency Comment Performing Organization Information: Site ID: [id number] Name: [facility] Address: [address] [place] [phone] Director: Alfredo Alaniz M.D. Stephanie Diaz MD LAB BLOOD ORDERABLES [facility] Result Performing Organization Address [facility]/ZIP Co de Phone Number [facility] [address] [place] [phone] [facility] [address] [place] [phone] * Gamma GT (03/17/2025 12:37 PM EST) GGT 48 3 - 70 U/L [facility] Blood BLOOD SPECIMEN / Unknown 03/17/2025 12:37 PM EST 03/18/2025 2:06 AM EST Narrative Resulting Agency Comment Performing Organization Information: Site ID: [id number] Name: [facility] Address: [address] [place] [phone] Director: Alfredo Alaniz M.D. Stephanie Diaz MD LAB BLOOD ORDERABLES [facility] Result Performing Organization Address City/[facility]/ZIP Co de Phone Number [facility] [address] [place] [phone] [facility] [address] [place] [phone] * Erythrocyte Sediment Rate (ESR) (03/17/2025 12:37 PM EST) Sed Rate by Modified Westergren 9 < OR = 15 mm/h [facility] Blood BLOOD SPECIMEN / Unknown 03/17/2025 12:37 PM EST 03/18/2025 2:06 AM EST Narrative Resulting Agency Comment Performing Organization Information: Site ID: [id number] Name: [facility] Address: [address] [place] [phone] Director: Alfredo Alaniz M.D. Stephanie Diaz MD LAB BLOOD ORDERABLES [facility] [address] [place] [phone] [facility] [address] [place] [phone] * (ABNORMAL) CBC auto differential (03/17/2025 12:37 PM EST) Pathologist [facility] WBC 5.5 3.8 - 10.8 Thousand/u L [facility] RBC 4.87 4.20 - 5.80 Million/uL [facility] Hemoglobin 14.5 13.2 - 17.1 g/dL [facility] Hematocrit 43.7 39.4 - 51.1 % [facility] MCV 89.7 81.4 - 101.7 fL [facility] MCH 29.8 27.0 - 33.0 pg [facility] MCHC 33.2 31.6 - 35.4 g/dL [facility] RDW 12.2 11.0 - 15.0 % [facility] Platelets 204 140 - 400 Thousand/u L [facility] MPV 12.0 7.5 - 12.5 fL [facility] Neutrophils Absolute 2,459 1,500 - 7,800 cells/uL [facility] Lymphocytes Absolute 1,573 850 - 3,900 cells/uL [facility] Monocytes Absolute 473 200 - 950 cells/uL [facility] Eosinophils Absolute 935(H) 15 - 500 cells/uL [facility] Basophils Absolute 61 0 - 200 cells/uL [facility] Neutrophils 44.7 % [facility] Lymphs 28.6 % [facility] Monocytes 8.6 % [facility] Eos 17.0 % [facility] Basos 1.1 % [facility] Blood BLOOD SPECIMEN / Unknown 03/17/2025 12:37 PM EST 03/18/2025 2:06 AM EST Narrative Resulting Agency Comment Performing Organization Information: Site ID: [id number] Name: [facility] Address: [address] [place] [phone] Director: Alfredo Alaniz M.D. Stephanie Diaz MD LAB BLOOD ORDERABLES [facility] Result Performing Organization Address City/State/[facility] Co de Phone Number [facility] [address] [phone] [facility] [address] [place] [phone] documented in this encounter Visit Diagnoses Diagnosis CHARLY (juvenile idiopathic arthritis)- Primary Other specified [...] MAR Action Action Date Dose Rate Site abatacept (ORENCIA) 750 mg in 0.9% sodium chloride 100 mL IV 750 mg (9.08 mg/kg), Intravenous, Administer over 30 Minutes, Once, On Sun03/17/25 at 1245, For 1 dose, Administer through low protein binding filter (0.2-1.2 micron)Indications:CHARLY (juvenile idiopathic arthritis), enthesitis related arthritis New Bag/Syringe 03/17/2025 12:42 PM EST 750 mg 200 mL/hr acetaminophen (TYLENOL) tablet 650 mg 650 mg (7.87 mg/kg), Oral, Once, On Sun03/17/25 at 1245, For 1 dose, Pre-infusion Not to exceed 75mg/kg/day or 4000mg/day of acetaminophen, whichever is lessIndications:CHARLY (juvenile idiopathic arthritis), enthesitis related arthritis Given 03/17/2025 12:40 PM EST 650 mg cetirizine (zyrTEC) tablet 5 mg 5 mg (0.0605 mg/kg), Oral, Once, On Sun03/17/25 at 1245, For 1 dose, Pre-InfusionIndications:JI A (juvenile idiopathic arthritis), enthesitis related arthritis Given 03/17/2025 12:40 PM EST 5 mg documented in this encounter Care Teams Counseling Director Relationship Specialty Start Date End Date Romy Brown MD [address] [phone] PCP - General 11/12/15 Roe Mercado MD [address] [place] [address] Consulting Physician Neurology 10/31/18 Kathy Ruelas MD [address] [place] [address] Consulting Physician Pain Medicine 10/31/18 Anoop Mackay MD PhD [address] [place] [address] 11 [place] [address] Consulting Physician Pediatric Pulmonology 01/08/22 Lata Santamaria MD [address] [place] [address] Consulting Physician Gastroenterology 11/15/23 Marni [facility] [facility] [address] [facility] 4[address] [facility] [address] Behavioral Health Clinician Behavioral Health 03/14/22 documented as of this encounter
--- OUTSIDE RECORDS SUMMARY | 2025-03-19 09:57 | XMS_ITS | Encounter Summary ---
Author Organization [facility] Address [address] [place] [address] Care Team Providers Care Sport Intern Name Role Phone Romy Brown MD Primary Care Provider [phone] [place] Bazzi MD Unavailable Roe Mercado MD Unavailable [phone] Kathy Ruelas MD Unavailable Anoop Mackay MD PhD Unavailable [phone] Lata Santamaria MD Unavailable [phone] Reason for Visit * Reason Comments Medication Refill Encounter Details Date Type Department Care Team (Late st Contact Info) Description 04/08/2020 Refill [facility], Department of Pain Medicine, [address] [place] [address] Anselmo De Santiago MD [address] [place], [place] [phone] Chronic migraine (Primary Dx) Social History Tobacco [...] EST Therapy Department of Occupational Therapy [address] [place] [phone] Lorenza Young, OTR/L [address] [place] [address] 03/30/2025 3:00 PM EST Telemedicine [facility], Department of Pain Medicine, [place] [address] [place] [phone] Cami Wilkerson APRN [address] [place] [address] 04/14/2025 12:30 PM EST Appointment Infusion Center 10 [facility] [address] [place] [address] 04/22/2025 2:45 PM EST Hospital Encounter [facility] [address] [place] [phone] Anselmo De Santiago MD [address] [place] [address] 05/04/2025 12:00 PM EST Appointment [facility] [address] [place] [place] [phone] 05/06/2025 3:30 PM EST Appointment [facility] [address] [place] [phone] Anselmo De Santiago MD [address] [place] [place] [address] 05/12/2025 12:30 PM EST Appointment Infusion Center [address] [place] [address] 05/21/2025 2:00 PM EST Office Visit [facility], Department of Rheumatology, [address] [address] Stephanie Diaz MD [address] [place] [address] 06/02/2025 12:00 PM EST Office Visit [facility] Specialty [facility] Gastroenterology, [address] [address] Lata Santamaria MD [address] [place] [address] 06/03/2025 1:15 PM EST Appointment [facility] [address] [place] [phone] Anselmo De Santiago MD [address] [place] [place] [address] 06/09/2025 12:30 PM EDT Appointment Infusion Center [address] [place] [address] 07/07/2025 12:30 PM EDT Appointment Infusion Center [address] [place] [phone] 08/04/2025 12:30 PM EDT Appointment Infusion Center [address] [place] [address] documented as of this encounter Visit Diagnoses [...] polyarthropathies documented in this encounter Care Teams Sport Intern Relationship Specialty Start Date End Date Romy Brown MD [address] [place] [phone] PCP - General 11/12/15 [place] Bazzi MD [address] [place] [address] Consulting Physician Pediatric Rheumatology 10/31/18 Roe Mercado MD [address] [place] [address] Consulting Physician Neurology 10/31/18 Kathy Ruelas MD [address] [place] [place] [address] Consulting Physician Pain Medicine 10/31/18 Anoop Mackay MD PhD [address] [place] [phone] Consulting Physician Pediatric Pulmonology 01/08/22 Lata Santamaria MD [address] [place] [address] Consulting Physician Gastroenterology 11/15/23 Nery Alvarado, PhD [address] [facility] [address] [place] [address] Psychologist Psychology 10/31/18 11/02/21 Marni [place] [phone] [facility], [address] [address] Behavioral Health Clinician Behavioral Health 03/14/22 documented as of this encounter
--- OUTSIDE RECORDS SUMMARY | 2025-03-19 09:57 | XMS_ITS | Clinical Summary ---
Author Organization [facility] Address [address] [place] [address] Phone Care Team Providers Care Dry Cleaning Attendant Name Role Phone Romy Brown MD Primary Care Provider [phone] Active Problems No known active problems Encounters Date Type Department Care Team Description 03/16/2025 2:00 PM EST Treatment Outpatient [address] [phone] [place] Morin, MANAGER MERCHANDISE Chronic migraine with aura, not intractable, with status migrainosus (Primary Dx) 03/13/2025 1:00 PM EST Treatment Outpatient [address] [phone] [place] Morin, MANAGER MERCHANDISE Chronic migraine with aura, not intractable, with status migrainosus (Primary Dx) 03/10/2025 12:00 PM EST Evaluation Outpatient [facility] - [address] [phone] Christiano Holder, PT Chronic migraine with aura, not intractable, with status migrainosus (Primary Dx) 12/23/2024 1:30 PM EDT Treatment Outpatient [address] [phone] Pablo Kat, PT Chronic migraine with aura, [...] Description 03/20/2025 1:30 PM EST Treatment Outpatient Rehabilitation - [address] [phone] Mary Escobar, MANAGER MERCHANDISE 03/24/2025 11:00 AM EST Treatment Outpatient Rehabilitation - [address] [phone] [place] Morin, MANAGER MERCHANDISE 03/30/2025 12:00 PM EST Treatment Outpatient Rehabilitation [address] [phone] Christiano Holder, PT 04/03/2025 11:30 AM EST Treatment Outpatient [facility] - [address] [phone] Mary Escobar, MANAGER MERCHANDISE 04/07/2025 11:00 AM EST Treatment Outpatient Rehabilitation - [address] [phone] Christiano Holder, PT 04/10/2025 11:00 AM EST Treatment Outpatient [facility] - [address] [phone] Christiano Holder, PT Health Maintenance Due Date Last Done Comments Annual Well Child Visit (3-21 years old) 01/29/2023 HIV Screening 01/29/2023 Hepatitis C Screening 01/29/2023 Social Influencers of Health Screening 01/29/2023 Depression Screening 04/02/2024 COVID-19 Vaccine ( season) 2024 09/03/2020, 08/13/2020 DTaP,Tdap,and Td Vaccines (7 - Td or [...] 01/28/2021, Hepatitis A Vaccines Completed 04/19/2021, 04/13/19 Meningococcal B Vaccine Completed 08/06/2024, 07/29 Influenza Vaccine Completed 02/13/2025, , 01/08/2021, Additional history exists RSV Immunization Patients Under 20 months Aged Out No longer eligible based on patient's age to complete this topic Insurance MEDICAID - [place] [facility] Care Teams Dry Cleaning Attendant Relationship Specialty Start Date End Date Romy Brown MD [address] [place] [address] [place] [address] PCP - General Pediatrics 04/28/24
--- OUTSIDE RECORDS SUMMARY | 2025-03-19 09:57 | XMS_ITS | Encounter Summary ---
Author Organization [facility] Address [address] [place] [address] Care Team Providers Care Executive Account Manager Name Role Phone Romy Brown MD Primary Care Provider Roe Mercado MD Unavailable [phone] Kathy Ruelas MD Unavailable [phone] Anoop Mackay MD PhD Unavailable [phone] Lata Santamaria MD Unavailable [phone] Encounter Details Date Type Department Care Team (Late st Contact Info) Description 03/04/2025 Telephone [facility] Gastroenterology[address] [address] Lata Santamaria MD [address] [place] [address] Social History Tobacco Use Types Packs/Day Years [...] encounter Miscellaneous Notes * Telephone Encounter - Lata Santamaria MD - 03/05/2025 12:02 PM EST Called Akirax2 : Phone going to voicemail AST, ALT and GGT noted to be elevated.on recent blood work AST-49, ALT-104 and GGT-87. Infectious workup is unremarkable. Synthetic functions of the liver are normal. I would recommend further blood work to screen for other conditions such as autoimmune hepatitis. Will also follow-up on the liver enzymes when he goes for the blood work. * Telephone Encounter - Cristine Galdamez - 03/04/2025 3:45 PM EST Provider: Hina Name of Caller: Akira Best call back number: [phone] Reason for call: Akira calling in wanting a call back to go over results Next Appt: 06/02 documented in this encounter Plan of Treatment Upcoming Encounters Date Type Department Care Team (Late st Contact Info) Description 03/19/2025 1:30 PM EST Therapy Department of Occupational Therapy [address] [place] [phone] Lorenza Young OTR/Asher [address] [place] [address] 03/30/2025 3:00 PM EST Telemedicine [facility], Department of Pain Medicine, [place] [address] [place] [address] Cami Wilkerson APRN [address] [place] [address] 04/14/2025 12:30 PM EST Appointment Infusion Center [facility] [address]nd [place] [address] 04/22/2025 2:45 PM EST Hospital Encounter [facility] [address] [place] [phone] Anselmo De Santiago MD [address] [place] [address] 05/04/2025 12:00 PM EST Appointment [facility] [address] [place] [phone] 05/06/2025 3:30 PM EST Appointment [facility] [address] [place] [phone] Anselmo De Santiago MD [address] [place] [address] 05/12/2025 12:30 PM EST Appointment Infusion Center [address] [place] [address] 05/21/2025 2:00 PM EST Office Visit [facility], Department of Rheumatology, [address] [address] Stephanie Diaz MD [address] [place] [address] 06/02/2025 12:00 PM EST Office Visit [facility] Gastroenterology, [address] [address] Lata Santamaria MD [address] [place] [address] 06/03/2025 1:15 PM EST Appointment [facility] [address] [place] [phone] Anselmo De Santiago MD [address] [place] [address] 06/09/2025 12:30 PM EDT Appointment Infusion Center [address] [place] [address] 07/07/2025 12:30 PM EDT Appointment Infusion Center [address] [place] [address] 08/04/2025 12:30 PM EDT Appointment Infusion Center [address] [place] [address] Scheduled Orders Name Type Priority Associated Diagnoses Orde r Schedule [id number], serum Lab Routine Elevated liver enzymes Ordered: 03/05/2025 JESSICA Screen Reflex Titer Lab Routine Elevated liver enzymes Ordered: 03/05/2025 Anti-smooth muscle antibody titer Lab Routine Elevated liver enzymes Ordered: 03/05/2025 Liver Kidney Microsomal Ab, IgG Lab Routine Elevated liver enzymes Ordered: 03/05/2025 Ceruloplasmin Lab Routine Elevated liver enzymes Ordered: 03/05/2025 Copper, serum Lab Routine Elevated liver enzymes Ordered: 03/05/2025 Tissue transglutaminase, IgA Lab Routine Elevated liver enzymes Ordered: 03/05/2025 Endomysial antibody, IgA titer Lab Routine Elevated liver enzymes Ordered: 03/05/2025 IgA Lab Routine Elevated liver enzymes Ordered: 03/05/2025 Gamma GT Lab Routine Elevated liver enzymes Ordered: 03/05/2025 Hepatic function panel: Alb, Glb, AST, ALT, ALKP, Bili T & D, T. Prot Lab Routine Elevated liver enzymes Ordered: 03/05/2025 documented as of this encounter Visit Diagnoses Diagnosis Elevated liver enzymes- Primary Other nonspecific abnormal serum enzyme levels CHARLY (juvenile idiopathic arthritis)- Primary Other specified [...] polyarthropathies documented in this encounter Care Teams Executive Account Manager Relationship Specialty Start Date End Date Romy Brown MD 123 [facility] 100 [place] [phone] PCP - General 11/12/15 Roe Mercado MD [address] [place] [address] Consulting Physician Neurology 10/31/18 Kathy Ruelas MD [address] [place] [address] Consulting Physician Pain Medicine 10/31/18 Anoop Mackay MD PhD [address] [place] [phone] Consulting Physician Pediatric Pulmonology 01/08/22 Lata Santamaria MD [address] [place] [address] Consulting Physician Gastroenterology 11/15/23 Marni Smallwood [facility] [address] [address] Behavioral Health Clinician Behavioral Health 03/14/22 documented as of this encounter
--- OUTSIDE RECORDS SUMMARY | 2025-03-19 09:57 | XMS_ITS | Encounter Summary ---
Author Organization [facility] Address [address] [place] [address] Care Team Providers Care Title 1 Tutor Name Role Phone Romy Brown MD Primary Care Provider [phone] Roe Mercado MD Unavailable [phone] Kathy Ruelas MD Unavailable Anoop Mackay MD PhD Unavailable [phone] Lata Santamaria MD Unavailable [phone] Encounter Details Date Type Department Care Team (Late st Contact Info) Description 02/20/2025 Results Follow-Up [facility], Department of Rheumatology, [place] [address] [place] [address] Stephanie Diaz MD [address] [place] [address] CBC auto differential, Erythrocyte Sediment Rate (ESR), [...] EST Therapy Department of Occupational Therapy [address] [place] [phone] Lorenza Young, OTR/L [address] [place] [address] 03/30/2025 3:00 PM EST Telemedicine [facility], Department of Pain Medicine, [place] [address] [place] [phone] Cami Wilkerson APRN [address] [place] [address] 04/14/2025 12:30 PM EST Appointment Infusion Center [address] [place] [address] 04/22/2025 2:45 PM EST Hospital Encounter [facility] [address] [place] [phone] Anselmo De Santiago MD [address] [place] [address] 05/04/2025 12:00 PM EST Appointment [facility] [address] [place] [phone] 05/06/2025 3:30 PM EST Appointment [facility] [address] [place] [phone] Anselmo De Santiago MD [address] [place] [address] 05/12/2025 12:30 PM EST Appointment Infusion Center [address] [place] [address] 05/21/2025 2:00 PM EST Office Visit [facility], Department of Rheumatology, [address] [address] Stephanie Diaz MD [address] [place] [address] 06/02/2025 12:00 PM EST Office Visit [facility] Gastroenterology, [address] [address] Lata Santamaria MD [address] [place] [phone] 06/03/2025 1:15 PM EST Appointment [facility] [address] [place] [phone] Anselmo De Santiago MD [address] [place] [phone] 06/09/2025 12:30 PM EDT Appointment Infusion Center [address] [place] [address] 07/07/2025 12:30 PM EDT Appointment Infusion Center [address] [place] [address] 08/04/2025 12:30 PM EDT Appointment Infusion Center [address] [place] [address] documented as of this encounter Visit Diagnoses Not on filedocumented in this encounter Care Teams Title 1 Tutor Relationship Specialty Start Date End Date Romy Brown MD [address] [place] [address] [place] [address] PCP - General 11/12/15 Roe Mercado MD [address] [place] [address] Consulting Physician Neurology 10/31/18 Kathy Ruelas MD [address] [place] [address] Consulting Physician Pain Medicine 10/31/18 Anoop Mackay MD PhD [address] [place] [phone] Consulting Physician Pediatric Pulmonology 01/08/22 Lata Santamaria MD [address] [place] [address] Consulting Physician Gastroenterology 11/15/23 [facility] [address] [address] Behavioral Health Clinician Behavioral Health 03/14/22 documented as of this encounter
--- OUTSIDE RECORDS SUMMARY | 2025-03-19 09:57 | XMS_ITS | Encounter Summary ---
Author Organization [facility] Address [address] [place] [address] Care Team Providers Care Railroad Conductor Name Role Phone Romy Brown MD Primary Care Provider Roe Mercado MD Unavailable [phone] Kathy Ruelas MD Unavailable Anoop Mackay MD PhD Unavailable [phone] Lata Santamaria MD Unavailable [phone] Encounter Details Date Type Department Care Team ([facility] st Contact Info) Description 01/26/2022 Telephone [facility], [place] [address] [address] Social History Tobacco Use Types Packs/Day Years [...] EST Therapy Department of Occupational Therapy [address] [place] [phone] Lorenza Young, OTR/L [address] [place] [address] 03/30/2025 3:00 PM EST Telemedicine [facility], Department of Pain Medicine, [place] [address] [place] [phone] Cami Wilkerson APRN [address] [place] [address] 04/14/2025 12:30 PM EST Appointment Infusion Center [address] [place] [address] 04/22/2025 2:45 PM EST Hospital Encounter [facility] [address] [place] [phone] Anselmo De Santiago MD [address] [place] [address] 05/04/2025 12:00 PM EST Appointment [facility] [address] [place] [phone] 05/06/2025 3:30 PM EST Appointment [facility] [address] [place] [phone] Anselmo De Santiago MD [address] [place] [address] 05/12/2025 12:30 PM EST Appointment Infusion Center [address] [place] [address] 05/21/2025 2:00 PM EST Office Visit [facility], Department of Rheumatology, [place] [address] [place] [address] Stephanie Diaz MD [address] [place], [place] [phone] 06/02/2025 12:00 PM EST Office Visit [facility] Gastroenterology, [place] [address] [place] [address] Lata Santamaria MD 282 [place], [place] [phone] 06/03/2025 1:15 PM EST Appointment [facility] [address] [place] [phone] Anselmo De Santiago MD [address] [place] [phone] 06/09/2025 12:30 PM EDT Appointment Infusion Center [address] [place] [address] 07/07/2025 12:30 PM EDT Appointment Infusion Center [address] [place] [address] 08/04/2025 12:30 PM EDT Appointment Infusion Center [address] [place] [address] documented as of this encounter Visit Diagnoses Not on filedocumented in this encounter Care Teams Railroad Conductor Relationship Specialty Start Date End Date Romy Brown MD [address] [place] [address] 100 [place] [address] PCP - General 11/12/15 Roe Mercado MD [address] [place] [address] Consulting Physician Neurology 10/31/18 Kathy Ruelas MD [address] [place] [address] Consulting Physician Pain Medicine 10/31/18 Anoop Mackay MD PhD [address] [place] [phone] Consulting Physician Pediatric Pulmonology 01/08/22 Lata Santamaria MD [address] [place] [address] Consulting Physician Gastroenterology 11/15/23 Marni Smallwood LCSW [facility] [address] [address] Behavioral Health Clinician Behavioral Health 03/14/22 documented as of this encounter
--- OUTSIDE RECORDS SUMMARY | 2025-03-19 09:57 | XMS_ITS | Encounter Summary ---
Author Organization [facility] Address [address] [place] [address] Care Team Providers Care Assembler Seat Name Role Phone Romy Brown MD Primary Care Provider Roe Mercado MD Unavailable [phone] Kathy Ruelas MD Unavailable Anoop Mackay MD PhD Unavailable [phone] Lata Santamaria MD Unavailable [phone] Reason for Visit * Reason Onset Date Comments Medication Refill 03/18/2025 Encounter Details Date Type Department Care Team (Late st Contact Info) Description 03/18/2025 Refill [facility], Department of Pain Medicine, [address] [place] [address] Kathy Ruelas MD [address] [place], [place] [phone] Chronic migraine with aura Social History Tobacco [...] EST Therapy Department of Occupational Therapy [address] [place] [phone] Lorenza Young, OTR/L [address] [place] [address] 03/30/2025 3:00 PM EST Telemedicine [facility], Department of Pain Medicine, [place] [address] [place] [phone] Cami Wilkerson APRN [address] [place] [address] 04/14/2025 12:30 PM EST Appointment Infusion Center [address] [place] [address] 04/22/2025 2:45 PM EST Hospital Encounter [facility] [address] [place] [phone] Anselmo De Santiago MD [address] [place] [address] 05/04/2025 12:00 PM EST Appointment [facility] [address] [place] [phone] 05/06/2025 3:30 PM EST Appointment [facility] [address] [place] [phone] Anselmo De Santiago MD [address] [place] [address] 05/12/2025 12:30 PM EST Appointment Infusion Center [address] [place] [address] 05/21/2025 2:00 PM EST Office Visit [facility], Department of Rheumatology, [address] [address] Stephanie Diaz MD [address] [place] [address] 06/02/2025 12:00 PM EST Office Visit [facility] Gastroenterology, [address] [address] Lata Santamaria MD [address] [place] [phone] 06/03/2025 1:15 PM EST Appointment [facility] [address] [place] [phone] Anselmo De Santiago MD [address] [place] [address] 06/09/2025 12:30 PM EDT Appointment Infusion Center [address] [place] [address] 07/07/2025 12:30 PM EDT Appointment Infusion Center [address] [place] [address] 08/04/2025 12:30 PM EDT Appointment Infusion Center [address] [place] [address] documented as of this encounter Visit Diagnoses [...] polyarthropathies documented in this encounter Care Teams Assembler Seat Relationship Specialty Start Date End Date Romy Brown MD [address] [facility] 100 [place] [phone] PCP - General 11/12/15 Roe Mercado MD [address] [place] [address] Consulting Physician Neurology 10/31/18 Kathy Ruelas MD [address] [place] [address] Consulting Physician Pain Medicine 10/31/18 Anoop Mackay MD PhD [address] [place] [phone] Consulting Physician Pediatric Pulmonology 01/08/22 Lata Santamaria MD [address] [place] [address] Consulting Physician Gastroenterology 11/15/23 Marni Smallwood LCSW [facility] [address] [address] Behavioral Health Clinician Behavioral Health 03/14/22 documented as of this encounter
--- OUTSIDE RECORDS SUMMARY | 2025-03-19 09:57 | XMS_ITS | Encounter Summary ---
Author Organization [facility] Address [address] [place] [address] Care Team Providers Care Tarring Machine Operator Name Role Phone Romy Brown MD Primary Care Provider Roe Mercado MD Unavailable [phone] Kathy Ruelas MD Unavailable Anoop Mackay MD PhD Unavailable [phone] Lata Santamaria MD Unavailable [phone] Reason for Visit * Reason Onset Date Comments Medication Refill 12/22/2024 Encounter Details Date Type Department Care Team (Late st Contact Info) Description 12/22/2024 Refill [facility], Department of Pain Medicine, [address] [place] [address] Kathy Ruelas MD [address] [place], [place] [phone] Chronic migraine with aura Social History Tobacco [...] PM EST Therapy Department of Occupational Therapy [address] [place] [address] Lorenza Young, OTR/L [address] [place] [address] 03/30/2025 3:00 PM EST Telemedicine [facility], Department of Pain Medicine, [address] [place] [phone] Cami Wilkerson APRN [address] [place] [address] 04/14/2025 12:30 PM EST Appointment Infusion Center 10 [facility] 2nd [place] [address] 04/22/2025 2:45 PM EST Hospital Encounter [facility] [address] [place] [phone] Anselmo De Santiago MD [address] [place] [address] 05/04/2025 12:00 PM EST Appointment [facility] [address] [place] [phone] 05/06/2025 3:30 PM EST Appointment [facility] [address] [place] [phone] Anselmo De Santiago MD [address] [place] [address] 05/12/2025 12:30 PM EST Appointment Infusion Center [address] [place], [place] [phone] 05/21/2025 2:00 PM EST Office Visit [facility], Department of Rheumatology, [address] [address] Stephanie Diaz MD [address] [place] [address] 06/02/2025 12:00 PM EST Office Visit [facility] Gastroenterology, [address] [address] Lata Santamaria MD [address] [place] [address] 06/03/2025 1:15 PM EST Appointment [facility] [address] [place] [phone] Anselmo De Santiago MD [address] [place] [address] 06/09/2025 12:30 PM EDT Appointment Infusion Center [address] [place] [address] 07/07/2025 12:30 PM EDT Appointment Infusion Center [address] [place] [address] 08/04/2025 12:30 PM EDT Appointment Infusion Center [address] [place], [place] [phone] documented as of this encounter Visit Diagnoses [...] polyarthropathies documented in this encounter Care Teams Tarring Machine Operator Relationship Specialty Start Date End Date Romy Brown MD [address] [phone] PCP - General 11/12/15 Roe Mercado MD [address] [place] [address] Consulting Physician Neurology 10/31/18 Kathy Ruelas MD [address] [place] [address] Consulting Physician Pain Medicine 10/31/18 Anoop Mackay MD PhD [address] [place] [phone] Consulting Physician Pediatric Pulmonology 01/08/22 Lata Santamaria MD [address] [place] [address] Consulting Physician Gastroenterology 11/15/23 Marni Smallwood [facility] [address] [place] [address], [address] [facility] [address] Behavioral Health Clinician Behavioral Health 03/14/22 documented as of this encounter
--- OUTSIDE RECORDS SUMMARY | 2025-03-19 09:57 | XMS_ITS | Encounter Summary ---
Author Organization [facility] Address [address] [place] [address] Care Team Providers Care Elementary Education Tutor Name Role Phone Romy Brown MD Primary Care Provider [phone] Roe Mercado MD Unavailable [phone] Kathy Ruelas MD Unavailable [phone] Anoop Mackay MD PhD Unavailable [phone] Lata Santamaria MD Unavailable [phone] Encounter Details Date Type Department Care Team ([facility] st Contact Info) Description 02/01/2025 Results Follow-Up [facility], Department of Rheumatology, [address] [phone] Stephanie Diaz MD [address] [place] [address] CBC auto differential, Erythrocyte Sediment [...] EST Therapy Department of Occupational Therapy [address] [place] [phone] Lorenza Young OTR/Asher [address] [place] [address] 03/30/2025 3:00 PM EST Telemedicine [facility], Department of Pain Medicine, [place] [address] [place] [phone] Cami Wilkerson APRN [address] [place] [address] 04/14/2025 12:30 PM EST Appointment Infusion Center 10 [facility] 2nd [place] [address] 04/22/2025 2:45 PM EST Hospital Encounter [facility] [address] [place] [phone] Anselmo De Santiago MD [address] [place] [address] 05/04/2025 12:00 PM EST Appointment [facility] [address] [place] [phone] 05/06/2025 3:30 PM EST Appointment [facility] [address] [place] [phone] Anselmo De Santiago MD [address] [place] [address] 05/12/2025 12:30 PM EST Appointment Infusion Center [address] [place] [address] 05/21/2025 2:00 PM EST Office Visit [facility], Department of Rheumatology, [address] [address] Stephanie Diaz MD [address] [place] [address] 06/02/2025 12:00 PM EST Office Visit [facility] Gastroenterology, [address] [address] Lata Santamaria MD [address] [place] [address] 06/03/2025 1:15 PM EST Appointment [facility] [address] [place] [phone] Anselmo De Santiago MD [address] [place] [address] 06/09/2025 12:30 PM EDT Appointment Infusion Center [address] [place] [address] 07/07/2025 12:30 PM EDT Appointment Infusion Center [address] [place] [address] 08/04/2025 12:30 PM EDT Appointment Infusion Center [address] [place], [place] [phone] documented as of this encounter Visit Diagnoses Not on filedocumented in this encounter Care Teams Elementary Education Tutor Relationship Specialty Start Date End Date Romy Brown MD 123 [facility] 100 [place] [address] PCP - General 11/12/15 Roe Mercado MD [address] [place] [address] Consulting Physician Neurology 10/31/18 Kathy Ruelas MD [address] [place] [address] Consulting Physician Pain Medicine 10/31/18 Anoop Mackay MD PhD [address] [place] [phone] Consulting Physician Pediatric Pulmonology 01/08/22 Lata Santamaria MD [address] [place] [address] Consulting Physician Gastroenterology 11/15/23 Marni Smallwood [facility] [address] [address] Behavioral Health Clinician Behavioral Health 03/14/22 documented as of this encounter
--- OUTSIDE RECORDS SUMMARY | 2025-03-19 09:57 | XMS_ITS | Encounter Summary ---
Author Organization [facility] Address [address] [place] [address] Care Team Providers Care Supervisor Dials Name Role Phone Romy Brown MD Primary Care Provider Clayton Bazzi MD Unavailable Roe Mercado MD Unavailable [phone] Kathy Ruelas MD Unavailable [phone] Anoop Mackay MD PhD Unavailable [phone] Lata Santamaria MD Unavailable [phone] Reason for Visit * Reason Comments Medication Refill Encounter Details Date Type Department Care Team (Late st Contact Info) Description 09/29/[address] [facility], Department of Pain Medicine, [address] [place] [address] Kathy Ruelas MD [address] [place], [place] [phone] Chronic migraine with aura Social History Tobacco [...] PM EST Therapy Department of Occupational Therapy [address] [place] [phone] Lorenza Young, OTR/L [address] [place] [address] 03/30/2025 3:00 PM EST Telemedicine [facility], Department of Pain Medicine, [place] [address] [place] [phone] Cami Wilkerson APRN [address] [place] [address] 04/14/2025 12:30 PM EST Appointment [facility] Center [facility] 2nd [place] [address] 04/22/2025 2:45 PM EST Hospital Encounter [facility] [address] [place] [phone] Anselmo De Santiago MD [address] [place] [address] 05/04/2025 12:00 PM EST Appointment [facility] [address] [place] [phone] 05/06/2025 3:30 PM EST Appointment [facility] [address] [place] [phone] Anselmo De Santiago MD [address] [place] [address] 05/12/2025 12:30 PM EST Appointment Infusion Center [address] [place] [address] 05/21/2025 2:00 PM EST Office Visit [facility], Department of Rheumatology, [address] [address] Stephanie Diaz MD [address] [place] [address] 06/02/2025 12:00 PM EST Office Visit [facility], [address] [address] Lata Santamaria MD [address] [place] [address] 06/03/2025 1:15 PM EST Appointment [facility] [address] [place] [phone] Anselmo De Santiago MD [address] [place] [address] 06/09/2025 12:30 PM EDT Appointment [facility]fusion [facility] [address] [place] [address] 07/07/2025 12:30 PM EDT Appointment [facility] [address] [place] [address] 840682 08/04/2025 12:30 PM EDT Appointment [facility]fusion [facility] [address] [place] [address] documented as of this encounter Visit Diagnoses [...] documented in this encounter Care Teams Supervisor Dials Relationship Specialty Start Date End Date Romy Brown MD [address] [place] [phone] PCP - General 11/12/15 Clayton Bazzi MD [address] [place] [address] Consulting Physician Pediatric Rheumatology 10/31/18 Roe Mercado MD [address] [place] [address] Consulting Physician Neurology 10/31/18 Kathy Ruelas MD [address] [place] [address] Consulting Physician Pain Medicine 10/31/18 Anoop Mackay MD PhD [address] [place] [phone] Consulting Physician Pediatric Pulmonology 01/08/22 Lata Santamaria MD [address] [place] [address] Consulting Physician Gastroenterology 11/15/23 Nery Alvarado, PhD [address] [facility] [address] [place] [address] Psychologist Psychology 10/31/18 11/02/21 Marni Smallwood [place] [address]6920 [facility], [address] [address] Behavioral Health Clinician Behavioral Health 03/14/22 documented as of this encounter
--- OUTSIDE RECORDS SUMMARY | 2025-03-19 09:58 | XMS_ITS | Encounter Summary ---
Author Organization [facility] Address [address] [place] [address] Care Team Providers Care Relief Docking Master Name Role Phone Romy Brown MD Primary Care Provider [phone] Clayton Bazzi MD Unavailable Roe Mercado MD Unavailable [phone] Kathy Mims MD Unavailable Anoop Mackay MD PhD Unavailable [phone] Lata Santamaria MD Unavailable [phone] Reason for Visit * Reason Comments Medication Refill Encounter Details Date Type Department Care Team (Late st Contact Info) Description 12/27/2018 Refill [facility], Department of Pain Medicine, [address] [place] [address] Kathy Mims MD [address] [place], [place] [phone] Chronic migraine without aura with status migrainosus, [...] EST Therapy Department of Occupational Therapy [address] [place] [phone] Lorenza Young, OTR/L [address] [place] [address] 03/30/2025 3:00 PM EST Telemedicine [facility], Department of Pain Medicine, [place] [address] [place] [phone] Cami Wilkerson APRN [address] [place] [address] 04/14/2025 12:30 PM EST Appointment Infusion Center 10 [facility] 2nd [place] [address] 04/22/2025 2:45 PM EST Hospital Encounter [facility] [address] [place] [phone] Anselmo De Santiago MD [address] [place] [address] 05/04/2025 12:00 PM EST Appointment [facility] [address] [place] [phone] 05/06/2025 3:30 PM EST Appointment [facility] [address] [place] [phone] Anselmo De Santiago MD [address] [place] [address] 05/12/2025 12:30 PM EST Appointment Infusion Center [address] [place] [address] 05/21/2025 2:00 PM EST Office Visit [facility], Department of Rheumatology, [address] [address] Stephanie Diaz MD [address] [place] [address] 06/02/2025 12:00 PM EST Office Visit [facility] Gastro[facility]ology, [address] [address] Lata Santamaria MD [address] [place] [address] 06/03/2025 1:15 PM EST Appointment [facility] [address] [place] [phone] Anselmo De Santiago MD [address] [place] [address] 06/09/2025 12:30 PM EDT Appointment [facility]fusion [facility] [address] [place] [address] 07/07/2025 12:30 PM EDT Appointment [facility]fusion [facility] [address] [place] [address] 928742 08/04/2025 12:30 PM EDT Appointment Infusion [facility] [address] [place] [address] documented as of this encounter Visit Diagnoses Diagnosis Chronic migraine without aura with status migrainosus, not intractable CHARLY (juvenile idiopathic arthritis)- Primary 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), 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)- Primary Other specified inflammatory polyarthropathies HCARLY (juvenile idiopathic arthritis), enthesitis related arthritis Other [...] polyarthropathies documented in this encounter Care Teams Relief Docking Master Relationship Specialty Start Date End Date Romy Brown MD [address] [place] [address] 100 [place] [address] PCP - General 11/12/15 Clayton Bazzi MD [address] [place] [address] Consulting Physician Pediatric Rheumatology 10/31/18 Roe Mercado MD [address] [place] [address] Consulting Physician Neurology 10/31/18 Kathy Mims MD [address] [place] [address] Consulting Physician Pain Medicine 10/31/18 Anoop Mackay MD PhD [address] [place] [phone] Consulting Physician Pediatric Pulmonology 01/08/22 Lata Santamaria MD [address] [place] [address] Consulting Physician Gastroenterology 11/15/23 Nery Alvarado, PhD [address] [facility] [address] [place] [address] Psychologist Psychology 10/31/18 11/02/21 Marni Smallwood LCSW [address], [address] [address] Behavioral Health Clinician Behavioral Health 03/14/22 documented as of this encounter
--- OUTSIDE RECORDS SUMMARY | 2025-03-19 09:58 | XMS_ITS | Encounter Summary ---
Author Organization [facility] Address [address] [place] [address] Care Team Providers Care Field Ring Assembler Name Role Phone Romy Brown MD Primary Care Provider [phone] Clayton Bazzi MD Unavailable Roe Mercado MD Unavailable [phone] Kathy Ruelas MD Unavailable [phone] Anoop Mackay MD PhD Unavailable [phone] Lata Santamaria MD Unavailable [phone] Encounter Details Date Type Department Care Team (Late st Contact Info) Description 01/11/2021 Telephone [facility] Neurology, [place] [address] [place] [address] [place] [address] Social History Tobacco Use Types Packs/Day Years [...] EST Therapy Department of Occupational Therapy [address] [place] [phone] Lorenza Young, OTR/L [address] [place] [address] 03/30/2025 3:00 PM EST Telemedicine [facility], Department of Pain Medicine, [place] [address] [place] [address] Cami Wilkerson APRN [address] [place] [address] 04/14/2025 12:30 PM EST Appointment Infusion Center [address] [place] [address] 04/22/2025 2:45 PM EST Hospital Encounter [facility] [address] [place] [phone] Anselmo De Santiago MD [address] [place] [address] 05/04/2025 12:00 PM EST Appointment [facility] [address] [place] [phone] 05/06/2025 3:30 PM EST Appointment [facility] [address] [place] [phone] Anselmo De Santiago MD [address] [place] [address] 05/12/2025 12:30 PM EST Appointment Infusion Center [address] [place] [address] 05/21/2025 2:00 PM EST Office Visit [facility], Department of Rheumatology, [address] [address] Stephanie Diaz MD [address] [place] [address] 06/02/2025 12:00 PM EST Office Visit [facility] Gastroenterology, [address] [address] Lata Santamaria MD [address] [place] [address] 06/03/2025 1:15 PM EST Appointment [facility] [address] [place] [phone] Anselmo De Santiago MD [address] [place] [phone] 06/09/2025 12:30 PM EDT Appointment [facility]fusion [facility] [address] [place] [address] 07/07/2025 12:30 PM EDT Appointment [facility]fusion [facility] [address] [place] [address] 08/04/2025 12:30 PM EDT Appointment Infusion Center [address] [place] [address] documented as of this encounter Visit Diagnoses Not on filedocumented in this encounter Care Teams Field Ring Assembler Relationship Specialty Start Date End Date Romy Brown MD [address] [place] [phone] PCP - General 11/12/15 Clayton Bazzi MD [address] [place] [address] Consulting Physician Pediatric Rheumatology 10/31/18 Roe Mercado MD [address] [place] [address] Consulting Physician Neurology 10/31/18 Kathy Ruelas MD [address] [place] [address] Consulting Physician Pain Medicine 10/31/18 Anoop Mackay MD PhD [address] [place] [phone] Consulting Physician Pediatric Pulmonology 01/08/22 Lata Santamaria MD [address] [place] [address] Consulting Physician Gastroenterology 11/15/23 Nery Alvarado, PhD [address] [place] [address] [address] [place] [address] Psychologist Psychology 10/31/18 11/02/21 [facility] 3300 [facility] 4A [facility] [address] Behavioral Health Clinician Behavioral Health 03/14/22 documented as of this encounter
--- OUTSIDE RECORDS SUMMARY | 2025-03-19 09:58 | XMS_ITS | Encounter Summary ---
Author Organization [facility] Address [address] [place] [address] Care Team Providers Care Tech Ed Teacher Name Role Phone Romy Brown MD Primary Care Provider Clayton Bazzi MD Unavailable Roe Mercado MD Unavailable [phone] Kathy Ruelas MD Unavailable Anoop Mackay MD PhD Unavailable [phone] Lata Santamaria MD Unavailable [phone] Reason for Visit * Reason Comments Medication Refill Encounter Details Date Type Department Care Team (Late st Contact Info) Description 02/07/2021 Refill [facility], Department of Pain Medicine, [address] [place] [address] Kathy Ruelas MD [address] [place], [place] [phone] Chronic migraine with aura Social History Tobacco [...] PM EST Therapy Department of Occupational Therapy [address] [place] [address] Lorenza Young, OTR/L [address] [place] [address] 03/30/2025 3:00 PM EST Telemedicine [facility], Department of Pain Medicine, [place] [address] [place] [phone] Cami Wilkerson APRN [address] [place] [address] 04/14/2025 12:30 PM EST Appointment Infusion Center [address] [place] [address] 04/22/2025 2:45 PM EST Hospital Encounter [facility] [address] [place] [phone] Anselmo De Santiago MD [address] [place] [address] 05/04/2025 12:00 PM EST Appointment [facility] [address] [place] [phone] 05/06/2025 3:30 PM EST Appointment [facility] [address] [place] [phone] Anselmo De Santiago MD [address] [place] [address] 05/12/2025 12:30 PM EST Appointment Infusion Center [address] [place] [address] 05/21/2025 2:00 PM EST Office Visit [facility], Department of Rheumatology, [address] [address] Stephanie Diaz MD [address] [place] [address] 06/02/2025 12:00 PM EST Office Visit [facility] Gastroenterology, [address] [address] Lata Santamaria MD [address] [place] [address] 06/03/2025 1:15 PM EST Appointment [facility] [address] [place] [address] Anselmo De Santiago MD [address] [place] [address] 06/09/2025 12:30 PM EDT Appointment Infusion [facility] [address] [place] [address] 07/07/2025 12:30 PM EDT Appointment Infusion Center [address] [place] [address] 08/04/2025 12:30 PM EDT Appointment Infusion Center [address] [place] [address] documented as of this encounter Visit Diagnoses [...] polyarthropathies documented in this encounter Care Teams Tech Ed Teacher Relationship Specialty Start Date End Date Romy Brown MD 123 [facility] [address] [place] [phone] PCP - General 11/12/15 Clayton Bazzi MD [address] [place] [address] Consulting Physician Pediatric Rheumatology 10/31/18 Roe Mercado MD [address] [place] [address] Consulting Physician Neurology 10/31/18 Kathy Ruelas MD [address] [place] [address] Consulting Physician Pain Medicine 10/31/18 Anoop Mackay MD PhD [address] [place] [phone] Consulting Physician Pediatric Pulmonology 01/08/22 Lata Santamaria MD [address] [place] [address] Consulting Physician Gastroenterology 11/15/23 Nery Alvarado, PhD 813 [facility] [address] [place] [address] Psychologist Psychology 10/31/18 11/02/21 Marni Smallwood LCSW [facility] 3300 [facility] [address] [facility] [address] Behavioral Health Clinician Behavioral Health 03/14/22 documented as of this encounter
--- OUTSIDE RECORDS SUMMARY | 2025-03-19 09:58 | XMS_ITS | Encounter Summary ---
Author Organization [facility] Address [address] [place] [address] Care Team Providers Care Deputy Head Name Role Phone Romy Brown MD Primary Care Provider [phone] Clayton Bazzi MD Unavailable Roe Mercado MD Unavailable [phone] Kathy Ruelas MD Unavailable Anoop Mackay MD PhD Unavailable [phone] Lata Santamaria MD Unavailable [phone] Reason for Visit * Reason Comments Medication Refill Encounter Details Date Type Department Care Team (Late st Contact Info) Description 03/25/2019 Refill [facility] Neurology, [place] [address] [place] [address] Roe Mercado MD [address] [place] [address] Intractable migraine with status migrainosus, unspecified migraine [...] EST Therapy Department of Occupational Therapy [address] [place] [phone] Lorenza Young, OTR/L [address] [place] [address] 03/30/2025 3:00 PM EST Telemedicine [facility], Department of Pain Medicine, [address] [place] [phone] Cami Wilkerson APRN [address] [place] [address] 04/14/2025 12:30 PM EST Appointment Infusion Center 10 [facility] 2nd [place] [address] 04/22/2025 2:45 PM EST Hospital Encounter [facility] [address] [place] [address] Anselmo De Santiago MD [address] [place] [address] 05/04/2025 12:00 PM EST Appointment [facility] [address] [place] [phone] 05/06/2025 3:30 PM EST Appointment [facility] [address] [place] [phone] Anselmo De Santiago MD [address] [place] [address] 05/12/2025 12:30 PM EST Appointment Infusion Center [address] [place] [address] 05/21/2025 2:00 PM EST Office Visit [facility], Department of Rheumatology, [address] [address] Stephanie Diaz MD [address] [place] [address] 06/02/2025 12:00 PM EST Office Visit [facility], [address] [address] Lata Santamaria MD [address] [place] [address] 06/03/2025 1:15 PM EST Appointment [facility] [address] [place] [phone] Anselmo De Santiago MD [address] [place] [address] 06/09/2025 12:30 PM EDT Appointment Infusion Center [address] [place] [address] 07/07/2025 12:30 PM EDT Appointment Infusion Center [address] [place] [address] 08/04/2025 12:30 PM EDT Appointment [facility] 2nd [place] [address] documented as of this encounter Visit Diagnoses [...] polyarthropathies documented in this encounter Care Teams Deputy Head Relationship Specialty Start Date End Date Romy Brown MD [address] [phone] PCP - General 11/12/15 Clayton Bazzi MD [address] [place] [address] Consulting Physician Pediatric Rheumatology 10/31/18 Roe Mercado MD [address] [place] [address] Consulting Physician Neurology 10/31/18 Kathy Ruelas MD [address] [place] [address] Consulting Physician Pain Medicine 10/31/18 Anoop Mackay MD PhD [address] [place] [phone] Consulting Physician Pediatric Pulmonology 01/08/22 Lata Santamaria MD [address] [place] [address] Consulting Physician Gastroenterology 11/15/23 Nery Alvarado, PhD 3 [facility] [address] [place] [address] Psychologist Psychology 10/31/18 11/02/[address] [facility] 3300 [facility], [address] [address] Behavioral Health Clinician Behavioral Health 03/14/22 documented as of this encounter
--- OUTSIDE RECORDS SUMMARY | 2025-03-19 09:58 | XMS_ITS | Encounter Summary ---
Author Organization [facility] Address [address] [place] [address] Care Team Providers Care Wood Heel Attacher Name Role Phone Romy Brown MD Primary Care Provider Clayton Bazzi MD Unavailable Roe Mercado MD Unavailable [phone] Kathy Ruelas MD Unavailable [phone] Anoop Mackay MD PhD Unavailable [phone] Lata Santamaria MD Unavailable [phone] Reason for Visit * Reason Comments Medication Refill Encounter Details Date Type Department Care Team (Late st Contact Info) Description 02/06/2017 Refill [facility] Neurology, [place] 505 [place] [address] Roe Mercado MD 505 [place] [address] Intractable migraine with status migrainosus, unspecified migraine [...] EST Therapy Department of Occupational Therapy [address] [place] [phone] Lorenza Young, OTR/L [address] [place] [address] 03/30/2025 3:00 PM EST Telemedicine [facility], Department of Pain Medicine, [place] [address] [place] [phone] Cami Wilkerson APRN [address] [place] [address] 04/14/2025 12:30 PM EST Appointment Infusion Center 10 [facility] 2nd [place] [address] 04/22/2025 2:45 PM EST Hospital Encounter [facility] [address] [place] [phone] Anselmo De Santiago MD [address] [place] [address] 05/04/2025 12:00 PM EST Appointment [facility] [address] [place] [phone] 05/06/2025 3:30 PM EST Appointment [facility] [address] [place] [phone] Anselmo De Santiago MD [address] [place] [address] 05/12/2025 12:30 PM EST Appointment Infusion Center [address] [place] [address] 05/21/2025 2:00 PM EST Office Visit [facility], Department of Rheumatology, [address] [address] Stephanie Diaz MD [address] [place] [address] 06/02/2025 12:00 PM EST Office Visit [facility] Gastroenterology, [address] [address] Lata Santamaria MD [address] [place] [address] 06/03/2025 1:15 PM EST Appointment [facility] [address] [place] [phone] Anselmo De Santiago MD [address] [place] [address] 06/09/2025 12:30 PM EDT Appointment Infusion Center [address] [place] [address] 07/07/2025 12:30 PM EDT Appointment Infusion Center [address] [place] [address] 08/04/2025 12:30 PM EDT Appointment Infusion Center [address] [place] [address] documented as of this encounter Visit Diagnoses [...] polyarthropathies documented in this encounter Care Teams Wood Heel Attacher Relationship Specialty Start Date End Date Romy Brown MD [address] [place] [phone] PCP - General 11/12/15 Clayton Bazzi MD [address] [place] [address] Consulting Physician Pediatric Rheumatology 10/31/18 Roe Mercado MD [address] [place] [address] Consulting Physician Neurology 10/31/18 Kathy Ruelas MD [address] [place] [address] Consulting Physician Pain Medicine 10/31/18 Anoop Mackay MD PhD [address] [place] [phone] Consulting Physician Pediatric Pulmonology 01/08/22 Lata Santamaria MD [address] [place] [address] Consulting Physician Gastroenterology 11/15/23 Nery Alvarado, PhD 813 [facility] [address] [place] [address] Psychologist Psychology 10/31/18 11/02/21 Marni Smallwood [address], [address] [address] Behavioral Health Clinician Behavioral Health 03/14/22 documented as of this encounter
--- OUTSIDE RECORDS SUMMARY | 2025-03-19 09:58 | XMS_ITS | Encounter Summary ---
Author Organization [facility] Address [address] [place] [address] Care Team Providers Care Canal Equipment Mechanic Name Role Phone Romy Brown MD Primary Care Provider Clayton Bazzi MD Unavailable Roe Mercado MD Unavailable [phone] Kathy Ruelas MD Unavailable [phone] Anoop Mackay MD PhD Unavailable [phone] Lata Santamaria MD Unavailable [phone] Reason for Visit * Reason Comments Medication Refill Encounter Details Date Type Department Care Team (Late st Contact Info) Description 07/20/2019 Refill [facility] Neurology, [place] [address] [place] [address] Nigel Noel Jr., MD [address] [place], [place] [address] Social History Tobacco Use Types Packs/Day Years [...] Dr Mercado: Please REFUSE. Mas: Please call [facility] and have them send the refill request to the ordering provider. documented in this encounter Plan of Treatment Upcoming Encounters Date Type Department Care Team (Late st Contact Info) Description 03/19/2025 1:30 PM EST Therapy Department of Occupational Therapy [address] [place] [phone] Lorenza Young, OTR/L 282 [place] [address] 03/30/2025 3:00 PM EST Telemedicine [facility], Department of Pain Medicine, [place] [address] [place] [phone] Cami Wilkerson APRN [address] [place] [address] 04/14/2025 12:30 PM EST Appointment Infusion [facility] 10 [facility] 2nd [place] [address] 04/22/2025 2:45 PM EST Hospital Encounter [facility] [address] [place] [phone] Anselmo De Santiago MD [address] [place] [address] 05/04/2025 12:00 PM EST Appointment [facility] [address] [place] [phone] 05/06/2025 3:30 PM EST Appointment [facility] [address] [place] [phone] Anselmo De Santiago MD [address] [place] [address] 05/12/2025 12:30 PM EST Appointment Infusion [facility] [address] [place] [address] 05/21/2025 2:00 PM EST Office Visit [facility], Department of Rheumatology, [address] [address] Stephanie Diaz MD [address] [place] [address] 06/02/2025 12:00 PM EST Office Visit [facility] Specialty [facility] Gastroenterology, [address] [address] Lata Santamaria MD [address] [place] [address] 06/03/2025 1:15 PM EST Appointment [facility] [address] [place] [phone] Anselmo De Santiago MD [address] [place] [address] 06/09/2025 12:30 PM EDT Appointment Infusion [facility] [address] [place] [address] 07/07/2025 12:30 PM EDT Appointment Infusion [facility] [address] [place] [phone] 08/04/2025 12:30 PM EDT Appointment Infusion [facility] [address] [place] [address] documented as of this encounter Visit Diagnoses Not on filedocumented in this encounter Care Teams Canal Equipment Mechanic Relationship Specialty Start Date End Date Romy Brown MD [address] [employer] [address] [place] [phone] PCP - General 11/12/15 Clayton Bazzi MD 140 [place] [address] Consulting Physician Pediatric Rheumatology 10/31/18 Roe Mercado MD [address] [place] [address] Consulting Physician Neurology 10/31/18 Kathy Ruelas MD [address] [place] [address] Consulting Physician Pain Medicine 10/31/18 Anoop Mackay MD PhD [address] [place] [phone] Consulting Physician Pediatric Pulmonology 01/08/22 Lata Santamaria MD [address] [place] [address] Consulting Physician Gastroenterology 11/15/23 Nery Alvarado, PhD [address] [place] [address] [address] [place] [address] Psychologist Psychology 10/31/18 11/02/21 Marni Smallwood [facility] [address] [address] Behavioral Health Clinician Behavioral Health 03/14/22 documented as of this encounter
--- OUTSIDE RECORDS SUMMARY | 2025-03-19 09:58 | XMS_ITS | Encounter Summary ---
Author Organization [facility] Address [address] [place] [address] Care Team Providers Care Test Fixture Assembler Name Role Phone Romy Brown MD Primary Care Provider [phone] Roe Mercado MD Unavailable [phone] Kathy Ruelas MD Unavailable Anoop Mackay MD PhD Unavailable [phone] Lata Santamaria MD Unavailable [phone] Reason for Visit * Reason Comments Medication Refill Encounter Details Date Type Department Care Team ([facility] st Contact Info) Description 08/12/2021 Refill [facility], Department of Pain Medicine, [address] [place] [address] Kathy Ruelas MD 282 [place] [address] Chronic migraine with aura Social History Tobacco [...] EST Therapy Department of Occupational Therapy [address] [place] [phone] Lorenza Young, OTR/L [address] [place] [address] 03/30/2025 3:00 PM EST Telemedicine [facility], Department of Pain Medicine, [place] [address] [place] [phone] Cami Wilkerson APRN [address] [place] [address] 04/14/2025 12:30 PM EST Appointment Infusion Center 10 [facility] 2nd [place] [address] 04/22/2025 2:45 PM EST Hospital Encounter [facility] [address] [place] [phone] Anselmo De Santiago MD [address] [place] [address] 05/04/2025 12:00 PM EST Appointment [facility] [address] [place] [phone] 05/06/2025 3:30 PM EST Appointment [facility] [address] [place] [phone] Anselmo De Santiago MD 282 [place] [address] 05/12/2025 12:30 PM EST Appointment Infusion Center [address] [place] [address] 05/21/2025 2:00 PM EST Office Visit [facility], Department of Rheumatology, [address] [address] Stephanie Diaz MD [address] [place] [address] 06/02/2025 12:00 PM EST Office Visit [facility] Gastroenterology, [address] [address] Lata Santamaria MD [address] [place] [address] 06/03/2025 1:15 PM EST Appointment [facility] [address] [place] [phone] Anselmo De Santiago MD [address] [place] [address] 06/09/2025 12:30 PM EDT Appointment Infusion [facility] [address] [place] [address] 07/07/2025 12:30 PM EDT Appointment Infusion [facility] [address] [place] [address] 08/04/2025 12:30 PM EDT Appointment Infusion [facility] [address] [place] [address] documented as of this encounter Visit Diagnoses [...] polyarthropathies documented in this encounter Care Teams Test Fixture Assembler Relationship Specialty Start Date End Date Romy Brown MD [address] [place] [address] 100 [place] [address] PCP - General 11/12/15 Roe Mercado MD [address] [place] [address] Consulting Physician Neurology 10/31/18 Kathy Ruelas MD 282 [place] [address] Consulting Physician Pain Medicine 10/31/18 Anoop Mackay MD PhD [address] [phone] Consulting Physician Pediatric Pulmonology 01/08/22 Lata Santamaria MD 282 [place] [address] Consulting Physician Gastroenterology 11/15/23 Nery Alvarado, PhD 3 [facility] [address] [place] [address] Psychologist Psychology 10/31/18 11/02/21 Marni Smallwood LCSW [facility] 3300 [facility] 4A [facility] [address] Behavioral Health Clinician Behavioral Health 03/14/22 documented as of this encounter
--- OUTSIDE RECORDS SUMMARY | 2025-03-19 09:58 | XMS_ITS | Encounter Summary ---
Author Organization [facility] Address [address] [place] [address] Care Team Providers Care Preschool Education Director Name Role Phone Romy Brown MD Primary Care Provider Clayton Bazzi MD Unavailable Roe Mercado MD Unavailable [phone] Kathy Ruelas MD Unavailable [phone] Anoop Mackay MD PhD Unavailable [phone] Lata Santamaria MD Unavailable [phone] Reason for Visit * Reason Comments Medication Refill Encounter Details Date Type Department Care Team (Late st Contact Info) Description 09/30/2018 Refill [facility] Neurology, [place] [address] [place] [address] Roe Mercado MD 505 [place] [address] Intractable migraine with status migrainosus, unspecified migraine [...] EST Therapy Department of Occupational Therapy [address] [place] [phone] Lorenza Young OTR/L [address] [place] [address] 03/30/2025 3:00 PM EST Telemedicine [facility], Department of Pain Medicine, [place] [address] [place] [phone] Cami Wilkerson APRN [address] [place] [address] 04/14/2025 12:30 PM EST Appointment [facility] 2nd [place] [address] 04/22/2025 2:45 PM EST Hospital Encounter [facility] [address] [place] [phone] Anselmo De Santiago MD [address] [place] [address] 05/04/2025 12:00 PM EST Appointment [facility] [address] [place] [phone] 05/06/2025 3:30 PM EST Appointment [facility] [address] [place] [phone] Anselmo De Santiago MD [address] [place] [address] 05/12/2025 12:30 PM EST Appointment Infusion Center [address] [place] [address] 05/21/2025 2:00 PM EST Office Visit [facility] Specialty [facility], Department of Rheumatology, [address] [address] Stephanie Diaz MD [address] [place] [address] 06/02/2025 12:00 PM EST Office Visit [facility] Gastroenterology, [address] [address] Lata Santamaria MD [address] [place] [address] 06/03/2025 1:15 PM EST Appointment [facility] [address] [place] [phone] Anselmo De Santiago MD [address] [place] [address] 06/09/2025 12:30 PM EDT Appointment Infusion [facility] [address] [place] [address] 07/07/2025 12:30 PM EDT Appointment [facility]fusion [facility] [address] [place] [address] 08/04/2025 12:30 PM EDT Appointment [facility]fusion [facility] [address] [place] [address] documented as of this encounter Visit Diagnoses [...] polyarthropathies documented in this encounter Care Teams Preschool Education Director Relationship Specialty Start Date End Date Romy Brown MD [address] [place] [phone] PCP - General 11/12/15 Clayton Bazzi MD [address] [place] [address] Consulting Physician Pediatric Rheumatology 10/31/18 Roe Mercado MD [address] [place] [address] Consulting Physician Neurology 10/31/18 Kathy Ruelas MD [address] [place] [address] Consulting Physician Pain Medicine 10/31/18 Anoop Mackay MD PhD [address] [place] [phone] Consulting Physician Pediatric Pulmonology 01/08/22 Lata Santamaria MD [address] [place] [address] Consulting Physician Gastroenterology 11/15/23 Nery Alvarado, PhD [address] [facility] [address] [place] [address] Psychologist Psychology 10/31/18 11/02/21 Marni Smallwood [place] 638530 [facility], [address] [address] Behavioral Health Clinician Behavioral Health 03/14/22 documented as of this encounter
--- OUTSIDE RECORDS SUMMARY | 2025-03-19 09:58 | XMS_ITS | Encounter Summary ---
Author Organization [facility] Address [address] [place] [address] Care Team Providers Care Conventional Machinist Name Role Phone Romy Brown MD Primary Care Provider Clayton Bazzi MD Unavailable Roe Mercado MD Unavailable [phone] Kathy Ruelas MD Unavailable [phone] Anoop Mackay MD PhD Unavailable [phone] Lata Santamaria MD Unavailable [phone] Reason for Visit * Reason Comments Medication Refill Encounter Details Date Type Department Care Team (Late st Contact Info) Description 04/25/2017 Refill [facility] Neurology, [place] 505 [place] [address] Roe Mercado MD 505 [place] [address] Other migraine without status migrainosus, not intractable [...] PM EST Therapy Department of Occupational Therapy [address] [place] [phone] Lorenza Young, OTR/L 282 [place] [address] 03/30/2025 3:00 PM EST Telemedicine [facility], Department of Pain Medicine, [place] [address] [place] [phone] Cami Wilkerson APRN 282 [place] [address] 04/14/2025 12:30 PM EST Appointment [facility]fusion Center [address] [place] [address] 04/22/2025 2:45 PM EST Hospital Encounter [facility] [address] [place] [phone] Anselmo De Santiago MD 282 [place] [address] 05/04/2025 12:00 PM EST Appointment [facility] [address] [place] [address] 05/06/2025 3:30 PM EST Appointment [facility] [address] [place] [phone] Anselmo De Santiago MD [address] [place] [address] 05/12/2025 12:30 PM EST Appointment [facility]fusion [facility] [address] [place] [address] 05/21/2025 2:00 PM EST Office Visit [facility], Department of Rheumatology, [address] [address] Stephanie Diaz MD [address] [place] [address] 06/02/2025 12:00 PM EST Office Visit [facility] Specialty [facility] Gastroenterology, [address] [address] Lata Santamaria MD [address] [place] [address] 06/03/2025 1:15 PM EST Appointment [facility] [address] [place] [phone] Anselmo De Santiago MD [address] [place] [address] 06/09/2025 12:30 PM EDT Appointment Infusion [facility] [address] [place] [address] 07/07/2025 12:30 PM EDT Appointment [facility]fusion [facility] [address] [place] [address] 08/04/2025 12:30 PM EDT Appointment Infusion [facility] [address] [place] [address] documented as of this encounter Visit Diagnoses [...] polyarthropathies documented in this encounter Care Teams Conventional Machinist Relationship Specialty Start Date End Date Romy Brown MD 123 [facility] 100 [place] [phone] PCP - General 11/12/15 Clayton Bazzi MD 140 [place] [address] Consulting Physician Pediatric Rheumatology 10/31/18 Roe Mercado MD [address] [place] [address] Consulting Physician Neurology 10/31/18 Kathy Ruelas MD [address] [place] [address] Consulting Physician Pain Medicine 10/31/18 Anoop Mackay MD PhD [address] [place] [phone] Consulting Physician Pediatric Pulmonology 01/08/22 Lata Santamaria MD 282 [place] [address] Consulting Physician Gastroenterology 11/15/23 Nery Alvarado, PhD [address] [place] [address] [address] [place] [address] Psychologist Psychology 10/31/18 11/02/21 Marni Smallwood LCSW [facility] 3300 [facility] 4A [facility] [address] Behavioral Health Clinician Behavioral Health 03/14/22 documented as of this encounter
--- OUTSIDE RECORDS SUMMARY | 2025-03-19 09:58 | XMS_ITS | Encounter Summary ---
Author Organization [facility] Address [address] [place] [address] Care Team Providers Care Railroad Car Cleaner Name Role Phone Romy Brown MD Primary Care Provider [phone] Clayton Bazzi MD Unavailable Roe Mercado MD Unavailable [phone] Kathy Ruelas MD Unavailable Anoop Mackay MD PhD Unavailable [phone] Lata Santamaria MD Unavailable [phone] Reason for Visit * Reason Comments Medication Refill Encounter Details Date Type Department Care Team (Late st Contact Info) Description 01/29/2017 Refill [facility] Neurology, [place] [address] [place] [address] Roe Mercado MD [address] [place] [address] Intractable migraine with status migrainosus, unspecified migraine [...] PM EST Therapy Department of Occupational Therapy [address] [place] [phone] Lorenza Young, OTR/L [address] [place] [address] 03/30/2025 3:00 PM EST Telemedicine [facility], Department of Pain Medicine, [place] [address] [place] [phone] Cami Wilkerson APRN [address] [place] [address] 04/14/2025 12:30 PM EST Appointment Infusion Center 10 [facility] 2nd [place] [address] 04/22/2025 2:45 PM EST Hospital Encounter [facility] [address] [place] [phone] Anselmo De Santiago MD [address] [place] [address] 05/04/2025 12:00 PM EST Appointment [facility] [address] [place] [phone] 05/06/2025 3:30 PM EST Appointment [facility] [address] [place] [phone] Anselmo De Santiago MD 282 [place] [address] 05/12/2025 12:30 PM EST Appointment [facility]fusion [facility] [address] [place] [address] 05/21/2025 2:00 PM EST Office Visit [facility], Department of Rheumatology, [address] [address] Stephanie Diaz MD [address] [place] [address] 06/02/2025 12:00 PM EST Office Visit [facility] Gastroenterology, [address] [address] Lata Santamaria MD [address] [place] [address] 06/03/2025 1:15 PM EST Appointment [facility] [address] [place] [phone] Anselmo De Santiago MD [address] [place] [address] 06/09/2025 12:30 PM EDT Appointment [facility] [address] [place] [address] 07/07/2025 12:30 PM EDT Appointment [facility] [address] [place] [address] 08/04/2025 12:30 PM EDT Appointment [facility]fusion [facility] [address] [place] [address] documented as of this encounter Visit Diagnoses [...] polyarthropathies documented in this encounter Care Teams Railroad Car Cleaner Relationship Specialty Start Date End Date Romy Brown MD [address] [place] [phone] PCP - General 11/12/15 Clayton Bazzi MD [address] [place] [address] Consulting Physician Pediatric Rheumatology 10/31/18 Roe Mercado MD [address] [place] [address] Consulting Physician Neurology 10/31/18 Kathy Ruelas MD [address] [place] [address] Consulting Physician Pain Medicine 10/31/18 Anoop Mackay MD PhD [address] [place] [phone] Consulting Physician Pediatric Pulmonology 01/08/22 Lata Santamaria MD [address] [place] [address] Consulting Physician Gastroenterology 11/15/23 Nery Alvarado, PhD [address] [facility] [address] [place] [address] Psychologist Psychology 10/31/18 11/02/21 Marni Smallwood [address], [address] [address] Behavioral Health Clinician Behavioral Health 03/14/22 documented as of this encounter
--- OUTSIDE RECORDS SUMMARY | 2025-03-19 09:58 | XMS_ITS | Encounter Summary ---
Author Organization [facility] Address [address] [place] [address] Care Team Providers Care Resource Conservation Specialist Name Role Phone Romy Brown MD Primary Care Provider Clayton Bazzi MD Unavailable Roe Mercado MD Unavailable [phone] Kathy Ruelas MD Unavailable [phone] Anoop Mackay MD PhD Unavailable [phone] Lata Santamaria MD Unavailable [phone] Encounter Details Date Type Department Care Team (Late st Contact Info) Description 04/04/2019 Telephone [facility], Department of Pain Medicine, [address] [place] [address] Anselmo De Santiago MD [address] [place], [place] [phone] Social History Tobacco Use Types Packs/Day Years [...] EST Therapy Department of Occupational Therapy [address] [place] [phone] Lorenza Young, OTR/L 282 [place] [address] 03/30/2025 3:00 PM EST Telemedicine [facility], Department of Pain Medicine, [place] [address] [place] [address] Cami Wilkerson APRN 282 [place] [address] 04/14/2025 12:30 PM EST Appointment Infusion Center [address] [place] [address] 04/22/2025 2:45 PM EST Hospital Encounter [facility] [address] [place] [phone] Anselmo De Santiago MD [address] [place] [address] 05/04/2025 12:00 PM EST Appointment [facility] [address] [place] [phone] 05/06/2025 3:30 PM EST Appointment [facility] [address] [place] [phone] Anselmo De Santiago MD [address] [place] [address] 05/12/2025 12:30 PM EST Appointment Infusion [facility] [address] [place] [address] 05/21/2025 2:00 PM EST Office Visit [facility], Department of Rheumatology, [address] [address] Stephanie Diaz MD [address] [place] [address] 06/02/2025 12:00 PM EST Office Visit [facility] Gastroenterology, [address] [address] Lata Santamaria MD 282 [place], [place] [phone] 06/03/2025 1:15 PM EST Appointment [facility] [address] [place] [phone] Anselmo De Santiago MD [address] [place] [phone] 06/09/2025 12:30 PM EDT Appointment [facility]fusion [facility] [address] [place] [address] 07/07/2025 12:30 PM EDT Appointment [facility]fusion [facility] [address] [place] [address] 08/04/2025 12:30 PM EDT Appointment Infusion Center [address] [place] [address] documented as of this encounter Visit Diagnoses Not on filedocumented in this encounter Care Teams Resource Conservation Specialist Relationship Specialty Start Date End Date Romy Brown MD [address] [place] [phone] PCP - General 11/12/15 Calyton Bazzi MD 140 [place] [address] Consulting Physician Pediatric Rheumatology 10/31/18 Roe Mercado MD 505 [place] [address] Consulting Physician Neurology 10/31/18 Kathy Ruelas MD 282 [place] [address] Consulting Physician Pain Medicine 10/31/18 Anoop Mackay MD PhD [address] [place] [phone] Consulting Physician Pediatric Pulmonology 01/08/22 Lata Santamaria MD [address] [place] [address] Consulting Physician Gastroenterology 11/15/23 Nery Alvarado, PhD [address] [place] [address] [address] [place] [address] Psychologist Psychology 10/31/18 11/02/21 Marni Smallwood [facility] [address] [address] Behavioral Health Clinician Behavioral Health 03/14/22 documented as of this encounter
--- OUTSIDE RECORDS SUMMARY | 2025-03-19 09:58 | XMS_ITS | Encounter Summary ---
Author Organization [facility] Address [address] [place] [address] Care Team Providers Care Instructor Traffic Safety Name Role Phone Romy Brown MD Primary Care Provider Clayton Bazzi MD Unavailable Roe Mercado MD Unavailable [phone] Kathy Ruelas MD Unavailable [phone] Anoop Mackay MD PhD Unavailable [phone] Lata Santamaria MD Unavailable [phone] Reason for Visit * Reason Comments Medication Refill Encounter Details Date Type Department Care Team (Late st Contact Info) Description 06/17/2017 Refill [facility] Neurology, [place] [address] [place], [place] [address] Roe Mercado MD [address] [place] [address] Headache disorder Social History Tobacco Use Types [...] PM EST Therapy Department of Occupational Therapy [address] [place] [phone] Lorenza Young, OTR/L [address] [place] [address] 03/30/2025 3:00 PM EST Telemedicine [facility], Department of Pain Medicine, [place] [address] [place] [address] Cami Wilkerson APRN [address] [place] [address] 04/14/2025 12:30 PM EST Appointment [facility]fusion [facility] [address] [place] [address] 04/22/2025 2:45 PM EST Hospital Encounter [facility] [address] [place] [phone] Anselmo De Santiago MD [address] [place] [address] 05/04/2025 12:00 PM EST Appointment [facility] [address] [place] [address] 05/06/2025 3:30 PM EST Appointment [facility] [address] [place] [phone] Anselmo De Santiago MD [address] [place] [address] 05/12/2025 12:30 PM EST Appointment [facility] [address] [place] [address] 05/21/2025 2:00 PM EST Office Visit [facility], Department of Rheumatology, [address] [address] Stephanie Diaz MD [address] [place] [address] 06/02/2025 12:00 PM EST Office Visit [facility] Gastroenterology, [address] [address] Lata Santamaria MD [address] [place] [phone] 06/03/2025 1:15 PM EST Appointment [facility] [address] [place] [phone] Anselmo De Santiago MD [address] [place] [address] 06/09/2025 12:30 PM EDT Appointment [facility] [address] [place] [address] 07/07/2025 12:30 PM EDT Appointment [facility] [address] [place] [address] 08/04/2025 12:30 PM EDT Appointment [facility] [address] [place] [address] documented as of this encounter Visit Diagnoses [...] polyarthropathies documented in this encounter Care Teams Instructor Traffic Safety Relationship Specialty Start Date End Date Romy Brown MD [address] [facility] [address] [place] [address] PCP - General 11/12/15 Clayton Bazzi MD [address] [place] [address] Consulting Physician Pediatric Rheumatology 10/31/18 Roe Mercado MD [address] [place] [address] Consulting Physician Neurology 10/31/18 Kathy Ruelas MD [address] [place] [address] Consulting Physician Pain Medicine 10/31/18 Anoop Mackay MD PhD [address] [place] [phone] Consulting Physician Pediatric Pulmonology 01/08/22 Lata Santamaria MD [address] [place] [address] Consulting Physician Gastroenterology 11/15/23 Nery Alvarado, PhD [address] [facility] [address] [place] [address] Psychologist Psychology 10/31/18 11/02/21 Marni Smallwood LCSW [facility] [address] [facility] [address] [facility] [address] Behavioral Health Clinician Behavioral Health 03/14/22 documented as of this encounter
--- OUTSIDE RECORDS SUMMARY | 2025-03-19 09:59 | XMS_ITS | Encounter Summary ---
Author Organization [facility] Address [address] [place] [address] Care Team Providers Care Senior Java Programmer Name Role Phone Romy Brown MD Primary Care Provider Roe Mercado MD Unavailable [phone] Kathy Ruelas MD Unavailable Anoop Mackay MD PhD Unavailable [phone] Lata Santamaria MD Unavailable [phone] Reason for Visit * Reason Onset Date Comments Medication Refill 11/20/2022 Encounter Details Date Type Department Care Team (Late st Contact Info) Description 11/20/2022 Refill [facility] Gastroenterology, [address] [phone] Lata Santamaria MD [address] [place] [address] Nausea; Diarrhea, unspecified type; Periumbilical abdominal [...] EST Therapy Department of Occupational Therapy [address] [place] [phone] Lorenza Young, OTR/L [address] [place] [address] 03/30/2025 3:00 PM EST Telemedicine [facility], Department of Pain Medicine, [place] [address] [place] [phone] Cami Wilkerson APRN [address] [place] [address] 04/14/2025 12:30 PM EST Appointment Infusion Center [address] [facility] [address] [place] [address] 04/22/2025 2:45 PM EST Hospital Encounter [facility] [address] [place] [phone] Anselmo De Santiago MD [address] [place] [address] 05/04/2025 12:00 PM EST Appointment [facility] [address] [place] [phone] 05/06/2025 3:30 PM EST Appointment [facility] [address] [place] [phone] Anselmo De Santiago MD [address] [place] [address] 05/12/2025 12:30 PM EST Appointment [facility]fusion [facility] [address] [place] [address] 05/21/2025 2:00 PM EST Office Visit [facility], Department of Rheumatology, [address] [address] Stephanie Diaz MD [address] [place] [address] 06/02/2025 12:00 PM EST Office Visit [facility] Gastroenterology, [address] [address] Lata Santamaria MD [address] [place] [address] 06/03/2025 1:15 PM EST Appointment [facility] [address] [place] [phone] Anselmo De Santiago MD [address] [place] [address] 06/09/2025 12:30 PM EDT Appointment [facility] [address] [place] [address] 07/07/2025 12:30 PM EDT Appointment [facility] [address] [place] [address] 08/04/2025 12:30 PM EDT Appointment [facility] [address] [place] [address] documented as of this encounter Visit Diagnoses [...] documented in this encounter Care Teams Senior Java Programmer Relationship Specialty Start Date End Date Romy Brown MD [address] [place] [phone] PCP - General 11/12/15 Roe Mercado MD [address] [place] [address] Consulting Physician Neurology 10/31/18 Kathy Ruelas MD [address] [place] [address] Consulting Physician Pain Medicine 10/31/18 Anoop Mackay MD PhD [address] [place] [phone] Consulting Physician Pediatric Pulmonology 01/08/22 Lata Santamaria MD [address] [place] [address] Consulting Physician Gastroenterology 11/15/[address] [facility] [address] [place] [address], [address] [facility] [address] Behavioral Health Clinician Behavioral Health 03/14/22 documented as of this encounter
--- OUTSIDE RECORDS SUMMARY | 2025-03-19 09:59 | XMS_ITS | Clinical Summary ---
Author Organization [facility] Address [address] [place] [address] Care Team Providers Care Zipper Joiner Name Role Phone Romy Brown MD Primary Care Provider [phone] Roe Mercado MD Unavailable [phone] Kathy Ruelas MD Unavailable Anoop Mackay MD PhD Unavailable [phone] Lata Santamaria MD Unavailable [phone] Source Comments Please note that some [...] so, obtain the minor's consent prior to disclosure.[facility] Allergies Active Allergy Reactions Criticality Noted [...] Active Additional Information Patient not taking.Reported on 02/25/2025 diclofenac (VOLTAREN) 1 % GelIndications:Am plified musculoskeletal [...] mg) nightly. 67 tablet 3 025 Active digital therapeutic, NERIVIO, (NERIVIO DIGITAL VIRAL, MIGRAINE,) DINAH deviceIndications :Chronic migraine without aura without status migrainosus, not intractable Use device for 45 minute treatment every other day and as needed. 3 each 12 025 Active food supplemt, lactose-reduced (BOOST) 0.04 gram- 1 kcal/mL LiquidIndications :Weight loss,Difficulty feeding self Take 2 Bottles by mouth daily 02149 mL 025 Active atogepant 30 mg TabletIndications :Chronic migraine with aura Take 30 mg by mouth daily 30 tablet 2 023 Discontinued food supplemt, lactose-reduced (BOOST) 0.04 gram- 1 kcal/mL LiquidIndications :Weight loss Take 2 Bottles by mouth daily 91911 mL 025 02/24 Discontinued( Reorder) food supplemt, lactose-reduced (BOOST) 0.04 gram- 1 kcal/mL LiquidIndications :Weight loss Take 2 Bottles by mouth daily 86514 mL 025 02/25 Discontinued( Reorder) Active Problems Patient Care Coordination No te Formatting of this note migh t be different from the original. Center for Care Coordination: JASON MoniqueN, RN, [facility] [phone] Referred by pain mgmt 01/18/22 Declined participation, but has contact and will call if future needs (has appt. 02/23/22 with [facility]) Problem Noted Date Diagnosed Date [...] Encounters Date Type Department Care Team Description 03/18/2025 Refill [facility], Department of Pain Medicine, [place] [address] [place] [address] Kathy Ruelas MD Chronic migraine with aura 03/17/2025 12:20 PM EST Hospital Encounter Infusion Center 10 [facility] 2nd [place] [address] CHARLY (juvenile idiopathic arthritis) (Primary Dx); CHARLY (juvenile idiopathic arthritis), enthesitis related arthritis 03/12/2025 Prep for Sedation/Procedure visit [facility], Department of Pain Medicine, [place] [address] [place] [address] Anselmo De Santiago MD Chronic migraine with aura and with status migrainosus, not intractable (Primary Dx) 03/04/2025 1:00 PM EST Anesthesia Event [facility] [address] [place] [address] Erik Guidry MD Mondo, Madeline, CHIDI 03/04/2025 11:19 AM EST - 03/04/2025 11:59 PM EST Hospital Encounter [facility] [address] [place] [phone] Erik Guidry MD Mathew, Eapen, MD Chronic migraine with aura and with status migrainosus, not intractable Discharge Disposition: Home or Self Care 03/04/2025 Telephone [facility], [address] [address] Lata Santamaria MD 03/04/2025 Prep for Sedation/Procedure visit [facility], Department of Pain Medicine, [place] [address] [address] Anselmo De Santiago MD Chronic migraine with aura and with status migrainosus, not intractable (Primary Dx) 03/02/2025 Telephone [facility], Department of Pain Medicine, [address] [address] Encounter, Telephone Appointment (/) 02/27/2025 Telephone [facility], [address] [address] 02/25/2025 9:00 AM EST Office Visit [facility] [address] Lata Santamaria MD Elevated liver enzymes (Primary Dx); Elevated fecal calprotectin 02/25/2025 Refill [facility] [address] Difficulty feeding self (Primary Dx); Weight loss 02/24/2025 Refill [facility] [phone] Lata Santamaria MD Weight loss 02/20/2025 Results Follow-Up [facility], Department of Rheumatology, [address] [address] Stephanie Diaz MD CBC auto differential, Erythrocyte Sediment Rate (ESR), Gamma GT, Additional followed-up results: 3 02/19/2025 1:30 PM EST Therapy Department of Occupational Therapy [address] [place] [phone] Lorenza Young, OTR/L CHARLY (juvenile idiopathic arthritis), enthesitis related arthritis (Primary Dx); Chronic migraine with aura and with status migrainosus, not intractable; Amplified musculoskeletal pain syndrome; Self-care deficit; Psychological factors affecting medical condition 02/18/2025 Prep for Sedation/Procedure visit [facility], [address] [facility] [address] [place] [address] Anselmo De Santiago MD Chronic migraine with aura and with status migrainosus, not intractable (Primary Dx) 02/17/2025 12:58 PM EST - 02/17/2025 11:59 PM EST Hospital Encounter [facility] Center [facility] 2nd [place] [address] CHARLY (juvenile idiopathic arthritis) (Primary Dx); CHARLY (juvenile idiopathic arthritis), enthesitis related arthritis Discharge Disposition: Home or Self Care 02/11/2025 12:35 PM EST Anesthesia Event [facility] [address] [place] [address] Erik Guidry MD Grade, Ryan, RN 02/11/2025 11:41 AM EST - 02/11/2025 11:59 PM EST Hospital Encounter [facility] [address] [place] [address] Anselmo De Santiago MD Sturm, Jesse, MD Chronic migraine with aura and with status migrainosus, not intractable (Primary Dx); Chronic migraine w/o aura, not intractable, w stat migr Discharge Disposition: Home or Self Care 02/06/2025 Refill [facility], [address] [place] [address] Lata Santamaria MD Weight loss 02/01/2025 Results Follow-Up [facility], Department of Rheumatology, [address] [place] [address] Stephanie Diaz MD CBC auto differential, Erythrocyte Sediment Rate (ESR), Gamma GT, Additional followed-up results: 3 01/28/2025 3:16 PM EDT Anesthesia Event [facility] [address] [place] [phone] Telma Hampton MD 01/28/2025 2:26 PM EDT - 01/28/2025 11:59 PM EDT Hospital Encounter [facility] [address] [place] [phone] Anselmo De Santiago MD Raghavan, Kalyani, MD Chronic migraine with aura and with status migrainosus, not intractable (Primary Dx) Discharge Disposition: Home or Self Care 01/28/2025 Telephone [facility], Department of Pain Medicine, [address] [place] [address] Nikko Castillo, Mine Expert Appointment (/) 01/28/2025 Prep for Sedation/Procedure visit [facility], Department of Pain Medicine, [place] [address] [facility] [address] [place] [address] Anselmo De Santiago MD Chronic migraine with aura and with status migrainosus, not intractable (Primary Dx) 01/27/2025 11:00 AM EDT Telemedicine Support [facility] [address], 9th [address] [place] [address] Darrell Velazquez Psy.D. Attention deficit hyperactivity disorder (ADHD), unspecified ADHD type (Primary Dx); Asperger's syndrome 01/26/2025 2:00 PM EDT Office Visit [facility], Department of Pain Medicine, [place] [address] [place] [phone] Cami Wilkerson APRN Amplified musculoskeletal pain syndrome (Primary Dx); Chronic migraine with aura and with status migrainosus, not intractable; CHARLY (juvenile idiopathic arthritis) 01/26/2025 Telephone [facility] [address] [place] [address] [facility], 9th Floor [address] [place] [phone] Sarah Banks MA 01/23/2025 Telephone [facility], Department of Pain Medicine, [address] [place] [address] Encounter, Telephone Follow-up 01/22/2025 1:30 PM EDT Therapy Department of Occupational Therapy [address] [place] [phone] Lorenza Young OTR/Asher CHARLY (juvenile idiopathic arthritis), enthesitis related arthritis; Chronic migraine with aura and with status migrainosus, not intractable; Amplified musculoskeletal pain syndrome; Self-care deficit; Psychological factors affecting medical condition 01/21/2025 12:19 PM EDT - 01/21/2025 11:59 PM EDT Hospital Encounter [facility] Center [address] [facility] [address] [place] [address] CHARLY (juvenile idiopathic arthritis) (Primary Dx); CHARLY (juvenile idiopathic arthritis), enthesitis related arthritis Discharge Disposition: Home or Self Care 01/19/2025 12:09 PM EDT - 01/19/2025 11:59 PM EDT Hospital Encounter [facility] [address] [place] [phone] Diana Johnson MD CHARLY (juvenile idiopathic arthritis), enthesitis related arthritis (Primary Dx) Discharge Disposition: Home or Self Care 01/15/2025 1:30 PM EDT Therapy Department of Occupational Therapy [address] [place] [address] Katelyn Youngica, OTR/L CHARLY (juvenile idiopathic arthritis), enthesitis related arthritis (Primary Dx); Chronic migraine with aura and with status migrainosus, not intractable; Amplified musculoskeletal pain syndrome; Self-care deficit; Psychological factors affecting medical condition 01/08/2025 1:30 PM EDT Therapy Department of Occupational Therapy [address] [place] [address] Katelyn Youngica, OTR/L CHARLY (juvenile idiopathic arthritis), enthesitis related arthritis (Primary Dx); Chronic migraine with aura and with status migrainosus, not intractable; Amplified musculoskeletal pain syndrome; Self-care deficit; Psychological factors affecting medical condition 01/06/2025 11:00 AM EDT Telemedicine Support [facility] [address] [place] [address], 9th Floor [address] [place] [phone] Darrell Velazquez Psy.D. Attention deficit hyperactivity disorder (ADHD), unspecified ADHD type (Primary Dx); Asperger's syndrome 01/05/2025 [facility] [address] [place] [address], 9th Floor [address] [place] [phone] Sarah Banks MA 01/01/2025 1:30 PM EDT Therapy Department of Occupational Therapy [address] [place] [address] Lorenza Young, OTR/L CHARLY (juvenile idiopathic arthritis), enthesitis related arthritis (Primary Dx); Chronic migraine with aura and with status migrainosus, not intractable; Amplified musculoskeletal pain syndrome; Self-care deficit; Psychological factors affecting medical condition 12/25/2024 1:30 PM EDT Therapy Department of Occupational Therapy [address] [place] [address] VianneyfEyalLorenza, OTR/L CHARLY (juvenile idiopathic arthritis), enthesitis related arthritis (Primary Dx); Amplified musculoskeletal pain syndrome; Self-care deficit; Psychological factors affecting medical condition 12/25/2024 11:00 AM EDT Telemedicine Support [facility] [address], 9th [address] [place] [address] Darrell Velazquez Psy.D. Attention deficit hyperactivity disorder (ADHD), unspecified ADHD type (Primary Dx); Asperger's syndrome 12/24/2024 Telephone [facility] [address], 9th [address] [place] [address] Sarah Banks MA 12/24/2024 Results Follow-Up [facility], Department of Rheumatology, [address] [place] [address] Stephanie Diza MD CBC auto differential, Erythrocyte Sediment Rate (ESR), Gamma GT, Additional followed-up results: 3 12/22/2024 12:25 PM EDT - 12/22/2024 11:59 PM EDT [facility] [address] [address] CHARLY (juvenile idiopathic arthritis) (Primary Dx); CHARLY (juvenile idiopathic arthritis), enthesitis related arthritis Discharge Disposition: Home or Self Care 12/22/2024 Refill [facility], Department of Pain Medicine, [address] [place] [phone] Kathy Ruelas MD Chronic migraine with aura 12/22/2024 Orders Only [facility], Department of Pain Medicine, [address] [address] Cami Wilkerson APRN Chronic migraine without aura without status migrainosus, not intractable 12/19/2024 11:30 AM EDT Office Visit [facility], Department of Pain Medicine, [place] [address] [place] [address] Cami Wilkerson APRN Amplified musculoskeletal pain syndrome (Primary Dx); Chronic migraine with aura and with status migrainosus, not intractable; CHARLY (juvenile idiopathic arthritis), enthesitis related arthritis 12/19/2024 Telephone [facility], Department of Pain Medicine, [place] [address] [place] [address] Encounter, Telephone Appointment (/) 12/19/2024 Telephone [facility], Department of Pain Medicine, [place] [address] [place] [address] Encounter, Telephone Medication Refill 12/18/2024 1:30 PM EDT Therapy Department of Occupational Therapy [address] [place] [phone] Lorenza Young OTR/Asher Self-care deficit (Primary Dx); Psychological factors affecting medical condition; CHARLY (juvenile idiopathic arthritis), enthesitis related arthritis; Chronic migraine with aura and with status migrainosus, not intractable; Amplified musculoskeletal pain syndrome from Last 3 Months Immunizations Immunization [...] 16 03/17/2025 1:03 PM EST Oxygen Saturation 99% 03/04/2025 1:40 PM EST Inhaled Oxygen Concentration - - Weight 80.5 kg (177 lb 7.5 oz) 03/17/2025 12:28 PM EST Height 192.5 cm (6' 3.79 ) 03/17/2025 12:[address] Body Mass Index 21.72 03/17/2025 12:28 PM EST Plan of Treatment Upcoming Encounters Date Type Department Care Team (Late st Contact Info) Description 03/19/2025 1:30 PM EST Therapy Department of Occupational Therapy [address] [place] [phone] Lorenza Young OTR/L [address] [place] [address] 03/30/2025 3:00 PM EST Telemedicine [facility], Department of Pain Medicine, [place] [address] [place] [phone] Cami Wilkerson APRN [address] [place] [phone] 04/14/2025 12:30 PM EST Appointment [facility] Center 10 [facility] 2nd [place] [address] 04/22/2025 2:45 PM EST Hospital Encounter [facility] [address] [place] [phone] Anselmo De Santiago MD [address] [place] [phone] 05/04/2025 12:00 PM EST Appointment [facility] [address] [place] [phone] 05/06/2025 3:30 PM EST Appointment [facility] [address] [place] [phone] Anselmo De Santiago MD [address] [place] [phone] 05/12/2025 12:30 PM EST Appointment Infusion Center [address] [place] [address] 05/21/2025 2:00 PM EST Office Visit [facility], Department of Rheumatology, [address] [address] Stephanie Diaz MD [address] [place] [phone] 06/02/2025 12:00 PM EST Office Visit [facility] G[facility]ology, [address] [address] Lata Santamaria MD [address] [place] [phone] 06/03/2025 1:15 PM EST Appointment [facility] [address] [place] [phone] Anselmo De Santiago MD [address] [place] [phone] 06/09/2025 12:30 PM EDT Appointment [facility] [address] [place] [phone] 07/07/2025 12:30 PM EDT Appointment [facility] [address] [place] [address] 08/04/2025 12:30 PM EDT Appointment [facility] [address] [place] [address] Health Maintenance Due Date Last Done Comments [...] CHARLY (juvenile idiopathic arthritis), enthesitis related arthritis NERVE BLOCK/INJECT Routine 03/04/2025 12 :00 PM EST Chronic migraine with aura and with status migrainosus, not intractable BUN CREAT W/ RATIO Routine 02/17/2025 1: 11 PM EST CHARLY (juvenile idiopathic arthritis), enthesitis related arthritis ALT Routine 02/17/2025 1:11 PM EST CHARLY (juvenile idiopathic arthritis), enthesitis related arthritis AST Routine 02/17/2025 1:11 PM EST CHARLY (juvenile idiopathic arthritis), enthesitis related arthritis GAMMA GLUTAMYL TRANS (GGT) Routine 02/17/2025 1:11 PM EST CHARLY (juvenile idiopathic arthritis), enthesitis related arthritis ERYTHROCYTE SEDIMENT RATE (ESR) Routine 02/17/2025 1:11 PM EST CHARLY (juvenile idiopathic arthritis), enthesitis related arthritis CBC WITH AUTO DIFFERENTIAL Routine 02/17/2025 1:11 PM EST CHARLY (juvenile idiopathic arthritis), enthesitis related arthritis INJECT TRIGGER POINT(S) Routine 02/12/20 12:45 PM [...] CHARLY (juvenile idiopathic arthritis), enthesitis related arthritis from Last 3 Months Results * BUN Creat w/ Ratio (03/17/2025 12:37 PM EST) Only the most recent of4 resultswithin the time period is included. BUN 21 7 - 25 mg/dL [facility] Creatinine 0.72 0.60 - 1.24 mg/dL [facility] EGFR 134 > OR = 60 mL/min/1. 73m2 [facility] BUN/Creatinine Ratio SEE NOTE: 6 - 22 (calc) [facility] Comment: Not Reported: BUN and Creatinine are within reference range. Blood BLOOD SPECIMEN / Unknown 03/17/2025 12:37 PM EST 03/18/2025 2:06 AM EST Narrative Resulting Agency Comment Performing Organization Information: Site ID: [id number] Name: [facility] Address: [address] [place] [phone] Director: Alfredo Alaniz M.D. Stephanie Diaz MD LAB BLOOD ORDERABLES [facility] [address] [place] [address] [facility] [address] [place] [address] * Erythrocyte Sediment Rate (ESR) (03/17/2025 12:37 PM EST) Only the most recent of4 resultswithin the time period is included. Pathologist [facility] Sed Rate by Modified Nickergren 9 < OR = 15 mm/h [facility] Blood BLOOD SPECIMEN / Unknown 03/17/2025 12:37 PM EST 03/18/2025 2:06 AM EST Narrative Resulting Agency Comment Performing Organization Information: Site ID: [id number] Name: [facility] Address: [address] [place] [phone] Director: Alfredo Alaniz M.D. Stephanie Diaz MD LAB BLOOD ORDERABLES [facility] [address] [place] [phone] [facility] [address] [place] [phone] * (ABNORMAL) CBC auto differential (03/17/2025 12:37 PM EST) Only the most recent of4 resultswithin the time period is included. Pathologist [facility] WBC 5.5 3.8 - 10.8 Thousand/u L [facility] [employer] RBC 4.87 4.20 - 5.80 Million/uL [facility] Hemoglobin 14.5 13.2 - 17.1 g/dL [facility] Hematocrit 43.7 39.4 - 51.1 % [facility] MCV 89.7 81.4 - 101.7 fL [facility] MCH 29.8 27.0 - 33.0 pg [facility] MCHC 33.2 31.6 - 35.4 g/dL [facility] RDW 12.2 11.0 - 15.0 % [facility] Platelets 204 140 - 400 Thousand/u L [facility] MPV 12.0 7.5 - 12.5 fL [facility] Neutrophils Absolute 2,459 1,500 - 7,800 cells/uL [facility] Lymphocytes Absolute 1,573 850 - 3,900 cells/uL [facility] Monocytes Absolute 473 200 - 950 cells/uL [facility] Eosinophils Absolute 935(H) 15 - 500 cells/uL [facility] Basophils Absolute 61 0 - 200 cells/uL [facility] Neutrophils 44.7 % [facility] Lymphs 28.6 % [facility] Monocytes 8.6 % [facility] Eos 17.0 % [facility] Basos 1.1 % [facility] Blood BLOOD SPECIMEN / Unknown 03/17/2025 12:37 PM EST 03/18/2025 2:06 AM EST Narrative Resulting Agency Comment Performing Organization Information: Site ID: [id number] Name: [facility] Address: [address] [place] [phone] Director: Alfredo Alaniz M.D. Stephanie Diaz MD LAB BLOOD ORDERABLES [facility] Result Performing Organization Address [facility] Co de Phone Number [facility] [address] [place] [phone] [facility] [address] [place] [phone] * ALT (03/17/2025 12:37 PM EST) Only the most recent of4 resultswithin the time period is included. ALT 32 9 - 46 U/L [facility] [employer] Blood BLOOD SPECIMEN / Unknown 03/17/2025 12:37 PM EST 03/18/2025 2:06 AM EST Narrative Resulting Agency Comment Performing Organization Information: Site ID: [id number] Name: [facility] Address: [address] [place] [phone] Director: Alfredo Alaniz M.D. us Stephanie Diaz MD LAB BLOOD ORDERABLES [facility] [address] [place] [phone] [facility] [address] [place] [phone] * AST (03/17/2025 12:37 PM EST) Only the most recent of4 resultswithin the time period is included. AST 27 10 - 40 U/L [facility] Blood BLOOD SPECIMEN / Unknown 03/17/2025 12:37 PM EST 03/18/2025 2:06 AM EST Narrative Resulting Agency Comment Performing Organization Information: Site ID: [id number] Name: [facility] Address: [address] [place] [phone] Director: Alfredo Alaniz M.D. us Stephanie Diaz MD LAB BLOOD ORDERABLES [facility] Result Performing Organization Address [facility] Co de Phone Number [facility] [facility] [address] [place] [phone] [facility] [address] [place] [phone] * Gamma GT (03/17/2025 12:37 PM EST) Only the most recent of4 resultswithin the time period is included. GGT 48 3 - 70 U/L [facility] Blood BLOOD SPECIMEN / Unknown 03/17/2025 12:37 PM EST 03/18/2025 2:06 AM EST Narrative Resulting Agency Comment Performing Organization Information: Site ID: [id number] Name: [facility] Address: [address] [place] [phone] Director: Alfredo Alaniz M.D. us Stephanie Diaz MD LAB BLOOD ORDERABLES Sheba l Result Performing Organization Address City/[facility] Co de Phone Number [facility] [address] [place] [phone] [place], [place] [address] [phone] * Nerve Block/Inject (03/04/2025 12:00 PM EST) Narrative Anselmo De Santiago MD - 03/04/2025 12:00 PM EST Anselmo De Santiago MD 03/04/2025 3:30 PM PROCEDURE REPORT 03/04/25 PREOPERATIVE DIAGNOSIS:bilateral occipital neuralgia, chronic migraine POSTOPERATIVE DIAGNOSIS: bilateral occipital neuralgia, chronic migraine PROCEDURE: bilateral greater and lesser occipital nerve block. SPG block SURGEON: Mily De Santiago MD THERMOMETER MAKER: None. DATE OF SURGERY: 03/04/25 ANESTHESIA: IV sedation. ESTIMATED BLOOD LOSS: 0mL COMPLICATIONS: None apparent. INDICATIONS: Herman Noguera) is a 19 y.o. male with longstanding headache, failing conservative therapy including behavioral health, medication management, physical therapy, hydration, and sleep hygiene. The symptoms of headache could represent occipital neuralgia or chronic migraine. I met with the family and reviewed the risks, benefits, alternatives and expected results of bilateral occipital nerve injection and SPG block, and they consented to same. PROCEDURE IN DETAIL: After obtaining informed consent and properly identifying the patient, the patient was brought to the sedation suite. IV sedation was administered by the anesthesia team. A surgical timeout was conducted. The posterior occiput was prepped with alcohol. A 25g needle was used to inject, based on anatomic landmarks, in the regions of bilateral greater and lesser occipital nerves. 10ml of lidocaine 10mg/ml were divided equally [...] LES Final Result * Inject Trigger Point(s) (02/11/2025 12:45 PM EST) Anselmo Damon MD - 02/11/2025 12:45 PM EST Anselmo De Santiago MD 02/11/2025 12:05 PM PROCEDURE REPORT 02/11/25 PREOPERATIVE DIAGNOSIS:myofascial pain syndrome, chronic migraine POSTOPERATIVE DIAGNOSIS: myofascial pain syndrome, chronic migraine PROCEDURE: bilateral occipital trigger point injection SPG block PROCEDURALIST: Anselmo DE SANTIAGO MD THERMOMETER MAKER: None. DATE OF SURGERY:02/11/25 ANESTHESIA: IV sedation. [...] headache protocol SURGEON: Mily De Santiago MD THERMOMETER MAKER: None. DATE OF procedure: 01/28/25 COMPLICATIONS: None apparent. INDICATIONS: Herman Eagle (Danny) is 19 y.o. with chronic daily headache [...] procedure well. Botox medication was provided by [facility] Anselmo DE SANTIAGO MD Anselmo De Santiago MD PROCEDURE/MINOR SURGICAL ORDERAB LES Final Result from Last 3 Months Insurance [place] [facility] MEDICAID Care Teams Zipper Joiner Relationship Specialty Start Date End Date Roym Brown MD [address] [facility] [address] [place] [address] PCP - General 11/12/15 Roe Mercado MD [address] [place] [id number] Consulting Physician Neurology 10/31/18 Kathy Ruelas MD [address] [place] [address] Consulting Physician Pain Medicine 10/31/18 Anoop Mackay MD PhD [address] [phone] Consulting Physician Pediatric Pulmonology 01/08/22 Lata Santamaria MD [address] [place] [address] Consulting Physician Gastroenterology 11/15/23 [facility] [address] [facility] [address] [facility] [address] Behavioral Health Clinician Behavioral Health 03/14/22
== END ==
LOC: HO.SL 08:59
PROVIDERS: PCP Health Educator; Visit Provider Hospitalist
DX: G47.33 Obstructive sleep apnea (adult) (pediatric) (principal)
CPT/HCPCS: 95806

== ENCOUNTER → 2025-03-19 09:08 | Outpatient (BNV) | payer OTHER, MEDICAID, SELFPAY | PROVIDERS: PCP Health Educator; Visit Provider Psychiatry & Neurology Neurology | DX: G47.33 Obstructive sleep apnea (adult) (pediatric) (principal) | CPT/HCPCS: 95806 ==